=== PATIENT | female | born 1950 | race Caucasian/White ===

== ENCOUNTER 2023-04-10 11:00 | Emergency (ER) | payer MEDICARE, MEDICAID, SELFPAY ==
--- NOTE | ~2023-04-10 | XR_ITS ---
XR chest 2V 04/10/2023 12:11 Indication: Chest pain Procedure: 2 view chest Comparison: Comparison to multiple prior studies sequentially, with oldest reviewed study dated 07/02. Findings: Borderline heart size. Pacemaker leads are stable. Mild pulmonary vascular congestion. No f ocal air space disease, pulmonary edema, pleural effusion or suspected pneumothorax. Impression: 1: No acute cardiopulmonary disease. Reviewed, dictated and finalized at location B. NT SERVICES COORDINATOR Impression: 1: No acute cardiopulmonary disease.
--- NOTE | 2023-04-10 11:04 | ECG_ITS ---
Measurements Intervals [place] Rate: 54 P: 48 FL: 198 QRS: -85 QRSD: 150 T: 44 QT: 494 QTc: 470 Interpretive Statements SINUS BRADYCARDIA MARKED LEFT AXIS DEVIATION [QRS AXIS < -30] RIGHT BUNDLE BRANCH BLOCK [120+ ms QRS DURATION, UPRIGHT V1, 40+ ms S IN I/aVL/V4/V5/V6] PROBABLE OLD aNTEROSEPTAL MYOCARDIAL INFARCTION NO PREVIOUS ECG AVAILABLE FOR COMPARISON Electronically Signed On 04-10-2023 12:11:21 GLOVE FINISHER by Iveth Justice M.D.
[2023-04-10 11:09] VITALS: BP 111/47; PULSE 52; RESP 18; TEMP 36.4; O2SAT 93
[2023-04-10 11:25] LABS: Basophils Absolute Auto 0.1 K/mm3 (0.0-0.1); Basophils Percent Auto 0.6 % (0.2-1.2); Eosinophils Absolute Auto 0.7 K/mm3 (0-0.3); Eosinophils Percent Auto 5.5 % (0-4.4); Hematocrit 36.9 % (37.0-47.0); Hemoglobin 11.2 g/dL (12.0-15.0); Immature Granulocyte Percent A 0.8 % (0-0.5); Lymphocytes Absolute Auto 2.78 K/mm3 (0.9-3.2); Lymphocytes Percent Auto 23.4 % (18.3-44.2); Mean Corpuscular HGB Conc 30.4 g/dl (32-36); Mean Corpuscular Hemoglobin 27.3 pg (26-34); Mean Corpuscular Volume 89.8 fl (80-100); Mean Platelet Volume 9.3 fl (7.4-10.4); Monocytes Absolute Auto 1.1 K/mm3 (0.1-0.6); Monocytes Percent Auto 9.6 % (2.6-8.5); Neutrophils Absolute Auto 7.2 K/mm3 (1.3-6.7); Neutrophils Percent Auto 60.1 % (45.5-73.1); Platelet Count Result 361 k/mm3 (150-375); Red Blood Count 4.11 M/mm3 (4.2-5.4); Red Cell Distribution Width 16.7 % (11.5-14.5); White Blood Count 11.9 K/mm3 (4.5-10.0)
[2023-04-10 11:38] LABS: Alanine Aminotransferase 26 U/L (6-35); Albumin Level 3.2 g/dL (3.5-5.1); Alkaline Phosphatase 131 U/L (38-126); Anion Gap 4 mmol/L (8-16); Aspartate Amino Transferase 38 U/L (14-36); Bilirubin,Total 0.6 mg/dL (0.2-1.3); Blood Urea Nitrogen 16 mg/dL (7-17); Calcium 8.5 mg/dL (8.4-10.2); Carbon Dioxide 32 mmol/L (22-30); Chloride 97 mmol/L (98-107); Estimated Glomerular Filt Rate 54; Glucose 110 mg/dL (65-110); Lipase 93 U/L (23-300); Sodium 133 mmol/L (137-145)
[2023-04-10 11:39] LABS: INR 1.1; Prothrombin Time 14.6 Seconds (11.1-14.7)
[2023-04-10 11:40] LABS: Partial Thromboplastin Time 26.8 SECONDS (22.3-36.8)
[2023-04-10 11:49] LABS: Troponin I < 0.012 ng/mL (0.000-0.034)
[2023-04-10 16:08] VITALS: BP 102/46; PULSE 52; RESP 21; O2SAT 92
[2023-04-10 16:36] VITALS: PULSE 51
[2023-04-10 16:57] VITALS: BP 108/92; PULSE 53; RESP 21; O2SAT 91
--- NOTE | 2023-04-10 16:59 | ECG_ITS ---
Measurements Intervals [place] Rate: 51 P: 48 [place]: 210 QRS: -83 QRSD: 158 T: 50 QT: 512 QTc: 473 Interpretive Statements ELECTRONIC ATRIAL PACEMAKER RIGHT BUNDLE BRANCH BLOCK [120+ ms QRS DURATION, UPRIGHT V1, 40+ ms S IN I/aVL/V4/V5/V6] LEFT ANTERIOR FASCICULAR BLOCK [QRS AXIS <= -45, QR IN I, RS IN II] POOR R-WAVE PROGRESSION, CANNOT RULE OUT OLD ANTERIOR DC. COMPARED TO ECG 04/10/2023 11:11:53 NO SIGNIFICANT CHANGE Electronically Signed On 04-10-2023 17:34:33 CHOKER SETTER by Iveth Justice M.D.
[2023-04-10] MEDS: ASPIRIN 81 MG CHEWABLE TABLET 324 MG PO (17:06)
[2023-04-10 17:22] VITALS: O2SAT 96
--- NOTE | 2023-04-10 17:23 | PC.NURSE ---
Pt placed on 2 L NC O2 due to PMH of COPD w/ PRN O2 use and sat of 91% on room air and pain w/ inspiration. Pulse OX now 96% on 2 L NC.
[2023-04-10 17:34] LABS: NT Pro B Type Natriuretic Pept 1630 pg/mL (19.9-100); Troponin I 0.012 ng/mL (0.000-0.034)
[2023-04-10 18:12] VITALS: BP 118/59; PULSE 69; RESP 21; O2SAT 96
--- NOTE | 2023-04-10 18:30 | ED.CHESTPAIN ---
HPI - Chest Pain General Chief Complaint: Chest Pain Stated Complaint: chest pain, feet swelling, balance off Time Seen by Provider: 04/10/23 16:39 History of Present Illness HPI narrative: 72-year-old female presenting to the ED for evaluation of intermittent chest pain that has been occurring for the last few weeks. Patient denies any current chest pain or shortness of breath in the ED today. Patient denies any fevers falls or injuries. Patient states she has been having increased lower extremity swelling as well. Related Data Allergies Allergy/AdvReac Type Severity Reaction Status Date / Time No Known Allergies Allergy Unverified 06/04/17 06:10 Review of Systems Review of Systems: All systems reviewed & are unremarkable except as noted in HPI and below Exam Narrative: APPEARANCE: Well appearing, no pain, no distress, well-nourished. HEAD: normocephalic, atraumatic. EYES: PERRLA/EOMI, conjunctivae clear. NOSE: Normal no drainage EARS:TMS clear with good light reflex. THROAT: Pharynx clear, no exudate. NECK: Supple. No adenopathy, no masses. RESPIRATORY: Airway patent, respirations nonlabored. Clear to auscultation bilaterally, no rales, rhonchi, wheezing. CARDIOVASCULAR: Regular rate and rhythm without murmurs rubs or gallops. ABDOMINAL: Soft, nontender, nondistended, normal bowel sounds MUSCULOSKELETAL: No significant lower extremity edema NEURO: Alert. Cranial nerves II through XII intact. grossly intact SKIN: Warm, dry. Normal Color Course Course Emergency Course: 72-year-old female present to the ED for evaluation of intermittent chest pain. Patient denies any current chest pain. Patient was afebrile but does have a leukocytosis 11.9. Hemoglobin is stable at 1.2. Patient has no significant abnormalities on her CMP. Patient does have an elevated BNP but chest x-ray shows no Significant pulmonary edema and patient has no lower extremity edema. Patient was able to ambulate at her baseline. While ambulating patient denied any chest pain shortness of breath. Patient was encouraged to have close follow-up with her primary care physician. Vital Signs Vital signs: Vital Signs Temperature 97.5 F L 04/10/23 11:09 Pulse Rate 52 L 04/10/23 11:09 Respiratory Rate 18 04/10/23 11:09 Blood Pressure 111/47 L 04/10/23 11:09 Pulse Oximetry 93 04/10/23 11:09 Temperature 97.5 F L 04/10/23 11:09 Pulse Rate 69 04/10/23 18:12 Respiratory Rate 21 H 04/10/23 18:12 Blood Pressure 118/59 L 04/10/23 18:12 Pulse Oximetry 96 04/10/23 18:12 Oxygen Delivery Nasal Cannula 04/10/23 17:22 Oxygen Flow Rate 2 04/10/23 17:22 MDM - Chest Pain Differential Diagnosis Differential diagnosis: Likely atypical chest pain and chest pain Lab Data Attestation: I reviewed the patient's lab results. 04/10/23 11:16 04/10/23 11:16 Labs: Lab Results 04/10/23 04/10/23 04/10/23 Range/Units 11:16 16:59 16:59 WBC 11.9 H (4.5-10.0) K/mm3 RBC 4.11 L (4.2-5.4) M/mm3 Hgb 11.2 L (12.0-15.0) g/dL Hct 36.9 L (37.0-47.0) % MCV 89.8 (80-100) fl MCH 27.3 (26-34) pg MCHC 30.4 L (32-36) g/dl RDW 16.7 H (11.5-14.5) % Plt Count 361 (150-375) k/mm3 MPV 9.3 (7.4-10.4) fl Immature Gran % (Auto) 0.8 H (0-0.5) % Neut % (Auto) 60.1 (45.5-73.1) % Lymph % (Auto) 23.4 (18.3-44.2) % [place] % (Auto) 9.6 H (2.6-8.5) % Eos % (Auto) 5.5 H (0-4.4) % Baso % (Auto) 0.6 (0.2-1.2) % Lymph # (Auto) 2.78 (0.9-3.2) K/mm3 [place] # (Auto) 1.1 H (0.1-0.6) K/mm3 Eos # (Auto) 0.7 H (0-0.3) K/mm3 Baso # (Auto) 0.1 (0.0-0.1) K/mm3 Abs Immat Gran (auto) 0.10 H (0.00-0.031) K/mm3 Absolute Neuts (auto) 7.2 H (1.3-6.7) K/mm3 Absolute Nucleated RBC 0.0 (0.0-0.012) K/mm3 Nucleated RBC % 0.0 (0.0-0.2) % PT 14.6 (11.1-14.7) Seconds INR 1.1 APTT 26.8 (22.3-36.8) SECONDS Sodium 133
== END 2023-04-10 18:57 | disposition home or self-care (01) ==
PROVIDERS: Emergency Provider Emergency Medicine
DX: R07.89 Other chest pain (principal); R00.1 Bradycardia, unspecified; I45.2 Bifascicular block
CPT/HCPCS: 36415; 71046; 80053; 83690; 83880; 84484; 85025; 85610; 85730; 93005; 99284; A9270

== ENCOUNTER 2023-04-18 05:09 | Inpatient (IN) | payer MEDICARE, MEDICAID, SELFPAY ==
[2023-04-18] VITALS (25 sets, daily range): BP systolic 106–150; BP diastolic 58–82; PULSE 55–85; RESP 14–39; TEMP 36–37.2; O2SAT 80–100; BMI 26.6
--- NOTE | ~2023-04-18 | XR_ITS ---
Portable chest x-ray Comparison: 04/19/2023 Clinical History: Influenza Findings: Minimal patchy haziness the right lung noted. Left lung clear. Cardiomediastinal silhouet te is stable, with pacemaker device. Bones and soft tissues are unremarkable. Impression: Minimal patchy haziness right lung, nonspecific. Correlate for asymmetric pulmonary edema or infectio n. Stable cardiomegaly with pacemaker device. Reviewed, dictated and finalized at location . R LAYER HELPER Impression: Minimal patchy haziness right lung, nonspecific. Correlate for asymmetric pulmo nary edema or infection. Stable cardiomegaly with pacemaker device.
--- NOTE | ~2023-04-18 | XR_ITS ---
Portable chest x-ray Comparison: 04/18/2023 Clinical History: Influenza Findings: Patchy bilateral pulmonary disease is mildly improved from prior exam. Cardiomediastinal silhouette is stable, with pacemaker device. Bones and soft tissues are unremarkable. Impression: Mild interval improvement in patchy bilateral pulmonary disease. Reviewed, dictated and finalized at [facility]. LINE REPAIRER Impression: Mild interval improvement in patchy bilateral pulmonary disease.
--- NOTE | ~2023-04-18 | XR_ITS ---
Portable chest x-ray Comparison: 04/10/2023 Clinical History: Shortness of breath Findings: There is extensive hazy pulmonary consolidation bilaterally. No definite pleural effusion. Cardiomediastinal silhouette is stable, with pacemaker device. Bones and soft tissues are unremarka ble. Impression: Extensive airspace consolidation bilaterally. Correlate for pulmonary edema versus extensive pneumoni a. Reviewed, dictated and finalized at [facility]. TRICIAN AIRCRAFT Impression: Extensive airspace consolidation bilaterally. Correlate for pulmonary edema ricardo billie extensive pneumonia.
--- NOTE | 2023-04-18 05:23 | ECG_ITS ---
Measurements Intervals [place] Rate: 86 P: 214 [place]: 159 QRS: -89 QRSD: 168 T: 44 QT: 358 QTc: 430 Interpretive Statements SINUS RHYTHM WITH A FIRST-DEGREE AV BLOCK MARKED LEFT AXIS DEVIATION [QRS AXIS < -30] RIGHT BUNDLE BRANCH BLOCK [120+ ms QRS DURATION, UPRIGHT V1, 40+ ms S IN I/aVL/V4/V5/V6] CAN NOT RULE OUT ANTERIOR MYOCARDIAL INFARCTION, AGE INDETERMINATE ABNORMAL ECG COMPARED TO ECG 04/10/2023 17:09:09 ECTOPIC ATRIAL RHYTHM NOW PRESENT LEFT-AXIS DEVIATION NOW PRESENT Electronically Signed On 04-18-2023 14:01:41 BUS DRIVER/MONITOR by Abdelrahman Bashir M.D.
--- NOTE | 2023-04-18 05:28 | ED.GENADULT ---
HPI - General Adult General Chief complaint: Shortness of Breath/Dyspnea Stated complaint: SOB, ANXIOUS Time Seen by Provider: 04/18/23 05:19 History of Present Illness HPI narrative: patient is a 72-year-old female presents the emergency department with chief complaint of shortness of breath patient states that she started having difficulty breathing this evening and reports that he got worse decided to call EMS when EMS arrived they found the patient hypoxic and tripoding the tip to give the patient breathing treatment without relief Related Data Allergies Allergy/AdvReac Type Severity Reaction Status Date / Time No Known Allergies Allergy Unverified 06/04/17 06:10 Review of Systems Review of Systems: A 10 system review of systems was completed on the patient and is negative except for what is stated in the HPI. Nursing and ancillary documentation was reviewed. Exam Narrative: GENERAL: Well-appearing, well-nourished, and in moderate acute respiratorydistress. HEAD: Normocephalic, atraumatic. EYES: PERRLA and EOMI. ENT: Nares clear, no rhinorrhea or epistaxis. Mucous membranes moist. NECK: Supple. CHEST: Clear to auscultation. moderate respiratory distress. HEART: Regular rate and rhythm. No murmur heard. Normal peripheral pulses. ABDOMEN: Soft, nontender, nondistended, normal active bowel sounds. EXTREMITIES: Normal range of motion. No edema. SKIN: Warm, dry, no rash. NEURO: No focal deficits. Alert and oriented x3. PSYCH: Normal mood and affect. Course Vital Signs Vital signs: Vital Signs Pulse Rate 85 04/18/23 05:11 Respiratory Rate 36 H 04/18/23 05:11 Pulse Oximetry 80 L 04/18/23 05:11 Oxygen Delivery Nasal Cannula 04/18/23 05:11 Oxygen Flow Rate 6 04/18/23 05:11 Pulse Rate 78 04/18/23 06:25 Respiratory Rate 30 H 04/18/23 06:25 Pulse Oximetry 99 04/18/23 06:25 Oxygen Delivery BiPAP 04/18/23 05:58 Oxygen Flow Rate 4 04/18/23 05:57 Medical Decision Making Vital Signs Vital Signs: Vital Signs Pulse Rate 85 04/18/23 05:11 Respiratory Rate 36 H 04/18/23 05:11 Pulse Oximetry 80 L 04/18/23 05:11 Oxygen Delivery Nasal Cannula 04/18/23 05:11 Oxygen Flow Rate 6 04/18/23 05:11 Pulse Rate 78 04/18/23 06:25 Respiratory Rate 30 H 04/18/23 06:25 Pulse Oximetry 99 04/18/23 06:25 Oxygen Delivery BiPAP 04/18/23 05:58 Oxygen Flow Rate 4 04/18/23 05:57 Lab Data 04/18/23 05:31 04/18/23 05:31 Labs: Lab Results 04/18/23 04/18/23 04/18/23 Range/Units 05:31 05:49 06:28 WBC 23.4 H (4.5-10.0) K/mm3 RBC 4.79 (4.2-5.4) M/mm3 Hgb 12.8 (12.0-15.0) g/dL Hct 44.0 (37.0-47.0) % MCV 91.9 (80-100) fl MCH 26.7 (26-34) pg MCHC 29.1 L (32-36) g/dl RDW 17.0 H (11.5-14.5) % Plt Count 508 H (150-375) k/mm3 MPV 10.2 (7.4-10.4) fl Immature Gran % (Auto) Not Reportable Neut % (Auto) Not Reportable Lymph % (Auto) Not Reportable [place] % (Auto) Not Reportable Eos % (Auto) Not Reportable Baso % (Auto) Not Reportable Lymph # (Auto) Not Reportable [place] # (Auto) Not Reportable Eos # (Auto) Not Reportable Baso # (Auto) Not Reportable Abs Immat Gran (auto) Not Reportable Absolute Neuts (auto) Not Reportable Absolute Nucleated RBC Not Reportable Total Counted 100 Neutrophils % (Manual) 61 (46-73) % Band Neutrophils % 2 (0-6) % Lymphocytes % (Manual) 34.0 (18-44) % Monocytes % (Manual) 2 L (3-9) % Eosinophils % (Manual) 1 (0-4) % Nucleated RBC % Not Reportable Abs Neuts (Manual) 14.74 H (1.7-7.2) K/mm3 Abs Lymphs (Manual) 7.95 H (1.1-4.5) K/mm3 Abs Monocytes (Manual) 0.46 (0.1-0.90) K/mm3 Absolute Eos (Manual) 0.23 (0.02-0.5) K/mm3 Smudge Cells Present Platelet Estimate Increased (Adequate) Poikilocytosis 2+ (NORMAL) Anisocy
[2023-04-18] MEDS: methylPREDNISolone SOD SUCC 125 MG VIAL IV PUSH (05:32)
[2023-04-18] MEDS: ONDANSETRON INJ 4 MG/2 ML VIAL IV PUSH (05:33)
[2023-04-18 05:43] LABS: Hemoglobin 12.8 g/dL (12.0-15.0); Mean Corpuscular HGB Conc 29.1 g/dl (32-36); Mean Corpuscular Hemoglobin 26.7 pg (26-34); Mean Corpuscular Volume 91.9 fl (80-100); Mean Platelet Volume 10.2 fl (7.4-10.4); Platelet Count Result 508 k/mm3 (150-375); Red Blood Count 4.79 M/mm3 (4.2-5.4); White Blood Count 23.4 K/mm3 (4.5-10.0)
[2023-04-18 05:56] LABS: INR 1.1; Partial Thromboplastin Time 26.1 SECONDS (22.3-36.8); Prothrombin Time 15.1 Seconds (11.1-14.7)
[2023-04-18 06:00] LABS: Lactic Acid Reflex 3.7 mmol/L (0.7-2.0)
[2023-04-18 06:02] LABS: Alveolar/Arterial O2 Gradient 246.7 mmHg; Base Excess ABG -3.1 mEq/l (+/-2.0); Fractional Inspired Oxygen 50 %; HCO3 ABG 25.1 mEq/l (22.0-26.0); Oxygen Content ABG 12.2 %vol (16.0-22.0); PCO2 ABG 59.7 mmHg (35.0-45.0); PO2 FiO2 Ratio Arterial Blood 0.85 %; Total Hemoglobin 12.6 g/dL (12.0-18.0)
[2023-04-18 06:05] LABS: Alanine Aminotransferase 92 U/L (6-35); Albumin Level 3.6 g/dL (3.5-5.1); Alkaline Phosphatase 185 U/L (38-126); Anion Gap 9 mmol/L (8-16); Aspartate Amino Transferase 115 U/L (14-36); Bilirubin,Total 1.2 mg/dL (0.2-1.3); Blood Urea Nitrogen 24 mg/dL (7-17); Calcium 9.4 mg/dL (8.4-10.2); Carbon Dioxide 30 mmol/L (22-30); Chloride 99 mmol/L (98-107); Estimated Glomerular Filt Rate > 60; Glucose 197 mg/dL (65-110); Potassium 4.2 mmol/L (3.4-5.0); Sodium 138 mmol/L (137-145)
[2023-04-18 06:05] LABS: pH ABG 7.242 (7.350-7.450)
[2023-04-18 06:06] LABS: Oxygen Saturation ABG 69.1 % (95.0-100.0); PO2 ABG 42.6 mmHg (80.0-100.0)
[2023-04-18 06:08] LABS: Oxyhemoglobin 69.1 % THb (90.0-100.0)
[2023-04-18 06:09] LABS: Device BIPAP; Modified Allen's Test Pass; Site Drawn LEFT RADIAL
[2023-04-18 06:10] LABS: Expiratory Pressure 6 cmH2O; Inspiratory Pressure 12 cmH2O
[2023-04-18 06:11] LABS: Anisocytosis 2+ (NORMAL); Band Neutrophils Percent 2 % (0-6); Eosinophils Absolute Manual 0.23 K/mm3 (0.02-0.5); Eosinophils Percent Manual 1 % (0-4); Lymphocytes Absolute Manual 7.95 K/mm3 (1.1-4.5); Monocytes Absolute Manual 0.46 K/mm3 (0.1-0.90); Monocytes Percent Manual 2 % (3-9); Neutrophils Absolute Manual 14.74 K/mm3 (1.7-7.2); Neutrophils Percent Manual 61 % (46-73); Platelet Estimate Increased (Adequate); Poikilocytosis 2+ (NORMAL); Schistocytes None Seen (NORMAL); Smudge Cells PRESENT; Total Cells Counted 100
[2023-04-18 06:13] LABS: Troponin I 0.014 ng/mL (0.000-0.034)
[2023-04-18 06:14] LABS: NT Pro B Type Natriuretic Pept 9320 pg/mL (19.9-100)
[2023-04-18 06:18] LABS: Influenza A QL RT-PCR Positive (Negative); Influenza B QL RT-PCR Negative (Negative); Procalcitonin 0.2 ng/mL; RSV RNA, RT-PCR Negative (Negative); SARS-CoV-2 RNA PCR Negative (Negative)
[2023-04-18 06:38] LABS: Appearance Urine Clear (Clear); Bacteria Urine 1+ /hpf; Bilirubin Urine Negative (Negative); Blood Urine 1+ (Negative); Color Urine Yellow (Yellow); Glucose Urine UA 3+ mg/dL (Negative); Ketones Urine Negative (Negative); Leukocyte Esterase Ur Negative LEU/UL (Negative); Nitrate Urine Negative (Negative); Protein Urine 2+ mg/dL (Negative); Specific Grav Ur 1.028 (1.001-1.035); Squamous Epithelial Cell Urine Occasional /hpf (Few); WBC Urine 0-5 /hpf; pH Urine 5.5 (5.0-9.0)
[2023-04-18 06:52] LABS: Add Urine Microscopic? YES
--- NOTE | 2023-04-18 06:58 | PM.IMHP ---
H&P: HPI History of Present Illness Date/Time: 04/18/23 06:58 Chief Complaint: SOB Narrative: patient is a 72-year-old female presents the emergency department with chief complaint of shortness of breath patient states that she started having difficulty breathing this evening and reports that he got worse decided to call EMS when EMS arrived they found the patient hypoxic and tripoding the tip to give the patient breathing treatment without relief. She was evaluated and found to be in respiratory failure and BIPAP was intitated immediately, antibiotics, steroid and breathing treatment already given. I was consulted to admit patient for further management Review of Systems Review of Systems: All systems reviewed & are unremarkable except as noted in HPI and below Meds Home Medications and Allergies Allergies Allergy/AdvReac Type Severity Reaction Status Date / Time No Known Allergies Allergy Unverified 06/04/17 06:10 Vital Signs Vital Signs - 24 hr 04/18/23 05:11 04/18/23 05:57 04/18/23 05:58 Pulse Rate 85 Respiratory Rate 36 H Pulse Oximetry 80 L 84 L 96 Oxygen Delivery Nasal Cannula Nasal Cannula BiPAP Oxygen Flow Rate 6 4 04/18/23 06:25 04/18/23 05:58 Pulse Rate 78 82 Respiratory Rate 30 H 39 H Pulse Oximetry 99 96 Oxygen Delivery BiPAP Oxygen Flow Rate Exam Narrative: GENERAL: acutely ill looking patient in moderate distress. HEAD: Normocephalic, atraumatic. EYES: PERRLA and EOMI. ENT: Nares clear, no rhinorrhea or epistaxis.?dry membranes moist. NECK: Supple. CHEST: Tachypneic, bilateral expiratory wheezes with rales. HEART: Regular rate and rhythm.? No murmur heard.? Normal peripheral pulses,no edema. ABDOMEN: Soft, nontender, nondistended, normal active bowel sounds. EXTREMITIES: Normal range of motion.? No edema. SKIN: Warm, dry, no rash. NEURO: No focal deficits.? Alert and oriented x3. PSYCH: Normal mood and affect. ? H&P: Results Labs Labs: Short CBC 04/18/23 Range/Units 05:31 WBC 23.4 H (4.5-10.0) K/mm3 Hgb 12.8 (12.0-15.0) g/dL Hct 44.0 (37.0-47.0) % Plt Count 508 H (150-375) k/mm3 BMP 04/18/23 05:31 Sodium 138 Potassium 4.2 Chloride 99 Carbon Dioxide 30 BUN 24 H Creatinine 0.80 Glucose 197 H Calcium 9.4 Cardiac Enzymes 04/18/23 Range/Units 05:31 Troponin I 0.014 (0.000-0.034) ng/mL Liver Function 04/18/23 Range/Units 05:31 Total Bilirubin 1.2 (0.2-1.3) mg/dL AST 115 H (14-36) U/L ALT 92 H (6-35) U/L Alkaline Phosphatase 185 H (38-126) U/L Albumin 3.6 (3.5-5.1) g/dL Urine 04/18/23 Range/Units 06:28 Urine Color Yellow (Yellow) Urine Appearance Clear (Clear) Urine pH 5.5 (5.0-9.0) Ur Specific [place] 1.028 (1.001-1.035) Urine Protein 2+ H (Negative) mg/dL Urine Glucose (UA) 3+ H (Negative) mg/dL ECG Interpretation: Sinus rhythm, normal RI, left axis deviation, RBBB, no acute ST-T wave changes Imaging Chest x-ray: Radiologist's impression: mpression: ? Extensive airspace consolidation bilaterally. Correlate for pulmonary edema versus extensive pneumonia. Assessment and Plan Assessment and plan (1) Acute hypoxemic respiratory failure: Code(s): J96.01 - Acute respiratory failure with hypoxia Status: Acute (2) Acute hypercapnic respiratory failure: Code(s): J96.02 - Acute respiratory failure with hypercapnia Status: Acute (3) Bilateral pneumonia: Code(s): J18.9 - Pneumonia, unspecified organism Status: Acute (4) Influenza A: Code(s): J10.1 - Influenza due to other identified influenza virus with other respiratory manifestations Status: Acute Plan Patient will be admitted to inpatient for further management, he is currently on BIPAP, will repeat ABG in an hour and make changes accordingly,, continue antibiotics - ceftriaxone and azithromycin. She appears dehydrated and she will be g
[2023-04-18] MEDS: IPRATROPIUM BR 0.02% INH SOLN 0.5 MG/2.5 ML VIAL INHALATION ×3 (07:00→21:17)
[2023-04-18] MEDS: ALBUTEROL SULFATE NEB 2.5 MG/3 ML INH INHALATION ×3 (07:00→21:18)
[2023-04-18] MEDS: FUROSEMIDE INJ 40 MG/4 ML VIAL IV PUSH (07:02)
[2023-04-18] MEDS: AZITHROMYCIN 500 MG/NS 250 ML 500 MG/250 ML BAG 250 MG IVPB (08:29)
[2023-04-18] MEDS: SODIUM CHLORIDE 0.9% IV 1,000 ML 999 ML IV CONT (08:31)
[2023-04-18 08:40] LABS: Reflex Lactic Acid Yes or No Add Lactic
--- NOTE | 2023-04-18 08:40 | ECG_ITS ---
Measurements Intervals [place] Rate: 70 P: 55 MD: 212 QRS: -83 QRSD: 169 T: 18 QT: 386 QTc: 416 Interpretive Statements SINUS RHYTHM WITH FIRST DEGREE AV BLOCK MARKED LEFT AXIS DEVIATION [QRS AXIS < -30] RIGHT BUNDLE BRANCH BLOCK [120+ ms QRS DURATION, UPRIGHT V1, 40+ ms S IN I/aVL/V4/V5/V6] ANTEROSEPTAL MYOCARDIAL INFARCTION , OF INDETERMINATE AGE [40+ ms Q WAVE IN V1-V4] ABNORMAL ECG COMPARED TO ECG 04/18/2023 05:27:21 FIRST DEGREE AV BLOCK NOW PRESENT Electronically Signed On 04-18-2023 14:03:59 R D INTERN by Abdelrahman Bashir M.D.
[2023-04-18 09:05] LABS: Lactic Acid 1.6 mmol/L (0.7-2.0)
[2023-04-18 09:09] LABS: Alveolar/Arterial O2 Gradient 203.2 mmHg; Base Excess ABG 5.4 mEq/l (+/-2.0); Fractional Inspired Oxygen 50 %; HCO3 ABG 30.7 mEq/l (22.0-26.0); Oxygen Content ABG 15.8 %vol (16.0-22.0); Oxygen Saturation ABG 97.6 % (95.0-100.0); Oxyhemoglobin 95.5 % THb (90.0-100.0); PO2 ABG 99.3 mmHg (80.0-100.0); PO2 FiO2 Ratio Arterial Blood 1.99 %; Total Hemoglobin 11.7 g/dL (12.0-18.0); pH ABG 7.424 (7.350-7.450)
[2023-04-18 09:12] LABS: Device BIPAP; Site Drawn RIGHT BRACHIAL
[2023-04-18 09:13] LABS: Expiratory Pressure 6 cmH2O; Inspiratory Pressure 12 cmH2O
[2023-04-18 09:17] LABS: Troponin I 0.033 ng/mL (0.000-0.034)
[2023-04-18] MEDS: OSELTAMIVIR PHOSPHATE 75 MG CAPSULE PO ×2 (09:50→21:02)
[2023-04-18] MEDS: ENOXAPARIN 40 MG/0.4 ML SYRINGE SUB-Q (09:52)
--- NOTE | 2023-04-18 09:57 | PM.IMPN ---
Progress Note: A&P Assessment and Plan (1) Acute hypoxemic respiratory failure: Code(s): J96.01 - Acute respiratory failure with hypoxia Status: Acute (2) Acute hypercapnic respiratory failure: Code(s): J96.02 - Acute respiratory failure with hypercapnia Status: Acute (3) Bilateral pneumonia: Code(s): J18.9 - Pneumonia, unspecified organism Status: Acute (4) Influenza A: Code(s): J10.1 - Influenza due to other identified influenza virus with other respiratory manifestations Status: Acute Plan patient is a 72-year-old female presents the emergency department with chief complaint of shortness of breath patient states that she started having difficulty breathing this evening and reports that he got worse decided to call EMS when EMS arrived they found the patient hypoxic and tripoding the tip to give the patient breathing treatment without relief. She was evaluated and found to be in respiratory failure and BIPAP was intitated immediately, antibiotics, steroid and breathing treatment already given. Multifocal pneumonia Better pneumonia superimposed with his influenza a infection Extensive airspace consolidation bilaterally Correlate for pulmonary edema versus extensive pneumonia. currently on BIPAP, will repeat ABG in an hour and make changes accordingly,, on ceftriaxone and azithromycin. ordered echocardiogram Received Lasix 40 mg once in the ED Continue Tamiflu, azithromycin 500 mg IV daily and switch from ceftriaxone from 1 g to cefepime 2 g IV q.8 hours Consult scroll machine operator for evaluation and treatment Sepsis Leukocytosis 23,400, tachypnea, lactic acidosis Likely secondary to multifocal pneumonia Received fluid resuscitation Follow-up blood culture Acute respiratory failure is hypoxemia and hypercapnia Patient is on BiPAP Repeated ABG suggesting improving CO2 retention and oxygenation Subjective Date/time seen: 04/18/23 09:57 Interval history: I saw and examined patient today. Patient still somnolent, on BiPAP, poor historian, unreliable history. Patient feels better, shortness breast improving Exam Narrative: GENERAL: acutely ill looking patient in moderate distress. HEAD: Normocephalic, atraumatic. EYES: PERRLA and EOMI. ENT: Nares clear, no rhinorrhea or epistaxis.?dry membranes moist. NECK: Supple. CHEST: Tachypneic, bilateral expiratory wheezes with rales. HEART: Regular rate and rhythm.? No murmur heard.? Normal peripheral pulses,no edema. ABDOMEN: Soft, nontender, nondistended, normal active bowel sounds. EXTREMITIES: Normal range of motion.? No edema. SKIN: Warm, dry, no rash. NEURO: No focal deficits.? Oblique, somnolent, not oriented x3. PSYCH: Normal mood and affect. ? Objective Data Vital Signs Vital Signs: Vital Signs - 24 hr 04/18/23 05:11 04/18/23 05:57 04/18/23 05:58 Temperature Pulse Rate 85 Respiratory Rate 36 H Blood Pressure Pulse Oximetry 80 L 84 L 96 Oxygen Delivery Nasal Cannula Nasal Cannula BiPAP Oxygen Flow Rate 6 4 04/18/23 06:25 04/18/23 05:58 04/18/23 06:50 Temperature Pulse Rate 78 82 72 Respiratory Rate 30 H 39 H 28 H Blood Pressure Pulse Oximetry 99 96 100 Oxygen Delivery BiPAP BiPAP Oxygen Flow Rate 04/18/23 06:50 04/18/23 07:00 04/18/23 08:10 Temperature Pulse Rate 72 76 66 Respiratory Rate 28 H 30 H 25 H Blood Pressure 127/61 Pulse Oximetry 98 Oxygen Delivery Oxygen Flow Rate 04/18/23 08:39 04/18/23 09:55 Temperature 97.8 F Pulse Rate 69 65 Respiratory Rate 26 H 25 H Blood Pressure 106/58 L 124/79 Pulse Oximetry 93 98 Oxygen Delivery Oxygen Flow Rate Intake/Output Intake/Output: Intake & Output 04/15/23 04/16/23 04/17/23 04/18/23 23:59 23:59 23:59 23:59 Intake Total 50 Output Total 425 Balance -375 Meds/Results Medications: Active Medications Generic Name Dose Route Start Last Admin Trade Name Freq PRN Reason
[2023-04-18] MEDS: CEFEPIME 2 GM/NS 50 ML 2 GM/50 ML BAG IVPB ×2 (11:41→21:02)
--- NOTE | 2023-04-18 14:30 | ADMGEN ---
This patient, Bibiana Danielle, was admitted to IMU Room 204-01. Patient/family oriented to hospital policies and general routines including ID bracelet, bed and alarms, visiting hours, pain management, procedures, bathroom and other care routines, personal items, smoking policy, room service/diet, and visiting hours. Information on how to activate the Rapid Response Team has been discussed. Patient/Family are encouraged to report perceived risks to care and to ask questions if they do not understand what they are told or what they should do.
[2023-04-18] MEDS: SODIUM CHLORIDE 0.9% IV 1,000 ML 125 ML IV CONT (14:51)
--- NOTE | 2023-04-18 16:15 | PM.CNPUL ---
Assessment and Plan Assessment and plan (1) Influenza A: Code(s): J10.1 - Influenza due to other identified influenza virus with other respiratory manifestations Status: Acute Assessment and Plan: Patient presents with hypoxemic and hypercarbic respiratory failure from influenza a. She has been started on Tamiflu. She was also treated with ceftriaxone and azithromycin for possible bacterial infection. 04/18: When I enter the room the patient was sleeping on BiPAP rate of 12 breathing 20 5 times pressures 12/5, tidal volumes 281 with 40% FiO2 and saturations 100%. The patient stated that the settings and the air was uncomfortable and I changed her to a noninvasive ventilator mode with an AVAPS rate of 14, tidal volume 450, EPAP 5, minimal inspiratory pressure 6, maximal inspiratory pressure 25, inspiratory time 1.0, rise of 4 and 35% FiO2 with saturations 99%. She had no wheezing on the BiPAP. Plan: Continue Tamiflu 75 mg p.o. b.i.d., today is day 1. She was given steroids in the emergency room and these have been discontinued. I recommend discontinuing all steroids including nailed corticosteroids at this time. Monitor for fluid overload given her cardiac history. Patient can use noninvasive ventilator p.r.n. during the day she should wear the noninvasive ventilator at night. I will obtain an ABG prior to removal in the morning. Will follow with you. (2) COPD (chronic obstructive pulmonary disease): Code(s): J44.9 - Chronic obstructive pulmonary disease, unspecified Status: Acute Assessment and Plan: Patient tells me she carries a history of COPD. She is on no COPD medicines. I have no PFTs. She was had bilateral wheezing on presentation. Plan: Agree with albuterol and ipratropium nebulizers q.4 hours. Will not give steroids at this time. History of Present Illness History of Present Illness Consult date: 04/18/23 Chief complaint: acute vopd exacerbation,hypercapnic respiratory fa Narrative: 04/18/2023: This is a new pulmonary consultation regarding influenza and hypercarbic and hypoxemic respiratory failure. 72-year-old with a history of cardiomyopathy status post AICD, COPD was currently on BiPAP and has difficulty speaking. History obtained from the chart. Patient developed shortness of breath over the last 1-2 days and called EMS and she was in respiratory failure. She is immediately placed on BiPAP in the emergency room. Her 1st blood gas on BiPAP 12/6 and 50% was 7.24/60/43. Her white blood cell count was 23.4. Her creatinine was 0.8, troponins were negative x3, BNP was 1630 with a repeat of 9320. Repeat blood gas 4 hours later was 7.42/48/99. Patient was found to have influenza a RT PCR positive. Chest x-ray showed diffuse interstitial alveolar infiltrates bilaterally. Patient was started on Tamiflu, ceftriaxone, azithromycin and bronchodilators. Patient was admitted to the floor and has been on continuous BiPAP. 04/18: When I enter the room the patient was sleeping on BiPAP rate of 12 breathing 20 5 times pressures 12/5, tidal volumes 281 with 40% FiO2 and saturations 100%. The patient stated that the settings and the air was uncomfortable and I changed her to a noninvasive ventilator mode with an AVAPS rate of 14, tidal volume 450, EPAP 5, minimal inspiratory pressure 6, maximal inspiratory pressure 25, inspiratory time 1.0, rise of 4 and 35% FiO2 with saturations 99%. She had no wheezing on the BiPAP. Review of Systems Review of Systems: ROS unobtainable: Yes unobtainable due to medical condition and other (BiPAP) Meds Home Medications and Allergies Home Medications Medication Instructions Recorded Confirmed Type albuterol sulfate 90 mcg/actuation 90 mcg inhalation DIRECTED 04/18/23 04/18/23 History aerosol inhaler amiodarone 200 mg tablet 200 mg PO BID 04/18/23 04/18/23 History clopidogrel 75 mg tablet 75 mg PO DAILY 04/18/23 04/18/23 History dapaglifl
[2023-04-19] VITALS (28 sets, daily range): BP systolic 110–132; BP diastolic 45–61; PULSE 58–80; RESP 16–20; TEMP 35.9–37.7; O2SAT 92–100
[2023-04-19] MEDS: ALBUTEROL SULFATE NEB 2.5 MG/3 ML INH INHALATION ×6 (00:36→22:33)
[2023-04-19] MEDS: IPRATROPIUM BR 0.02% INH SOLN 0.5 MG/2.5 ML VIAL INHALATION ×6 (00:37→22:33)
[2023-04-19] MEDS: ACETAMINOPHEN 325 MG TABLET 650 MG PO ×2 (04:07→20:01)
[2023-04-19 05:24] LABS: Basophils Percent Auto 0.1 % (0.2-1.2); Hematocrit 36.6 % (37.0-47.0); Hemoglobin 10.8 g/dL (12.0-15.0); Immature Granulocyte Absolute 0.08 K/mm3 (0.00-0.031); Immature Granulocyte Percent A 0.7 % (0-0.5); Lymphocytes Percent Auto 10.1 % (18.3-44.2); Mean Corpuscular HGB Conc 29.5 g/dl (32-36); Mean Corpuscular Hemoglobin 26.4 pg (26-34); Mean Corpuscular Volume 89.5 fl (80-100); Monocytes Absolute Auto 0.5 K/mm3 (0.1-0.6); Monocytes Percent Auto 4.8 % (2.6-8.5); Neutrophils Absolute Auto 9.2 K/mm3 (1.3-6.7); Neutrophils Percent Auto 84.3 % (45.5-73.1); Platelet Count Result 313 k/mm3 (150-375); Red Blood Count 4.09 M/mm3 (4.2-5.4); Red Cell Distribution Width 16.8 % (11.5-14.5); White Blood Count 10.9 K/mm3 (4.5-10.0)
[2023-04-19 05:46] LABS: Anion Gap 4 mmol/L (8-16); Blood Urea Nitrogen 25 mg/dL (7-17); Calcium 8.4 mg/dL (8.4-10.2); Carbon Dioxide 32 mmol/L (22-30); Chloride 105 mmol/L (98-107); Estimated Glomerular Filt Rate > 60; Glucose 97 mg/dL (65-110); Potassium 3.8 mmol/L (3.4-5.0); Sodium 141 mmol/L (137-145)
[2023-04-19] MEDS: AZITHROMYCIN 500 MG/NS 250 ML 500 MG/250 ML BAG 250 MG IVPB (05:49)
--- NOTE | 2023-04-19 06:36 | PCRCNOTE ---
Did not complete 6 A.M. ABG because pt refused to wear BIPAP all night.
[2023-04-19 07:29] LABS: Hypochromasia 1+ (NORMAL); Platelet Estimate Adequate (Adequate); Schistocytes None Seen (NORMAL)
[2023-04-19 07:30] LABS: Anisocytosis 1+ (NORMAL)
--- NOTE | 2023-04-19 08:57 | PM.IMPN ---
Progress Note: A&P Assessment and Plan (1) Acute hypoxemic respiratory failure: Code(s): J96.01 - Acute respiratory failure with hypoxia Status: Acute (2) Acute hypercapnic respiratory failure: Code(s): J96.02 - Acute respiratory failure with hypercapnia Status: Acute (3) Bilateral pneumonia: Code(s): J18.9 - Pneumonia, unspecified organism Status: Acute (4) Influenza A: Code(s): J10.1 - Influenza due to other identified influenza virus with other respiratory manifestations Status: Acute Plan patient is a 72-year-old female presents the emergency department with chief complaint of shortness of breath patient states that she started having difficulty breathing this evening and reports that he got worse decided to call EMS when EMS arrived they found the patient hypoxic and tripoding the tip to give the patient breathing treatment without relief. She was evaluated and found to be in respiratory failure and BIPAP was intitated immediately, antibiotics, steroid and breathing treatment already given. Multifocal pneumonia Better pneumonia superimposed with his influenza a infection Extensive airspace consolidation bilaterally Correlate for pulmonary edema versus extensive pneumonia. currently on BIPAP, will repeat ABG in an hour and make changes accordingly,, on ceftriaxone and azithromycin. ordered echocardiogram Received Lasix 40 mg once in the ED Continue Tamiflu, azithromycin 500 mg IV daily and switch from ceftriaxone from 1 g to cefepime 2 g IV q.8 hours Consult voice pathologist for evaluation and treatment, appreciate Dr Shirley's consultation, dc steroid Fluid over load received lasix iv in ED c/w lasix 40 mg iv daily f/u echo Sepsis Leukocytosis 23,400, tachypnea, lactic acidosis Likely secondary to multifocal pneumonia Received fluid resuscitation Follow-up blood culture Acute respiratory failure is hypoxemia and hypercapnia Patient is on BiPAP Repeated ABG suggesting improving CO2 retention and oxygenation Subjective Date/time seen: 04/19/23 08:57 Interval history: I saw exam patient today. Patient still has cough with some phlegm. No dyspnea at rest, also denies chest pain, abdomen pain. Exam Narrative: GENERAL: acutely ill looking patient in moderate distress. HEAD: Normocephalic, atraumatic. EYES: PERRLA and EOMI. ENT: Nares clear, no rhinorrhea or epistaxis.?dry membranes moist. NECK: Supple. CHEST: Tachypneic, bilateral expiratory wheezes with rales. HEART: Regular rate and rhythm.? No murmur heard.? Normal peripheral pulses,no edema. ABDOMEN: Soft, nontender, nondistended, normal active bowel sounds. EXTREMITIES: Normal range of motion.? No edema. SKIN: Warm, dry, no rash. NEURO: No focal deficits.? Oblique, somnolent, not oriented x3. PSYCH: Normal mood and affect. ? Objective Data Vital Signs Vital Signs: Vital Signs - 24 hr 04/18/23 09:55 04/18/23 10:57 04/18/23 10:57 Temperature Pulse Rate 65 66 66 Respiratory Rate 25 H 27 H 27 H Blood Pressure 124/79 Pulse Oximetry 98 100 Oxygen Delivery BiPAP Oxygen Flow Rate Fraction of Inspired Oxygen 04/18/23 11:07 04/18/23 12:58 04/18/23 13:30 Temperature Pulse Rate 70 67 80 Respiratory Rate 26 H 22 H 30 H Blood Pressure 136/67 Pulse Oximetry 97 100 Oxygen Delivery BiPAP Oxygen Flow Rate Fraction of Inspired Oxygen 04/18/23 14:26 04/18/23 14:49 04/18/23 14:37 Temperature 97.5 F L Pulse Rate 64 Respiratory Rate 28 H 26 H Blood Pressure 135/73 Pulse Oximetry 100 100 Oxygen Delivery BiPAP BiPAP Oxygen Flow Rate Fraction of Inspired Oxygen 40 04/18/23 15:25 04/18/23 15:25 04/18/23 15:35 Temperature Pulse Rate 63 63 66 Respiratory Rate 30 H 30 H 28 H Blood Pressure Pulse Oximetry 99 Oxygen Delivery BiPAP Oxygen Flow Rate Fraction of Inspired Oxygen 04/18/23 16:00 04/18/23 17:45 04/18/23 17:58 Temper
--- NOTE | 2023-04-19 09:01 | ECHO_ITS ---
Patient Info Name: Bibiana Danielle Age: 72 years : 1950 Gender: Female Ht: 59 in Wt: 134 lbs BSA: 1.61 m2 HR: 68 bpm BP: 110 / 61 mmHg Heart Rhythm: Sinus Rhythm Technical Quality: Fair Exam Date: 04/19/2023 12:50 PM Exam Location: Echo Lab Exam Room: [facility] Patient Status: Inpatient Admit Date: 04/19/2023 Staff Ordering Physician: Howie Naranjo MD Noise Tester: Sarah Alfaro RDCS Attending Provider: Carolyne Rodriguez MD Exam Type: CA echo dop color flow w con Study Info Indications - chf PPM Complete two-dimensional, color flow and Doppler transthoracic echocardiogram is performed with contrast to opacify the left ventricle and to improve the deliniation of the left ventricle endocardial borders. Contrast/Agitated Saline Contrast/Ag. Saline: Definity Amount: 2.00 ml Administered By: Sarah Alfaro [facility] Existing IV Access: Yes IV Access Condition: patent with no signs of infiltration Summary 1. Technically challenging exam, definity contrast injected to improve visualization. 2. Left ventricular enlargement with severe hypokinesia as detailed above. 3. Chetan akinesia of the mid to distal anterior wall apex and anteroseptal segments. 4. Presence of ICD lead identified. 5. Small amount of aortic regurgitation. 6. Compared with examination from 2017 the findings are quite similar. Left Ventricle Left ventricular chamber dimension is severely enlarged. Left ventricular systolic function is severely reduced, estimated at 20-25%. The left ventricular diastolic function is abnormal. Right Ventricle Right ventricular chamber dimension is normal. Linear artifact in right ventricle suggestive of catheter(s), pacemaker lead(s), or ICD lead(s). Left Atria Left atrial chamber dimension is moderately enlarged. Right Atria Right atrial chamber dimension is mildly enlarged. Linear artifact in the right atrium suggestive of catheter(s), pacemaker lead(s), or ICD lead(s). Aortic Valve The aortic valve is trileaflet. There is mild aortic valve sclerosis. There is trace aortic valve regurgitation. Pulmonic Valve The pulmonic valve is not well visualized. Mitral Valve The mitral valve has normal leaflets. There is trace mitral valve regurgitation. Tricuspid Valve The tricuspid valve leaflets are normal. Pericardium/Pleural The pericardium appears normal. Aorta The aortic root size at the sinus of Valsalva is normal. Left Ventricular Outflow Tract Name Value Normal LVOT 2D LVOT Diameter 2.01 cm LVOT Doppler LVOT Peak Gradient 6 mmHg LVOT Mean Gradient 3 mmHg LVOT VTI 25.74 cm LVOT VTI/AV VTI Ratio 0.67 LVOT Stroke Volume 81.92 ml LVOT CO 16.56 l/min LVOT CI 10.29 L/min/m2 Pulmonic Valve Name Value Normal PV Doppler
[2023-04-19] MEDS: CEFEPIME 2 GM/NS 50 ML 2 GM/50 ML BAG IVPB ×3 (09:44→21:15)
[2023-04-19] MEDS: ENOXAPARIN 40 MG/0.4 ML SYRINGE SUB-Q (09:45)
[2023-04-19] MEDS: OSELTAMIVIR PHOSPHATE 75 MG CAPSULE PO ×2 (09:45→20:01)
[2023-04-19] MEDS: FUROSEMIDE INJ 40 MG/4 ML VIAL IV PUSH (09:52)
--- NOTE | 2023-04-19 10:19 | PM.PNPUL ---
Progress Note: A&P Assessment and Plan (1) Influenza A: Code(s): J10.1 - Influenza due to other identified influenza virus with other respiratory manifestations Status: Acute Assessment and Plan: Patient presents with hypoxemic and hypercarbic respiratory failure from influenza a. She has been started on Tamiflu. She was also treated with ceftriaxone and azithromycin for possible bacterial infection. 04/18: When I enter the room the patient was sleeping on BiPAP rate of 12 breathing 20 5 times pressures 12/5, tidal volumes 281 with 40% FiO2 and saturations 100%. The patient stated that the settings and the air was uncomfortable and I changed her to a noninvasive ventilator mode with an AVAPS rate of 14, tidal volume 450, EPAP 5, minimal inspiratory pressure 6, maximal inspiratory pressure 25, inspiratory time 1.0, rise of 4 and 35% FiO2 with saturations 99%. She had no wheezing on the BiPAP. Plan: Continue Tamiflu 75 mg p.o. b.i.d., today is day 1. She was given steroids in the emergency room and these have been discontinued. I recommend discontinuing all steroids including nailed corticosteroids at this time. Monitor for fluid overload given her cardiac history. Patient can use noninvasive ventilator p.r.n. during the day she should wear the noninvasive ventilator at night. I will obtain an ABG prior to removal in the morning. 04/19/23: Patient did not tolerate the BiPAP last night has been on 3 L nasal cannula. Patient says she cannot tolerate the BiPAP mask. The patient tells me she is 75% back to her normal. Currently she is on 3 L nasal cannula saturations 99%. I decreased her to room air and her saturations decreased to 90 after 4 minutes and I placed her on 2 L nasal cannula her saturations were 98%. White blood cell count 10.9, creatinine 0.7. Admission weight was 63.9 kg and today she is 61.1 kg. Chest x-ray shows mild improvement in her diffuse interstitial alveolar infiltrates. Plan: Patient cannot tolerate BiPAP at this time. Patient is clinically improving on day 2 of Tamiflu. Her leukocytosis has improved, she is afebrile, her oxygenation has improved and her chest x-ray has improved on day 2 of cefepime and azithromycin. Agree with this treatment. Patient should receive a minimum of 5 days of Tamiflu and people have extended treatment to 10 days for severe disease. Will reassess the patient at [address] Guzman, pulmonary inpatient consultative services will resume on 04/22/2023, call with questions. (2) COPD (chronic obstructive pulmonary disease): Code(s): J44.9 - Chronic obstructive pulmonary disease, unspecified Status: Acute Assessment and Plan: 04/18/23: Patient tells me she carries a history of COPD. She is on no COPD medicines. I have no PFTs. She was had bilateral wheezing on presentation. Plan: Agree with albuterol and ipratropium nebulizers q.4 hours. Will not give steroids at this time. 04/19: No wheezing on exam. Plan: Continue albuterol and ipratropium nebulizers q.4 hours. Subjective Date/time seen: 04/19/23 10:19 Interval history: 04/18/2023:? This is a new pulmonary consultation regarding influenza and hypercarbic and hypoxemic respiratory failure. 72-year-old with a history of cardiomyopathy status post AICD, COPD was currently on BiPAP and has difficulty speaking. History obtained from the chart.? Patient developed shortness of breath over the last 1-2 days and called EMS and she was in respiratory failure.? She is immediately placed on BiPAP in the emergency room.? Her 1st blood gas on BiPAP 12/6 and 50% was 7.24/60/43.? Her white blood cell count was 23.4.? Her creatinine was 0.8, troponins were negative x3, BNP was 1630 with a repeat of 9320.? Repeat blood gas 4 hours later was 7.42/48/99.? Patient was found to have influenza a RT PCR positive.? Chest x-ray showed diffuse interstitial alveolar infiltrates bilaterally.? Patient was starte
[2023-04-19] MEDS: PERFLUTREN LIPID MICROSPHERES 1.5 ML VIAL DILUTED TO 10 ML TOTAL VOLUME IV PUSH (13:10)
--- NOTE | 2023-04-19 13:25 | IVDEFINITY ---
Prior to administration of IV Definity the patient was educated on the risks and benefits of the imaging enhancing agent including potential adverse side effects. The patient verbalized understanding. Allergies were verified. No exclusion criteria were identified and at least one of the following inclusion criteria were met: 1) physician request, 2) patient technically difficult to image (per the [place] [employer]chocardi[employer] guidelines of two or more segments not discernable within the apical view), or 3) questionable left ventricular function. ?
--- NOTE | 2023-04-19 21:36 | ADMGEN ---
This patient, Bibiana Danielle, was admitted to IMU Room [id number]. Patient/family oriented to hospital policies and general routines including ID bracelet, bed and alarms, visiting hours, pain management, procedures, bathroom and other care routines, personal items, smoking policy, room service/diet, and visiting hours. Information on how to activate the Rapid Response Team has been discussed. Patient/Family are encouraged to report perceived risks to care and to ask questions if they do not understand what they are told or what they should do.
[2023-04-20] VITALS (17 sets, daily range): BP systolic 98–139; BP diastolic 50–71; PULSE 62–80; RESP 18–22; TEMP 36–37.1; O2SAT 94–100
[2023-04-20] MEDS: ACETAMINOPHEN 325 MG TABLET 650 MG PO ×2 (00:38→20:05)
[2023-04-20] MEDS: CEFEPIME 2 GM/NS 50 ML 2 GM/50 ML BAG IVPB ×3 (05:04→20:05)
[2023-04-20] MEDS: AZITHROMYCIN 500 MG/NS 250 ML 500 MG/250 ML BAG 250 MG IVPB (05:05)
[2023-04-20] MEDS: IPRATROPIUM BR 0.02% INH SOLN 0.5 MG/2.5 ML VIAL INHALATION ×2 (07:45→21:25)
[2023-04-20] MEDS: ALBUTEROL SULFATE NEB 2.5 MG/3 ML INH INHALATION ×2 (07:45→21:25)
[2023-04-20] MEDS: FUROSEMIDE INJ 40 MG/4 ML VIAL IV PUSH (08:18)
[2023-04-20] MEDS: OSELTAMIVIR PHOSPHATE 75 MG CAPSULE PO ×2 (08:18→20:04)
[2023-04-20] MEDS: ENOXAPARIN 40 MG/0.4 ML SYRINGE SUB-Q (08:18)
--- NOTE | 2023-04-20 09:19 | PM.IMPN ---
Progress Note: A&P Assessment and Plan (1) Acute hypoxemic respiratory failure: Code(s): J96.01 - Acute respiratory failure with hypoxia Status: Acute (2) Acute hypercapnic respiratory failure: Code(s): J96.02 - Acute respiratory failure with hypercapnia Status: Acute (3) Bilateral pneumonia: Code(s): J18.9 - Pneumonia, unspecified organism Status: Acute (4) Influenza A: Code(s): J10.1 - Influenza due to other identified influenza virus with other respiratory manifestations Status: Acute Plan patient is a 72-year-old female presents the emergency department with chief complaint of shortness of breath patient states that she started having difficulty breathing this evening and reports that he got worse decided to call EMS when EMS arrived they found the patient hypoxic and tripoding the tip to give the patient breathing treatment without relief. She was evaluated and found to be in respiratory failure and BIPAP was intitated immediately, antibiotics, steroid and breathing treatment already given. Multifocal pneumonia Better pneumonia superimposed with his influenza a infection Extensive airspace consolidation bilaterally Correlate for pulmonary edema versus extensive pneumonia. currently on BIPAP, will repeat ABG in an hour and make changes accordingly,, on ceftriaxone and azithromycin. ordered echocardiogram Received Lasix 40 mg once in the ED Continue Tamiflu, azithromycin 500 mg IV daily and switch from ceftriaxone from 1 g to cefepime 2 g IV q.8 hours Consult marketing account manager for evaluation and treatment, appreciate Dr Shirley's consultation, dc steroid Fluid over load received lasix iv in ED on lasix 40 mg iv daily f/u echo Fluid overload is improving, negative input output balance-310 mL today Continue IV Lasix Dyspnea is improving continue Lasix Sepsis Leukocytosis 23,400, tachypnea, lactic acidosis Likely secondary to multifocal pneumonia Received fluid resuscitation Follow-up blood [id number], no growth so far Acute respiratory failure is hypoxemia and hypercapnia Patient is on BiPAP Repeated ABG suggesting improving CO2 retention and oxygenation Subjective Date/time seen: 04/20/23 09:19 Interval history: I saw exam patient today. Patient feels dyspnea is improving after receiving Lasix. Patient still has cough, scant phlegm. Denies chest pain, abdomen pain, nausea vomiting Exam Narrative: GENERAL: acutely ill looking patient in moderate distress. HEAD: Normocephalic, atraumatic. EYES: PERRLA and EOMI. ENT: Nares clear, no rhinorrhea or epistaxis.?dry membranes moist. NECK: Supple. CHEST: Tachypneic, bilateral expiratory wheezes with rales. HEART: Regular rate and rhythm.? No murmur heard.? Normal peripheral pulses,no edema. ABDOMEN: Soft, nontender, nondistended, normal active bowel sounds. EXTREMITIES: Normal range of motion.? No edema. SKIN: Warm, dry, no rash. NEURO: No focal deficits.? Oblique, somnolent, not oriented x3. PSYCH: Normal mood and affect. ? Objective Data Vital Signs Vital Signs: Vital Signs - 24 hr 04/19/23 11:00 04/19/23 11:10 04/19/23 12:00 Temperature 99.5 F Pulse Rate 77 79 74 Respiratory Rate 18 20 20 Blood Pressure 110/57 L Pulse Oximetry 92 Oxygen Delivery Oxygen Flow Rate 04/19/23 13:05 04/19/23 10:00 04/19/23 12:00 Temperature 99.5 F Pulse Rate 74 64 80 Respiratory Rate 20 Blood Pressure 110/57 L Pulse Oximetry 92 Oxygen Delivery Oxygen Flow Rate 04/19/23 12:00 04/19/23 16:00 04/19/23 15:00 Temperature 99.9 F H Pulse Rate 76 72 Respiratory Rate 18 20 Blood Pressure 115/48 L Pulse Oximetry 97 96 Oxygen Delivery Nasal Cannula Oxygen Flow Rate 2 04/19/23 15:10 04/19/23 14:00 04/19/23 16:00 Temperature Pulse Rate 76 71 74 Respiratory Rate 20 Blood Pressure Pulse Oximetry Oxygen Delivery Oxygen Flow Rate 04/19/23 18:00 12
[2023-04-20 09:46] LABS: Basophils Percent Auto 0.1 % (0.2-1.2); Eosinophils Absolute Auto 0.1 K/mm3 (0-0.3); Eosinophils Percent Auto 0.9 % (0-4.4); Hemoglobin 11.4 g/dL (12.0-15.0); Immature Granulocyte Absolute 0.09 K/mm3 (0.00-0.031); Immature Granulocyte Percent A 0.8 % (0-0.5); Lymphocytes Absolute Auto 1.18 K/mm3 (0.9-3.2); Lymphocytes Percent Auto 11.1 % (18.3-44.2); Mean Corpuscular Hemoglobin 26.5 pg (26-34); Mean Corpuscular Volume 88.4 fl (80-100); Mean Platelet Volume 10.4 fl (7.4-10.4); Monocytes Absolute Auto 0.7 K/mm3 (0.1-0.6); Monocytes Percent Auto 6.1 % (2.6-8.5); Neutrophils Absolute Auto 8.6 K/mm3 (1.3-6.7); Platelet Count Result 340 k/mm3 (150-375); Red Cell Distribution Width 16.7 % (11.5-14.5); White Blood Count 10.6 K/mm3 (4.5-10.0)
[2023-04-20 09:55] LABS: Anion Gap 5 mmol/L (8-16); Blood Urea Nitrogen 20 mg/dL (7-17); Calcium 8.5 mg/dL (8.4-10.2); Carbon Dioxide 34 mmol/L (22-30); Chloride 96 mmol/L (98-107); Estimated Glomerular Filt Rate > 60; Glucose 200 mg/dL (65-110); Sodium 135 mmol/L (137-145)
--- NOTE | 2023-04-20 12:41 | PC.NURSE ---
This patient, Bibiana Danielle, was transferred to [[id number] ] on 04/20/23 at 1237. Personal belongings sent with patient. Report given to [Dee MELLO ]. Appropriate documentation sent with patient.
--- NOTE | 2023-04-20 14:11 | PCRCNOTE ---
Window of time for administration has passed. See next scheduled administration.
--- NOTE | 2023-04-20 15:06 | PM.PNPUL ---
Progress Note: A&P Assessment and Plan (1) Influenza A: Code(s): J10.1 - Influenza due to other identified influenza virus with other respiratory manifestations Status: Acute Assessment and Plan: Patient presents with hypoxemic and hypercarbic respiratory failure from influenza A. She has been started on Tamiflu. She was also treated with ceftriaxone and azithromycin for possible bacterial infection. 04/18: When I enter the room the patient was sleeping on BiPAP rate of 12 breathing 20 5 times pressures 12/5, tidal volumes 281 with 40% FiO2 and saturations 100%. The patient stated that the settings and the air was uncomfortable and I changed her to a noninvasive ventilator mode with an AVAPS rate of 14, tidal volume 450, EPAP 5, minimal inspiratory pressure 6, maximal inspiratory pressure 25, inspiratory time 1.0, rise of 4 and 35% FiO2 with saturations 99%. She had no wheezing on the BiPAP. Plan: Continue Tamiflu 75 mg p.o. b.i.d., today is day 1. She was given steroids in the emergency room and these have been discontinued. I recommend discontinuing all steroids including nailed corticosteroids at this time. Monitor for fluid overload given her cardiac history. Patient can use noninvasive ventilator p.r.n. during the day she should wear the noninvasive ventilator at night. I will obtain an ABG prior to removal in the morning. 04/19/23: Patient did not tolerate the BiPAP last night has been on 3 L nasal cannula. Patient says she cannot tolerate the BiPAP mask. The patient tells me she is 75% back to her normal. Currently she is on 3 L nasal cannula saturations 99%. I decreased her to room air and her saturations decreased to 90 after 4 minutes and I placed her on 2 L nasal cannula her saturations were 98%. White blood cell count 10.9, creatinine 0.7. Admission weight was 63.9 kg and today she is 61.1 kg. Chest x-ray shows mild improvement in her diffuse interstitial alveolar infiltrates. Patient cannot tolerate BiPAP at this time. Patient is clinically improving on day 2 of Tamiflu. Her leukocytosis has improved, she is afebrile, her oxygenation has improved and her chest x-ray has improved on day 2 of cefepime and azithromycin. Agree with this treatment. Patient should receive a minimum of 5 days of Tamiflu and people have extended treatment to 10 days for severe disease. Will reassess the patient at 5 days. 04/20: gradual improvement, on day #3 Tamiflu, Cefepime and azithromycin. . (2) COPD (chronic obstructive pulmonary disease): Code(s): J44.9 - Chronic obstructive pulmonary disease, unspecified Status: Acute Assessment and Plan: 04/18/23: Patient tells me she carries a history of COPD. She is on no COPD medicines. I have no PFTs. She was had bilateral wheezing on presentation. Plan: Agree with albuterol and ipratropium nebulizers q.4 hours. Will not give steroids at this time. 04/19: No wheezing on exam. Continue albuterol and ipratropium nebulizers q.4 hours. 04/20: She is getting better, slowly. Plan Apr 20: sleep med; Dr Naranjo ordered melatonin 5 mg; I told the RN to make sure she gets it 2 hours before bedtime. K+ replacement; KCL 40 meq po daily; acetazolamide 250 mg po x 1, continue bronchodilators and Tamiflu. Subjective Date/time seen: 04/20/23 15:06 Interval history: 04/18/2023:? This is a new pulmonary consultation regarding influenza and hypercarbic and hypoxemic respiratory failure. 72-year-old with a history of cardiomyopathy status post AICD, COPD was currently on BiPAP and has difficulty speaking. History obtained from the chart.? Patient developed shortness of breath over the last 1-2 days and called EMS and she was in respiratory failure.? She is immediately placed on BiPAP in the emergency room.? Her 1st blood gas on BiPAP 04/10
[2023-04-20] MEDS: MAG HYDROX/AL HYDROX/SIMETH 30 ML UDC PO (15:08)
[2023-04-20] MEDS: acetaZOLAMIDE TAB 250 MG TABLET PO (17:01)
[2023-04-20] MEDS: POTASSIUM CHLORIDE 20 MEQ ER TABLET 40 MEQ PO (17:01)
[2023-04-20] MEDS: MELATONIN 5 MG TABLET PO (20:05)
[2023-04-20] MEDS: ONDANSETRON INJ 4 MG/2 ML VIAL IV PUSH (21:30)
[2023-04-21] VITALS (12 sets, daily range): BP systolic 108–123; BP diastolic 51–56; PULSE 61–77; RESP 16–20; TEMP 36.5–37.1; O2SAT 94–99
[2023-04-21] MEDS: ALBUTEROL SULFATE NEB 2.5 MG/3 ML INH INHALATION ×4 (00:14→20:13)
[2023-04-21] MEDS: IPRATROPIUM BR 0.02% INH SOLN 0.5 MG/2.5 ML VIAL INHALATION ×5 (00:14→20:13)
[2023-04-21] MEDS: CEFEPIME 2 GM/NS 50 ML 2 GM/50 ML BAG IVPB ×3 (05:27→21:34)
[2023-04-21] MEDS: SODIUM CHLORIDE 0.9% IV 500 ML 30 ML (05:27)
[2023-04-21 06:41] LABS: Basophils Percent Auto 0.2 % (0.2-1.2); Eosinophils Absolute Auto 0.2 K/mm3 (0-0.3); Eosinophils Percent Auto 2.6 % (0-4.4); Hematocrit 36.5 % (37.0-47.0); Hemoglobin 10.6 g/dL (12.0-15.0); Immature Granulocyte Absolute 0.13 K/mm3 (0.00-0.031); Immature Granulocyte Percent A 1.5 % (0-0.5); Lymphocytes Absolute Auto 1.22 K/mm3 (0.9-3.2); Lymphocytes Percent Auto 13.8 % (18.3-44.2); Mean Corpuscular Hemoglobin 26.2 pg (26-34); Mean Corpuscular Volume 90.3 fl (80-100); Mean Platelet Volume 10.5 fl (7.4-10.4); Monocytes Absolute Auto 0.9 K/mm3 (0.1-0.6); Monocytes Percent Auto 9.6 % (2.6-8.5); Neutrophils Absolute Auto 6.4 K/mm3 (1.3-6.7); Neutrophils Percent Auto 72.3 % (45.5-73.1); Platelet Count Result 332 k/mm3 (150-375); Red Blood Count 4.04 M/mm3 (4.2-5.4); Red Cell Distribution Width 16.5 % (11.5-14.5); White Blood Count 8.9 K/mm3 (4.5-10.0)
[2023-04-21] MEDS: AZITHROMYCIN 500 MG/NS 250 ML 500 MG/250 ML BAG 250 MG IVPB (06:49)
[2023-04-21 06:54] LABS: Anion Gap 4 mmol/L (8-16); Blood Urea Nitrogen 11 mg/dL (7-17); Calcium 8.5 mg/dL (8.4-10.2); Carbon Dioxide 32 mmol/L (22-30); Chloride 101 mmol/L (98-107); Estimated Glomerular Filt Rate > 60; Glucose 118 mg/dL (65-110); Potassium 3.4 mmol/L (3.4-5.0); Sodium 137 mmol/L (137-145)
[2023-04-21 07:39] LABS: Anisocytosis 1+ (NORMAL); Hypochromasia 1+ (NORMAL); Platelet Estimate Adequate (Adequate); Schistocytes None Seen (NORMAL)
--- NOTE | 2023-04-21 07:59 | PM.IMPN ---
Progress Note: A&P Assessment and Plan (1) Acute hypoxemic respiratory failure: Code(s): J96.01 - Acute respiratory failure with hypoxia Status: Acute (2) Acute hypercapnic respiratory failure: Code(s): J96.02 - Acute respiratory failure with hypercapnia Status: Acute (3) Bilateral pneumonia: Code(s): J18.9 - Pneumonia, unspecified organism Status: Acute (4) Influenza A: Code(s): J10.1 - Influenza due to other identified influenza virus with other respiratory manifestations Status: Acute Plan patient is a 72-year-old female presents the emergency department with chief complaint of shortness of breath patient states that she started having difficulty breathing this evening and reports that he got worse decided to call EMS when EMS arrived they found the patient hypoxic and tripoding the tip to give the patient breathing treatment without relief. She was evaluated and found to be in respiratory failure and BIPAP was intitated immediately, antibiotics, steroid and breathing treatment already given. Multifocal pneumonia Better pneumonia superimposed with his influenza a infection Extensive airspace consolidation bilaterally Correlate for pulmonary edema versus extensive pneumonia. currently on BIPAP, will repeat ABG in an hour and make changes accordingly,, on ceftriaxone and azithromycin. ordered echocardiogram Received Lasix 40 mg once in the ED Continue Tamiflu for 5 days, azithromycin 500 mg IV daily and switch from ceftriaxone from 1 g to cefepime 2 g IV q.8 hours Consult product safety coordinator for evaluation and treatment, appreciate Dr Shirley's and Dr. Mccoy's consultation, dc steroid Fluid over load received lasix iv in ED on lasix 40 mg iv daily f/u echo Fluid overload is improving, negative input output balance-310 mL today Continue IV Lasix Dyspnea is improving continue Lasix Sepsis Leukocytosis 23,400, tachypnea, lactic acidosis Likely secondary to multifocal pneumonia Received fluid resuscitation Follow-up blood [id number], no growth so far Acute respiratory failure is hypoxemia and hypercapnia Patient is on BiPAP Repeated ABG suggesting improving CO2 retention and oxygenation CO2 retention is improving Metabolic alkalosis and hypokalemia Replete potassium chloride Received acetazolamide 250 mg 04/20 Subjective Date/time seen: 04/21/23 07:59 Interval history: I saw and examined the patient today. Patient continue to improve, still has a cough, epigastric pain persists but improving. Patient has cough and short of breath but improves significantly Exam Narrative: GENERAL: acutely ill looking patient in moderate distress. HEAD: Normocephalic, atraumatic. EYES: PERRLA and EOMI. ENT: Nares clear, no rhinorrhea or epistaxis.?dry membranes moist. NECK: Supple. CHEST: Tachypneic, bilateral expiratory wheezes with rales. HEART: Regular rate and rhythm.? No murmur heard.? Normal peripheral pulses,no edema. ABDOMEN: Soft, nontender, nondistended, normal active bowel sounds. EXTREMITIES: Normal range of motion.? No edema. SKIN: Warm, dry, no rash. NEURO: No focal deficits.? Oblique, somnolent, not oriented x3. PSYCH: Normal mood and affect. ? Objective Data Vital Signs Vital Signs: Vital Signs - 24 hr 04/20/23 08:00 04/20/23 09:28 04/20/23 08:00 Temperature 96.8 F L Pulse Rate 65 74 Respiratory Rate 20 20 Blood Pressure 134/62 Pulse Oximetry 98 95 Oxygen Delivery Nasal Cannula Oxygen Flow Rate 2 04/20/23 08:00 04/20/23 10:00 04/20/23 12:00 Temperature 97.7 F Pulse Rate 67 68 66 Respiratory Rate 22 H Blood Pressure 135/50 L Pulse Oximetry 100 Oxygen Delivery Oxygen Flow Rate 04/20/23 13:03 04/20/23 15:05 04/20/23 14:00 Temperature 98.5 F Pulse Rate 71 Respiratory Rate 20 Blood Pressure 139/71 Pulse Oximetry 100 94 96 Oxygen Delivery Nasal Cannula Nasal Cannula Oxygen Flow Rate 2 3 04/20
[2023-04-21] MEDS: ACETAMINOPHEN 325 MG TABLET 650 MG PO ×2 (08:33→20:27)
[2023-04-21] MEDS: OSELTAMIVIR PHOSPHATE 75 MG CAPSULE PO ×2 (08:33→20:26)
[2023-04-21] MEDS: ENOXAPARIN 40 MG/0.4 ML SYRINGE SUB-Q (08:34)
[2023-04-21] MEDS: FUROSEMIDE INJ 40 MG/4 ML VIAL IV PUSH (08:34)
--- NOTE | 2023-04-21 19:42 | PM.PNPUL ---
Progress Note: A&P Assessment and Plan (1) Influenza A: Code(s): J10.1 - Influenza due to other identified influenza virus with other respiratory manifestations Status: Acute Assessment and Plan: Patient presents with hypoxemic and hypercarbic respiratory failure from influenza A. She has been started on Tamiflu. She was also treated with ceftriaxone and azithromycin for possible bacterial infection. 04/18: When I enter the room the patient was sleeping on BiPAP rate of 12 breathing 20 5 times pressures 12/5, tidal volumes 281 with 40% FiO2 and saturations 100%. The patient stated that the settings and the air was uncomfortable and I changed her to a noninvasive ventilator mode with an AVAPS rate of 14, tidal volume 450, EPAP 5, minimal inspiratory pressure 6, maximal inspiratory pressure 25, inspiratory time 1.0, rise of 4 and 35% FiO2 with saturations 99%. She had no wheezing on the BiPAP. Plan: Continue Tamiflu 75 mg p.o. b.i.d., today is day 1. She was given steroids in the emergency room and these have been discontinued. I recommend discontinuing all steroids including nailed corticosteroids at this time. Monitor for fluid overload given her cardiac history. Patient can use noninvasive ventilator p.r.n. during the day she should wear the noninvasive ventilator at night. I will obtain an ABG prior to removal in the morning. 04/19/23: Patient did not tolerate the BiPAP last night has been on 3 L nasal cannula. Patient says she cannot tolerate the BiPAP mask. The patient tells me she is 75% back to her normal. Currently she is on 3 L nasal cannula saturations 99%. I decreased her to room air and her saturations decreased to 90 after 4 minutes and I placed her on 2 L nasal cannula her saturations were 98%. White blood cell count 10.9, creatinine 0.7. Admission weight was 63.9 kg and today she is 61.1 kg. Chest x-ray shows mild improvement in her diffuse interstitial alveolar infiltrates. Patient cannot tolerate BiPAP at this time. Patient is clinically improving on day 2 of Tamiflu. Her leukocytosis has improved, she is afebrile, her oxygenation has improved and her chest x-ray has improved on day 2 of cefepime and azithromycin. Agree with this treatment. Patient should receive a minimum of 5 days of Tamiflu and people have extended treatment to 10 days for severe disease. Will reassess the patient at 5 days. 16: gradual improvement, on day #3 Tamiflu, Cefepime and azithromycin. 04/21: on 2 L/min, day #4 Tamiflu, Cefepime and azithromycin for influenza A and suspected secondary bacterial infection. . (2) COPD (chronic obstructive pulmonary disease): Code(s): J44.9 - Chronic obstructive pulmonary disease, unspecified Status: Acute Assessment and Plan: 04/18/23: Patient tells me she carries a history of COPD. She is on no COPD medicines. I have no PFTs. She was had bilateral wheezing on presentation. Plan: Agree with albuterol and ipratropium nebulizers q.4 hours. Will not give steroids at this time. 04/19: No wheezing on exam. Continue albuterol and ipratropium nebulizers q.4 hours. 04/20: She is getting better, slowly. 04/21: Slowly improving, on 2 L/min; she may benefit from COPD medications when discharged. Plan Apr 20: sleep med; Dr Naranjo ordered melatonin 5 mg; I told the RN to make sure she gets it 2 hours before bedtime. K+ replacement; KCL 40 meq po daily; acetazolamide 250 mg po x 1, continue bronchodilators and Tamiflu. Apr 21: Melatonin 5 mg did not help her fall asleep last night; wants something stronger, and asks for help with repositioning herself in bed, had some discomfort in the groin region. Electrolytes are better, K+ 3.4. I ordered Doxepin 25 mg for sleep tonight. Subjective Date/time seen: 04/21/23 19:42 Interval history:
--- NOTE | 2023-04-21 23:29 | PC.NURSE ---
pt c/o tongue hurting, tongue is red, inquired about nystatin or magic mouth wash for patient, informed PA Kristen, tongue is red in appearance. PA kristen looking at patient chart. PA Kristen to place orders if needed.
[2023-04-22] VITALS (15 sets, daily range): BP systolic 116–118; BP diastolic 43–67; PULSE 62–75; RESP 16–22; TEMP 36.8–37.9; O2SAT 93–98
--- NOTE | 2023-04-22 01:23 | PC.NURSE ---
patient continues to be on the bipap and then refusing and then wants it back on, currently on bipap now
--- NOTE | 2023-04-22 02:45 | PC.NURSE ---
patient refusing bipap, back on 3 L NC.
[2023-04-22] MEDS: AZITHROMYCIN 500 MG/NS 250 ML 500 MG/250 ML BAG 250 MG IVPB (05:00)
[2023-04-22] MEDS: ACETAMINOPHEN 325 MG TABLET 650 MG PO ×2 (05:56→20:04)
--- NOTE | 2023-04-22 05:56 | PC.NURSE ---
called MD Rivera about patients c/o her tongue hurting, awaiting call back.
[2023-04-22] MEDS: ALBUTEROL SULFATE NEB 2.5 MG/3 ML INH INHALATION ×3 (05:57→16:10)
[2023-04-22] MEDS: IPRATROPIUM BR 0.02% INH SOLN 0.5 MG/2.5 ML VIAL INHALATION ×3 (05:57→16:10)
--- NOTE | 2023-04-22 06:00 | PC.NURSE ---
magic mouth wash ordered for patient per MD Rivera
[2023-04-22] MEDS: CEFEPIME 2 GM/NS 50 ML 2 GM/50 ML BAG IVPB (06:10)
[2023-04-22 06:36] LABS: Basophils Percent Auto 0.3 % (0.2-1.2); Eosinophils Absolute Auto 0.5 K/mm3 (0-0.3); Eosinophils Percent Auto 4.7 % (0-4.4); Hematocrit 34.2 % (37.0-47.0); Hemoglobin 10.3 g/dL (12.0-15.0); Immature Granulocyte Absolute 0.21 K/mm3 (0.00-0.031); Immature Granulocyte Percent A 1.8 % (0-0.5); Lymphocytes Percent Auto 16.5 % (18.3-44.2); Mean Corpuscular HGB Conc 30.1 g/dl (32-36); Mean Corpuscular Hemoglobin 26.6 pg (26-34); Mean Corpuscular Volume 88.4 fl (80-100); Mean Platelet Volume 10.4 fl (7.4-10.4); Monocytes Absolute Auto 1.2 K/mm3 (0.1-0.6); Neutrophils Absolute Auto 7.7 K/mm3 (1.3-6.7); Neutrophils Percent Auto 66.7 % (45.5-73.1); Platelet Count Result 310 k/mm3 (150-375); Red Blood Count 3.87 M/mm3 (4.2-5.4); Red Cell Distribution Width 16.8 % (11.5-14.5); White Blood Count 11.5 K/mm3 (4.5-10.0)
[2023-04-22 06:47] LABS: Anion Gap 3 mmol/L (8-16); Blood Urea Nitrogen 11 mg/dL (7-17); Calcium 8.1 mg/dL (8.4-10.2); Carbon Dioxide 29 mmol/L (22-30); Chloride 103 mmol/L (98-107); Estimated Glomerular Filt Rate > 60; Glucose 126 mg/dL (65-110); Potassium 3.7 mmol/L (3.4-5.0); Sodium 135 mmol/L (137-145)
--- NOTE | 2023-04-22 07:44 | PM.IMPN ---
Progress Note: A&P Assessment and Plan (1) Acute hypoxemic respiratory failure: Code(s): J96.01 - Acute respiratory failure with hypoxia Status: Acute (2) Acute hypercapnic respiratory failure: Code(s): J96.02 - Acute respiratory failure with hypercapnia Status: Acute (3) Bilateral pneumonia: Code(s): J18.9 - Pneumonia, unspecified organism Status: Acute (4) Influenza A: Code(s): J10.1 - Influenza due to other identified influenza virus with other respiratory manifestations Status: Acute Plan patient is a 72-year-old female presents the emergency department with chief complaint of shortness of breath patient states that she started having difficulty breathing this evening and reports that he got worse decided to call EMS when EMS arrived they found the patient hypoxic and tripoding the tip to give the patient breathing treatment without relief. She was evaluated and found to be in respiratory failure and BIPAP was intitated immediately, antibiotics, steroid and breathing treatment already given. Multifocal pneumonia Better pneumonia superimposed with his influenza a infection Extensive airspace consolidation bilaterally Correlate for pulmonary edema versus extensive pneumonia. currently on BIPAP, will repeat ABG in an hour and make changes accordingly,, on ceftriaxone and azithromycin. ordered echocardiogram Received Lasix 40 mg once in the ED Continue Tamiflu for 5 days, received azithromycin 500 mg IV daily and cefepime 2 g IV q.8 hours T0 April 22, changed to Augmentin p.o. per Dr. Boles on 04/22 Consult fermentation manager for evaluation and treatment, appreciate Dr Shirley's and Dr. Mccoy's consultation, dc steroid Oral candidiasis Patient has a tongue pain, worse with eating drinking Scattered rash on the top of her tongue Suspected oral candidiasis Start nystatin mouth rinse Fluid over load received lasix iv in ED on lasix 40 mg iv daily f/u echo Fluid overload is improving, negative input output balance-310 mL today Continue IV Lasix 40mg daily Dyspnea is improving continue Lasix Sepsis Leukocytosis 23,400, tachypnea, lactic acidosis Likely secondary to multifocal pneumonia Received fluid resuscitation Follow-up blood [id number], no growth so far now resolves Acute respiratory failure is hypoxemia and hypercapnia Patient is on BiPAP Repeated ABG suggesting improving CO2 retention and oxygenation CO2 retention is improving now on 2 L O2 Metabolic alkalosis and hypokalemia Replete potassium chloride Received acetazolamide 250 mg 04/20 Subjective Date/time seen: 04/22/23 07:44 Interval history: I saw and examined patient today. Patient complained of tongue pain the patient was eating and drinking. Patient denies trouble with swallowing, chest pain, choking. Short of breath improving, labs reviewed Exam Narrative: GENERAL: acutely ill looking patient in moderate distress. HEAD: Normocephalic, atraumatic. EYES: PERRLA and EOMI. ENT: Nares clear, no rhinorrhea or epistaxis.?dry membranes moist. Some white rashes on tongue NECK: Supple. CHEST: Tachypneic, bilateral expiratory wheezes with rales. HEART: Regular rate and rhythm.? No murmur heard.? Normal peripheral pulses,no edema. ABDOMEN: Soft, nontender, nondistended, normal active bowel sounds. EXTREMITIES: Normal range of motion.? No edema. SKIN: Warm, dry, no rash. NEURO: No focal deficits.? Oblique, somnolent, not oriented x3. PSYCH: Normal mood and affect. ? Objective Data Vital Signs Vital Signs: Vital Signs - 24 hr 04/21/23 10:00 04/21/23 08:00 04/21/23 10:11 Temperature Pulse Rate 70 73 Respiratory Rate 20 20 Blood Pressure Pulse Oximetry 94 Oxygen Delivery Nasal Cannula Oxygen Flow Rate 2 Fraction of Inspired Oxygen 04/21/23 13:47 04/21/23 14:50 04/21/23 14:50 Temperature Pulse Rate 76 76 Respiratory Rate 16 16 Blood Pressure Pulse
[2023-04-22] MEDS: ENOXAPARIN 40 MG/0.4 ML SYRINGE SUB-Q (09:15)
[2023-04-22] MEDS: OSELTAMIVIR PHOSPHATE 75 MG CAPSULE PO ×2 (09:15→20:04)
[2023-04-22] MEDS: FUROSEMIDE INJ 40 MG/4 ML VIAL IV PUSH (09:15)
[2023-04-22] MEDS: AMOXICILLIN/CLAVULANATE K 875-125 MG TAB 1 TABLET PO ×2 (13:19→20:04)
[2023-04-22] MEDS: MAGNES & ALUM HYD/SIMETH/DIPHENHYD/LIDOCAINE 119 ML MOUTHWASH BY MOUTH ×3 (13:19→20:04)
[2023-04-22] MEDS: NYSTATIN 100,000 UNITS/ML SUSP 5 ML ORAL.SUSP PO ×2 (17:11→20:04)
[2023-04-22] MEDS: DOXEPIN HCL 25 MG CAPSULE PO (20:04)
[2023-04-22] MEDS: MELATONIN 5 MG TABLET PO ×2 (20:04)
[2023-04-22] MEDS: HYDROCORTISONE 1% 30 GM CREAM 1 APPLIC TOPICAL (22:14)
[2023-04-22] MEDS: MAG HYDROX/AL HYDROX/SIMETH 30 ML UDC PO (22:57)
--- NOTE | 2023-04-22 23:09 | PC.NURSE ---
patient c/o restless legs, called MD Rivera, awaiting call back.
--- NOTE | 2023-04-22 23:12 | PC.NURSE ---
patient c/o restless legs call Michael Peterson, awaiting call back.
--- NOTE | 2023-04-22 23:55 | PC.NURSE ---
trazodone ordered for restlessness.
[2023-04-23] VITALS (12 sets, daily range): BP systolic 109–128; BP diastolic 58–61; PULSE 66–77; RESP 16–20; TEMP 36.7–37; O2SAT 90–98
[2023-04-23] MEDS: traZODone HCL 50 MG TABLET PO (00:33)
[2023-04-23] MEDS: MAGNES & ALUM HYD/SIMETH/DIPHENHYD/LIDOCAINE 119 ML MOUTHWASH BY MOUTH ×5 (00:33→21:30)
[2023-04-23] MEDS: ACETAMINOPHEN 325 MG TABLET 650 MG PO ×2 (06:36→14:18)
[2023-04-23] MEDS: MAG HYDROX/AL HYDROX/SIMETH 30 ML UDC PO (06:37)
[2023-04-23] MEDS: ALBUTEROL SULFATE NEB 2.5 MG/3 ML INH INHALATION ×4 (08:09→20:19)
[2023-04-23] MEDS: IPRATROPIUM BR 0.02% INH SOLN 0.5 MG/2.5 ML VIAL INHALATION ×4 (08:09→20:19)
[2023-04-23] MEDS: FUROSEMIDE INJ 40 MG/4 ML VIAL IV PUSH (09:08)
[2023-04-23] MEDS: AMOXICILLIN/CLAVULANATE K 875-125 MG TAB 1 TABLET PO ×2 (09:08→21:28)
[2023-04-23] MEDS: ENOXAPARIN 40 MG/0.4 ML SYRINGE SUB-Q (09:08)
[2023-04-23] MEDS: HYDROCORTISONE 1% 30 GM CREAM 1 APPLIC TOPICAL ×2 (09:09→21:30)
[2023-04-23] MEDS: NYSTATIN 100,000 UNITS/ML SUSP 5 ML ORAL.SUSP PO ×4 (10:52→21:31)
--- NOTE | 2023-04-23 16:05 | PM.IMPN ---
Progress Note: A&P Assessment and Plan (1) Acute hypoxemic respiratory failure: Code(s): J96.01 - Acute respiratory failure with hypoxia Status: Acute (2) Acute hypercapnic respiratory failure: Code(s): J96.02 - Acute respiratory failure with hypercapnia Status: Acute (3) Bilateral pneumonia: Code(s): J18.9 - Pneumonia, unspecified organism Status: Acute (4) Influenza A: Code(s): J10.1 - Influenza due to other identified influenza virus with other respiratory manifestations Status: Acute Plan patient is a 72-year-old female presents the emergency department with chief complaint of shortness of breath patient states that she started having difficulty breathing this evening and reports that he got worse decided to call EMS when EMS arrived they found the patient hypoxic and tripoding the tip to give the patient breathing treatment without relief. She was evaluated and found to be in respiratory failure and BIPAP was intitated immediately, antibiotics, steroid and breathing treatment already given. Multifocal pneumonia Better pneumonia superimposed with his influenza a infection Extensive airspace consolidation bilaterally Correlate for pulmonary edema versus extensive pneumonia. currently on BIPAP, will repeat ABG in an hour and make changes accordingly,, on ceftriaxone and azithromycin. ordered echocardiogram Received Lasix 40 mg once in the ED Continue Tamiflu for 5 days, received azithromycin 500 mg IV daily and cefepime 2 g IV q.8 hours T0 April 22, changed to Augmentin p.o. per Dr. Boles on 04/22 Consult patient service rep for evaluation and treatment, appreciate Dr Shirley's and Dr. Mccoy's consultation, ri steroid Oral candidiasis Patient has a tongue pain, worse with eating drinking Scattered rash on the top of her tongue Suspected oral candidiasis Start nystatin mouth rinse and lidocaine mouth rinse for pain control Fluid over load received lasix iv in ED on lasix 40 mg iv daily f/u echo Fluid overload is improving, negative input output balance-310 mL today Continue IV Lasix 40mg daily Dyspnea is improving continue Lasix Sepsis Leukocytosis 23,400, tachypnea, lactic acidosis Likely secondary to multifocal pneumonia Received fluid resuscitation Follow-up blood [id number], no growth so far now resolves Acute respiratory failure is hypoxemia and hypercapnia Patient is on BiPAP Repeated ABG suggesting improving CO2 retention and oxygenation CO2 retention is improving now on 2 L O2 Metabolic alkalosis and hypokalemia Replete potassium chloride Received acetazolamide 250 mg 04/20 Subjective Date/time seen: 04/23/23 16:05 Interval history: I saw and examined patient today. Patient still complained of tongue pain the patient was eating and drinking but improving. Patient denies short of breath at rest, labs reviewed Exam Narrative: GENERAL: acutely ill looking patient in moderate distress. HEAD: Normocephalic, atraumatic. EYES: PERRLA and EOMI. ENT: Nares clear, no rhinorrhea or epistaxis.?dry membranes moist. Some white rashes on tongue NECK: Supple. CHEST: Tachypneic, bilateral expiratory wheezes with rales. HEART: Regular rate and rhythm.? No murmur heard.? Normal peripheral pulses,no edema. ABDOMEN: Soft, nontender, nondistended, normal active bowel sounds. EXTREMITIES: Normal range of motion.? No edema. SKIN: Warm, dry, no rash. NEURO: No focal deficits.? Oblique, somnolent, not oriented x3. PSYCH: Normal mood and affect. ? Objective Data Vital Signs Vital Signs: Vital Signs - 24 hr 04/22/23 16:11 04/22/23 16:20 04/22/23 19:28 Temperature Pulse Rate 68 72 Respiratory Rate 20 20 Blood Pressure Pulse Oximetry 97 Oxygen Delivery Nasal Cannula Oxygen Flow Rate 2 Fraction of Inspired Oxygen 04/22/23 21:08 04/22/23 22:00 04/23/23 06:00 Temperature 98.2 F 98.0 F Pulse Rate 70 71 66 Respiratory Rate 22 H
[2023-04-23] MEDS: LIDOCAINE HCL 2% VISC SOLN 15 ML UDC PO (18:09)
--- NOTE | 2023-04-23 21:07 | PM.PNPUL ---
Progress Note: A&P Assessment and Plan (1) Influenza A: Code(s): J10.1 - Influenza due to other identified influenza virus with other respiratory manifestations Status: Acute Assessment and Plan: Patient presents with hypoxemic and hypercarbic respiratory failure from influenza A. She has been started on Tamiflu. She was also treated with ceftriaxone and azithromycin for possible bacterial infection. 04/18: When I enter the room the patient was sleeping on BiPAP rate of 12 breathing 20 5 times pressures 12/5, tidal volumes 281 with 40% FiO2 and saturations 100%. The patient stated that the settings and the air was uncomfortable and I changed her to a noninvasive ventilator mode with an AVAPS rate of 14, tidal volume 450, EPAP 5, minimal inspiratory pressure 6, maximal inspiratory pressure 25, inspiratory time 1.0, rise of 4 and 35% FiO2 with saturations 99%. She had no wheezing on the BiPAP. Plan: Continue Tamiflu 75 mg p.o. b.i.d., today is day 1. She was given steroids in the emergency room and these have been discontinued. I recommend discontinuing all steroids including nailed corticosteroids at this time. Monitor for fluid overload given her cardiac history. Patient can use noninvasive ventilator p.r.n. during the day she should wear the noninvasive ventilator at night. I will obtain an ABG prior to removal in the morning. 04/19/23: Patient did not tolerate the BiPAP last night has been on 3 L nasal cannula. Patient says she cannot tolerate the BiPAP mask. The patient tells me she is 75% back to her normal. Currently she is on 3 L nasal cannula saturations 99%. I decreased her to room air and her saturations decreased to 90 after 4 minutes and I placed her on 2 L nasal cannula her saturations were 98%. White blood cell count 10.9, creatinine 0.7. Admission weight was 63.9 kg and today she is 61.1 kg. Chest x-ray shows mild improvement in her diffuse interstitial alveolar infiltrates. Patient cannot tolerate BiPAP at this time. Patient is clinically improving on day 2 of Tamiflu. Her leukocytosis has improved, she is afebrile, her oxygenation has improved and her chest x-ray has improved on day 2 of cefepime and azithromycin. Agree with this treatment. Patient should receive a minimum of 5 days of Tamiflu and people have extended treatment to 10 days for severe disease. Will reassess the patient at 5 days. 04/20: gradual improvement, on day #3 Tamiflu, Cefepime and azithromycin. 04/21: on 2 L/min, day #4 Tamiflu, Cefepime and azithromycin for influenza A and suspected secondary bacterial infection. 04/23: on 2 L/min, completed Tamiflu x 5 days for influenza A; also completing antibiotics for secondary bacterial infection. . (2) COPD (chronic obstructive pulmonary disease): Code(s): J44.9 - Chronic obstructive pulmonary disease, unspecified Status: Acute Assessment and Plan: 04/18/23: Patient tells me she carries a history of COPD. She is on no COPD medicines. I have no PFTs. She was had bilateral wheezing on presentation. Plan: Agree with albuterol and ipratropium nebulizers q.4 hours. Will not give steroids at this time. 04/19: No wheezing on exam. Continue albuterol and ipratropium nebulizers q.4 hours. 04/20: She is getting better, slowly. 04/21: Slowly improving, on 2 L/min; she may benefit from COPD medications when discharged. 04/23: remains on 32L/min Plan Apr 20: sleep med; Dr Naranjo ordered melatonin 5 mg; I told the RN to make sure she gets it 2 hours before bedtime. K+ replacement; KCL 40 meq po daily; acetazolamide 250 mg po x 1, continue bronchodilators and Tamiflu. Apr 21: Melatonin 5 mg did not help her fall asleep last night; wants something stronger, and asks for help with repositioning herself in bed, had some discomfort in the groin regio
[2023-04-23] MEDS: MELATONIN 5 MG TABLET PO ×2 (21:28→21:29)
[2023-04-23] MEDS: DOXEPIN HCL 25 MG CAPSULE PO (21:28)
[2023-04-24] VITALS (13 sets, daily range): BP systolic 105–118; BP diastolic 52–64; PULSE 65–79; RESP 15–22; TEMP 36.1–36.8; O2SAT 90–93
[2023-04-24] MEDS: ALBUTEROL SULFATE NEB 2.5 MG/3 ML INH INHALATION ×4 (00:29→20:56)
[2023-04-24] MEDS: IPRATROPIUM BR 0.02% INH SOLN 0.5 MG/2.5 ML VIAL INHALATION ×4 (00:29→20:57)
[2023-04-24] MEDS: ACETAMINOPHEN 325 MG TABLET 650 MG PO ×2 (01:08→20:12)
[2023-04-24] MEDS: NYSTATIN 100,000 UNITS/ML SUSP 5 ML ORAL.SUSP PO ×4 (09:02→20:13)
[2023-04-24] MEDS: AMOXICILLIN/CLAVULANATE K 875-125 MG TAB 1 TABLET PO ×2 (09:02→20:12)
[2023-04-24] MEDS: FUROSEMIDE INJ 40 MG/4 ML VIAL IV PUSH (09:02)
[2023-04-24] MEDS: ENOXAPARIN 40 MG/0.4 ML SYRINGE SUB-Q (09:03)
[2023-04-24] MEDS: MAGNES & ALUM HYD/SIMETH/DIPHENHYD/LIDOCAINE 119 ML MOUTHWASH BY MOUTH ×4 (09:04→20:13)
[2023-04-24] MEDS: HYDROCORTISONE 1% 30 GM CREAM 1 APPLIC TOPICAL ×2 (09:04→20:13)
--- NOTE | 2023-04-24 10:04 | PM.IMPN ---
Progress Note: A&P Assessment and Plan (1) Acute hypoxemic respiratory failure: Code(s): J96.01 - Acute respiratory failure with hypoxia Status: Acute (2) Acute hypercapnic respiratory failure: Code(s): J96.02 - Acute respiratory failure with hypercapnia Status: Acute (3) Bilateral pneumonia: Code(s): J18.9 - Pneumonia, unspecified organism Status: Acute (4) Influenza A: Code(s): J10.1 - Influenza due to other identified influenza virus with other respiratory manifestations Status: Acute Plan patient is a 72-year-old female presents the emergency department with chief complaint of shortness of breath patient states that she started having difficulty breathing this evening and reports that he got worse decided to call EMS when EMS arrived they found the patient hypoxic and tripoding the tip to give the patient breathing treatment without relief. She was evaluated and found to be in respiratory failure and BIPAP was intitated immediately, antibiotics, steroid and breathing treatment already given. Multifocal pneumonia Better pneumonia superimposed with his influenza a infection Extensive airspace consolidation bilaterally Correlate for pulmonary edema versus extensive pneumonia. currently on BIPAP, will repeat ABG in an hour and make changes accordingly,, on ceftriaxone and azithromycin. ordered echocardiogram Received Lasix 40 mg once in the ED Continue Tamiflu for 5 days, received azithromycin 500 mg IV daily and cefepime 2 g IV q.8 hours T0 April 22, changed to Augmentin p.o. per Dr. Boles on 04/22 Consult insert operator for evaluation and treatment, appreciate Dr Shirley's and Dr. Mccoy's consultation, id steroid 04/24 patient will complete antibiotics today, also completed 5 days of Tamiflu, insert operator consult is appreciated, continue Anoro Ellipta 62.5-25 at 1 puff q.day.? Rescue albuterol 2 puffs q.4 hours p.r.n. shortness of breath or wheezing per insert operator recommendation Oral candidiasis Patient has a tongue pain, worse with eating drinking Scattered rash on the top of her tongue Suspected oral candidiasis Start nystatin mouth rinse and lidocaine mouth rinse for pain control Fluid over load received lasix iv in ED on lasix 40 mg iv daily f/u echo Fluid overload is improving, negative input output balance-310 mL today Continue IV Lasix 40mg daily Dyspnea is improving continue Lasix Sepsis Leukocytosis 23,400, tachypnea, lactic acidosis Likely secondary to multifocal pneumonia Received fluid resuscitation Follow-up blood [id number]/14, no growth so far now resolves Acute respiratory failure is hypoxemia and hypercapnia Patient is on BiPAP Repeated ABG suggesting improving CO2 retention and oxygenation CO2 retention is improving now on 2 L O2 Metabolic alkalosis and hypokalemia Replete potassium chloride Received acetazolamide 250 mg 04/20 Subjective Date/time seen: 04/24/23 10:04 Interval history: Patient has a general weakness, no shortness breast in bed, I stressed cough, on 2 L nasal cannula saturations 97%.? Chest x-ray shows improvement Exam Narrative: GENERAL: acutely ill looking patient in moderate distress. HEAD: Normocephalic, atraumatic. EYES: PERRLA and EOMI. ENT: Nares clear, no rhinorrhea or epistaxis.?dry membranes moist. Some white rashes on tongue NECK: Supple. CHEST: No wheezing bilaterally, HEART: Regular rate and rhythm.? No murmur heard.? Normal peripheral pulses,no edema. ABDOMEN: Soft, nontender, nondistended, normal active bowel sounds. EXTREMITIES: Normal range of motion.? No edema. SKIN: Warm, dry, no rash. NEURO: No focal deficits.? Oblique, somnolent, not oriented x3. PSYCH: Normal mood and affect. ? Objective Data Vital Signs Vital Signs: Vital Signs - 24 hr 04/23/23 12:50 04/23/23 14:00 04/23/23 15:40 Temperature 98.6 F Pulse Rate 70 77 68 Respiratory Rate 20 18 20 Blood Pressure 109/58
--- NOTE | 2023-04-24 11:02 | PM.PNPUL ---
Progress Note: A&P Assessment and Plan (1) Influenza A: Code(s): J10.1 - Influenza due to other identified influenza virus with other respiratory manifestations Status: Acute Assessment and Plan: Patient presents with hypoxemic and hypercarbic respiratory failure from influenza A. At baseline patient is on 2-3 L p.r.n. at home. She has been started on Tamiflu. She was also treated with ceftriaxone and azithromycin for possible bacterial infection. 04/18: When I enter the room the patient was sleeping on BiPAP rate of 12 breathing 20 5 times pressures 12/5, tidal volumes 281 with 40% FiO2 and saturations 100%. The patient stated that the settings and the air was uncomfortable and I changed her to a noninvasive ventilator mode with an AVAPS rate of 14, tidal volume 450, EPAP 5, minimal inspiratory pressure 6, maximal inspiratory pressure 25, inspiratory time 1.0, rise of 4 and 35% FiO2 with saturations 99%. She had no wheezing on the BiPAP. Plan: Continue Tamiflu 75 mg p.o. b.i.d., today is day 1. She was given steroids in the emergency room and these have been discontinued. I recommend discontinuing all steroids including nailed corticosteroids at this time. Monitor for fluid overload given her cardiac history. Patient can use noninvasive ventilator p.r.n. during the day she should wear the noninvasive ventilator at night. I will obtain an ABG prior to removal in the morning. 04/19/23: Patient did not tolerate the BiPAP last night has been on 3 L nasal cannula. Patient says she cannot tolerate the BiPAP mask. The patient tells me she is 75% back to her normal. Currently she is on 3 L nasal cannula saturations 99%. I decreased her to room air and her saturations decreased to 90 after 4 minutes and I placed her on 2 L nasal cannula her saturations were 98%. White blood cell count 10.9, creatinine 0.7. Admission weight was 63.9 kg and today she is 61.1 kg. Chest x-ray shows mild improvement in her diffuse interstitial alveolar infiltrates. Patient cannot tolerate BiPAP at this time. Patient is clinically improving on day 2 of Tamiflu. Her leukocytosis has improved, she is afebrile, her oxygenation has improved and her chest x-ray has improved on day 2 of cefepime and azithromycin. Agree with this treatment. Patient should receive a minimum of 5 days of Tamiflu and people have extended treatment to 10 days for severe disease. Will reassess the patient at 5 days. 04/20: gradual improvement, on day #3 Tamiflu, Cefepime and azithromycin. 04/21: on 2 L/min, day #4 Tamiflu, Cefepime and azithromycin for influenza A and suspected secondary bacterial infection. 04/22: IV antibiotics discontinued and placed on Augmentin 04/24: Patient slept last night. She continues with a dry cough. She still has some shortness of breath and dyspnea on exertion. She has no wheezing. Patient is on 2 L nasal cannula saturations 97%. His weight is 55.4 with cumulative +2.6 L since admission. Chest x-ray today shows minimal patchy right lung infiltrate with improvement. She has been out of bed. Plan: Patient has completed 5 days of Tamiflu. Her chest x-ray has improved. She remains on 2 L nasal cannula currently and she says she wears 2 L p.r.n. at home. Today is day 7 of antibiotics and would discontinue after today. The patient still has shortness of breath and this is expected following her influenza infection. She is very weak and should be evaluated for discharge home verses rehab-SNF. From a pulmonary perspective she is ready to be discharged on these pulmonary medications: Anoro Ellipta 62.5-25 at 1 puff q.day. Rescue albuterol 2 puffs q.4 hours p.r.n. shortness of breath or wheezing. If she is discharged home she should have a home O2 assessment prior to discharge. If she is discharged to a facility that will provide oxygen per their protocol. Patient should have a chest x-ray in 6-8 weeks to document continued resolution of her i
[2023-04-24] MEDS: DOXEPIN HCL 25 MG CAPSULE PO (20:13)
[2023-04-24] MEDS: MELATONIN 5 MG TABLET PO (20:13)
[2023-04-25] VITALS (11 sets, daily range): BP systolic 119–120; BP diastolic 65–67; PULSE 62–76; RESP 18–20; TEMP 36.2–36.9; O2SAT 92–100
[2023-04-25] MEDS: ACETAMINOPHEN 325 MG TABLET 650 MG PO ×3 (01:39→20:03)
[2023-04-25] MEDS: MAGNES & ALUM HYD/SIMETH/DIPHENHYD/LIDOCAINE 119 ML MOUTHWASH BY MOUTH ×6 (01:45→20:04)
[2023-04-25] MEDS: IPRATROPIUM BR 0.02% INH SOLN 0.5 MG/2.5 ML VIAL INHALATION ×4 (09:19→21:55)
[2023-04-25] MEDS: ALBUTEROL SULFATE NEB 2.5 MG/3 ML INH INHALATION ×4 (09:19→21:55)
--- NOTE | 2023-04-25 09:33 | PM.IMPN ---
Progress Note: A&P Assessment and Plan (1) Acute hypoxemic respiratory failure: Code(s): J96.01 - Acute respiratory failure with hypoxia Status: Acute (2) Acute hypercapnic respiratory failure: Code(s): J96.02 - Acute respiratory failure with hypercapnia Status: Acute (3) Bilateral pneumonia: Code(s): J18.9 - Pneumonia, unspecified organism Status: Acute (4) Influenza A: Code(s): J10.1 - Influenza due to other identified influenza virus with other respiratory manifestations Status: Acute Plan patient is a 72-year-old female presents the emergency department with chief complaint of shortness of breath patient states that she started having difficulty breathing this evening and reports that he got worse decided to call EMS when EMS arrived they found the patient hypoxic and tripoding the tip to give the patient breathing treatment without relief. She was evaluated and found to be in respiratory failure and BIPAP was intitated immediately, antibiotics, steroid and breathing treatment already given. Multifocal pneumonia Better pneumonia superimposed with his influenza a infection Extensive airspace consolidation bilaterally Correlate for pulmonary edema versus extensive pneumonia. currently on BIPAP, will repeat ABG in an hour and make changes accordingly,, on ceftriaxone and azithromycin. ordered echocardiogram Received Lasix 40 mg once in the ED Continue Tamiflu for 5 days, received azithromycin 500 mg IV daily and cefepime 2 g IV q.8 hours T0 April 22, changed to Augmentin p.o. per Dr. Boles on 04/22 Consult assistant golf course superintendent for evaluation and treatment, appreciate Dr Shirley's and Dr. Mccoy's consultation, mo steroid 04/24 patient will complete antibiotics today, also completed 5 days of Tamiflu, assistant golf course superintendent consult is appreciated, continue Anoro Ellipta 62.5-25 at 1 puff q.day.? Rescue albuterol 2 puffs q.4 hours p.r.n. shortness of breath or wheezing per assistant golf course superintendent recommendation Oral candidiasis Patient has a tongue pain, worse with eating drinking Scattered rash on the top of her tongue Suspected oral candidiasis Start nystatin mouth rinse and lidocaine mouth rinse for pain control Fluid over load received lasix iv in ED on lasix 40 mg iv daily add acetazolamide 250 mg prn po f/u echo Fluid overload is improving, negative input output balance-310 mL today Continue IV Lasix 40mg daily Dyspnea is improving continue Lasix Sepsis Leukocytosis 23,400, tachypnea, lactic acidosis Likely secondary to multifocal pneumonia Received fluid resuscitation Follow-up blood [id number]/14, no growth so far now resolves Acute respiratory failure is hypoxemia and hypercapnia Patient is off BiPAP Repeated ABG suggesting improving CO2 retention and oxygenation CO2 retention is improving now on 2 L O2 Metabolic alkalosis and hypokalemia Replete potassium chloride Received acetazolamide 250 mg 04/20 HCO3 35 today provide acetazolamide 250mg once po Subjective Date/time seen: 04/25/23 09:33 Interval history: Patient has a general weakness, has no obvious distress, appetite improving, tongue pain is improving, on 2 L nasal cannula saturations 97%.? Chest x-ray shows improvement. Labs reviewed, sodium bicarbonate 35 Exam Narrative: GENERAL: acutely ill looking patient in moderate distress. HEAD: Normocephalic, atraumatic. EYES: PERRLA and EOMI. ENT: Nares clear, no rhinorrhea or epistaxis.?dry membranes moist. Some white rashes on tongue NECK: Supple. CHEST: No wheezing bilaterally, HEART: Regular rate and rhythm.? No murmur heard.? Normal peripheral pulses,no edema. ABDOMEN: Soft, nontender, nondistended, normal active bowel sounds. EXTREMITIES: Normal range of motion.? No edema. SKIN: Warm, dry, no rash. NEURO: No focal deficits.? Oblique, somnolent, not oriented x3. PSYCH: Normal mood and affect. ? Objective Data Vital Signs Vital Signs: Vital Signs - 24
[2023-04-25] MEDS: NYSTATIN 100,000 UNITS/ML SUSP 5 ML ORAL.SUSP PO ×4 (10:13→20:04)
[2023-04-25] MEDS: FUROSEMIDE INJ 40 MG/4 ML VIAL IV PUSH (10:13)
[2023-04-25] MEDS: ENOXAPARIN 40 MG/0.4 ML SYRINGE SUB-Q (10:13)
[2023-04-25] MEDS: HYDROCORTISONE 1% 30 GM CREAM 1 APPLIC TOPICAL ×2 (10:14→20:04)
[2023-04-25 10:18] LABS: Basophils Absolute Auto 0.1 K/mm3 (0.0-0.1); Basophils Percent Auto 0.6 % (0.2-1.2); Eosinophils Absolute Auto 0.4 K/mm3 (0-0.3); Eosinophils Percent Auto 3.5 % (0-4.4); Hematocrit 37.2 % (37.0-47.0); Hemoglobin 11.2 g/dL (12.0-15.0); Immature Granulocyte Absolute 0.27 K/mm3 (0.00-0.031); Immature Granulocyte Percent A 2.6 % (0-0.5); Lymphocytes Absolute Auto 2.59 K/mm3 (0.9-3.2); Lymphocytes Percent Auto 24.9 % (18.3-44.2); Mean Corpuscular HGB Conc 30.1 g/dl (32-36); Mean Corpuscular Hemoglobin 26.5 pg (26-34); Mean Corpuscular Volume 88.2 fl (80-100); Mean Platelet Volume 10.2 fl (7.4-10.4); Monocytes Absolute Auto 0.9 K/mm3 (0.1-0.6); Monocytes Percent Auto 8.3 % (2.6-8.5); Neutrophils Absolute Auto 6.3 K/mm3 (1.3-6.7); Neutrophils Percent Auto 60.1 % (45.5-73.1); Platelet Count Result 400 k/mm3 (150-375); Red Blood Count 4.22 M/mm3 (4.2-5.4); Red Cell Distribution Width 16.5 % (11.5-14.5); White Blood Count 10.4 K/mm3 (4.5-10.0)
--- NOTE | 2023-04-25 10:20 | PCNWS ---
Weekly nutritional screen. Patient is tolerating current heart healthy diet with adequate intake at 100% all meals. No nutritional needs at this time.
[2023-04-25 10:35] LABS: Anion Gap 5 mmol/L (8-16); Blood Urea Nitrogen 14 mg/dL (7-17); Calcium 8.5 mg/dL (8.4-10.2); Carbon Dioxide 35 mmol/L (22-30); Chloride 96 mmol/L (98-107); Estimated Glomerular Filt Rate > 60; Glucose 194 mg/dL (65-110); Potassium 3.9 mmol/L (3.4-5.0); Sodium 136 mmol/L (137-145)
[2023-04-25] MEDS: acetaZOLAMIDE TAB 250 MG TABLET PO (17:58)
[2023-04-25] MEDS: DOXEPIN HCL 25 MG CAPSULE PO (20:03)
[2023-04-25] MEDS: MELATONIN 5 MG TABLET PO (20:04)
[2023-04-26] VITALS (14 sets, daily range): BP systolic 125–129; BP diastolic 54–73; PULSE 63–90; RESP 14–20; TEMP 36.3–37.3; O2SAT 92–99
[2023-04-26] MEDS: ACETAMINOPHEN 325 MG TABLET 650 MG PO ×3 (02:21→17:52)
[2023-04-26] MEDS: MAGNES & ALUM HYD/SIMETH/DIPHENHYD/LIDOCAINE 119 ML MOUTHWASH BY MOUTH ×5 (05:41→21:31)
[2023-04-26] MEDS: IPRATROPIUM BR 0.02% INH SOLN 0.5 MG/2.5 ML VIAL INHALATION ×4 (07:15→20:42)
[2023-04-26] MEDS: ALBUTEROL SULFATE NEB 2.5 MG/3 ML INH INHALATION ×4 (07:15→20:42)
--- NOTE | 2023-04-26 09:08 | PM.IMPN ---
Progress Note: A&P Assessment and Plan (1) Acute hypoxemic respiratory failure: Code(s): J96.01 - Acute respiratory failure with hypoxia Status: Acute (2) Acute hypercapnic respiratory failure: Code(s): J96.02 - Acute respiratory failure with hypercapnia Status: Acute (3) Bilateral pneumonia: Code(s): J18.9 - Pneumonia, unspecified organism Status: Acute (4) Influenza A: Code(s): J10.1 - Influenza due to other identified influenza virus with other respiratory manifestations Status: Acute Plan patient is a 72-year-old female presents the emergency department with chief complaint of shortness of breath patient states that she started having difficulty breathing this evening and reports that he got worse decided to call EMS when EMS arrived they found the patient hypoxic and tripoding the tip to give the patient breathing treatment without relief. She was evaluated and found to be in respiratory failure and BIPAP was intitated immediately, antibiotics, steroid and breathing treatment already given. Multifocal pneumonia Better pneumonia superimposed with his influenza a infection Extensive airspace consolidation bilaterally Correlate for pulmonary edema versus extensive pneumonia. currently on BIPAP, will repeat ABG in an hour and make changes accordingly,, on ceftriaxone and azithromycin. ordered echocardiogram Received Lasix 40 mg once in the ED Continue Tamiflu for 5 days, received azithromycin 500 mg IV daily and cefepime 2 g IV q.8 hours T0 April 22, changed to Augmentin p.o. per Dr. Boles on 04/22 Consult licensed electrician for evaluation and treatment, appreciate Dr Shirley's and Dr. Mccoy's consultation, [place] steroid completed antibiotics today, also completed 7 days of Tamiflu, licensed electrician consult is appreciated, continue Anoro Ellipta 62.5-25 at 1 puff q.day.? Rescue albuterol 2 puffs q.4 hours p.r.n. shortness of breath or wheezing per licensed electrician recommendation 04/26, afeb patient has no shortness of breaths Oral candidiasis Patient has a tongue pain, worse with eating drinking Scattered rash on the top of her tongue Suspected oral candidiasis Started nystatin mouth rinse and lidocaine mouth rinse for pain control Muscle rashes is improving Acute on chronic systolic heart failure Fluid over load received lasix iv in ED on lasix 40 mg iv daily add acetazolamide 250 mg prn po f/u echo: Presence of ICD lead identified.Left ventricular systolic function is severely reduced, estimated at 20-25%. Fluid overload is improving, negative input output balance-310 mL today Continue IV Lasix 40mg daily till 04/26 Dyspnea is improving continue Lasix change to oral lasix bid po add spironolactone 25 mg daily p.o. Sepsis Leukocytosis 23,400, tachypnea, lactic acidosis Likely secondary to multifocal pneumonia Received fluid resuscitation Follow-up blood [id number]/14, no growth so far now resolves Acute respiratory failure is hypoxemia and hypercapnia Patient is off BiPAP Repeated ABG suggesting improving CO2 retention and oxygenation CO2 retention is improving now on 2 L O2 Metabolic alkalosis and hypokalemia Replete potassium chloride Received acetazolamide 250 mg 04/20 HCO3 35 provide acetazolamide 250mg once po 04/25 now potassium 3.8, sodium bicarbonate 30 Corrected 04/26 Subjective Date/time seen: 04/26/23 09:08 Interval history: Patient has a general weakness, has no obvious distress, appetite improving, tongue pain is improving, on 2 L nasal cannula saturations 97%.? Labs reviewed, sodium bicarbonate 30 down from 35 yesterday Exam Narrative: GENERAL: acutely ill looking patient in moderate distress. HEAD: Normocephalic, atraumatic. EYES: PERRLA and EOMI. ENT: Nares clear, no rhinorrhea or epistaxis.?dry membranes moist. Some white rashes on tongue NECK: Supple. CHEST: No wheezing bilaterally, HEART: Regular rate and rhythm.? No murmur heard.? Norm
[2023-04-26 09:10] LABS: Basophils Absolute Auto 0.1 K/mm3 (0.0-0.1); Basophils Percent Auto 0.8 % (0.2-1.2); Eosinophils Absolute Auto 0.4 K/mm3 (0-0.3); Hematocrit 38.1 % (37.0-47.0); Hemoglobin 11.4 g/dL (12.0-15.0); Immature Granulocyte Absolute 0.33 K/mm3 (0.00-0.031); Immature Granulocyte Percent A 2.8 % (0-0.5); Lymphocytes Absolute Auto 2.26 K/mm3 (0.9-3.2); Lymphocytes Percent Auto 19.1 % (18.3-44.2); Mean Corpuscular HGB Conc 29.9 g/dl (32-36); Mean Corpuscular Hemoglobin 26.3 pg (26-34); Mean Corpuscular Volume 87.8 fl (80-100); Monocytes Absolute Auto 1.1 K/mm3 (0.1-0.6); Monocytes Percent Auto 9.5 % (2.6-8.5); Neutrophils Absolute Auto 7.7 K/mm3 (1.3-6.7); Neutrophils Percent Auto 64.8 % (45.5-73.1); Platelet Count Result 411 k/mm3 (150-375); Red Blood Count 4.34 M/mm3 (4.2-5.4); Red Cell Distribution Width 16.6 % (11.5-14.5); White Blood Count 11.9 K/mm3 (4.5-10.0)
[2023-04-26 09:22] LABS: Anion Gap 8 mmol/L (8-16); Blood Urea Nitrogen 14 mg/dL (7-17); Carbon Dioxide 30 mmol/L (22-30); Chloride 98 mmol/L (98-107); Estimated Glomerular Filt Rate > 60; Glucose 118 mg/dL (65-110); Potassium 3.8 mmol/L (3.4-5.0); Sodium 136 mmol/L (137-145)
[2023-04-26] MEDS: NYSTATIN 100,000 UNITS/ML SUSP 5 ML ORAL.SUSP PO ×4 (10:02→21:30)
[2023-04-26] MEDS: FUROSEMIDE INJ 40 MG/4 ML VIAL IV PUSH (10:02)
[2023-04-26] MEDS: ENOXAPARIN 40 MG/0.4 ML SYRINGE SUB-Q (10:02)
[2023-04-26] MEDS: HYDROCORTISONE 1% 30 GM CREAM 1 APPLIC TOPICAL ×2 (10:05→21:32)
--- NOTE | 2023-04-26 11:14 | PM.DS ---
DS: Admitting Diagnosis Discharge Date 04/26/23 Admitting Diagnosis (1) Acute hypoxemic respiratory failure: ?Code(s): J96.01 - Acute respiratory failure with hypoxia ?Status:?Acute (2) Acute hypercapnic respiratory failure: ?Code(s): J96.02 - Acute respiratory failure with hypercapnia ?Status:?Acute (3) Bilateral pneumonia: ?Code(s): J18.9 - Pneumonia, unspecified organism ?Status:?Acute (4) Influenza A: ?Code(s): J10.1 - Influenza due to other identified influenza virus with other respiratory manifestations ?Status:?Acute DS: Discharge Diagnosis Discharge Diagnosis (1) Acute hypoxemic respiratory failure: Code(s): J96.01 - Acute respiratory failure with hypoxia Status: Acute (2) Acute hypercapnic respiratory failure: Code(s): J96.02 - Acute respiratory failure with hypercapnia Status: Acute (3) Bilateral pneumonia: Code(s): J18.9 - Pneumonia, unspecified organism Status: Acute (4) Influenza A: Code(s): J10.1 - Influenza due to other identified influenza virus with other respiratory manifestations Status: Acute DS: Summary Hospital Course Hospital Course: patient is a 72-year-old female presents the emergency department with chief complaint of shortness of breath patient states that she started having difficulty breathing this evening and reports that he got worse decided to call EMS when EMS arrived they found the patient hypoxic and tripoding the tip to give the patient breathing treatment without relief. She was evaluated and found to be in respiratory failure and BIPAP was intitated immediately, antibiotics, steroid and breathing treatment already given. Multifocal pneumonia Better pneumonia superimposed with his influenza a infection Extensive airspace consolidation bilaterally Correlate for pulmonary edema versus extensive pneumonia. currently on BIPAP, will repeat ABG in an hour and make changes accordingly,, on ceftriaxone and azithromycin. ordered echocardiogram Received Lasix 40 mg once in the ED Continue Tamiflu for 5 days, received azithromycin 500 mg IV daily and cefepime 2 g IV q.8 hours T0 April 22, changed to Augmentin p.o. per Dr. Boles on 04/22 Consult knot tier for evaluation and treatment, appreciate Dr Shirley's and Dr. Mccoy's consultation, dc steroid completed antibiotics today, also completed 7 days of Tamiflu, knot tier consult is appreciated, continue Anoro Ellipta 62.5-25 at 1 puff q.day.? Rescue albuterol 2 puffs q.4 hours p.r.n. shortness of breath or wheezing per knot tier recommendation 04/26, afeb patient has no shortness of breaths Oral candidiasis Patient has a tongue pain, worse with eating drinking Scattered rash on the top of her tongue Suspected oral candidiasis Started nystatin mouth rinse and lidocaine mouth rinse for pain control Muscle rashes is improving Acute on chronic systolic heart failure Fluid over load received lasix iv in ED on lasix 40 mg iv daily add acetazolamide 250 mg prn po f/u echo: Presence of ICD lead identified.Left ventricular systolic function is severely reduced, estimated at 20-25%. Fluid overload is improving, negative input output balance-310 mL today Continue IV Lasix 40mg daily till 04/26 Dyspnea is improving continue Lasix change to oral lasix bid po increase spironolactone 25 mg daily p.o. c/w Farxiga 10 mg daily p.o. Essential hypertension Continue home medications: losartan metoprolol at home Sepsis Leukocytosis 23,400, tachypnea, lactic acidosis Likely secondary to multifocal pneumonia Received fluid resuscitation Follow-up blood [id number]/14, no growth so far now resolves Acute respiratory failure is hypoxemia and hypercapnia Patient is off BiPAP Repeated ABG suggesting improving CO2 retention and oxygenation CO2 retention is improving now on 2 L O2 Metabolic alkalosis and hypokalemia Replete potassium chloride Rec
--- NOTE | 2023-04-26 15:11 | PC.NURSE ---
Verified with care coordination that auth is still pending for placement to SNF. Patient updated.
[2023-04-26] MEDS: FUROSEMIDE 20 MG TABLET PO (17:48)
[2023-04-26] MEDS: MELATONIN 5 MG TABLET PO (21:29)
[2023-04-26] MEDS: DOXEPIN HCL 25 MG CAPSULE PO (21:29)
[2023-04-27] VITALS (13 sets, daily range): BP systolic 110–128; BP diastolic 58–65; PULSE 60–76; RESP 18–22; TEMP 36.6–36.9; O2SAT 96–99
[2023-04-27] MEDS: ACETAMINOPHEN 325 MG TABLET 650 MG PO ×3 (03:15→17:02)
[2023-04-27] MEDS: GABAPENTIN 300 MG CAPSULE PO (04:27)
[2023-04-27] MEDS: MAGNES & ALUM HYD/SIMETH/DIPHENHYD/LIDOCAINE 119 ML MOUTHWASH BY MOUTH ×5 (04:29→22:08)
[2023-04-27 06:31] LABS: Basophils Absolute Auto 0.1 K/mm3 (0.0-0.1); Basophils Percent Auto 0.6 % (0.2-1.2); Eosinophils Absolute Auto 0.4 K/mm3 (0-0.3); Eosinophils Percent Auto 3.3 % (0-4.4); Hematocrit 34.8 % (37.0-47.0); Hemoglobin 10.8 g/dL (12.0-15.0); Immature Granulocyte Absolute 0.38 K/mm3 (0.00-0.031); Immature Granulocyte Percent A 2.9 % (0-0.5); Lymphocytes Absolute Auto 2.75 K/mm3 (0.9-3.2); Lymphocytes Percent Auto 20.8 % (18.3-44.2); Mean Corpuscular Hemoglobin 26.4 pg (26-34); Mean Corpuscular Volume 85.1 fl (80-100); Mean Platelet Volume 9.9 fl (7.4-10.4); Monocytes Absolute Auto 1.3 K/mm3 (0.1-0.6); Monocytes Percent Auto 9.7 % (2.6-8.5); Neutrophils Absolute Auto 8.3 K/mm3 (1.3-6.7); Neutrophils Percent Auto 62.7 % (45.5-73.1); Platelet Count Result 426 k/mm3 (150-375); Red Blood Count 4.09 M/mm3 (4.2-5.4); Red Cell Distribution Width 16.3 % (11.5-14.5); White Blood Count 13.3 K/mm3 (4.5-10.0)
[2023-04-27 06:44] LABS: Anion Gap 7 mmol/L (8-16); Blood Urea Nitrogen 17 mg/dL (7-17); Carbon Dioxide 31 mmol/L (22-30); Chloride 96 mmol/L (98-107); Estimated Glomerular Filt Rate 54; Glucose 156 mg/dL (65-110); Potassium 3.6 mmol/L (3.4-5.0); Sodium 134 mmol/L (137-145)
[2023-04-27] MEDS: IPRATROPIUM BR 0.02% INH SOLN 0.5 MG/2.5 ML VIAL INHALATION ×4 (08:35→20:58)
[2023-04-27] MEDS: ALBUTEROL SULFATE NEB 2.5 MG/3 ML INH INHALATION ×4 (08:35→20:58)
[2023-04-27] MEDS: SPIRONOLACTONE 25 MG TABLET PO (09:09)
[2023-04-27] MEDS: FUROSEMIDE 20 MG TABLET PO ×2 (09:10→17:02)
[2023-04-27] MEDS: NYSTATIN 100,000 UNITS/ML SUSP 5 ML ORAL.SUSP PO ×4 (09:10→22:06)
[2023-04-27] MEDS: ENOXAPARIN 40 MG/0.4 ML SYRINGE SUB-Q (09:10)
[2023-04-27] MEDS: HYDROCORTISONE 1% 30 GM CREAM 1 APPLIC TOPICAL ×2 (09:11→22:07)
--- NOTE | 2023-04-27 12:20 | PCPTNOTE ---
Attempted this morning sround 10am. pt refused because she had not eaten her breakfast yet and when therapist brought tray towards her bumped her knee and stated she was not going to do therapy now.
--- NOTE | 2023-04-27 17:33 | PM.IMPN ---
Progress Note: A&P Assessment and Plan (1) Acute hypoxemic respiratory failure: Code(s): J96.01 - Acute respiratory failure with hypoxia Status: Acute (2) Acute hypercapnic respiratory failure: Code(s): J96.02 - Acute respiratory failure with hypercapnia Status: Acute (3) Bilateral pneumonia: Code(s): J18.9 - Pneumonia, unspecified organism Status: Acute (4) Influenza A: Code(s): J10.1 - Influenza due to other identified influenza virus with other respiratory manifestations Status: Acute Plan patient is a 72-year-old female presents the emergency department with chief complaint of shortness of breath patient states that she started having difficulty breathing this evening and reports that he got worse decided to call EMS when EMS arrived they found the patient hypoxic and tripoding the tip to give the patient breathing treatment without relief. She was evaluated and found to be in respiratory failure and BIPAP was intitated immediately, antibiotics, steroid and breathing treatment already given. Multifocal pneumonia Better pneumonia superimposed with his influenza a infection Extensive airspace consolidation bilaterally Correlate for pulmonary edema versus extensive pneumonia. currently on BIPAP, will repeat ABG in an hour and make changes accordingly,, on ceftriaxone and azithromycin. ordered echocardiogram Received Lasix 40 mg once in the ED Continue Tamiflu for 5 days, received azithromycin 500 mg IV daily and cefepime 2 g IV q.8 hours T0 April 22, changed to Augmentin p.o. per Dr. Boles on 04/22 Consult heating element builder for evaluation and treatment, appreciate Dr Shirley's and Dr. Mccoy's consultation, wy steroid completed antibiotics today, also completed 7 days of Tamiflu, heating element builder consult is appreciated, continue Anoro Ellipta 62.5-25 at 1 puff q.day.? Rescue albuterol 2 puffs q.4 hours p.r.n. shortness of breath or wheezing per heating element builder recommendation 04/26, afeb patient has no shortness of breaths Oral candidiasis Patient has a tongue pain, worse with eating drinking Scattered rash on the top of her tongue Suspected oral candidiasis Continue Nystatin mouth rinse and lidocaine mouth rinse for pain control Muscle rashes is improving Acute on chronic systolic heart failure Fluid over load received lasix iv in ED on lasix 40 mg iv daily add acetazolamide 250 mg prn po f/u echo: Presence of ICD lead identified.Left ventricular systolic function is severely reduced, estimated at 20-25%. Fluid overload is improving, negative input output balance-310 mL today Continue IV Lasix 40mg daily till 04/26 Dyspnea is improving continue Lasix change to oral lasix bid po add spironolactone 25 mg daily p.o. Sepsis Leukocytosis 23,400, tachypnea, lactic acidosis Likely secondary to multifocal pneumonia Received fluid resuscitation Follow-up blood /14, no growth so far now resolved WBC count trending down Acute respiratory failure is hypoxemia and hypercapnia Patient is off BiPAP Repeated ABG suggesting improving CO2 retention and oxygenation CO2 retention is improving now on 2 L O2 Metabolic alkalosis and hypokalemia Replete potassium chloride Received acetazolamide 250 mg 04/20 HCO3 35 provide acetazolamide 250mg once po 04/25 now potassium 3.8, sodium bicarbonate 30 Corrected 04/26 DC planning to care home facility once bed is available ? Patient seen and examined at bedside during my morning rounds ? Collaborated with patient's nurse at the bedside in detail and addressed all concerns ? Labs, electrolytes, radiology, investigations and test results reviewed ? Consult/Nursing/Ancilliary notes on the chart reviewed and appreciated ? Spoke with patient at the bedside and answered all the questions that they had Repeat labs in a.m. Electrolyte replacement as per protocol. Patient will be monitored very closely on the floor. Further recommendations as pe
[2023-04-27] MEDS: DOXEPIN HCL 25 MG CAPSULE PO (22:05)
[2023-04-28] MEDS: MAGNES & ALUM HYD/SIMETH/DIPHENHYD/LIDOCAINE 119 ML MOUTHWASH BY MOUTH ×3 (05:08→17:15)
[2023-04-28] MEDS: ACETAMINOPHEN 325 MG TABLET 650 MG PO ×3 (05:11→17:13)
[2023-04-28 05:58] VITALS: BP 126/77; PULSE 83; RESP 18; TEMP 36.8; O2SAT 100
[2023-04-28 09:20] VITALS: O2SAT 96
[2023-04-28] MEDS: SPIRONOLACTONE 25 MG TABLET PO (09:21)
[2023-04-28] MEDS: FUROSEMIDE 20 MG TABLET PO ×2 (09:21→17:13)
[2023-04-28] MEDS: ENOXAPARIN 40 MG/0.4 ML SYRINGE SUB-Q (09:21)
[2023-04-28] MEDS: NYSTATIN 100,000 UNITS/ML SUSP 5 ML ORAL.SUSP PO ×2 (09:21→17:13)
[2023-04-28] MEDS: HYDROCORTISONE 1% 30 GM CREAM 1 APPLIC TOPICAL (09:21)
[2023-04-28] MEDS: polyethylene glycoL 3350 17 GM POWD.PACK PO (09:26)
[2023-04-28 09:42] LABS: Basophils Absolute Auto 0.1 K/mm3 (0.0-0.1); Basophils Percent Auto 0.8 % (0.2-1.2); Eosinophils Absolute Auto 0.5 K/mm3 (0-0.3); Eosinophils Percent Auto 3.6 % (0-4.4); Hematocrit 34.3 % (37.0-47.0); Hemoglobin 10.2 g/dL (12.0-15.0); Immature Granulocyte Absolute 0.35 K/mm3 (0.00-0.031); Immature Granulocyte Percent A 2.7 % (0-0.5); Lymphocytes Absolute Auto 2.49 K/mm3 (0.9-3.2); Lymphocytes Percent Auto 19.1 % (18.3-44.2); Mean Corpuscular HGB Conc 29.7 g/dl (32-36); Mean Corpuscular Hemoglobin 26.4 pg (26-34); Mean Corpuscular Volume 88.9 fl (80-100); Mean Platelet Volume 9.9 fl (7.4-10.4); Monocytes Absolute Auto 1.1 K/mm3 (0.1-0.6); Monocytes Percent Auto 8.6 % (2.6-8.5); Neutrophils Absolute Auto 8.5 K/mm3 (1.3-6.7); Neutrophils Percent Auto 65.2 % (45.5-73.1); Platelet Count Result 406 k/mm3 (150-375); Red Blood Count 3.86 M/mm3 (4.2-5.4); Red Cell Distribution Width 16.7 % (11.5-14.5); White Blood Count 13.1 K/mm3 (4.5-10.0)
[2023-04-28 09:52] LABS: Anion Gap 7 mmol/L (8-16); Blood Urea Nitrogen 19 mg/dL (7-17); Calcium 8.6 mg/dL (8.4-10.2); Carbon Dioxide 30 mmol/L (22-30); Chloride 97 mmol/L (98-107); Estimated Glomerular Filt Rate > 60; Glucose 178 mg/dL (65-110); Potassium 4.1 mmol/L (3.4-5.0); Sodium 134 mmol/L (137-145)
[2023-04-28 10:33] LABS: Platelet Estimate Adequate (Adequate)
[2023-04-28 10:34] LABS: Hypochromasia 1+ (NORMAL); Schistocytes None Seen (NORMAL)
--- NOTE | 2023-04-28 10:43 | PCRCNOTE ---
Window of time for administration has passed. See next scheduled administration.
[2023-04-28] MEDS: ALBUTEROL SULFATE NEB 2.5 MG/3 ML INH INHALATION (11:13)
[2023-04-28] MEDS: IPRATROPIUM BR 0.02% INH SOLN 0.5 MG/2.5 ML VIAL INHALATION (11:23)
[2023-04-28 11:24] VITALS: PULSE 68; RESP 18; O2SAT 96
[2023-04-28 11:37] VITALS: PULSE 74; RESP 18
[2023-04-28 14:00] VITALS: BP 101/78; PULSE 94; RESP 20; TEMP 36.5; O2SAT 100
--- NOTE | 2023-04-28 15:14 | PM.DS ---
DS: Admitting Diagnosis Discharge Date 04/28/2023: Admitting Diagnosis Acute respiratory failure with hypoxia and hypercarbia Bilateral pneumonia Influenza A DS: Discharge Diagnosis Discharge Diagnosis (1) COPD (chronic obstructive pulmonary disease): Code(s): J44.9 - Chronic obstructive pulmonary disease, unspecified Status: Acute (2) Influenza A: Code(s): J10.1 - Influenza due to other identified influenza virus with other respiratory manifestations Status: Acute (3) Bilateral pneumonia: Code(s): J18.9 - Pneumonia, unspecified organism Status: Acute (4) Acute hypercapnic respiratory failure: Code(s): J96.02 - Acute respiratory failure with hypercapnia Status: Acute (5) Acute hypoxemic respiratory failure: Code(s): J96.01 - Acute respiratory failure with hypoxia Status: Acute (6) Acute exacerbation of chronic obstructive pulmonary disease: Code(s): J44.1 - Chronic obstructive pulmonary disease with (acute) exacerbation Status: Acute (7) CHF exacerbation: Code(s): I50.9 - Heart failure, unspecified Status: Acute DS: Summary Hospital Course Reason for hospitalization: Patient brought to the ER for evaluation by EMS for shortness of breath Hospital Course: H&P: HPI History of Present Illness Date/Time: 04/18/23? 06:58 Chief Complaint: SOB Narrative: patient is a 72-year-old female presents the emergency department with chief complaint of shortness of breath patient states that she started having difficulty breathing this evening and reports that he got worse decided to call EMS when EMS arrived they found the patient hypoxic and tripoding the tip to give the patient breathing treatment without relief. She was evaluated and found to be in respiratory failure and BIPAP was intitated immediately, antibiotics, steroid and breathing treatment already given. I was consulted to admit patient for further management. HOSPITAL COURSE ... Date of Admission - 04/27/2023: patient is a 72-year-old female presents the emergency department with chief complaint of shortness of breath patient states that she started having difficulty breathing this evening and reports that he got worse decided to call EMS when EMS arrived they found the patient hypoxic and tripoding the tip to give the patient breathing treatment without relief. She was evaluated and found to be in respiratory failure and BIPAP was intitated immediately, antibiotics, steroid and breathing treatment already given. Multifocal pneumonia Better pneumonia superimposed with his influenza a infection Extensive airspace consolidation bilaterally Correlate for pulmonary edema versus extensive pneumonia. ?currently on BIPAP, will repeat ABG in an hour and make changes accordingly,, on ceftriaxone and azithromycin. ordered echocardiogram Received Lasix 40 mg once in the ED Continue Tamiflu for 5 days, received azithromycin 500 mg IV daily and cefepime 2 g IV q.8 hours T0 April 22, changed to Augmentin p.o. per Dr. Boles on 04/22 Consult it manager for evaluation and treatment,? appreciate Dr Shirley's and Dr. Mccoy's? consultation,? dc steroid completed antibiotics today, also completed 7 days of Tamiflu, it manager consult is appreciated, continue Anoro Ellipta 62.5-25 at 1 puff q.day.? Rescue albuterol 2 puffs q.4 hours p.r.n. shortness of breath or wheezing per it manager recommendation 04/26,? afeb patient has no shortness of breaths Oral candidiasis Patient has a tongue pain, worse with eating drinking Scattered rash on the top of her tongue Suspected oral candidiasis Continue Nystatin mouth rinse and lidocaine mouth rinse for pain control Muscle rashes is? improving Acute on chronic systolic heart failure Fluid over load received lasix iv in ED on lasix 40 mg iv daily add acetazolamide 250 mg prn po f/u echo:??Presence of ICD lead identified.Left ventricular systolic function is
--- NOTE | 2023-04-28 17:01 | PCRCNOTE ---
Window of time for administration has passed. See next scheduled administration.
== END 2023-04-28 18:20 | DRG 193 ==
LOC: ANHED 07:32 → ANHIMU 13:23 → ANH3MEDSUR 04-20 12:24
PROVIDERS: Hospitalist; Admitting Provider Student in an Organized Health Care Education/Training Program; Emergency Provider Emergency Medicine; Visit Provider Family Medicine
DX: J10.01 Influenza due to other identified influenza virus with the same other identified influenza virus pneumonia (principal); I50.23 Acute on chronic systolic (congestive) heart failure; J96.01 Acute respiratory failure with hypoxia; J96.02 Acute respiratory failure with hypercapnia; J44.0 Chronic obstructive pulmonary disease with (acute) lower respiratory infection; J44.1 Chronic obstructive pulmonary disease with (acute) exacerbation; B37.0 Candidal stomatitis; E87.3 Alkalosis; Z20.822 Contact with and (suspected) exposure to COVID-19; E87.6 Hypokalemia
CPT/HCPCS: 36415; 36600; 71045; 80048; 80053; 81001; 82805; 83605; 83735; 83880; 84145; 84484; 85025; 85610; 85730; 87040; 87637; 93005; 94002; 94640; 96365; 96367; 96375; 97110; 97116; 97161; 97165; 97530; 97535; 99285; A9270; C8929; G0378; J0456; J0692; J0696; J1650; J1940; J2405; J2930; J7030; J7040; Q9957

== ENCOUNTER 2023-06-01 13:20 | Inpatient (IN) | payer MEDICARE, MEDICAID, SELFPAY ==
[2023-06-01] VITALS (16 sets, daily range): BP systolic 101–136; BP diastolic 45–90; PULSE 53–67; RESP 16–28; TEMP 36.6–36.8; O2SAT 86–100; BMI 26.0
--- NOTE | ~2023-06-01 | CT_ITS ---
EXAMINATION: CTA chest PE protocol DATE: 06/01/2023 17:58 INDICATION: R pleuritic rib pain, pain to R shoulder blade TECHNIQUE: Computed tomography angiography (CTA) of the chest was performed with 100 mL Omnipaque-350 intravenous contrast timed to evaluate the pulmonary arteries. Coronal maximum intensity projection 3D-reconstructions were created by the technologist. The dose-length product (DLP) was 261.54 mGy-cm. Automated exposure control and iterative reconstruction technique were employed. COMPARISON: None. FINDINGS: Lung parenchyma and airways: Scattered patchy groundglass and multifocal areas of peripheral consolid ation. Dependent atelectasis. Pleura: Very small volume right pleural fluid collection. Thoracic inlet, axillae and chest wall: Left chest pacer/AICD with leads in good position. Thoracic aorta: Normal. Mediastinum: Right hilar and mediastinal lymphadenopathy. Heart and pericardium: Cardiomegaly. Thinning and calcification at the cardiac apex. Coronary stent. Coronary artery calcifications: Mild. Upper abdomen: No significant finding. Bones: No acute osseous finding. Pulmonary arteries: Study quality: Adequate. No pulmonary emboli detected. IMPRESSION: No CT evidence of acute pulmonary embolus. Pulmonary opacities, consistent with atypical/viral infection. Right hilar and mediastinal lymphadenopathy. Small right pleural effusion. Reviewed, dictated and finalized at location [facility]
--- NOTE | 2023-06-01 14:01 | PC.NURSE ---
Pt placed on 3L O2 NC. Pt 99%
--- NOTE | 2023-06-01 15:40 | ED.ABDPAIN ---
HPI - Abdominal Pain General Chief Complaint: Abdominal Pain <PRESTON Reyes Last Filed: 06/01/23 16:31> Stated Complaint: abdominal <PRESTON Reyes Last Filed: 06/01/23 16:31> Time Seen by Provider: 06/01/23 16:05 <Kaye Perez PA-C - Last Filed: 06/01/23 16:31> Focused HPI: 72 y/o F reports for evaluation for R sided anterior pleuritic chest wall pain that radiates to her R shoulder blade x2 days. She reports an associated intermittent cough, dyspnea and nausea. Denies abdominal pain, fever, v/d, dysuria, hematuria, BLE. Pt was recently discharged from our hospital on 04/28 for influenza A, CHF exacerbation, acute hypoxic respiratory failure. She wears 2L O2 NC as needed. She has been placed on 2L NC in triage after satting 86% on room air. She is now satting 100% on room air. GENERAL: Well-appearing, well-nourished, and in no acute distress. HEAD: Normocephalic, atraumatic. CHEST: Decreased breath sounds throughout. ABDOMEN: Soft, nontender, nondistended. EXTREMITIES: No BLE HEART: Regular rate and rhythm.? NEURO: ?Alert and oriented x3. Patient screened in triage and initial orders placed.? ?Additional care and disposition to be based upon?diagnostic testing and treatment. <Kaye Perez PA-C - Last Filed: 06/01/23 16:31> Source: patient <PRESTON Yepez Last Filed: 06/02/23 02:37> Mode of arrival: ambulatory <PRESTON Yepez Last Filed: 06/02/23 02:37> Limitations: no limitations <PRESTON Yepez Last Filed: 06/02/23 02:37> History of Present Illness HPI narrative: this is a 72-year-old female with PMH of COPD, CHF who presents to the ED with for chief complaint of right-sided rib pain and shortness of breath for the past several days. Reports she was discharged from the hospital a couple of weeks ago after having influenza and CHF Exacerbation. Reports that she uses oxygen as needed. Denies exertional chest pain, syncope, lightheadedness. On arrival patient was saturating 88% on room air and was well on 2 L. <Jason Cheema PA-C - Last Filed: 06/02/23 02:37> Related Data Home Medications: Home Medications Medication Instructions Recorded Confirmed albuterol sulfate 90 mcg/actuation 90 mcg inhalation DIRECTED 04/18/23 06/01/23 aerosol inhaler amiodarone 200 mg tablet 200 mg PO BID 04/18/23 06/01/23 clopidogrel 75 mg tablet 75 mg PO DAILY 04/18/23 06/01/23 dapagliflozin propanediol 10 mg 5 mg PO DAILY 04/18/23 06/01/23 tablet (Farxiga) escitalopram oxalate 20 mg tablet 20 mg PO DAILY 04/18/23 06/01/23 levothyroxine 50 mcg tablet 50 mcg PO DAILY 04/18/23 06/04/23 losartan 25 mg tablet 25 mg PO DAILY 04/18/23 06/01/23 metoprolol tartrate 25 mg tablet 25 mg PO DAILY 04/18/23 06/01/23 pantoprazole 40 mg tablet,delayed 40 mg PO DAILY 04/18/23 06/01/23 release pravastatin 40 mg tablet 40 mg PO DAILY 04/18/23 06/01/23 <PRESTON Reyes Last Filed: 06/01/23 16:31> Allergies/Adverse Reactions: Allergies Allergy/AdvReac Type Severity Reaction Status Date / Time LUCRETIA Inhibitors Allergy Swelling Verified 06/01/23 21:16 of Lip/Tongue/Throat Quinolones Allergy Swelling Verified 06/01/23 21:16 of Lip/Tongue/Throat levofloxacin [From Levaquin] AdvReac Unknown Verified 06/01/23 21:17 <PRESTON Reyes Last Filed: 06/01/23 16:31> Review of Systems Review of Systems: All systems as dictated in HPI <Jason Cheema PA-C - Last Filed: 06/02/23 02:37> [facility] Past Medical History Medical History: Medical History (Updated 06/02/23 @ 08:42 by Mirta Ferrari APRN) Cardiomyopathy COPD (chronic obstructive pulmonary disease) Hyperlipidemia Hypothyroidism Systolic heart failure <Kaye Perez PA-C - Last Filed: 06/01/23 16:31> Surgical History Surgical History: Surgical History (Updated 06/02/23 @ 08:37 by Mirta Ferrari, OZZIE) AICD (a
--- NOTE | 2023-06-01 15:47 | ECG_ITS ---
Measurements Intervals [place] Rate: 58 P: 34 [place]: 220 QRS: -87 QRSD: 166 T: 55 QT: 400 QTc: 396 Interpretive Statements SINUS BRADYCARDIA WITH FIRST DEGREE AV BLOCK LEFT AXIS DEVIATION RIGHT BUNDLE BRANCH BLOCK ANTEROSEPTAL INFARCT, AGE INDETERMINATE CONSIDER INFERIOR INFARCT, AGE INDETERMINATE BASELINE ARTIFACT- I, II, III, AVR, AVL, AVF ABNORMAL ECG COMPARED TO ECG 04/18/2023 09:16:54 SINUS BRADYCARDIA NOW PRESENT Electronically Signed On 06-01-2023 19:33:27 [employer]/TEACH[employer] ASSISTANT by Miguel Angel Gates D.O.
[2023-06-01 16:15] LABS: Basophils Absolute Auto 0.1 K/mm3 (0.0-0.1); Basophils Percent Auto 0.6 % (0.2-1.2); Eosinophils Absolute Auto 0.3 K/mm3 (0-0.3); Hematocrit 37.5 % (37.0-47.0); Hemoglobin 11.8 g/dL (12.0-15.0); Immature Granulocyte Absolute 0.09 K/mm3 (0.00-0.031); Immature Granulocyte Percent A 0.7 % (0-0.5); Lymphocytes Absolute Auto 2.34 K/mm3 (0.9-3.2); Mean Corpuscular HGB Conc 31.5 g/dl (32-36); Mean Corpuscular Hemoglobin 26.6 pg (26-34); Mean Corpuscular Volume 84.5 fl (80-100); Mean Platelet Volume 9.1 fl (7.4-10.4); Neutrophils Absolute Auto 8.6 K/mm3 (1.3-6.7); Neutrophils Percent Auto 69.7 % (45.5-73.1); Platelet Count Result 520 k/mm3 (150-375); Red Blood Count 4.44 M/mm3 (4.2-5.4); Red Cell Distribution Width 17.2 % (11.5-14.5); White Blood Count 12.3 K/mm3 (4.5-10.0)
[2023-06-01 16:27] LABS: Alanine Aminotransferase 22 U/L (6-35); Albumin Level 3.5 g/dL (3.5-5.1); Alkaline Phosphatase 122 U/L (38-126); Anion Gap 6 mmol/L (8-16); Aspartate Amino Transferase 33 U/L (14-36); Bilirubin,Total 0.7 mg/dL (0.2-1.3); Blood Urea Nitrogen 13 mg/dL (7-17); Calcium 8.8 mg/dL (8.4-10.2); Carbon Dioxide 28 mmol/L (22-30); Chloride 99 mmol/L (98-107); Estimated Glomerular Filt Rate 54; Glucose 123 mg/dL (65-110); Lipase 122 U/L (23-300); Potassium 4.3 mmol/L (3.4-5.0); Sodium 133 mmol/L (137-145)
[2023-06-01 16:37] LABS: NT Pro B Type Natriuretic Pept 1670 pg/mL (19.9-100); Troponin I < 0.012 ng/mL (0.000-0.034)
[2023-06-01 16:51] LABS: Influenza A QL RT-PCR Negative (Negative); Influenza B QL RT-PCR Negative (Negative); RSV RNA, RT-PCR Negative (Negative); SARS-CoV-2 RNA PCR Positive (Negative)
--- NOTE | 2023-06-01 19:23 | PM.IMHP ---
H&P: HPI History of Present Illness Date/Time: 06/01/23 19:23 Chief Complaint: Right-sided pleuritic chest pain Narrative: Patient is a 72-year-old female presented to ED for evaluation of right-sided anterior chest wall pain described as pleuritic that radiates to the right shoulder blade has been going on for 2 days disease associated with cough shortness of breath and nausea denies fever, abdominal pain vomiting or diarrhea, she was recently discharged from our hospital service on May 17, 2023 for influenza a infection CHF exacerbation I could test was aggressively fluid and since then she wears 2 L of oxygen through nasal cannula as needed. On arrival to the ED she was satting at 86% on 2 L of oxygen. Patient was evaluated in the ER found to have a leukocytosis of 12.3, also found to be COVID positive. CTA chest negative for PE however showed changes suggestive of viral pneumonia, patient was started on remdesivir and Decadron and a request for admission to medical floor was placed. Patient states she feels somewhat better, denies any symptoms currently. Review of Systems Review of Systems: All systems reviewed & are unremarkable except as noted in HPI and below PMFSH Family History Family History (Updated 06/01/23 @ 21:24 by Pankaj Nichols RN) Mother Diabetes mellitus Kidney disease, chronic, end stage on dialysis Father Emphysema lung Social History Social History Smoking packs per day: 1.5 Smoking cigarettes per day: 30.0 Years smoked: 45 Smoking pack-years: 67.50 Smoking status: Former smoker Tobacco type: cigarettes Alcohol intake: never Substance use: never Do You Feel Safe in your Home?: Yes Lack of Transportation: No Lack of Food: Never True Current Housing: I Have Housing Concerned About Future Housing: No Difficulty Paying Gas/Electric Bills: No Difficulty Paying for Meds: No Currently Unemployed: No Education: Trade/Vocational Certificate Difficulty w/ Childcare or Family Care: No Spiritual care concerns: No Meds Home Medications and Allergies Home Medications Medication Instructions Recorded Confirmed Type albuterol sulfate 90 mcg/actuation 90 mcg inhalation DIRECTED 04/18/23 06/01/23 History aerosol inhaler amiodarone 200 mg tablet 200 mg PO BID 04/18/23 06/01/23 History clopidogrel 75 mg tablet 75 mg PO DAILY 04/18/23 06/01/23 History dapagliflozin propanediol 10 mg 5 mg PO DAILY 04/18/23 06/01/23 History tablet (Farxiga) escitalopram oxalate 20 mg tablet 20 mg PO DAILY 04/18/23 06/01/23 History levothyroxine 50 mcg tablet 20 mcg PO DAILY 04/18/23 06/01/23 History losartan 25 mg tablet 25 mg PO DAILY 04/18/23 06/01/23 History metoprolol tartrate 25 mg tablet 25 mg PO DAILY 04/18/23 06/01/23 History pantoprazole 40 mg tablet,delayed 40 mg PO DAILY 04/18/23 06/01/23 History release pravastatin 40 mg tablet 40 mg PO DAILY 04/18/23 06/01/23 History furosemide 20 mg tablet 20 mg PO BID #10 tabs 04/26/23 06/01/23 Rx nystatin 100,000 unit/mL oral 5 ml PO QID #100 mL 04/26/23 06/01/23 Rx suspension spironolactone 25 mg tablet 25 mg PO QAM #30 tabs 04/26/23 06/01/23 Rx doxepin 25 mg capsule 25 mg PO HS #5 caps 04/28/23 06/01/23 Rx melatonin 5 mg tablet 5 mg PO HS #5 tabs 04/28/23 06/01/23 Rx polyethylene glycol 3350 17 gram 17 g PO BID PRN Constipation 7 04/28/23 06/01/23 Rx oral powder packet (Miralax) days #14 ea Allergies Allergy/AdvReac Type Severity Reaction Status Date / Time LUCRETIA Inhibitors Allergy Swelling Verified 06/01/23 21:16 of Lip/Tongue/Throat Quinolones Allergy Swelling Verified 06/01/23 21:16 of Lip/Tongue/Throat levofloxacin [From Levaquin] AdvReac Unknown Verified 06/01/23 21:17 Vital Signs Vital Signs - 24 hr 06/01/23 13:40 06/01/23 18:28 06/01/23 18:29 Temperature 98.3 F Pulse Rate 66 61 61 Respiratory Rate 18 B
[2023-06-01 19:37] LABS: Troponin I < 0.012 ng/mL (0.000-0.034)
[2023-06-01 19:38] LABS: Lactate Dehydrogenase 269 U/L (120-246)
[2023-06-01 19:40] LABS: CRP 8.1 mg/dL (<1.0)
[2023-06-01] MEDS: REMDESIVIR 200 MG/NS 250 ML 200 MG/250 ML BAG 250 MG IVPB (19:49)
[2023-06-01] MEDS: DEXAMETHASONE 2 MG TABLET 6 MG PO (19:49)
[2023-06-01] MEDS: ACETAMINOPHEN 325 MG TABLET 650 MG PO (19:49)
[2023-06-01 19:58] LABS: Appearance Urine Clear (Clear); Bilirubin Urine Negative (Negative); Blood Urine Negative (Negative); Color Urine Yellow (Yellow); Glucose Urine UA 2+ mg/dL (Negative); Ketones Urine Negative (Negative); Leukocyte Esterase Ur Negative LEU/UL (Negative); Nitrate Urine Negative (Negative); Protein Urine Negative (Negative); Urobilinogen Urine 0.2 mg/dL (<2.0); pH Urine 7.5 (5.0-9.0)
[2023-06-01 20:07] LABS: Add Urine Microscopic? NO; Specific Grav Ur 1.066 (1.001-1.035)
--- NOTE | 2023-06-01 20:45 | ADMGEN ---
This patient, Bibiana Danielle, was admitted to 2 Medical Room 244-. Patient/family oriented to hospital policies and general routines including ID bracelet, bed and alarms, visiting hours, pain management, procedures, bathroom and other care routines, personal items, smoking policy, room service/diet, and visiting hours. Information on how to activate the Rapid Response Team has been discussed. Patient/Family are encouraged to report perceived risks to care and to ask questions if they do not understand what they are told or what they should do.
[2023-06-01] MEDS: SODIUM CHLORIDE 0.9% IV 1,000 ML 125 ML IV CONT (21:15)
[2023-06-01 21:54] LABS: INR 1.2; Prothrombin Time 15.5 Seconds (11.1-14.7)
[2023-06-01 22:21] LABS: Erythrocyte Sedimentation Rate 120 mm/hr (0-20)
[2023-06-02] VITALS (11 sets, daily range): BP systolic 98–123; BP diastolic 34–92; PULSE 50–98; RESP 16–18; TEMP 36.3–36.8; O2SAT 91–100
[2023-06-02] MEDS: DOXEPIN HCL 25 MG CAPSULE PO ×2 (00:35→21:09)
[2023-06-02] MEDS: MELATONIN 5 MG TABLET PO ×2 (00:35→21:09)
[2023-06-02] MEDS: ACETAMINOPHEN 325 MG TABLET 650 MG PO ×3 (00:35→22:26)
[2023-06-02] MEDS: LEVOTHYROXINE SODIUM 50 MCG TABLET 20 MCG PO (05:17)
[2023-06-02] MEDS: SODIUM CHLORIDE 0.9% IV 1,000 ML 125 ML IV CONT (05:17)
[2023-06-02 05:28] LABS: Glucose Point of Care 181 mg/dl (65-105)
[2023-06-02 05:59] LABS: Anion Gap 5 mmol/L (8-16); Blood Urea Nitrogen 14 mg/dL (7-17); Calcium 8.7 mg/dL (8.4-10.2); Carbon Dioxide 24 mmol/L (22-30); Chloride 107 mmol/L (98-107); Estimated Glomerular Filt Rate > 60; Glucose 208 mg/dL (65-110); Potassium 4.3 mmol/L (3.4-5.0); Sodium 136 mmol/L (137-145)
[2023-06-02 07:14] LABS: Basophils Percent Auto 0.2 % (0.2-1.2); Hematocrit 37.2 % (37.0-47.0); Hemoglobin 10.9 g/dL (12.0-15.0); Immature Granulocyte Absolute 0.03 K/mm3 (0.00-0.031); Immature Granulocyte Percent A 0.5 % (0-0.5); Lymphocytes Absolute Auto 1.38 K/mm3 (0.9-3.2); Lymphocytes Percent Auto 20.8 % (18.3-44.2); Mean Corpuscular HGB Conc 29.3 g/dl (32-36); Mean Corpuscular Hemoglobin 26.1 pg (26-34); Monocytes Absolute Auto 0.2 K/mm3 (0.1-0.6); Monocytes Percent Auto 2.3 % (2.6-8.5); Neutrophils Absolute Auto 5.1 K/mm3 (1.3-6.7); Neutrophils Percent Auto 76.2 % (45.5-73.1); Platelet Count Result 454 k/mm3 (150-375); Red Blood Count 4.18 M/mm3 (4.2-5.4); Red Cell Distribution Width 17.3 % (11.5-14.5); White Blood Count 6.6 K/mm3 (4.5-10.0)
--- NOTE | 2023-06-02 07:56 | PM.IMPN ---
Progress Note: A&P Assessment and Plan (1) Acute hypoxemic respiratory failure due to COVID-19: Code(s): U07.1 - COVID-19; J96.01 - Acute respiratory failure with hypoxia Status: Acute Assessment and Plan: Patient presented with oxygen saturation of 86% on her 2L NC which is her baseline oxygen requirement. Chest CTA was negative for PE, shown pulmonary opacities, consistent with viral pneumonia, small right pleural effusion Respiratory panel positive for COVID Currently on 3L NC, wean O2 to keep oxygen saturation >90 Continue Remdesivir and Dexamethasone (2) Viral pneumonia: Code(s): J12.9 - Viral pneumonia, unspecified Status: Acute Assessment and Plan: see above (3) COPD (chronic obstructive pulmonary disease): Code(s): J44.9 - Chronic obstructive pulmonary disease, unspecified Status: Chronic Assessment and Plan: Currently on 3L NC, baseline O2 requirement is 2L (4) Systolic heart failure: Code(s): I50.20 - Unspecified systolic (congestive) heart failure Status: Chronic Assessment and Plan: Restarted Spironolactone, Lasix, Cozaar, Metoprolol, and Jardiance. proBNP elevated to 1670 Last echo done on 04/19/24 shown LV systolic function severely reduced with an EF of 20-25% (5) Hypothyroidism: Code(s): E03.9 - Hypothyroidism, unspecified Status: Chronic Assessment and Plan: Restarted synthroid (6) Hyperlipidemia: Code(s): E78.5 - Hyperlipidemia, unspecified Status: Chronic Assessment and Plan: Restarted Pravastatin Time Spent With Patient Time with patient: Greater than 35 minutes Subjective Date/time seen: 06/02/23 07:56 Interval history: This is a 72 year old female who presented to the hospital on 06/01/23 with complaints of right sided pleuritic chest pain. She was found to be in acute hypoxic respiratory failure with an O2 saturation of 86% on her 2L NC which is her baseline O2 needs. Work up in the hospital included a chest CTA which was negative for PE, shown pulmonary opacities consistent with viral pneumonia, small right pleural effusion. Labs initially revealed WBC 12.3, Na+ 133, Lactate dehydrogenase 269, negative troponin x2, CRP 8.1, proBNP 1670. UA was performed and shown specific gravity 1.066, 2+ glucose, otherwise negative. Respiratory panel was positive for COVID. Patient was started on Remdesivir and Dexamethasone. She was increased to 3L NC. On examination today patient is alert and oriented x3, lying in the bed. She denies and fever, chills, nausea, vomiting, diarrhea, abdominal pain, chest pain.She endorses shortness of breath and non productive cough. She is afebrile, VSS, she is currently on 3L NC. Continue Remdesivir and Dexamethasone. Review of Systems Review of Systems: All systems reviewed & are unremarkable except as noted in HPI and below Constitutional: Constitutional: Reports as per HPI and Reports no additional constitutional complaints Eyes: Eyes: Reports as per HPI and Reports no additional eye complaints ENT: Reports system reviewed and no additional complaints, except as documented and Reports as per HPI Cardiovascular: Cardiovascular: Reports as per HPI and Reports no additional cardiovascular complaints Respiratory: Respiratory: Reports as per HPI and Reports no additional respiratory complaints Gastrointestinal: Gastrointestinal: Reports as per HPI and Reports no additional gastrointestinal complaints Genitourinary: Genitourinary: Reports no additional female genitourinary complaints and Reports as per HPI Musculoskeletal: Musculoskeletal: Reports no additional musculoskeletal complaints and Reports as per HPI Integumentary/Breasts: Skin/Breast: Reports system reviewed and no additional complaints, except as docu and Reports as per HPI Neurologic: Reports system reviewed and no additional complaints, except as documented and Reports as per HPI Psychia
[2023-06-02] MEDS: ENOXAPARIN 40 MG/0.4 ML SYRINGE SUB-Q (10:13)
[2023-06-02] MEDS: SPIRONOLACTONE 25 MG TABLET PO (10:14)
[2023-06-02] MEDS: PRAVASTATIN SODIUM 20 MG TABLET 40 MG PO (10:14)
[2023-06-02] MEDS: CLOPIDOGREL BISULFATE 75 MG TABLET PO (10:14)
[2023-06-02] MEDS: LOSARTAN POTASSIUM 25 MG TABLET PO (10:14)
[2023-06-02] MEDS: EMPAGLIFLOZIN 10 MG TABLET BY MOUTH (10:14)
[2023-06-02] MEDS: DEXAMETHASONE 2 MG TABLET 6 MG PO (10:14)
[2023-06-02] MEDS: FUROSEMIDE 20 MG TABLET PO ×2 (10:14→17:41)
[2023-06-02] MEDS: PANTOPRAZOLE 40 MG TABLET PO (10:14)
[2023-06-02] MEDS: AMIODARONE HCL 200 MG TABLET PO ×2 (10:29→21:09)
[2023-06-02] MEDS: REMDESIVIR 100 MG/NS 250 ML 100 MG/250 ML BAG 250 MG IVPB (21:11)
[2023-06-03] VITALS (10 sets, daily range): BP systolic 103–119; BP diastolic 35–52; PULSE 57–62; RESP 16–18; TEMP 36.4–37.1; O2SAT 98–100
[2023-06-03] MEDS: LEVOTHYROXINE SODIUM 50 MCG TABLET 20 MCG PO (05:30)
[2023-06-03 06:11] LABS: Basophils Percent Auto 0.2 % (0.2-1.2); Eosinophils Percent Auto 0.1 % (0-4.4); Hematocrit 36.5 % (37.0-47.0); Hemoglobin 10.9 g/dL (12.0-15.0); Immature Granulocyte Absolute 0.11 K/mm3 (0.00-0.031); Immature Granulocyte Percent A 0.6 % (0-0.5); Lymphocytes Absolute Auto 1.75 K/mm3 (0.9-3.2); Lymphocytes Percent Auto 9.8 % (18.3-44.2); Mean Corpuscular HGB Conc 29.9 g/dl (32-36); Mean Corpuscular Hemoglobin 26.1 pg (26-34); Mean Corpuscular Volume 87.3 fl (80-100); Mean Platelet Volume 9.2 fl (7.4-10.4); Monocytes Absolute Auto 0.9 K/mm3 (0.1-0.6); Monocytes Percent Auto 4.9 % (2.6-8.5); Neutrophils Absolute Auto 15.1 K/mm3 (1.3-6.7); Neutrophils Percent Auto 84.4 % (45.5-73.1); Platelet Count Result 517 k/mm3 (150-375); Red Blood Count 4.18 M/mm3 (4.2-5.4); Red Cell Distribution Width 17.2 % (11.5-14.5); White Blood Count 17.9 K/mm3 (4.5-10.0)
[2023-06-03 06:23] LABS: Alanine Aminotransferase 18 U/L (6-35); Albumin Level 3.3 g/dL (3.5-5.1); Alkaline Phosphatase 116 U/L (38-126); Anion Gap 3 mmol/L (8-16); Aspartate Amino Transferase 26 U/L (14-36); Bilirubin,Total 0.4 mg/dL (0.2-1.3); Blood Urea Nitrogen 19 mg/dL (7-17); Calcium 9.1 mg/dL (8.4-10.2); Carbon Dioxide 32 mmol/L (22-30); Chloride 104 mmol/L (98-107); Estimated Glomerular Filt Rate 54; Glucose 125 mg/dL (65-110); Potassium 4.2 mmol/L (3.4-5.0); Sodium 139 mmol/L (137-145)
[2023-06-03 06:26] LABS: INR 1.2; Prothrombin Time 15.6 Seconds (11.1-14.7)
--- NOTE | 2023-06-03 07:01 | P.PNIM_ITS ---
Progress Note: A&P Assessment and Plan (1) Acute hypoxemic respiratory failure due to COVID-19: Code(s): U07.1 - COVID-19; J96.01 - Acute respiratory failure with hypoxia Status: Acute Assessment and Plan: 06/02/23: * Patient presented with oxygen saturation of 86% on her 2L NC which is her baseline oxygen requirement. * Chest CTA was negative for PE, shown pulmonary opacities, consistent with viral pneumonia, small right pleural effusion * Respiratory panel positive for COVID * Currently on 3L NC, wean O2 to keep oxygen saturation >90 * Continue Remdesivir and Dexamethasone 06/03/23: * Continue with remdesivir and dexamethasone * Continue to wean O2 for saturation greater than 90% * Currently on 3L NC (2) Viral pneumonia: Code(s): J12.9 - Viral pneumonia, unspecified Status: Acute Assessment and Plan: * see above (3) COPD (chronic obstructive pulmonary disease): Code(s): J44.9 - Chronic obstructive pulmonary disease, unspecified Status: Chronic Assessment and Plan: 06/02/23: * Currently on 3L NC, baseline O2 requirement is 2L 06/03/23: * Continue to wean for saturation greater than 90%, currently on 3L NC (4) Systolic heart failure: Code(s): I50.20 - Unspecified systolic (congestive) heart failure Status: Chronic Assessment and Plan: 06/02/23: * Restarted Spironolactone, Lasix, Cozaar, Metoprolol, and Jardiance. * proBNP elevated to 1670 * Last echo done on 04/19/24 shown LV systolic function severely reduced with an EF of 20-25% 06/03/23: * no change to current treatment plan (5) Hypothyroidism: Code(s): E03.9 - Hypothyroidism, unspecified Status: Chronic Assessment and Plan: 06/02/23: * Restarted synthroid 06/03/23: * no change to current treatment plan (6) Hyperlipidemia: Code(s): E78.5 - Hyperlipidemia, unspecified Status: Chronic Assessment and Plan: 06/02/23: * Restarted Pravastatin 06/03/23: * (7) Leukocytosis: Code(s): D72.829 - Elevated white blood cell count, unspecified Status: Acute Assessment and Plan: * WBC 17.9 today from 6.6 yesterday * Currently afebrile and not increasing oxygen needs overnight * Continue to monitor for fever and labs Time Spent With Patient Time with patient: 15 - 25 minutes Subjective Date/time seen: 06/03/23 07:01 Interval history: 06/02/23: This is a 72 year old female who presented to the hospital on 06/01/23 with complaints of right sided pleuritic chest pain. She was found to be in acute hypoxic respiratory failure with an O2 saturation of 86% on her 2L NC which is her baseline O2 needs. Work up in the hospital included a chest CTA which was negative for PE, shown pulmonary opacities consistent with viral pneumonia, small right pleural effusion. Labs initially revealed WBC 12.3, Na+ 133, Lactate dehydrogenase 269, negative troponin x2, CRP 8.1, proBNP 1670. UA was performed and shown specific gravity 1.066, 2+ glucose, otherwise negative. Respiratory panel was positive for COVID. Patient was started on Remdesivir and Dexamethasone. She was increased to 3L NC. On examination today patient is alert and oriented x3, lying in the bed. She denies and fever, chills, nausea, vomiting, diarrhea, abdominal pain, chest pain.She endorses shortness of breath and non productive cough. She is afebrile, VSS, she is currently on 3L NC. Continue Remdesivir and Dexamethasone. 06/03/23: Patient has no new complaints over night. VSS, she is afebrile, currently on 3L
--- NOTE | 2023-06-03 07:01 | PM.IMPN ---
Progress Note: A&P Assessment and Plan (1) Acute hypoxemic respiratory failure due to COVID-19: Code(s): U07.1 - COVID-19; J96.01 - Acute respiratory failure with hypoxia Status: Acute Assessment and Plan: 06/02/23: Patient presented with oxygen saturation of 86% on her 2L NC which is her baseline oxygen requirement. Chest CTA was negative for PE, shown pulmonary opacities, consistent with viral pneumonia, small right pleural effusion Respiratory panel positive for COVID Currently on 3L NC, wean O2 to keep oxygen saturation >90 Continue Remdesivir and Dexamethasone 06/03/23: Continue with remdesivir and dexamethasone Continue to wean O2 for saturation greater than 90% Currently on 3L NC (2) Viral pneumonia: Code(s): J12.9 - Viral pneumonia, unspecified Status: Acute Assessment and Plan: see above (3) COPD (chronic obstructive pulmonary disease): Code(s): J44.9 - Chronic obstructive pulmonary disease, unspecified Status: Chronic Assessment and Plan: 06/02/23: Currently on 3L NC, baseline O2 requirement is 2L 06/03/23: Continue to wean for saturation greater than 90%, currently on 3L NC (4) Systolic heart failure: Code(s): I50.20 - Unspecified systolic (congestive) heart failure Status: Chronic Assessment and Plan: 06/02/23: Restarted Spironolactone, Lasix, Cozaar, Metoprolol, and Jardiance. proBNP elevated to 1670 Last echo done on 04/19/24 shown LV systolic function severely reduced with an EF of 20-25% 06/03/23: no change to current treatment plan (5) Hypothyroidism: Code(s): E03.9 - Hypothyroidism, unspecified Status: Chronic Assessment and Plan: 06/02/23: Restarted synthroid 06/03/23: no change to current treatment plan (6) Hyperlipidemia: Code(s): E78.5 - Hyperlipidemia, unspecified Status: Chronic Assessment and Plan: 06/02/23: Restarted Pravastatin 06/03/23: (7) Leukocytosis: Code(s): D72.829 - Elevated white blood cell count, unspecified Status: Acute Assessment and Plan: WBC 17.9 today from 6.6 yesterday Currently afebrile and not increasing oxygen needs overnight Continue to monitor for fever and labs Time Spent With Patient Time with patient: 15 - 25 minutes Subjective Date/time seen: 06/03/23 07:01 Interval history: 06/02/23: This is a 72 year old female who presented to the hospital on 06/01/23 with complaints of right sided pleuritic chest pain. She was found to be in acute hypoxic respiratory failure with an O2 saturation of 86% on her 2L NC which is her baseline O2 needs. Work up in the hospital included a chest CTA which was negative for PE, shown pulmonary opacities consistent with viral pneumonia, small right pleural effusion. Labs initially revealed WBC 12.3, Na+ 133, Lactate dehydrogenase 269, negative troponin x2, CRP 8.1, proBNP 1670. UA was performed and shown specific gravity 1.066, 2+ glucose, otherwise negative. Respiratory panel was positive for COVID. Patient was started on Remdesivir and Dexamethasone. She was increased to 3L NC. On examination today patient is alert and oriented x3, lying in the bed. She denies and fever, chills, nausea, vomiting, diarrhea, abdominal pain, chest pain.She endorses shortness of breath and non productive cough. She is afebrile, VSS, she is currently on 3L NC. Continue Remdesivir and Dexamethasone. 06/03/23: Patient has no new complaints over night. VSS, she is afebrile, currently on 3L NC. Patient states that she normally only wears oxygen as needed at home. Labs today show an elevated WBC of 17.9 today. We will continue to monitor this for today. We will add incentive spirometry today, continue to wean, and work with PT and OT. Review of Systems Review of Systems: All systems reviewed & are unremarkable except as noted in HPI and below Constitutional: Constitutional: Reports as per HPI and Repor
[2023-06-03 07:48] LABS: Anisocytosis 1+ (NORMAL); Hypochromasia 2+ (NORMAL); Platelet Estimate Increased (Adequate); Schistocytes None Seen (NORMAL)
--- NOTE | 2023-06-03 10:01 | PCPTNOTE ---
Attempted to reach out to the hospitalist regarding removal of bedrest orders prior to PT evaluation, but did not get an answer from Hospitalist. RN aware of bedrest orders. Will follow.
[2023-06-03] MEDS: PRAVASTATIN SODIUM 20 MG TABLET 40 MG PO (10:02)
[2023-06-03] MEDS: LOSARTAN POTASSIUM 25 MG TABLET PO (10:02)
[2023-06-03] MEDS: DEXAMETHASONE 2 MG TABLET 6 MG PO (10:02)
[2023-06-03] MEDS: SPIRONOLACTONE 25 MG TABLET PO (10:02)
[2023-06-03] MEDS: CLOPIDOGREL BISULFATE 75 MG TABLET PO (10:02)
[2023-06-03] MEDS: PANTOPRAZOLE 40 MG TABLET PO (10:02)
[2023-06-03] MEDS: AMIODARONE HCL 200 MG TABLET PO ×2 (10:03→22:31)
[2023-06-03] MEDS: EMPAGLIFLOZIN 10 MG TABLET BY MOUTH (10:03)
[2023-06-03] MEDS: METOPROLOL TARTRATE 25 MG TABLET PO (10:03)
[2023-06-03] MEDS: FUROSEMIDE 20 MG TABLET PO ×2 (10:03→17:20)
[2023-06-03] MEDS: ENOXAPARIN 40 MG/0.4 ML SYRINGE SUB-Q (10:04)
[2023-06-03] MEDS: DOXEPIN HCL 25 MG CAPSULE PO (22:31)
[2023-06-03] MEDS: MELATONIN 5 MG TABLET PO (22:31)
[2023-06-03] MEDS: REMDESIVIR 100 MG/NS 250 ML 100 MG/250 ML BAG 250 MG IVPB (22:31)
[2023-06-04 00:18] VITALS: BP 112/48; PULSE 65; RESP 16; TEMP 36.4; O2SAT 98
[2023-06-04 04:00] VITALS: BP 112/56; PULSE 70; RESP 16; TEMP 36.4; O2SAT 98
[2023-06-04] MEDS: LEVOTHYROXINE SODIUM 50 MCG TABLET PO (05:29)
[2023-06-04 06:01] LABS: Basophils Percent Auto 0.1 % (0.2-1.2); Hematocrit 38.3 % (37.0-47.0); Hemoglobin 11.3 g/dL (12.0-15.0); Immature Granulocyte Absolute 0.15 K/mm3 (0.00-0.031); Immature Granulocyte Percent A 0.9 % (0-0.5); Lymphocytes Absolute Auto 1.59 K/mm3 (0.9-3.2); Lymphocytes Percent Auto 9.3 % (18.3-44.2); Mean Corpuscular HGB Conc 29.5 g/dl (32-36); Mean Corpuscular Hemoglobin 25.7 pg (26-34); Mean Platelet Volume 9.4 fl (7.4-10.4); Monocytes Absolute Auto 0.7 K/mm3 (0.1-0.6); Monocytes Percent Auto 4.2 % (2.6-8.5); Neutrophils Absolute Auto 14.6 K/mm3 (1.3-6.7); Neutrophils Percent Auto 85.5 % (45.5-73.1); Platelet Count Result 546 k/mm3 (150-375); Red Cell Distribution Width 17.2 % (11.5-14.5); White Blood Count 17.1 K/mm3 (4.5-10.0)
[2023-06-04 06:14] LABS: Alanine Aminotransferase 21 U/L (6-35); Albumin Level 3.6 g/dL (3.5-5.1); Alkaline Phosphatase 144 U/L (38-126); Anion Gap 6 mmol/L (8-16); Aspartate Amino Transferase 31 U/L (14-36); Bilirubin,Total 0.5 mg/dL (0.2-1.3); Blood Urea Nitrogen 28 mg/dL (7-17); Calcium 9.6 mg/dL (8.4-10.2); Carbon Dioxide 34 mmol/L (22-30); Chloride 101 mmol/L (98-107); Estimated Glomerular Filt Rate 49; Glucose 131 mg/dL (65-110); Potassium 4.2 mmol/L (3.4-5.0); Sodium 141 mmol/L (137-145)
[2023-06-04 08:00] VITALS: BP 103/45; PULSE 50; RESP 14; TEMP 37.1; O2SAT 99
[2023-06-04 10:00] VITALS: PULSE 50; O2SAT 99
[2023-06-04] MEDS: FUROSEMIDE 20 MG TABLET PO (10:00)
[2023-06-04] MEDS: PANTOPRAZOLE 40 MG TABLET PO (10:00)
[2023-06-04] MEDS: AMIODARONE HCL 200 MG TABLET PO (10:00)
[2023-06-04] MEDS: SPIRONOLACTONE 25 MG TABLET PO (10:00)
[2023-06-04] MEDS: PRAVASTATIN SODIUM 20 MG TABLET 40 MG PO (10:00)
[2023-06-04] MEDS: DEXAMETHASONE 2 MG TABLET 6 MG PO (10:01)
[2023-06-04] MEDS: EMPAGLIFLOZIN 10 MG TABLET BY MOUTH (10:01)
[2023-06-04] MEDS: LOSARTAN POTASSIUM 25 MG TABLET PO (10:01)
[2023-06-04] MEDS: CLOPIDOGREL BISULFATE 75 MG TABLET PO (10:01)
[2023-06-04] MEDS: ENOXAPARIN 40 MG/0.4 ML SYRINGE SUB-Q (10:02)
[2023-06-04 11:39] VITALS: BP 120/33; PULSE 50; RESP 16; TEMP 36.7; O2SAT 97
[2023-06-04 14:00] VITALS: BP 120/33; PULSE 50; RESP 16; TEMP 36.7; O2SAT 97
--- NOTE | 2023-06-04 14:30 | PM.DS ---
DS: Admitting Diagnosis Discharge Date 06/04/23 Admitting Diagnosis COVID-19 viral pneumonia COPD DS: Discharge Diagnosis Discharge Diagnosis (1) Acute hypoxemic respiratory failure due to COVID-19: Code(s): U07.1 - COVID-19; J96.01 - Acute respiratory failure with hypoxia Status: Acute (2) Viral pneumonia: Code(s): J12.9 - Viral pneumonia, unspecified Status: Acute (3) COPD (chronic obstructive pulmonary disease): Code(s): J44.9 - Chronic obstructive pulmonary disease, unspecified Status: Chronic (4) Systolic heart failure: Code(s): I50.20 - Unspecified systolic (congestive) heart failure Status: Chronic (5) Hypothyroidism: Code(s): E03.9 - Hypothyroidism, unspecified Status: Chronic (6) Hyperlipidemia: Code(s): E78.5 - Hyperlipidemia, unspecified Status: Chronic (7) Leukocytosis: Code(s): D72.829 - Elevated white blood cell count, unspecified Status: Acute DS: Summary Hospital Course Reason for hospitalization: Covid Viral pneumonia COPD Hospital Course: This is a 72 year old female who presented to the hospital on 06/01/23 with complaints of right sided pleuritic chest pain. She was found to be in acute hypoxic respiratory failure with an O2 saturation of 86% on her 2L NC which is her baseline O2 needs. Work up in the hospital included a chest CTA which was negative for PE, shown pulmonary opacities consistent with viral pneumonia, small right pleural effusion. Labs initially revealed WBC 12.3, Na+ 133, Lactate dehydrogenase 269, negative troponin x2, CRP 8.1, proBNP 1670. UA was performed and shown specific gravity 1.066, 2+ glucose, otherwise negative. Respiratory panel was positive for COVID. Patient was started on Remdesivir and Dexamethasone. She was increased to 3L NC. On examination today patient is alert and oriented x3, lying in the bed. She denies and fever, chills, nausea, vomiting, diarrhea, abdominal pain, chest pain.She endorses shortness of breath and non productive cough. She is afebrile, VSS, she is currently on 3L NC. Continue Remdesivir and Dexamethasone. 06/03/23: Patient has no new complaints over night. VSS, she is afebrile, currently on 3L NC. Patient states that she normally only wears oxygen as needed at home. Labs today show an elevated WBC of 17.9 today. We will continue to monitor this for today.? We will add incentive spirometry today, continue to wean, and work with PT and OT.? 06/04/23: Patient has no new complaints today. VSS, she is afebrile, currently on 2.5L, Labs today show an elevated WBC of 17.1 likely due to use of steroid. She completed 3 days of Remdesivir and dexamethasone. She is stable for discharge today. She will need to follow up with PCP in 1 week Final diagnosis: viral pneumonia, COVID, COPD. Status at Discharge Cognitive/behavioral status at discharge: Alert and oriented x3 Functional status at discharge: uses cane/walker Overall status at discharge: patient is progressing back to baseline Time Spent with Patient Time attestation: Total time spent providing and/or coordinating discharge services: Time spent: Greater than 30 minutes Exam Narrative: General: In no acute distress, well nourished Head: atraumatic, no encephalopathy Eyes: EOMI, PERRLA, sclera clear ENT: moist mucous membranes, nasal passages clear Neck: supple, no JVD, no adenopathy, trachea midline Cardiac: Normal S1 and S2. No murmur, gallops or friction rubs, peripheral pulses intact. Respiratory: Lungs clear to auscultation, no adventitious lung sounds, Currently on her 3L NC Gastrointestinal: soft, non-distended, non-tender, normoactive bowel sounds. : voiding without difficulty. Extremities: moves all extremities well, no edema Skin: clean, dry, intact. No wounds or lesions. Neuro: Alert and oriented x4, cranial nerves intact, no neuro deficits. Psych: normal mood, normal affect, interactive DS: Data
== END 2023-06-04 16:17 | disposition home or self-care (01) | DRG 177 ==
LOC: ANHED 19:02 → ANH2MED 19:25
PROVIDERS: Physician Assistant; Student in an Organized Health Care Education/Training Program; Admitting Provider Family Medicine; Emergency Provider Physician Assistant; Visit Provider Nurse Practitioner Acute Care
DX: U07.1 COVID-19 (principal); J12.82 Pneumonia due to coronavirus disease 2019; J96.01 Acute respiratory failure with hypoxia; I42.9 Cardiomyopathy, unspecified; I50.22 Chronic systolic (congestive) heart failure; J44.0 Chronic obstructive pulmonary disease with (acute) lower respiratory infection; E78.5 Hyperlipidemia, unspecified; E03.9 Hypothyroidism, unspecified; Z95.810 Presence of automatic (implantable) cardiac defibrillator; Z87.891 Personal history of nicotine dependence
CPT/HCPCS: 36415; 71275; 80048; 80053; 81003; 82248; 82728; 82948; 83615; 83690; 83735; 83880; 84484; 85025; 85610; 85652; 86140; 87637; 93005; 96361; 96365; 96366; 96372; 97110; 97161; 97165; 97535; 99285; A9270; G0378; J0248; J1650; J7030; J8540; Q9967

== ENCOUNTER 2023-06-06 16:13 | Emergency (ER) | payer MEDICARE, SELFPAY ==
--- NOTE | ~2023-06-06 | CT_ITS ---
EXAMINATION: CTA BRAIN/CAROTID DATE: 06/06/2023 16:44 INDICATION: Right-sided weakness and aphasia. TECHNIQUE: Computed tomographic angiography (CTA) of the head and neck was performed with 100 mL Omni paque-350 intravenous contrast. Multiplanar reconstructions and maximum intensity projection 3D-recon structions of the carotid arteries and of the intracranial arteries were created by the technologist on a separate workstation. Precontrast CT of the head was also obtained. Automated exposure control and iterative reconstruction technique were employed.The dose-length product was 2130.59 mGy-cm. COMPARISON: None. FINDINGS: Carotid arteries: Visualized aortic arch is normal in caliber with minimal nonhemodynamically significant atherosclerot ic plaque and no dissection. There is 55% stenosis of the right carotid bulb relative to normal dista l artery lumen diameter (NASCET criteria). There is a central filling defect within the left carotid bulb with a severe likely near occlusion stenosis relative to normal distal artery lumen diameter. Qu antitative assessment is however limited by streak artifact at the level of the stenosis. There are s mall calcified and noncalcified nodules at the left apex. Patchy groundglass opacities more diffusely throughout the visualized bilateral upper lobes which is more suspicious for pneumonia than pulmonar y edema. Mild cervical thoracic levocurvature with moderate spondylosis. Head: No acute intracranial hemorrhage, acute infarction or abnormal extra axial fluid collection. There is moderate scattered white matter hypoattenuation consistent with chronic small vessel ischemic diseas e. Symmetric prominence of the sulci consistent with mild age-appropriate diffuse cerebral volume los s. Ventricles are normal and symmetric. No mass/mass effect. No abnormally enhancing brain lesions on postcontrast imaging Changes of bilateral intraocular lens replacement. The orbits and mastoid air c ells are normal. Small mucous retention cyst in the left sphenoid sinus. Intracranial arteries Small amount of atherosclerotic plaque with no hemodynamically significant stenosis at the bilateral carotid siphons. Vertebral arteries are codominant. There is no hemodynamically significant stenosis along the basilar and bilateral vertebral arteries. There are no aneurysms identified. Both A1 and P 1 segments are patent. There is a patent anterior communicating artery. There is occlusion of one of the branches of the left middle cerebral artery which appears to supply the anterior left temporal lo be. There is some reconstitution of flow in the more peripheral arteries however there is relative at tenuation of the arteries at the left temporal lobe and sylvian fissure when compared with the contra lateral right-sided arteries. IMPRESSION: 1. 55% stenosis of the right carotid bulb relative to normal distal artery lumen diameter (NASCET cri teria). 2. Central filling defect resulting in severe likely near occlusion stenosis of the left carotid bulb relative to normal distal artery lumen diameter. 3. 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 4. Age-related changes including mild diffuse volume loss and moderate scattered nonspecific white ma tter hypoattenuation consistent with chronic small vessel ischemic disease. 5. Patchy ground glass opacities in the bilateral upper lobes suspicious for pneumonia. Reviewed, dictated and finalized at location A. FF CLERK IMPRESSION: 1. 55% stenosis of the right carotid bulb relative to normal distal artery lume n diameter (NASCET criteria). 2. Central filling defect resulting in severe likely near occlusion steno
--- NOTE | ~2023-06-06 | XR_ITS ---
EXAMINATION: XR chest 1V DATE: 06/06/2023 16:44 INDICATION: Stroke TECHNIQUE: frontal view of the chest was obtained. COMPARISON: Chest CT dated 06/01/2023 and chest radiograph dated 04/24/2023 FINDINGS: Again seen are mild patchy airspace opacities scattered throughout both lungs. No pleural effusion or pneumothorax. Cardiomegaly. Coronary artery stenting. Dual lead pacemaker/AICD seen with leads proje cting over the expected locations of the right atrium and right ventricle. IMPRESSION: 1. Persistent patchy bilateral airspace opacities with appearance on CT favoring pneumonia over mild pulmonary edema. This is however significantly improved since 04/18/2023 2. Cardiomegaly. Reviewed, dictated and finalized at location A. RRAGE WORKER IMPRESSION: 1. Persistent patchy bilateral airspace opacities with appearance on CT favorin g pneumonia over mild pulmonary edema. This is however significantly improved s jenna 04/18/2023 2. Cardiomegaly.
[2023-06-06 16:13] VITALS: BP 137/64; PULSE 69; RESP 28; TEMP 36.7; O2SAT 94
--- NOTE | 2023-06-06 16:21 | ECG_ITS ---
Measurements Intervals [place] Rate: 71 P: 58 PA: 204 QRS: -88 QRSD: 187 T: 36 QT: 431 QTc: 470 Interpretive Statements SINUS RHYTHM WITH FIRST-DEGREE AV BLOCK MARKED LEFT AXIS DEVIATION [QRS AXIS < -30] RIGHT BUNDLE BRANCH BLOCK [120+ ms QRS DURATION, UPRIGHT V1, 40+ ms S IN I/aVL/V4/V5/V6] LEFT ANTERIOR SUPERIOR HEMIBLOCK ABNORMAL ECG COMPARED TO ECG 06/01/2023 18:45:11 NO CHANGE Electronically Signed On 06-07-2023 7:07:52 [employer] by Pepe Claire M.D.
[2023-06-06 16:24] VITALS: PULSE 72
--- NOTE | 2023-06-06 16:24 | ED.NEUROSD ---
HPI - Neuro Symptoms/Deficit General Chief Complaint: Suspected CVA Stated Complaint: r/o CVA Time Seen by Provider: 06/06/23 16:15 History of Present Illness HPI Narrative: Patient is a 72-year-old female who presents ER as a code stroke. Last known well was 10:00 a.m. son noticed that patient was not speaking and cannot move her right side. Patient was recently admitted to this hospital in the last 5 days for COVID-19 pneumonia. She received 3 days treatment of remdesivir and dexamethasone. She was discharged on . Patient is a unable to communicate and has difficulty following commands. A previous visit patient alert orient x4 and had no focal neurologic deficits. No additional history provided. Chart review shows patient was on Eliquis in January of 2023 but there have been no prescriptions written since then. She is on Plavix. I have attempted to contact patient the phone number listed in the chart but it does not connect. Related Data Home Medications Medication Instructions Recorded Confirmed albuterol sulfate 90 mcg/actuation 90 mcg inhalation DIRECTED 04/18/23 06/01/23 aerosol inhaler amiodarone 200 mg tablet 200 mg PO BID 04/18/23 06/01/23 clopidogrel 75 mg tablet 75 mg PO DAILY 04/18/23 06/01/23 dapagliflozin propanediol 10 mg 5 mg PO DAILY 04/18/23 06/01/23 tablet (Farxiga) escitalopram oxalate 20 mg tablet 20 mg PO DAILY 04/18/23 06/01/23 levothyroxine 50 mcg tablet 50 mcg PO DAILY 04/18/23 06/04/23 losartan 25 mg tablet 25 mg PO DAILY 04/18/23 06/01/23 metoprolol tartrate 25 mg tablet 25 mg PO DAILY 04/18/23 06/01/23 pantoprazole 40 mg tablet,delayed 40 mg PO DAILY 04/18/23 06/01/23 release pravastatin 40 mg tablet 40 mg PO DAILY 04/18/23 06/01/23 Allergies Allergy/AdvReac Type Severity Reaction Status Date / Time LUCRETIA Inhibitors Allergy Swelling Verified 06/01/23 21:16 of Lip/Tongue/Throat Quinolones Allergy Swelling Verified 06/01/23 21:16 of Lip/Tongue/Throat levofloxacin [From Levaquin] AdvReac Unknown Verified 06/01/23 21:17 Review of Systems Review of Systems: ROS unobtainable: Yes unobtainable due to medical condition PMFSH Past Medical History Medical History (Updated 06/06/23 @ 17:33 by David Ash MD) Cardiomyopathy COPD (chronic obstructive pulmonary disease) Hyperlipidemia Hypothyroidism Systolic heart failure Surgical History Surgical History (Updated 06/02/23 @ 08:37 by Mirta Ferrari APRN) AICD (automatic cardioverter/defibrillator) present Family History Family History (Updated 06/01/23 @ 21:24 by Pankaj Nichols RN) Mother Diabetes mellitus Kidney disease, chronic, end stage on dialysis Father Emphysema lung Social History Social History Smoking packs per day: 1.5 Smoking cigarettes per day: 30.0 Years smoked: 45 Smoking pack-years: 67.50 Smoking status: Former smoker Tobacco type: cigarettes Alcohol intake: never Substance use: never Do You Feel Safe in your Home?: Yes Lack of Transportation: No Lack of Food: Never True Current Housing: I Have Housing Concerned About Future Housing: No Difficulty Paying Gas/Electric Bills: No Difficulty Paying for Meds: No Currently Unemployed: No Education: Trade/Vocational Certificate Difficulty w/ Childcare or Family Care: No Spiritual care concerns: No Exam Narrative: GENERAL: Chronically ill-appearing, well-nourished, and in no acute distress. HEAD: Normocephalic, atraumatic. EYES: Does not follow finger for EOM evaluation. PERRL ENT: Mucous membranes moist. CHEST: Clear to auscultation. No respiratory distress. HEART: Regular rate and rhythm. Normal peripheral pulses. ABDOMEN: Soft, nontender, nondistended. EXTREMITIES: Normal range of motion. No edema. SKIN: Warm, dry, no rash. NEURO: Patient is awake alert. She does not answer questions. She
[2023-06-06 16:26] LABS: Glucose Point of Care 151 mg/dl (65-105)
[2023-06-06 16:29] VITALS: BP 136/74; PULSE 74; RESP 19; O2SAT 100
[2023-06-06 16:34] LABS: Basophils Percent Auto 0.1 % (0.2-1.2); Eosinophils Percent Auto 0.1 % (0-4.4); Hematocrit 39.9 % (37.0-47.0); Hemoglobin 12.3 g/dL (12.0-15.0); Immature Granulocyte Absolute 0.15 K/mm3 (0.00-0.031); Immature Granulocyte Percent A 0.8 % (0-0.5); Lymphocytes Absolute Auto 1.46 K/mm3 (0.9-3.2); Lymphocytes Percent Auto 8.2 % (18.3-44.2); Mean Corpuscular HGB Conc 30.8 g/dl (32-36); Mean Corpuscular Hemoglobin 25.9 pg (26-34); Monocytes Absolute Auto 1.7 K/mm3 (0.1-0.6); Monocytes Percent Auto 9.4 % (2.6-8.5); Neutrophils Absolute Auto 14.5 K/mm3 (1.3-6.7); Neutrophils Percent Auto 81.4 % (45.5-73.1); Platelet Count Result 418 k/mm3 (150-375); Red Blood Count 4.75 M/mm3 (4.2-5.4); Red Cell Distribution Width 16.9 % (11.5-14.5); White Blood Count 17.9 K/mm3 (4.5-10.0)
[2023-06-06 16:45] LABS: INR 1.2; Partial Thromboplastin Time 24.5 SECONDS (22.3-36.8); Prothrombin Time 15.6 Seconds (11.1-14.7)
[2023-06-06 16:54] LABS: Troponin I 0.013 ng/mL (0.000-0.034)
[2023-06-06 16:55] LABS: Alanine Aminotransferase 32 U/L (6-35); Albumin Level 3.7 g/dL (3.5-5.1); Alkaline Phosphatase 123 U/L (38-126); Anion Gap 9 mmol/L (8-16); Aspartate Amino Transferase 57 U/L (14-36); Bilirubin,Total 0.9 mg/dL (0.2-1.3); Blood Urea Nitrogen 22 mg/dL (7-17); Carbon Dioxide 27 mmol/L (22-30); Chloride 100 mmol/L (98-107); Estimated CRCL calculation 35 ml/min; Estimated Glomerular Filt Rate > 60; Glucose 136 mg/dL (65-110); Potassium 4.2 mmol/L (3.4-5.0); Sodium 136 mmol/L (137-145)
[2023-06-06 17:14] VITALS: BP 128/50; PULSE 78; RESP 22; O2SAT 95
[2023-06-06] MEDS: SODIUM CHLORIDE 0.9% IV 1,000 ML 999 ML IV CONT (17:25)
[2023-06-06 17:29] VITALS: BP 150/69; PULSE 70; RESP 25; O2SAT 96
== END 2023-06-06 17:45 | disposition short-term general hospital (02) ==
PROVIDERS: Emergency Provider Emergency Medicine
DX: I63.312 Cerebral infarction due to thrombosis of left middle cerebral artery (principal); R29.717 NIHSS score 17; J44.9 Chronic obstructive pulmonary disease, unspecified; I42.9 Cardiomyopathy, unspecified; I50.20 Unspecified systolic (congestive) heart failure; E78.5 Hyperlipidemia, unspecified; E03.9 Hypothyroidism, unspecified; Z86.16 Personal history of COVID-19; Z87.01 Personal history of pneumonia (recurrent); Z87.891 Personal history of nicotine dependence; Z79.02 Long term (current) use of antithrombotics/antiplatelets; I51.7 Cardiomegaly; I44.0 Atrioventricular block, first degree; I45.10 Unspecified right bundle-branch block; I65.21 Occlusion and stenosis of right carotid artery
CPT/HCPCS: 36415; 70496; 70498; 71045; 80053; 82948; 84484; 85025; 85610; 85730; 93005; 99285; J7030; Q9967

== ENCOUNTER 2023-09-09 08:05 | Emergency (ER) | payer MEDICARE, SELFPAY ==
--- NOTE | ~2023-09-09 | CT_ITS ---
EXAMINATION: CT cervical spine wo con DATE: 09/09/2023 08:34 INDICATION: Neck injury. TECHNIQUE: Computed tomography (CT) of the cervical spine was performed without intravenous contrast. Automated exposure control and iterative reconstruction technique were employed. The dose-length pro duct was 212.62 mGy-cm. COMPARISON: None FINDINGS: There is a right pleural effusion. There is 9 degrees levocurvature of cervical spine. Ther e is kyphosis of cervical spine. There is mild chronic anterior wedging of T1 vertebral body. There i s moderately decreased disc height at C4-C5 and mildly decreased disc height at C5-C6 and C6-C7. The following disc levels are specifically discussed: C2-C3: There is mild bilateral uncovertebral joint osteoarthritis. There is severe bilateral facet vicenta int osteoarthritis. There is mild bilateral neural foraminal stenosis. There is no central canal sten osis. C3-C4: There is mild bilateral uncovertebral joint osteoarthritis. There is severe bilateral facet vicenta int osteoarthritis. There is mild bilateral neural foraminal stenosis. There is mild central canal st enosis. C4-C5: There is severe bilateral uncovertebral joint osteoarthritis. There is severe bilateral facet joint osteoarthritis. There is moderate bilateral neural foraminal stenosis. There is mild central ca nal stenosis. C5-C6: There is moderate right and mild left uncovertebral joint osteoarthritis. There is severe righ t and mild left facet joint osteoarthritis. There is moderate right and mild left neural foraminal st enosis. There is mild central canal stenosis. C6-C7: There is mild right and moderate left uncovertebral joint osteoarthritis. There is mild right and moderate left facet joint osteoarthritis. There is mild bilateral neural foraminal stenosis. Ther e is mild central canal stenosis. C7-T1: There is mild bilateral uncovertebral joint osteoarthritis. There is severe bilateral facet vicenta int osteoarthritis. There is mild bilateral neural foraminal stenosis. There is no central canal sten osis. IMPRESSION: 1. No fracture. 2. Moderate cervical spondylosis. 3. Right pleural effusion. Reviewed, dictated and finalized at location A.
--- NOTE | ~2023-09-09 | CT_ITS ---
EXAMINATION: CT brain wo con DATE: 09/09/2023 08:34 INDICATION: Trauma. TECHNIQUE: Computed tomography (CT) of the head was performed without intravenous contrast. The mA wa s adjusted according to patient size. Iterative reconstruction technique was employed. The dose-lengt h product was 605.33 mGy-cm. COMPARISON: Head CT 06/06/2023 FINDINGS: There are old infarcts involving the left basal ganglia and anterior limb left internal cap bonnie. There are scattered areas of low attenuation in the cerebral white matter. There are old infarc ts involving the left frontal, temporal, and parietal lobes. There is no intracranial hemorrhage, acu te infarction, or abnormal intracranial mass lesion. There is ex vacuo dilatation of left lateral be tricle. The paranasal sinuses are clear. There are likely changes of ocular lens replacement surgerie s. The mastoid air cells are normal. IMPRESSION: 1. Old infarcts involving the left basal ganglia, anterior limb left internal capsule, and left front al, temporal, and parietal lobes. 2. Worsened extensive nonspecific cerebral white matter disease, which likely represents chronic smal l vessel ischemic disease. Reviewed, dictated and finalized at location A. IMPRESSION: 1. Old infarcts involving the left basal ganglia, anterior limb left internal c apsule, and left frontal, temporal, and parietal lobes. 2. Worsened extensive nonspecific cerebral white matter disease, which likely r epresents chronic small vessel ischemic disease.
[2023-09-09 08:03] VITALS: BP 107/48; PULSE 68; RESP 15; TEMP 36.7; O2SAT 94
--- NOTE | 2023-09-09 08:17 | ED.FALL ---
HPI - Fall General Chief Complaint: Fall Stated Complaint: fall History of Present Illness HPI Narrative: [age] old female presenting to the emergency department for evaluation after a possible ground level fall. Patient was found laying on the ground. Patient states that she was heading towards the bathroom and lowered herself to the ground. Patient denies any pain or injury. Patient does have language and right-sided deficit after a previous struck. Related Data Home Medications Medication Instructions Recorded Confirmed albuterol sulfate 90 mcg/actuation 90 mcg inhalation DIRECTED 04/18/23 06/01/23 aerosol inhaler amiodarone 200 mg tablet 200 mg PO BID 04/18/23 06/01/23 clopidogrel 75 mg tablet 75 mg PO DAILY 04/18/23 06/01/23 dapagliflozin propanediol 10 mg 5 mg PO DAILY 04/18/23 06/01/23 tablet (Farxiga) escitalopram oxalate 20 mg tablet 20 mg PO DAILY 04/18/23 06/01/23 levothyroxine 50 mcg tablet 50 mcg PO DAILY 04/18/23 06/04/23 losartan 25 mg tablet 25 mg PO DAILY 04/18/23 06/01/23 metoprolol tartrate 25 mg tablet 25 mg PO DAILY 04/18/23 06/01/23 pantoprazole 40 mg tablet,delayed 40 mg PO DAILY 04/18/23 06/01/23 release pravastatin 40 mg tablet 40 mg PO DAILY 04/18/23 06/01/23 Allergies Allergy/AdvReac Type Severity Reaction Status Date / Time LUCRETIA Inhibitors Allergy Swelling Verified 06/01/23 21:16 of Lip/Tongue/Throat Quinolones Allergy Swelling Verified 06/01/23 21:16 of Lip/Tongue/Throat levofloxacin [From Levaquin] AdvReac Unknown Verified 06/01/23 21:17 Review of Systems Review of Systems: All systems reviewed & are unremarkable except as noted in HPI and below [facility] Past Medical History Medical History (Updated 09/09/23 @ 09:08 by Sang Ramesh MD) Cardiomyopathy COPD (chronic obstructive pulmonary disease) Hyperlipidemia Hypothyroidism Systolic heart failure Surgical History Surgical History (Updated 06/02/23 @ 08:37 by Mirta Ferrari APRN) AICD (automatic cardioverter/defibrillator) present Family History Family History (Updated 06/01/23 @ 21:24 by Pankaj Nichols RN) Mother Diabetes mellitus Kidney disease, chronic, end stage on dialysis Father Emphysema lung Social History Social History Smoking packs per day: 1.5 Smoking cigarettes per day: 30.0 Years smoked: 45 Smoking pack-years: 67.50 Smoking status: Former smoker Tobacco type: cigarettes Alcohol intake: never Substance use: never Do You Feel Safe in your Home?: Yes Lack of Transportation: No Lack of Food: Never True Current Housing: I Have Housing Concerned About Future Housing: No Difficulty Paying Gas/Electric Bills: No Difficulty Paying for Meds: No Currently Unemployed: No Education: Trade/Vocational Certificate Difficulty w/ Childcare or Family Care: No Spiritual care concerns: No Exam Narrative: APPEARANCE: Well appearing, no pain, no distress, well-nourished. HEAD: normocephalic, atraumatic. EYES: PERRLA/EOMI, conjunctivae clear. NOSE: Normal no drainage EARS:TMS clear with good light reflex. THROAT: Pharynx clear, no exudate. NECK: Supple. No adenopathy, no masses. RESPIRATORY: Airway patent, respirations nonlabored. Clear to auscultation bilaterally, no rales, rhonchi, wheezing. CARDIOVASCULAR: Regular rate and rhythm without murmurs rubs or gallops. ABDOMINAL: Soft, nontender, nondistended, normal bowel sounds MUSCULOSKELETAL: Moves all extremities. Strength/ROM intact, No edema, No calf tenderness. NEURO: Alert. Cranial nerves II through XII intact. Good gait. Good coordination SKIN: Warm, dry. Normal Color Course Vital Signs Vital signs: Vital Signs Temperature 98.1 F 09/09/23 08:03 Pulse Rate 68 09/09/23 08:03 Respiratory Rate 15 09/09/23 08:03 Blood Pressure 107/48 L 09/09/23 08:03 Pulse Oximetry 94 09/09/23 08:03
--- NOTE | 2023-09-09 09:33 | PC.NURSE ---
Spoke with Navdeep from [facility] and let them know patient will be transferred back to the facility.
== END 2023-09-09 10:20 ==
PROVIDERS: Emergency Provider Emergency Medicine
DX: S09.90XA Unspecified injury of head, initial encounter (principal); W19.XXXA Unspecified fall, initial encounter; J44.9 Chronic obstructive pulmonary disease, unspecified; E03.9 Hypothyroidism, unspecified
CPT/HCPCS: 70450; 72125; 99284

== ENCOUNTER 2025-01-10 14:52 | Inpatient (IN) | payer MEDICARE, MEDICAID, SELFPAY ==
--- OUTSIDE RECORDS SUMMARY | 2009-11-22 08:15 | XMS_ITS | Continuity of Care Document ---
Author Organization [facility] Address [address] [place] [address] [address] [place] [address] Phone Care Team Providers Care Head Of Housekeeping Name Role Phone Jt Jimenez Unavailable Unavailable Procedures Procedure Date Office/outpatient Visit, Est Corneal Pachymetry Visual Field Examination-Professional Ja Visual Field Examination(s) Office/outpatient Visit, Est Optic Nerve Head Eval No Script Office/outpatient Visit, Est Advance Directives Directive Yes / No Effective Date File Name No Information Encounters Encounter Description Practice Location Reason(s) For Visit Diagnoses Date Provider Providers Copied on Encounter Office/outpat ient Visit, Est [facility], [address] [place] [address] [address], [place], [place], [id number], tel:[phone] [facility] No Information 0-201 0 Tony Jt. [address] [place] [address], [address], [place]. tel:[phone] Referring Provider: Jt esparza, [address] [place] [address], [place], [place], [facility]. tel:[phone] [facility], [address] [place] [address] [address], [place], [place], [id number], tel:[phone] [facility] No Information 5-201 0 Krishnasmaureen Jt. [address] [place] [address], [facility], [place]. tel:[phone] Referring Provider: Jt esparza, [address] [place] [address], [place], [facility]. tel:[phone] [facility], [address] [place] [address] [address], [place], [place], [id number], tel:[phone] [facility] No Information 2-201 0 Krishnasamy Jt. [address] [place] [address], [place], [facility], . tel:[phone] Referring Provider: Jt esparza, [address] [place] [address], [place], [facility]. tel:[phone] Office/outpat ient Visit, [facility], [id number] [place] [address] [address], [place], [place], [id number], tel:[phone] [facility] No Information Sep 5-200 9 Krishnasamy Jt. [address] [place] [address], [facility], . tel:[phone] Office/outpat ient Visit, [facility], [id number] [place] [address] [address], [place], [place], [id number], tel:[phone] [facility] No Information Jul-1 0-200 9 Krishnasamy Jt. [address] [place] [address], [facility], [place]. tel:[phone] Family History Family Member Type Diagnosis Age At Onset No Information Payers Payer name Insurance type Covered democrat ID Authoriza tion(s) [place] [id number] Social History Type Description Quantity Date Captured Comments Sex Female Smoking Status No Information Chief Complaint And Reason For Visit No Information Reason For Referral Reason For Referral No Information History Of Present Illness Encounter Date Complaint History Of Prese nt Illness No Information Functional Status Date Functional Assessmen t No Information Instructions Date Instruction Additional Infor mation No Information Assessments Type Assessment Date No Information Patient Care Teams Name Effective Dates (start - stop) Status Members No Information
--- NOTE | ~2025-01-10 | XR_ITS ---
EXAMINATION: XR tibia fibula RT 2V, 01/10/2025 16:16 CDT HISTORY: pain COMPARISON: No comparisons available. Findings: No acute fracture or malalignment. No significant degenerative changes. Soft tissues unremarkable. Impression: No acute fracture or malalignment. Reviewed, dictated and finalized at location A. Impression: No acute fracture or malalignment.
--- NOTE | ~2025-01-10 | XR_ITS ---
EXAMINATION: XR ankle RT min 3V, 01/10/2025 16:16 CDT HISTORY: pain COMPARISON: No comparisons available. Findings: No acute fracture or malalignment. Small calcaneal spur.Moderate Achilles enthesopathy Soft tissues unremarkable. Impression: No acute fracture or malalignment. Reviewed, dictated and finalized at location A. Impression: No acute fracture or malalignment.
--- NOTE | ~2025-01-10 | CT_ITS ---
EXAMINATION: CT foot RT wo con COMPARISON: None HISTORY: Calcaneus fracture TECHNIQUE: Axial images were obtained without IV contrast. Sagittal, coronal reconstruction images were obtained from the axial views. CT scan performed using dose optimization techniques including the following automated exposure control; adjustment of mA and/or kV; use of iterative reconstruction technique. Automatic exposure control was used to reduce radiation dose. Permanent radiation dose record is archived to PACS. FINDINGS: There is soft tissue swelling noted around the calcaneus however there is a loculated fluid collection, subcutaneous air or radiopaque foreign body identified. No intramuscular hemorrhage is identified. Correlating with the previous plain x-ray findings there are prominent nutrient canals in the setting of osteopenia however there is no fracture identified of the calcaneus. Scattered sclerotic bone islands are noted. Moderate degenerative changes are noted. There are no areas of osseous destruction. IMPRESSION: No acute fracture Reviewed, dictated and finalized at location A. IMPRESSION: No acute fracture
--- NOTE | ~2025-01-10 | US_ITS ---
EXAMINATION: US venous doppler LE RT, 01/10/2025 15:25 CDT HISTORY: right leg pain Comparison: None Technique: Chin-scale and color Doppler images were attempted of the lower saphenofemoral junction, common femoral vein,superficial femoral vein, proximal deep femoral vein, proximal deep femoral vein, popliteal vein and posterior tibial veins. Findings: Deep Venous System:Normal flow, augmentation and compressibility. No echogenic thrombus identified. The contralateral saphenofemoral junction appears unremarkable. Superficial Venous SystemNo superficial thrombophlebitis. Soft tissues: Soft tissues are unremarkable. Impression: Negative for DVT. Reviewed, dictated and finalized at location A. Impression: Negative for DVT.
--- NOTE | ~2025-01-10 | XR_ITS ---
EXAMINATION: XR foot RT min 3V, 01/10/2025 16:16 CDT HISTORY: pain COMPARISON: No comparisons available. Findings: This appreciated on the oblique view nondisplaced fracture of the distal calcaneus is suspected. No significant degenerative changes. Soft tissues unremarkable. Impression: Nondisplaced calcaneal fracture. CT recommended Reviewed, dictated and finalized at location A. Impression: Nondisplaced calcaneal fracture. CT recommended
[2025-01-10 14:51] VITALS: BP 164/48; PULSE 60; RESP 16; TEMP 36.4; O2SAT 98
--- NOTE | 2025-01-10 15:20 | ED.GENADULT ---
HPI - General Adult General Chief complaint: Extremity Problem,Nontraumatic Stated complaint: RLE pain Time Seen by Provider: 01/10/25 14:56 History of Present Illness HPI narrative: 74-year-old female presented emergency department for evaluation for right leg pain. Patient reports over last 24 hours she has had worsening right leg pain. Patient does have prior history of CVA patient does have dysphasia. Patient denies any recent falls or injuries. Patient is primarily been written. Patient has had no recent medication changes. Related Data Home Medications ?Medication ?Instructions ?Recorded ?Confirmed ?Last Taken ?Type albuterol sulfate 90 mcg/actuation 90 mcg inhalation DIRECTED 04/18/23 06/01/23 Unknown History aerosol inhaler amiodarone 200 mg tablet 200 mg PO BID 04/18/23 06/01/23 Unknown History clopidogrel 75 mg tablet 75 mg PO DAILY 04/18/23 06/01/23 Unknown History dapagliflozin propanediol 10 mg 5 mg PO DAILY 04/18/23 06/01/23 Unknown History tablet (Farxiga) escitalopram oxalate 20 mg tablet 20 mg PO DAILY 04/18/23 06/01/23 Unknown History levothyroxine 50 mcg tablet 50 mcg PO DAILY 04/18/23 06/04/23 Unknown History losartan 25 mg tablet 25 mg PO DAILY 04/18/23 06/01/23 Unknown History metoprolol tartrate 25 mg tablet 25 mg PO DAILY 04/18/23 06/01/23 Unknown History pantoprazole 40 mg tablet,delayed 40 mg PO DAILY 04/18/23 06/01/23 Unknown History release pravastatin 40 mg tablet 40 mg PO DAILY 04/18/23 06/01/23 Unknown History Allergies Allergy/AdvReac Type Severity Reaction Status Date / Time LUCRETIA Inhibitors Allergy Swelling Verified 01/10/25 15:03 of Lip/Tongue/Throat Quinolones Allergy Swelling Verified 01/10/25 15:03 of Lip/Tongue/Throat latex AdvReac Unknown Unknown Verified 01/10/25 15:03 lisinopril AdvReac Unknown Unknown Verified 01/10/25 15:03 vancomycin AdvReac Unknown Unknown Verified 01/10/25 15:03 levofloxacin (From Levaquin) AdvReac Unknown Verified 01/10/25 15:03 Review of Systems Review of Systems: All systems reviewed & are unremarkable except as noted in HPI and below PMFSH Past Medical History Medical History (Updated 01/10/25 @ 18:16 by Sang Ramesh MD) Hyperlipidemia Systolic heart failure Cardiomyopathy Hypothyroidism COPD (chronic obstructive pulmonary disease) Surgical History Surgical History (Updated 06/02/23 @ 08:37 by Mirta Ferrari APRN) AICD (automatic cardioverter/defibrillator) present Family History Family History (Updated 06/01/23 @ 21:24 by Pankaj Nichols RN) Mother Diabetes mellitus Kidney disease, chronic, end stage on dialysis Father Emphysema lung Social History Social History Smoking packs per day: 1.5 Smoking cigarettes per day: 30.0 Years smoked: 45 Smoking pack-years: 67.50 Smoking status: Former smoker Tobacco type: cigarettes Alcohol intake: never Substance use: never Do You Feel Safe in your Home?: Yes Lack of Transportation: No Lack of Food: Never True Current Housing: I Have Housing Concerned About Future Housing: No Difficulty Paying Gas/Electric Bills: No Difficulty Paying for Meds: No Currently Unemployed: No Education: Trade/Vocational Certificate Difficulty w/ Childcare or Family Care: No Spiritual care concerns: No Exam Narrative: APPEARANCE: Well appearing, no pain, no distress, well-nourished. HEAD: normocephalic, atraumatic. EYES: PERRLA/EOMI, conjunctivae clear. NOSE: Normal no drainage EARS:TMS clear with good light reflex. THROAT: Pharynx clear, no exudate. NECK: Supple. No adenopathy, no masses. RESPIRATORY: Airway patent, respirations nonlabored. Clear to auscultation bilaterally, no rales, rhonchi, wheezing. CARDIOVASCULAR: Regular rate and rhythm without murmurs rubs or gallops. ABDOMINAL: Soft, nontender, nondistended, normal bowel sounds MUSCULOSKELETAL: Right calf for ankle and right foot tenderness to palpation, neurovascularly intact, erythema to bilateral feet NEURO: Alert. Cranial nerves II through XII intact. Grossly intact SKIN: Warm, dry. Normal Color Course Vital Signs Vital signs: Vital Signs Temperature 97.6 F 01/10/25 14:51 Pulse Rate 60 01/10/25 14:51 Respiratory Rate 16 01/10/25 14:51 Blood Pressure 164/48 H 01/10/25 14:51 Pulse Oximetry 98 01/10/25 14:51 Oxygen Delivery Room Air 01/10/25 14:51 Temperature 97.6 F 01/10/25 14:51 Pulse Rate 59 L 01/10/25 17:57 Respiratory Rate 18 01/10/25 17:57 Blood Pressure 155/68 H 01/10/25 17:57 Pulse Oximetry 98 01/10/25 17:57 Oxygen Delivery Room Air 01/10/25 14:51 Medical Decision Making [facility] Narrative Medical decision making narrative: 74-year-old female presents emergency department for evaluation for right foot pain. X-ray does show concern for a calcaneal fracture. CT scan was ordered. Patient also does have a significantly elevated CPK and elevated creatinine. Ultrasound was negative for DVT. Patient will be admitted for IV fluids for rhabdomyolysis, orthopedic was consulted. And patient was admitted to the hospitalist. CT scan was reported as no acute fracture. Patient was still be admitted to the hospitalist for evaluation for rhabdomyolysis. Differential Diagnosis Differential Diagnosis: Rhabdomyolysis, tib-fib fracture, ankle fracture, foot fracture, cellulitis, DVT Vital Signs Vital Signs: Vital Signs Temperature 97.6 F 01/10/25 14:51 Pulse Rate 60 01/10/25 14:51 Respiratory Rate 16 01/10/25 14:51 Blood Pressure 164/48 H 01/10/25 14:51 Pulse Oximetry 98 01/10/25 14:51 Oxygen Delivery Room Air 01/10/25 14:51 Temperature 97.6 F 01/10/25 14:51 Pulse Rate 59 L 01/10/25 17:57 Respiratory Rate 18 01/10/25 17:57 Blood Pressure 155/68 H 01/10/25 17:57 Pulse Oximetry 98 01/10/25 17:57 Oxygen Delivery Room Air 01/10/25 14:51 Lab Data Lab results reviewed: Yes I reviewed the patient's lab results. 01/10/25 15:55 01/10/25 15:55 Labs: Lab Results 01/10/25 Range/Units 15:55 WBC 15.2 H (4.5-10.0) K/mm3 RBC 4.47 (4.2-5.4) M/mm3 Hgb 13.4 (12.0-15.0) g/dL Hct 42.6 (37.0-47.0) % MCV 95.3 (80-100) fl MCH 30.0 (26-34) pg MCHC 31.5 L (32-36) g/dl RDW 14.5 (11.5-14.5) % Plt Count 302 (150-375) k/mm3 MPV 9.8 (7.4-10.4) fl Immature Gran % (Auto) 0.4 (0-0.5) % Neut % (Auto) 56.1 (45.5-73.1) % Lymph % (Auto) 29.1 (18.3-44.2) % [place] % (Auto) 10.5 H (2.6-8.5) % Eos % (Auto) 3.2 (0-4.4) % Baso % (Auto) 0.7 (0.2-1.2) % Lymph # (Auto) 4.41 H (0.9-3.2) K/mm3 [place] # (Auto) 1.6 H (0.1-0.6) K/mm3 Eos # (Auto) 0.5 H (0-0.3) K/mm3 Baso # (Auto) 0.1 (0.0-0.1) K/mm3 Abs Immat Gran (auto) 0.06 H (0.00-0.031) K/mm3 Absolute Neuts (auto) 8.5 H (1.3-6.7) K/mm3 Absolute Nucleated RBC 0.000 (0.0-0.012) K/mm3 Nucleated RBC % 0.0 (0.0-0.2) % PT 17.8 H (11.1-14.7) Seconds INR 1.5 APTT 24.8 (22.3-36.8) Seconds Sodium 141 (137-145) mmol/L Potassium 4.1 (3.4-5.0) mmol/L Chloride 104 (98-107) mmol/L Carbon Dioxide 28 (22-30) mmol/L Anion Gap 9 (4-12) mmol/L BUN 26 H (7-17) mg/dL Creatinine 1.60 H (0.7-1.0) mg/dL Estim Creat Clear Calc Not Reportable Estimated GFR 31 L (59 - ) Glucose 125 H (65-110) mg/dL Calcium 9.7 (8.4-10.2) mg/dL Total Bilirubin 0.5 (0.2-1.3) mg/dL AST 70 H (14-36) U/L ALT 29 (6-35) U/L Alkaline Phosphatase 113 (38-126) U/L Total Creatine Kinase 1294 H (30-135) U/L Total Protein 7.9 (6.3-8.2) g/dL Albumin 4.1 (3.5-5.1) g/dL Imaging Data Radiologist's impression: Impressions Venous Doppler Study 01/10/25 15:43 Impression: Negative for DVT. Ankle X-Ray 01/10/25 17:21 Impression: No acute fracture or malalignment. Tibia/Fibula X-Ray 01/10/25 17:21 Impression: No acute fracture or malalignment. Foot X-Ray 01/10/25 17:22 Impression: Nondisplaced calcaneal fracture. CT recommended Discharge Plan Discharge Clinical Impression: Rhabdomyolysis, Acute foot pain, Acute kidney injury Patient Disposition: Still a Patient Condition: Stable
--- OUTSIDE RECORDS SUMMARY | 2025-01-10 15:39 | XMS_ITS | Encounter Summary ---
Author Organization [employer] Address 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 [address] 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
--- OUTSIDE RECORDS SUMMARY | 2025-01-10 15:39 | XMS_ITS | Encounter Summary ---
Author Organization [employer] Address [address] [place] [address] Care Team Providers Care Patient Accounts Clerk Name Role Phone Unavailable Primary Care Provider Unavailabl e Encounter Details Date Type Department Care Team (Late st Contact Info) Description 07/04/2006 [facility] [address] 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
--- OUTSIDE RECORDS SUMMARY | 2025-01-10 15:39 | XMS_ITS | Clinical Summary ---
Author Organization [employer] Address [address] 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
--- OUTSIDE RECORDS SUMMARY | 2025-01-10 15:39 | XMS_ITS | Clinical Summary ---
Author Organization [facility] [employer] Address [address] [place] [address] Care Team Providers Care Broadcast Operations Engineer Name Role Phone Person, Bindu DAUGHERTY Primary Care Provid er Source Comments [facility],non-[facility] Affiliates and Associated Physician Practices is amultiple site organization consisting of ambulatory clinics and hospital sitesin [place], [place], [place] and [place]. This disclosure is being madepursuant to the Care Everywhere program and may not contain all information available regarding this patient. Last updated 18.[facility] [employer] Allergies Active Allergy Reactions Criticality Noted Date Comments Latex Urticaria Medium 07/29/2014 Levofloxacin Rash,Other,Angioedema High 01/19/2019 Tongue swelled Lisinopril Cough 02/24/2019 Vancomycin Unknown 03/30/2023 Medications * Be aware that medications may not be up to date on this document. Alwaysverify current medications with the patient. albuterol HFA (Proventil; Ventolin; Proair) 108 (90 Base) MCG/ACT inhaler Inhale 2 (two) puffs by mouth every 4 hours as needed 4 Active pravastatin (Pravachol) 40 MG tablet 3 Active budesonide-form oterol (Symbicort) 80-4.5 MCG/ACT inhaler Inhale 1 (one) puff by mouth 2 times daily 4 Active umeclidinium (Incruse Ellipta) 62.5 MCG/ACT inhaler Inhale 1 (one) puff by mouth once daily 4 Active acetaminophen (Tylenol) 325 MG tablet Take 1 (one) tablet by mouth every 4 hours as needed Maximum allowable Acetaminophen amount = 4 Grams (4000 mg) / 24 hours. 4 Active benzonatate (Tessalon) 100 MG capsule Take 1 (one) capsule by mouth every 8 hours as needed for Cough (dry cough) 4 Active bisacodyl (Dulcolax) 10 MG suppository Insert 1 (one) suppository into the rectum once as needed for Constipation (if no BM 24 hours after oral bisacodyl) 4 Active bisacodyl EC (Dulcolax) 5 MG tablet Take 1 (one) tablet by mouth once as needed for Constipation (no BM for 72 hours) 4 Active calcium carbonate (Tums) 500 MG chew tablet Take 2 (two) tablets by mouth every 4 hours as needed 4 Active DULoxetine (Cymbalta) 60 MG capsule Take 1 (one) capsule by mouth once daily 4 Active Additional Information Patient taking differently: 90 mgOral DAILY, Reported on 09/18/2024 levothyroxine (Synthroid) 50 MCG tablet Take 1 (one) tablet by mouth once daily 4 Active Additional Information Patient taking differently: 75 mcgOral DAILY, Reported on 09/18/2024 melatonin 3 MG tablet Take 1 (one) tablet by mouth nightly as needed - may repeat one time for Insomnia 4 Active ondansetron, disintegrating, (Zofran ODT) 4 MG tablet Take 1 (one) tablet by mouth every 6 hours as needed for Nausea/Vomiting Allow tablet to dissolve on the tongue 4 Active polyethylene glycol 3350 (Miralax) 17 g packet Take 17 (seventeen) g by mouth once daily as needed for Constipation 4 Active mirtazapine (Remeron) 15 MG tablet Take 1 (one) tablet by mouth at bedtime Active vitamin D, ergocalciferol, (Drisdol) 1.25 MG (59440 UT) capsule Take 1 (one) capsule by mouth every 7 days (once a week) Active metoprolol succinate XL 24hr (Toprol XL) 25 MG tabletIndicatio ns:Chronic combined systolic and diastolic congestive heart failure (HCC) Take 1 (one) tablet by mouth once daily 90 tablet 3 5 Active aspirin (Aspirin) 81 MG chew tabletIndicatio ns:Chronic combined systolic and diastolic congestive heart failure (HCC) Take 1 (one) tablet by mouth once daily 90 tablet 3 5 Active sacubitril-vals quoc (Entresto) 24-26 MG tabletIndicatio ns:Chronic combined systolic and diastolic congestive heart failure (HCC) Take 1 (one) tablet by mouth 2 times daily 180 tablet 3 5 Active spironolactone (Aldactone) 25 MG tabletIndicatio ns:Chronic combined systolic and diastolic congestive heart failure (HCC),Benign essential HTN Take 1 (one) tablet by mouth once daily 90 tablet 3 5 Active apixaban (Eliquis) 5 MG tabletIndicatio ns:Chronic combined systolic and diastolic congestive heart failure (HCC) Take 1 (one) tablet by mouth 2 times daily 180 tablet 3 5 Active furosemide (Lasix) 20 MG tabletIndicatio ns:Chronic combined systolic and diastolic congestive heart failure (HCC) Take 1 (one) tablet by mouth once daily 90 tablet 3 5 Active amiodarone (Cordarone) 200 MG tabletIndicatio ns:VT (ventricular tachycardia) (HCC),Heart failure with reduced ejection fraction (HCC) Take 1 (one) tablet by mouth 2 times daily 180 tablet 3 5 Active Active Problems Problem Noted Date Diagnosed Date Urinary frequency 02/11/2024 Aphasia 02/11/2024 Dysarthria 02/11/2024 Shortness of breath 08/09/2023 Pleural effusion 08/09/2023 Fall, initial encounter 08/09/2023 Right elbow pain 08/09/2023 Chest pain, unspecified type 08/09/2023 Right sided weakness 06/06/2023 Acute ischemic left MCA stroke 06/06/2023 Apical mural thrombus 06/06/2023 Tobacco dependence syndrome 11/27/2021 NICM (nonischemic cardiomyopathy) 07/18/2021 Benign essential HTN 07/18/2021 Seasonal allergies 07/18/2021 SNHL (sensory-neural hearing loss), asymmetrical 12/12/2020 Urinary, incontinence, stress female 05/15/2018 PVD (peripheral vascular disease) 10/30/2017 Overview (10/30/2017): Arterial studies 08/21 in [place] (under Media) Mild-moderate disease bilaterally Spinal stenosis of lumbar region 08/28/2017 Hypothyroidism 08/28/2017 Chronic combined systolic an d diastolic congestive heart failure 08/28/2017 Overview (10/30/2017): Followed by boom supervisor in [place] EF 20-25% and grade 1 diastolic dysfunction. Chronic obstructive pulmonary disease 08/28/2017 Coronary artery disease without angina pectoris 08/28/2017 Overview (10/30/2017): HX of ND x 2. Stents placed ICD placed 2017 Depression 08/28/2017 Hyperlipidemia 08/28/2017 Spinal stenosis, thoracic region 08/28/2017 Pulmonary nodule 08/28/2017 Overview (08/28/2017): Repeat CT scan mid 2017. CHF (congestive heart failure) 01/06/2017 Cardiomyopathy, ischemic 03/01/2015 Carotid artery disease 05/06/1960 Overview (11/27/2021): (Rule out) Resolved Problems Problem Noted Date Diagnosed Date Resolved Date Hyponatremia 06/06/2023 06/27/2023 Leucocytosis 06/06/2023 06/27/2023 Uncomplicated asthma 07/18/2021 024 Community acquired pneumonia 06/28/2018 11/06/2019 COPD exacerbation 06/28/2018 07/22/2018 Acute respiratory failure with hypoxia 06/28/2018 02/23/2021 Tobacco use disorder 08/28/2017 020 Spinal stenosis, lumbar 08/28/201707/04 Vertigo 01/06/2017 10/30/2017 Leukocytosis 01/06/2017 10/30/2017 Pneumonia 09/28/2011 10/30/2017 Encounters Date Type Department Care Team Description 11/26/2024 11:45 AM CDT Office Visit [facility] - Vascular Surgery [address] [place] [address] Abdelrahman Veliz MD Pain of lower extremity, unspecified laterality (Primary Dx) 11/26/2024 11:00 AM CDT - 11/26/2024 11:59 PM CDT Hospital Encounter [facility] [address] [place] [address] Abdelrahman Veliz MD Discharge Disposition: Home or Self Care 11/26/2024 Travel 10/13/2024 Travel from Last 3 Months Immunizations Immunization Administration Dates Next Due COVID PFIZER BIVALENT 12Y+ 30mcg/0.3ML 01/30/2022 Covid Moderna primary monova lent 12+ yr 0.5mL 09/29/2020,09/08/2020 Covid Pfizer primary monoval ent 12+ yr 0.3mL Purple cap 04/01/2021,09/08/2020 INFLUENZA VACCINE 03/27/2023,05/27/2019,01/18/20 17 INFLUENZA VACCINE, HIGH-DOSE , QUADR. (FLUZONE HIGH-DOSE QUADRIVALENT; 65Y+), 0.7 ML (HD-IIV4) 03/28/2022,01/30/2022,02/23/2021,2019,05/27/2019,04/18/2018,01/17/2017,1 INFLUENZA VACCINE, HIGH-DOSE , TRIV. (FLUZONE HIGH-DOSE TRIVALENT; 65Y+) (HD-IIV3) 05/27/2019,01/17/2017 PNEUMOCOCCAL PPSV23 08/28/2017,10/01/2011 Pneumococcal Pcv13 Conj 04/27/2018,10/04/2015 Family History Medical History Relation Name Comments Arthritis - Rheumatoid Daughter CVA Father Lung Disease Father Glaucoma Maternal Grandmother CAD (Coronary Artery Disease) Mother Cancer - Breast Mother Diabetes - Type 2 Mother Glaucoma Mother Other Mother amputation Diabetes - Type 2 Sister 1 in penitentiary Depression Son mental illness Relation Name Status Comments Brother 1 Alive Brother 2 Alive Daughter Alive Father Maternal Grandmother Mother Sister 1 Alive Sister 2 Alive Sister 3 Alive Son Alive Social History Tobacco Use Types Packs/Day Years Used Date Smoking Tobacco: Former Cigarettes 0.3 51 S tarted: 01/06/1974 Smokeless Tobacco: Never Tobacco Cessation:Counseling Given: Not Answered Alcohol Use Standard Drinks/Week Comments No 0 (1 standard drink = 0.6 oz pur e alcohol) AUDIT-C Answer Date Recorded Q1: How often do you have a drink containing alcohol? Never 08/09/2023 Q2: How many drinks containi ng alcohol do you have on a typical day when you are drinking? Patient does not drink Q3: How often do you have si x or more drinks on one occasion? Never 08/09/2023 Overall Financial Resource Strain (CARDIA) Answe r Date Recorded How hard is it for you to pa y for the very basics like food, housing, medical care, and heating? Not hard at all 08/10/2023 PHQ-2 Answer Date Recorded Patient Health Questionnaire-2 Score 0 05/31/2023 [facility] Occupat ional Health - Occupational Stress Questionnaire Answer Date Recorded Do you feel stress - tense, restless, nervous, or anxious, or unable to sleep at night because your mind is troubled all the time - these days? Not at all 08/09/2023 Hunger Vital Sign Answer Date Recorded Within the past 12 months, y ou worried that your food would run out before you got the money to buy more. Patient unable to answer 08/10/2023 Within the past 12 months, t he food you bought just didn't last and you didn't have money to get more. Never true 08/10/2023 PRAPARE - Transportation Answer Date Re corded In the past 12 months, has l ack of transportation kept you from medical appointments or from getting medications? No 10/2023 In the past 12 months, has l ack of transportation kept you from meetings, work, or from getting things needed for daily living? No 08/10/2023 Housing Stability Vital Sign Answer Kirill e Recorded In the last 12 months, was t here a time when you were not able to pay the mortgage or rent on time? No 08/10/2023 In the last 12 months, how many places have you lived? 1 08/10/2023 In the last 12 months, was t here a time when you did not have a steady place to sleep or slept in a fci (including now)? No 08/10/2023 Comments No Sex and Gender Information Value Date Recorded Sex Assigned at Not on file Legal Sex Female 1:33 PM COMEDIAN Gender Identity Not on file Sexual Orientation Not on file Occupation Industry Job Start Date Job End Date retired Not on file Not on file Not on file disabled Not on file Not on file Not on file Last Filed Vital Signs Vital Sign Reading Time Taken Comments Blood Pressure 114/70 11/26/2024 11:55 AM CDT Pulse 59 11/26/2024 11:55 AM CDT Temperature 36.7 C (98 F) 11/26/2024 11:55 AM CDT Respiratory Rate 21 02/11/2024 9:10 PM CDT Oxygen Saturation 97% 11/26/2024 11:55 AM CDT Inhaled Oxygen Concentration 40% 09/30/2011 1 1:00 AM CDT Weight 54.9 kg (121 lb) 11/26/2024 11:55 AM CDT Height 149.9 cm (4' 11) 11/26/2024 11:55 AM CDT Body Mass Index 24.44 11/26/2024 11:55 AM CDT Plan of Treatment Upcoming Encounters Date Type Department Care Team (Late st Contact Info) Description 03/18/2025 1:00 AM COMEDIAN Clinical Support [facility] - Cardiology [facility] [address] [phone] 03/30/2025 10:40 AM COMEDIAN Office Visit [facility] - Cardiology [address] [phone] Sherrell Peter MD [address] [place] [address] 06/17/2025 1:00 AM COMEDIAN Clinical Support [facility] - Cardiology [address] [place] [phone] 09/16/2025 1:00 AM CDT Clinical Support [facility] - Cardiology [facility] [address] [phone] Health Maintenance Due Date Last Done Comments COLOGUARD (AGES 45-75) - COLON CA SCREENING 1949 COLON MONITORING 1949 COLONOSCOPY - COLON CA SCREENING 1949 CT COLONOGRAPHY - COLON CA SCREENING 1949 FIT - COLON CA SCREENING 1949 FLEX SIG - COLON CA SCREENING 1949 DTAP/TDAP/TD VACCINES (1 - Tdap) 1968 ZOSTER VACCINE (1 of 2) 07/07/1999 MEDICARE AWV 12 MONTHS 10/05/2021 10/05/2020, 10/05/2020 MAMMOGRAM 11/23/2022 11/23/2020, 0712/2015 (Done Outside Per Report), 10/21/2014, Additional history exists DEPRESSION SCREENING 05/06/2024 05/31/2023, 03/06/2023, 03/06/2023, Additional history exists Respiratory Syncytial Virus (RSV) Vaccine Pt: or over 60 yrs (1 - 1-dose 75+ series) 2024 COVID-19 VACCINE ( season) 2025 01/30/2022, 04/01/2021, 09/29/2020, Additional history exists INFLUENZA VACCINE (#1) 2025 3, 03/28/2022, 01/30/2022, Additional history exists BONE DENSITY TESTING Completed 11/11/2015 PNEUMOCOCCAL VACCINE 50+ Completed 018, 08/28/2017, 10/04/2015, Additional history exists HEPATITIS C SCREENING Completed 06/24/2019 Colorectal Cancer Screening Discontinued HEPATITIS B VACCINE Aged Out No longe r eligible based on patient's age to complete this topic HIB VACCINE Aged Out No longer eligi ble based on patient's age to complete this topic HPV VACCINE Aged Out No longer eligi ble based on patient's age to complete this topic MENINGOCOCCAL (Group B) VACCINE SHARED DECISION-MAKING Aged Out No longer eligible based on patient's age to complete this topic MENINGOCOCCAL GROUPS A/C/Y/W VACCINE Aged Out No longer eligible based on patient's age to complete this topic Opioid Medication Agreement - Annual Discontinued Goals Goal Patient Goal Type Associated Problems Recent Progress Patient-Stated? 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 [employer] Icd; Not Mri Safe Graft Tissue Drgn + Bvn Clgn Mtrx 2x2in Implanted:Qty: 1 on 02/06/2018 by Abdelrahman Griffin MD at [facility] N/A: Spine Lumbar Integra [employer] 11/02/2020 [id number] / / Slnt Dura Duraseal Pg Trilysine Amine 5 Implanted:Qty: 1 on 02/06/2018 by Abdelrahman Griffin MD at [facility] N/A: Spine Lumbar Integra [employer] Genaro 07/04/2019 [id number] / / Rcdr Crd Linq Ii Ins - [id number] Implanted:Qty: 1 on 06/10/2023 by Celsa Guerrero MD at [facility] [employer] Cardiac Surgical [id number] 06/14/2024 [id number] / [id number] / [id number] Description:loop implant Procedures Procedure Name Priority Date/Time Associated Diagnosis Comments VAS ARTERIAL ANKLE ARM INDEX Routine 11/26/2024 11:42 AM CDT PAD (peripheral artery disease) MAMMO BILAT SCREENING Routine 11/23/2020 10:35 AM CDT Encounter for screening mammogram for malignant neoplasm of breast HEPATITIS C AB W RFLX VERIFICATION Routine 06/24/2019 12:33 PM COMEDIAN Need for hepatitis C screening test DEXA BONE DENSITY AXIAL SKELETON Routine 11/11/2015 10:09 AM CDT from Last 3 Months or Most Recently Relevant to Health Maintenance Results * VAS ARTERIAL ANKLE ARM INDEX (11/26/2024 11:42 AM CDT) Anatomical Region Laterality Modality Ankle / Foot, Upper Extremity In travascular Ultrasound 11/26/2024 11:2 9 AM CDT Narrative Procedure Note Pepe Doan MD - 11/26/2024 Abdelrahman Veliz MD VASCULAR LAB ORDERABLES Edite d Result - Final * MAMMO BILAT SCREENING (11/23/2020 10:35 AM CDT) Anatomical Region Laterality Modality Breast Bilateral Mammography 11/23/2020 10:4 9 AM CDT Impressions 11/23/2020 2:50 PM CDT IMPRESSION: No mammographic evidence for malignancy bilaterally. RECOMMENDATION: Screening mammography in one year, pending no interval breast concerns. OVERALL ASSESSMENT: BI-RADS CATEGORY 2: BENIGN. Dictated by Mookie Roldan MD (global supply chain vice president). . Dr. Marisela Walters M.D. (global supply chain vice president) also assisted in the interpretation of the study. I, Dr. NERY ABDUL M.D. have personally reviewed and interpreted this examination/study. This report was electronically signed by NERY ABDUL M.D. on 11/23/2020 2:50 PM . Narrative 11/23/2020 2:50 PM CDT EXAMINATION: DIGITAL MAMMO BILAT SCREENING WITH TOMOSYNTHESIS AND WITH CAD DATE OF EXAM: 11/23/2020 10:36 AM HISTORY: Screening. RISK ASSESSMENT CALCULATION: Patient declined breast cancer risk assessment analysis at the time of her appointment. COMPARISON: Prior breast imaging studies back to 2014, with the most recent dated 11/11/2015. TECHNIQUE: Tomosynthesis (3-D) and reconstructed C - view (synthetic 2-D) images acquired and reviewed in the bilateral craniocaudal and mediolateral oblique projections. Computer-aided detection (CAD) was utilized. BREAST PARENCHYMAL COMPOSITION: Category B: There are scattered areas of fibroglandular density. FINDINGS: No suspicious findings or evidence of malignancy bilaterally. Biopsy clips noted bilaterally. Lissa Sotelo SE[employer] C[employer]INGER BUFF MATERIAL-FINISHING MACHINE TENDER MAMMO ORDERABLES Fi nal Result * HEPATITIS C AB W RFLX VERIFICATION (06/24/2019 12:33 PM COMEDIAN) Hepatitis C Antibody <0.1 0.0 - 0.9 s/co ratio 06/25/2019 7:08 AM COMEDIAN [facility] Blood BLOOD SPECIMEN / Unknown Lab Venipuncture / Unknown 06/24/2019 12:33 PM COMEDIAN 06/24/2019 12:47 PM COMEDIAN [facility]ative [facility] - 06/25/2019 7:08 AM COMEDIAN [facility]formed at: [facility] [address] [place], [place] [id number] Speech Language Pathologist: Tobias Gonzales PhD, Phone: [phone] us Lissa Sotelo [employer] MATERIAL-FINISHING MACHINE TENDER LAB - CHEMISTRY ORD ERABLES Final Result [facility] ([facility]) [address] [place] [address], [facility] * DEXA BONE DENSITY AXIAL SKELETON (11/11/2015 10:09 AM CDT) Anatomical Region Laterality Modality Other Narrative 11/11/2015 2:48 PM CDT Examination: Dual energy x-ray absorptiometry of the lumbar spine and hip. Clinical Indication: screening. Findings: Detailed data from the exam is sent separately to the ordering physician and is also available on H2scan, the Radiology Department's computerized picture archive system Comparison: None. BONE MINERAL DENSITY (BMD) left hip: T score is -0.1, normal. BONE MINERAL DENSITY (BMD) lumbar spine (L1-4): T score is 0.7, normal. Definitions: T-score = Standard Deviation Normal: A value for bone mineral density (BMD) within 1 standard deviation of the young adult reference mean. (T-score above -1) Low bone mass (osteopenia): A value for bone mineral density(BMD) more than 1 standard deviation below the young adult mean, but less than 2.5 standard deviations below the young adult mean. ( T-score between -1 and -2.5) Osteoporosis: A value for bone mineral density 2.5 standard deviations or more below the young adult mean. ( T-score at or below -2.5) Severe osteoporosis: Osteoporosis + the presence of one or more fragility fractures. Please note that T-score values are important in determining increased risk for fractures. The T-score represents the standard deviation above or below the mean bone mineral density for young adults. With each -1 standard deviation decrease in bone mineral density, the risk for fracture doubles exponentially. A T-score of -1 will double the risk , and -2 will be 4 times the risk. This report was approved by Cleveland Chamorro on 11/11/2015 2:38 PM . Simone, Dr. JAMIL WORRELL M.D. have personally reviewed and interpreted this examination/study. This report was electronically signed by JAMIL WORRELL M.D. on 11/11/2015 2:48 PM . Procedure Note Jamil Worrell MD - 08/03/2017 Examination: Dual energy x-ray absorptiometry of the lumbar spine andhip. Clinical Indication: screening. Findings: Detailed data from the exam is sent separately to the orderingphysician and is also available on H2scan, the Radiology Department'[employer] picture archive system Comparison: None. BONE MINERAL DENSITY (BMD) left hip: T score is -0.1, normal. BONE MINERAL DENSITY (BMD) lumbar spine (L1-4): T score is 0.7, normal. Definitions: T-score = Standard Deviation Normal: A value for bone mineral density (BMD) within 1 standard deviationof the young adult reference mean. (T-score above -1) Low bone mass (osteopenia): A value for bone mineral density(BMD) morethan 1 standard deviation below the young adult mean, but less than 2.5standard deviations below the young adult mean. ( T-score between -1 and-2.5) Osteoporosis: A value for bone mineral density 2.5 standard deviations ormore below the young adult mean. ( T-score at or below -2.5) Severe osteoporosis: Osteoporosis + the presence of one or more fragilityfractures. Please note that T-score values are important in determining increasedrisk for fractures. The T-score represents the standard deviation above orbelow the mean bone mineral density for young adults. With each -1standard deviation decrease in bone mineral density, the risk for fracture doubles exponentially. A T-score of-1 will double the risk , and -2 will be 4 times the risk. This report was approved by Cleveland Chamorro on 11/11/2015 2:[address] JAMIL Nichols M.D. have personally reviewed and interpreted thisexamination/study. This report was electronically signed by JAMIL WORRELL M.D. on 11/11/20152:48 PM . Lissa Sotelo [employer] MATERIAL-FINISHING MACHINE TENDER DEXA ORDERABLES Fin al Result from Last 3 Months or Most Recently Relevant to Health Maintenance Insurance MEDICAID - OUT OF STATE MEDICARE [facility] Advance Directives * Full Code (Latest Code Status on File) Date Activated Date Inactivated Comments 02/11/2024 12:55 PM 02/12/2024 12:20 AM * Full Code Date Activated Date Inactivated Comments 08/09/2023 3:28 PM 08/26/2023 7:10 PM * Full Code Date Activated Date Inactivated Comments 06/06/2023 7:52 PM 06/27/2023 6:35 PM * Full Code Date Activated Date Inactivated Comments 02/06/2018 10:49 AM 02/06/2018 3:03 PM * Full Code Date Activated Date Inactivated Comments 01/06/2017 1:51 AM 01/07/2017 5:59 PM Care Teams Broadcast Operations Engineer Relationship Specialty Start Date End Date Bindu Hall APRN-RALF PCP - General Nurse Practitioner Family 11/21/22
--- OUTSIDE RECORDS SUMMARY | 2025-01-10 15:39 | XMS_ITS | Encounter Summary ---
Author Organization [employer] Address [address] [place] [address] Care Team Providers Care Development Manager Name Role Phone Unavailable Primary Care Provider Unavailabl e Encounter Details Date Type Department Care Team (Late st Contact Info) Description 07/02/2006 Outpatient Historical [facility] Support Serv. ([facility] Cardiology[facility]) [address] 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
--- OUTSIDE RECORDS SUMMARY | 2025-01-10 15:39 | XMS_ITS | Encounter Summary ---
Author Organization [facility] Address [address] [place] [address] Care Team Providers Care Cigarette Making Machine Catcher Name Role Phone Unavailable Primary Care Provider Unavailabl e Encounter Details Date Type Department Care Team (Late st Contact Info) Description 07/11/2006 Outpatient Historical [facility] Support [facility] ([facility]) [address] 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
--- OUTSIDE RECORDS SUMMARY | 2025-01-10 15:40 | XMS_ITS | Encounter Summary ---
Author Organization [facility] Address [address] [place] [address] Care Team Providers Care Coat Presser Name Role Phone Unavailable Primary Care Provider Unavailabl e Encounter Details Date Type Department Care Team (Late st Contact Info) Description 07/10/2006 Outpatient Historical [facility] Support [facility] ([facility]) [address] 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
--- OUTSIDE RECORDS SUMMARY | 2025-01-10 15:40 | XMS_ITS | Encounter Summary ---
Author Organization [employer] Address 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 Pepe Claire MD [address] [facility] [address] [place] [address] Anter AMI NEC, Init Episd ([facility]) (Primary Dx) Social History Tobacco Use Types Packs/Day Years Used Date Smoking Tobacco: Never Assessed Comments Unknown Sex and Gender Information Value Date Recorded Sex Assigned at Not on file Legal Sex 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 Gender Identity Not on file Sexual Orientation Not on file documented as of this encounter Plan of Treatment Not on file documented as of this encounter Procedures Procedure Name Priority Date/Time Associated Diagnosis Comments POC GLUCOSE Routine 07/18/2006 11:11 AM CDT POC GLUCOSE Routine 07/18/2006 8:09 AM CDT POC GLUCOSE Routine 07/17/2006 8:29 PM CDT POC GLUCOSE Routine 07/17/2006 4:17 PM CDT POC GLUCOSE Routine 07/17/2006 12:39 PM CDT POC GLUCOSE Routine 07/17/2006 7:22 AM CDT POC GLUCOSE Routine 07/16/2006 8:25 PM CDT POC GLUCOSE Routine 07/16/2006 4:09 PM CDT POC GLUCOSE Routine 07/16/2006 12:17 PM CDT POC GLUCOSE Routine 07/16/2006 7:24 AM CDT POC GLUCOSE Routine 07/15/2006 8:26 PM CDT POC GLUCOSE Routine 07/15/2006 4:28 PM CDT POC GLUCOSE Routine 07/15/2006 12:06 PM CDT POC GLUCOSE Routine 07/15/2006 7:35 AM CDT BASIC METABOLIC PANEL Routine 07/15/2006 5:05 AM CDT POC GLUCOSE Routine 07/14/2006 8:11 PM CDT POC GLUCOSE Routine 07/14/2006 4:50 PM CDT POC GLUCOSE Routine 07/14/2006 11:37 AM CDT POC GLUCOSE Routine 07/14/2006 5:59 AM CDT CBC WITH DIFFERENTIAL Routine 07/14/2006 5:50 AM CDT CBC WITH DIFFERENTIAL Routine 07/14/2006 5:50 AM CDT BASIC METABOLIC PANEL Routine 07/14/2006 5:50 AM CDT POC GLUCOSE Routine 07/13/2006 8:17 PM STEAM DRIER OPERATOR POC GLUCOSE Routine 07/13/2006 4:14 PM STEAM DRIER OPERATOR POC GLUCOSE Routine 07/13/2006 11:17 AM STEAM DRIER OPERATOR POC GLUCOSE Routine 07/13/2006 7:19 AM STEAM DRIER OPERATOR CBC WITH DIFFERENTIAL Routine 07/13/2006 5:02 AM STEAM DRIER OPERATOR CBC WITH DIFFERENTIAL Routine 07/13/2006 5:02 AM STEAM DRIER OPERATOR PHOSPHORUS Routine 07/13/2006 5:02 AM STEAM DRIER OPERATOR MAGNESIUM LEVEL Routine 07/13/2006 5:02 AM STEAM DRIER OPERATOR BASIC METABOLIC PANEL Routine 07/13/2006 5:02 AM STEAM DRIER OPERATOR POC GLUCOSE Routine 07/12/2006 8:46 PM STEAM DRIER OPERATOR POC GLUCOSE Routine 07/12/2006 4:52 PM STEAM DRIER OPERATOR POC GLUCOSE Routine 07/12/2006 11:56 AM STEAM DRIER OPERATOR POC GLUCOSE Routine 07/12/2006 6:00 AM STEAM DRIER OPERATOR CBC WITH DIFFERENTIAL Routine 07/12/2006 3:25 AM STEAM DRIER OPERATOR CBC WITH DIFFERENTIAL Routine 07/12/2006 3:25 AM STEAM DRIER OPERATOR PHOSPHORUS Routine 07/12/2006 3:25 AM STEAM DRIER OPERATOR MAGNESIUM LEVEL Routine 07/12/2006 3:25 AM STEAM DRIER OPERATOR BASIC METABOLIC PANEL Routine 07/12/2006 3:25 AM STEAM DRIER OPERATOR CK TOTAL, RELATIVE INDEX Routine 07/11/2006 11:20 PM STEAM DRIER OPERATOR CKMB W/REFLEX CK Routine 07/11/2006 11:2 0 PM STEAM DRIER OPERATOR TROPONIN (W/REFLEX CKMB/CK) Routine 07/11/2006 11:20 PM STEAM DRIER OPERATOR POC GLUCOSE Routine 07/11/2006 8:48 PM STEAM DRIER OPERATOR POC GLUCOSE Routine 07/11/2006 4:41 PM STEAM DRIER OPERATOR POC GLUCOSE Routine 07/11/2006 11:48 AM STEAM DRIER OPERATOR POC GLUCOSE Routine 07/11/2006 5:53 AM STEAM DRIER OPERATOR CBC WITH DIFFERENTIAL Routine 07/11/2006 4:35 AM STEAM DRIER OPERATOR CBC WITH DIFFERENTIAL Routine 07/11/2006 4:35 AM STEAM DRIER OPERATOR PHOSPHORUS Routine 07/11/2006 4:35 AM STEAM DRIER OPERATOR MAGNESIUM LEVEL Routine 07/11/2006 4:35 AM STEAM DRIER OPERATOR BASIC METABOLIC PANEL Routine 07/11/2006 4:35 AM STEAM DRIER OPERATOR POC GLUCOSE Routine 07/10/2006 9:36 PM STEAM DRIER OPERATOR POC GLUCOSE Routine 07/10/2006 5:01 PM STEAM DRIER OPERATOR POC GLUCOSE Routine 07/10/2006 11:27 AM STEAM DRIER OPERATOR POC GLUCOSE Routine 07/10/2006 5:50 AM STEAM DRIER OPERATOR CBC WITH DIFFERENTIAL Routine 07/10/2006 4:20 AM STEAM DRIER OPERATOR CBC WITH DIFFERENTIAL Routine 07/10/2006 4:20 AM STEAM DRIER OPERATOR PHOSPHORUS Routine 07/10/2006 4:20 AM STEAM DRIER OPERATOR MAGNESIUM LEVEL Routine 07/10/2006 4:20 AM STEAM DRIER OPERATOR BASIC METABOLIC PANEL Routine 07/10/2006 4:20 AM STEAM DRIER OPERATOR POC GLUCOSE Routine 07/09/2006 8:09 PM STEAM DRIER OPERATOR POC GLUCOSE Routine 07/09/2006 5:16 PM STEAM DRIER OPERATOR POC GLUCOSE Routine 07/09/2006 2:58 PM STEAM DRIER OPERATOR POC GLUCOSE Routine 07/09/2006 11:30 AM STEAM DRIER OPERATOR POC GLUCOSE Routine 07/09/2006 8:11 AM STEAM DRIER OPERATOR CBC WITH DIFFERENTIAL Routine 07/09/2006 4:30 AM STEAM DRIER OPERATOR CBC WITH DIFFERENTIAL Routine 07/09/2006 4:30 AM STEAM DRIER OPERATOR PHOSPHORUS Routine 07/09/2006 4:30 AM STEAM DRIER OPERATOR MAGNESIUM LEVEL Routine 07/09/2006 4:30 AM STEAM DRIER OPERATOR BASIC METABOLIC PANEL Routine 07/09/2006 4:30 AM STEAM DRIER OPERATOR POC GLUCOSE Routine 07/09/2006 1:33 AM STEAM DRIER OPERATOR POTASSIUM LEVEL Routine 07/08/2006 10:20 PM STEAM DRIER OPERATOR BLOOD GAS VENOUS Routine 07/08/2006 10:2 0 PM STEAM DRIER OPERATOR POC GLUCOSE Routine 07/08/2006 10:18 PM STEAM DRIER OPERATOR BLOOD GAS VENOUS Routine 07/08/2006 5:24 PM STEAM DRIER OPERATOR BLOOD GAS ARTERIAL Routine 07/08/2006 5: 22 PM STEAM DRIER OPERATOR BLOOD GAS ARTERIAL Routine 07/08/2006 4: 27 PM STEAM DRIER OPERATOR POC GLUCOSE Routine 07/08/2006 4:23 PM STEAM DRIER OPERATOR BLOOD GAS ARTERIAL Routine 07/08/2006 3: 00 PM STEAM DRIER OPERATOR POC GLUCOSE Routine 07/08/2006 11:50 AM STEAM DRIER OPERATOR POC GLUCOSE Routine 07/08/2006 9:25 AM STEAM DRIER OPERATOR POC GLUCOSE Routine 07/08/2006 4:33 AM STEAM DRIER OPERATOR CBC WITH DIFFERENTIAL Routine 07/08/2006 4:30 AM STEAM DRIER OPERATOR CBC WITH DIFFERENTIAL Routine 07/08/2006 4:30 AM STEAM DRIER OPERATOR PHOSPHORUS Routine 07/08/2006 4:30 AM STEAM DRIER OPERATOR MAGNESIUM LEVEL Routine 07/08/2006 4:30 AM STEAM DRIER OPERATOR BASIC METABOLIC PANEL Routine 07/08/2006 4:30 AM STEAM DRIER OPERATOR POC GLUCOSE Routine 07/08/2006 12:07 AM STEAM DRIER OPERATOR POC GLUCOSE Routine 07/07/2006 8:42 PM STEAM DRIER OPERATOR POC GLUCOSE Routine 07/07/2006 5:13 PM STEAM DRIER OPERATOR POC GLUCOSE Routine 07/07/2006 12:37 PM STEAM DRIER OPERATOR POC GLUCOSE Routine 07/07/2006 10:26 AM STEAM DRIER OPERATOR POC GLUCOSE Routine 07/07/2006 5:16 AM STEAM DRIER OPERATOR BLOOD GAS ARTERIAL Routine 07/07/2006 4: 20 AM STEAM DRIER OPERATOR CBC WITH DIFFERENTIAL Routine 07/07/2006 4:00 AM STEAM DRIER OPERATOR CBC WITH DIFFERENTIAL Routine 07/07/2006 4:00 AM STEAM DRIER OPERATOR PHOSPHORUS Routine 07/07/2006 4:00 AM STEAM DRIER OPERATOR MAGNESIUM LEVEL Routine 07/07/2006 4:00 AM STEAM DRIER OPERATOR BASIC METABOLIC PANEL Routine 07/07/2006 4:00 AM STEAM DRIER OPERATOR POC GLUCOSE Routine 07/07/2006 2:02 AM STEAM DRIER OPERATOR POC GLUCOSE Routine 2006 8:59 PM STEAM DRIER OPERATOR POC GLUCOSE Routine 2006 5:03 PM STEAM DRIER OPERATOR POC GLUCOSE Routine 2006 12:00 PM STEAM DRIER OPERATOR POC GLUCOSE Routine 2006 7:31 AM STEAM DRIER OPERATOR POC GLUCOSE Routine 2006 5:15 AM STEAM DRIER OPERATOR LACTIC ACID Routine 2006 4:55 AM STEAM DRIER OPERATOR CBC WITH DIFFERENTIAL Routine 2006 4:55 AM STEAM DRIER OPERATOR CBC WITH DIFFERENTIAL Routine 2006 4:55 AM STEAM DRIER OPERATOR PHOSPHORUS Routine 2006 4:55 AM STEAM DRIER OPERATOR MAGNESIUM LEVEL Routine 2006 4:55 AM STEAM DRIER OPERATOR HEPATIC FUNCTION PANEL Routine 4:55 AM STEAM DRIER OPERATOR BASIC METABOLIC PANEL Routine 2006 4:55 AM STEAM DRIER OPERATOR URINALYSIS W/REFLEX MICROSCOPIC Routine 2006 12:45 AM STEAM DRIER OPERATOR POC GLUCOSE Routine 2006 12:40 AM STEAM DRIER OPERATOR POC GLUCOSE Routine 07/05/2006 8:39 PM STEAM DRIER OPERATOR POC GLUCOSE Routine 07/05/2006 5:12 PM STEAM DRIER OPERATOR POC GLUCOSE Routine 07/05/2006 12:02 PM STEAM DRIER OPERATOR CK Routine 07/05/2006 9:30 AM STEAM DRIER OPERATOR BASIC METABOLIC PANEL Routine 07/05/2006 9:30 AM STEAM DRIER OPERATOR POC GLUCOSE Routine 07/05/2006 8:09 AM STEAM DRIER OPERATOR BLOOD GAS ARTERIAL Routine 07/05/2006 7: 00 AM STEAM DRIER OPERATOR POC GLUCOSE Routine 07/05/2006 6:26 AM STEAM DRIER OPERATOR LACTIC ACID Routine 07/05/2006 2:05 AM STEAM DRIER OPERATOR CBC WITH DIFFERENTIAL Routine 07/05/2006 2:05 AM STEAM DRIER OPERATOR CBC WITH DIFFERENTIAL Routine 07/05/2006 2:05 AM STEAM DRIER OPERATOR PHOSPHORUS Routine 07/05/2006 2:05 AM STEAM DRIER OPERATOR MAGNESIUM LEVEL Routine 07/05/2006 2:05 AM STEAM DRIER OPERATOR BASIC METABOLIC PANEL Routine 07/05/2006 2:05 AM STEAM DRIER OPERATOR BLOOD GAS ARTERIAL Routine 07/05/2006 1: 26 AM STEAM DRIER OPERATOR POC GLUCOSE Routine 07/04/2006 11:48 PM STEAM DRIER OPERATOR POC ACTIVATED CLOTTING TIME Routine 07/04/2006 9:23 PM STEAM DRIER OPERATOR POC GLUCOSE Routine 07/04/2006 9:15 PM STEAM DRIER OPERATOR POC GLUCOSE Routine 07/04/2006 4:26 PM STEAM DRIER OPERATOR POC GLUCOSE Routine 07/04/2006 3:03 PM STEAM DRIER OPERATOR BLOOD GAS ARTERIAL Routine 07/04/2006 3: 00 PM STEAM DRIER OPERATOR POTASSIUM LEVEL Routine 07/04/2006 12:59 PM STEAM DRIER OPERATOR POC GLUCOSE Routine 07/04/2006 12:14 PM STEAM DRIER OPERATOR POC GLUCOSE Routine 07/04/2006 11:29 AM STEAM DRIER OPERATOR POC GLUCOSE Routine 07/04/2006 11:27 AM STEAM DRIER OPERATOR POC GLUCOSE Routine 07/04/2006 9:13 AM STEAM DRIER OPERATOR POC GLUCOSE Routine 07/04/2006 8:22 AM STEAM DRIER OPERATOR POC GLUCOSE Routine 07/04/2006 6:53 AM STEAM DRIER OPERATOR CBC WITH DIFFERENTIAL Routine 07/04/2006 6:00 AM STEAM DRIER OPERATOR CBC WITH DIFFERENTIAL Routine 07/04/2006 6:00 AM STEAM DRIER OPERATOR POC GLUCOSE Routine 07/04/2006 5:54 AM STEAM DRIER OPERATOR POC GLUCOSE Routine 07/04/2006 5:25 AM STEAM DRIER OPERATOR POC GLUCOSE Routine 07/04/2006 4:14 AM STEAM DRIER OPERATOR POC GLUCOSE Routine 07/04/2006 2:47 AM STEAM DRIER OPERATOR PHOSPHORUS Routine 07/04/2006 2:45 AM STEAM DRIER OPERATOR MAGNESIUM LEVEL Routine 07/04/2006 2:45 AM STEAM DRIER OPERATOR BASIC METABOLIC PANEL Routine 07/04/2006 2:45 AM STEAM DRIER OPERATOR POC GLUCOSE Routine 07/04/2006 2:11 AM STEAM DRIER OPERATOR POC GLUCOSE Routine 07/04/2006 1:08 AM STEAM DRIER OPERATOR POC GLUCOSE Routine 07/04/2006 12:17 AM STEAM DRIER OPERATOR POC GLUCOSE Routine 07/03/2006 11:28 PM STEAM DRIER OPERATOR PHOSPHORUS Routine 07/03/2006 10:30 PM STEAM DRIER OPERATOR MAGNESIUM LEVEL Routine 07/03/2006 10:30 PM STEAM DRIER OPERATOR BASIC METABOLIC PANEL Routine 07/03/2006 10:30 PM STEAM DRIER OPERATOR POC GLUCOSE Routine 07/03/2006 10:20 PM STEAM DRIER OPERATOR POC GLUCOSE Routine 07/03/2006 9:18 PM STEAM DRIER OPERATOR CBC WITH DIFFERENTIAL Routine 07/03/2006 6:48 PM STEAM DRIER OPERATOR CBC WITH DIFFERENTIAL Routine 07/03/2006 6:48 PM STEAM DRIER OPERATOR PHOSPHORUS Routine 07/03/2006 6:48 PM STEAM DRIER OPERATOR MAGNESIUM LEVEL Routine 07/03/2006 6:48 PM STEAM DRIER OPERATOR BASIC METABOLIC PANEL Routine 07/03/2006 6:48 PM STEAM DRIER OPERATOR POC GLUCOSE Routine 07/03/2006 6:47 PM STEAM DRIER OPERATOR POC GLUCOSE Routine 07/03/2006 5:59 PM STEAM DRIER OPERATOR POC GLUCOSE Routine 07/03/2006 5:21 PM STEAM DRIER OPERATOR POC GLUCOSE Routine 07/03/2006 4:12 PM STEAM DRIER OPERATOR POC GLUCOSE Routine 07/03/2006 3:15 PM STEAM DRIER OPERATOR PHOSPHORUS Routine 07/03/2006 3:00 PM STEAM DRIER OPERATOR MAGNESIUM LEVEL Routine 07/03/2006 3:00 PM STEAM DRIER OPERATOR BASIC METABOLIC PANEL Routine 07/03/2006 3:00 PM STEAM DRIER OPERATOR POC GLUCOSE Routine 07/03/2006 2:12 PM STEAM DRIER OPERATOR CBC WITH DIFFERENTIAL Routine 07/03/2006 1:30 PM STEAM DRIER OPERATOR CBC WITH DIFFERENTIAL Routine 07/03/2006 1:30 PM STEAM DRIER OPERATOR POC GLUCOSE Routine 07/03/2006 1:05 PM STEAM DRIER OPERATOR POC GLUCOSE Routine 07/03/2006 12:15 PM STEAM DRIER OPERATOR POC GLUCOSE Routine 07/03/2006 11:29 AM STEAM DRIER OPERATOR PHOSPHORUS Routine 07/03/2006 10:40 AM STEAM DRIER OPERATOR MAGNESIUM LEVEL Routine 07/03/2006 10:40 AM STEAM DRIER OPERATOR BASIC METABOLIC PANEL Routine 07/03/2006 10:40 AM STEAM DRIER OPERATOR POC GLUCOSE Routine 07/03/2006 9:55 AM STEAM DRIER OPERATOR POC GLUCOSE Routine 07/03/2006 7:43 AM STEAM DRIER OPERATOR CK TOTAL, RELATIVE INDEX Routine 07/03/2006 7:00 AM STEAM DRIER OPERATOR CKMB W/REFLEX CK Routine 07/03/2006 7:00 AM STEAM DRIER OPERATOR TROPONIN Routine 07/03/2006 7:00 AM STEAM DRIER OPERATOR POC GLUCOSE Routine 07/03/2006 6:21 AM STEAM DRIER OPERATOR PHOSPHORUS Routine 07/03/2006 6:15 AM STEAM DRIER OPERATOR MAGNESIUM LEVEL Routine 07/03/2006 6:15 AM STEAM DRIER OPERATOR BASIC METABOLIC PANEL Routine 07/03/2006 6:15 AM STEAM DRIER OPERATOR CBC WITH DIFFERENTIAL Routine 07/03/2006 4:40 AM STEAM DRIER OPERATOR CBC WITH DIFFERENTIAL Routine 07/03/2006 4:40 AM STEAM DRIER OPERATOR MAGNESIUM LEVEL Routine 07/03/2006 4:40 AM STEAM DRIER OPERATOR LIPASE Routine 07/03/2006 4:40 AM STEAM DRIER OPERATOR BLOOD GAS ARTERIAL Routine 07/03/2006 4: 40 AM STEAM DRIER OPERATOR AMYLASE Routine 07/03/2006 4:40 AM STEAM DRIER OPERATOR BASIC METABOLIC PANEL Routine 07/03/2006 4:40 AM STEAM DRIER OPERATOR POC GLUCOSE Routine 07/03/2006 4:09 AM STEAM DRIER OPERATOR POC GLUCOSE Routine 07/03/2006 2:17 AM STEAM DRIER OPERATOR POC GLUCOSE Routine 07/03/2006 12:01 AM STEAM DRIER OPERATOR CK TOTAL, RELATIVE INDEX Routine 07/02/2006 10:45 PM STEAM DRIER OPERATOR CKMB W/REFLEX CK Routine 07/02/2006 10:4 5 PM STEAM DRIER OPERATOR TROPONIN Routine 07/02/2006 10:45 PM STEAM DRIER OPERATOR PHOSPHORUS Routine 07/02/2006 10:45 PM STEAM DRIER OPERATOR MAGNESIUM LEVEL Routine 07/02/2006 10:45 PM STEAM DRIER OPERATOR BASIC METABOLIC PANEL Routine 07/02/2006 10:45 PM STEAM DRIER OPERATOR POC GLUCOSE Routine 07/02/2006 10:16 PM STEAM DRIER OPERATOR POC GLUCOSE Routine 07/02/2006 7:49 PM STEAM DRIER OPERATOR CBC WITH DIFFERENTIAL Routine 07/02/2006 6:40 PM STEAM DRIER OPERATOR CBC WITH DIFFERENTIAL Routine 07/02/2006 6:40 PM STEAM DRIER OPERATOR PHOSPHORUS Routine 07/02/2006 6:40 PM STEAM DRIER OPERATOR MAGNESIUM LEVEL Routine 07/02/2006 6:40 PM STEAM DRIER OPERATOR LIPASE Routine 07/02/2006 6:40 PM STEAM DRIER OPERATOR AMYLASE Routine 07/02/2006 6:40 PM STEAM DRIER OPERATOR BASIC METABOLIC PANEL Routine 07/02/2006 6:40 PM STEAM DRIER OPERATOR POC GLUCOSE Routine 07/02/2006 6:19 PM STEAM DRIER OPERATOR URINALYSIS WITH REFLEX CULTURE Routine 07/02/2006 6:10 PM STEAM DRIER OPERATOR URINALYSIS W/REFLEX MICROSCOPIC Routine 07/02/2006 6:10 PM STEAM DRIER OPERATOR CK TOTAL, RELATIVE INDEX Routine 07/02/2006 3:00 PM STEAM DRIER OPERATOR CKMB W/REFLEX CK Routine 07/02/2006 3:00 PM STEAM DRIER OPERATOR CBC WITH DIFFERENTIAL Routine 07/02/2006 3:00 PM STEAM DRIER OPERATOR CBC WITH DIFFERENTIAL Routine 07/02/2006 3:00 PM STEAM DRIER OPERATOR TROPONIN Routine 07/02/2006 3:00 PM STEAM DRIER OPERATOR PHOSPHORUS Routine 07/02/2006 3:00 PM STEAM DRIER OPERATOR MAGNESIUM LEVEL Routine 07/02/2006 3:00 PM STEAM DRIER OPERATOR COMPREHENSIVE METABOLIC PANEL Routine 07/02/2006 3:00 PM STEAM DRIER OPERATOR LACTIC ACID Routine 07/02/2006 2:57 PM STEAM DRIER OPERATOR BLOOD GAS ARTERIAL Routine 07/02/2006 2: 57 PM STEAM DRIER OPERATOR documented in this encounter Results * (ABNORMAL) POC GLUCOSE (07/18/2006 11:11 AM CDT) GLUCOSE POC 116(H) 65 - 99 mg/dL INTERFACE SYSTEM 07/18/2006 11:1 1 AM CDT Pepe Claire MD POINT OF CARE TESTING Caio justen Performing Organization Address [facility] de Phone Number INTERFACE SYSTEM Refer to clinic/hospital department * (ABNORMAL) POC GLUCOSE (07/18/2006 8:09 AM CDT) GLUCOSE POC 130(H) 65 - 99 mg/dL INTERFACE SYSTEM 07/18/2006 8:09 AM CDT Pepe Claire MD POINT OF CARE TESTING Caio justen Performing Organization Address [facility] de Phone Number INTERFACE SYSTEM Refer to clinic/hospital department * (ABNORMAL) POC GLUCOSE (07/17/2006 8:29 PM CDT) GLUCOSE POC 183(H) 65 - 99 mg/dL INTERFACE SYSTEM 07/17/2006 8:29 PM CDT Pepe Claire MD POINT OF CARE TESTING Caio justen Performing Organization Address [facility] de Phone Number INTERFACE SYSTEM Refer to clinic/hospital department * (ABNORMAL) POC GLUCOSE (07/17/2006 4:17 PM CDT) GLUCOSE POC 104(H) 65 - 99 mg/dL INTERFACE SYSTEM 07/17/2006 4:17 PM CDT Pepe Claire MD POINT OF CARE TESTING Caio justen Performing Organization Address [facility] de Phone Number INTERFACE SYSTEM Refer to clinic/hospital department * (ABNORMAL) POC GLUCOSE (07/17/2006 12:39 PM CDT) GLUCOSE POC 203(H) 65 - 99 mg/dL INTERFACE SYSTEM 07/17/2006 12:3 9 PM CDT Pepe Claire MD POINT OF CARE TESTING Caiodidi campuzano Performing Organization Address [facility] Phone Number INTERFACE SYSTEM Refer to clinic/hospital department * POC GLUCOSE (07/17/2006 7:22 AM CDT) GLUCOSE POC 99 65 - 99 mg/dL INTERFACE SYSTEM 07/17/2006 7:22 AM CDT Pepe Claire MD POINT OF CARE TESTING Caiodidi campuzano Performing Organization Address [facility] Phone Number INTERFACE SYSTEM Refer to clinic/hospital department * (ABNORMAL) POC GLUCOSE (07/16/2006 8:25 PM CDT) GLUCOSE POC 233(H) 65 - 99 mg/dL INTERFACE SYSTEM 07/16/2006 8:25 PM CDT Pepe Claire MD POINT OF CARE TESTING Caiodidi campuzano Performing Organization Address [facility] de Phone Number INTERFACE SYSTEM Refer to clinic/hospital department * (ABNORMAL) POC GLUCOSE (07/16/2006 4:09 PM CDT) GLUCOSE POC 154(H) 65 - 99 mg/dL INTERFACE SYSTEM 07/16/2006 4:09 PM CDT Pepe Claire MD POINT OF CARE TESTING Ciaodidi campuazno Performing Organization Address [facility] Phone Number INTERFACE SYSTEM Refer to clinic/hospital department * (ABNORMAL) POC GLUCOSE (07/16/2006 12:17 PM CDT) GLUCOSE POC 170(H) 65 - 99 mg/dL INTERFACE SYSTEM 07/16/2006 12:1 7 PM CDT Pepe Claire MD POINT OF CARE TESTING Caio justen Performing Organization Address [facility] Phone Number INTERFACE SYSTEM Refer to clinic/hospital department * (ABNORMAL) POC GLUCOSE (07/16/2006 7:24 AM CDT) GLUCOSE POC 101(H) 65 - 99 mg/dL INTERFACE SYSTEM 07/16/2006 7:24 AM CDT Pepe Claire MD POINT OF CARE TESTING Caiodidi campuzano Performing Organization Address [facility] Phone Number INTERFACE SYSTEM Refer to clinic/hospital department * (ABNORMAL) POC GLUCOSE (07/15/2006 8:26 PM CDT) GLUCOSE POC 188(H) 65 - 99 mg/dL INTERFACE SYSTEM 07/15/2006 8:26 PM CDT Pepe Claire MD POINT OF CARE TESTING Caiodidi campuzano Performing Organization Address [facility] de Phone Number INTERFACE SYSTEM Refer to clinic/hospital department * (ABNORMAL) POC GLUCOSE (07/15/2006 4:28 PM CDT) GLUCOSE POC 102(H) 65 - 99 mg/dL INTERFACE SYSTEM 07/15/2006 4:28 PM CDT us Pepe Claire MD POINT OF CARE TESTING Caio justen Performing Organization Address [facility] de Phone Number INTERFACE SYSTEM Refer to clinic/hospital department * (ABNORMAL) POC GLUCOSE (07/15/2006 12:06 PM CDT) GLUCOSE POC 215(H) 65 - 99 mg/dL INTERFACE SYSTEM 07/15/2006 12:0 6 PM CDT Pepe Claire MD POINT OF CARE TESTING Caio justen Performing Organization Address [facility] de Phone Number INTERFACE SYSTEM Refer to clinic/hospital department * (ABNORMAL) POC GLUCOSE (07/15/2006 7:35 AM CDT) GLUCOSE POC 113(H) 65 - 99 mg/dL INTERFACE SYSTEM 07/15/2006 7:3 5 AM CDT Pepe Claire MD POINT OF CARE TESTING Caio justen Performing Organization Address [facility] de Phone Number INTERFACE SYSTEM Refer to clinic/hospital department * BASIC METABOLIC PANEL (07/15/2006 5:05 AM CDT) GLUCOSE 95 65 - 99 mg/dL INTERFACE SYSTEM CREATININE 0.69 0.51 - 0.95 mg/dL INTERFACE SYSTEM CALCIUM 9.3 8.4 - 10.2 mg/dL INTERFACE SYSTEM BUN 13 6 - 20 mg/dL INTERFACE SYSTEM SODIUM 137 135 - 145 mmol/L INTERFACE SYSTEM POTASSIUM 3.8 3.5 - 4.9 mmol/L INTERFACE SYSTEM CHLORIDE 102 96 - 108 mmol/L INTERFACE SYSTEM CO2 23 22 - 30 mmol/L INTERFACE SYSTEM GFR, >60 >=60 mL/min/1.7 sq meter INTERFACE SYSTEM GFR >60 >=60 mL/min/1.7 sq meter INTERFACE SYSTEM Comment: Estimated GFR rate interpretative information for both Americans and non- Americans is available on the [facility] Intranet at: [email or web address] Select: Lab Policies and Procedures Select: Reference Ranges - GFR 07/15/2006 5:05 AM CDT Richi Membreno MD CHEMISTRY ORDERABLES Edited Performing Organization Address [facility] de Phone Number INTERFACE SYSTEM Refer to clinic/hospital department * (ABNORMAL) POC GLUCOSE (07/14/2006 8:11 PM CDT) GLUCOSE POC 169(H) 65 - 99 mg/dL INTERFACE SYSTEM 07/14/2006 8:11 PM CDT Pepe Claire MD POINT OF CARE TESTING Caio justen Performing Organization Address [facility] Phone Number INTERFACE SYSTEM Refer to clinic/hospital department * (ABNORMAL) POC GLUCOSE (07/14/2006 4:50 PM CDT) GLUCOSE POC 125(H) 65 - 99 mg/dL INTERFACE SYSTEM 07/14/2006 4:50 PM CDT Pepe Claire MD POINT OF CARE TESTING Caio justen Performing Organization Address [facility] Phone Number INTERFACE SYSTEM Refer to clinic/hospital department * (ABNORMAL) POC GLUCOSE (07/14/2006 11:37 AM CDT) GLUCOSE POC 196(H) 65 - 99 mg/dL INTERFACE SYSTEM 07/14/2006 11:3 7 AM CDT Pepe Claire MD POINT OF CARE TESTING Caio jutsen Performing Organization Address [facility] de Phone Number INTERFACE SYSTEM Refer to clinic/hospital department * (ABNORMAL) POC GLUCOSE (07/14/2006 5:59 AM CDT) COMMENT, GLU POC Notified RN INTERFACE SYSTEM GLUCOSE POC 142(H) 65 - 99 mg/dL INTERFACE SYSTEM 07/14/2006 5:59 AM CDT Pepe Claire MD POINT OF CARE TESTING Caio justen Performing Organization Address [facility] de Phone Number INTERFACE SYSTEM Refer to clinic/hospital department * (ABNORMAL) CBC WITH DIFFERENTIAL (07/14/2006 5:50 AM CDT) NEUTROPHIL ABSOLUTE 12.14(H) 1.90 - 7.00 K/uL INTERFACE SYSTEM LYMPHOCYTE ABSOLUTE 2.56 0.70 - 4.50 K/uL INTERFACE SYSTEM MONOCYTE ABSOLUTE 1.37(H) 0.10 - 1.30 K/uL INTERFACE SYSTEM EOSINOPHIL ABSOLUTE 0.85(H) 0.00 - 0.70 K/uL INTERFACE SYSTEM BASOPHILS ABSOLUTE 0.00 0.00 - 0.20 K/uL INTERFACE SYSTEM NEUTROPHILS, SEG 71(H) 45 - 70 % INT ERFACE SYSTEM LYMPHOCYTES 15(L) 16 - 45 % INTERFAC E SYSTEM MONOCYTES 8 3 - 13 % INTERFACE SYSTEM EOSINOPHILS 5 0 - 7 % INTERFAC E SYSTEM BASOPHILS 0 0 - 2 % INTERFACE SYSTEM METAMYELOCYTE 1(H) <=0 % INTERF [place] SYSTEM PLATELET EST. Consistent w/ count Normal INTERFACE SYSTEM ANISOCYTOSIS Slight INTERFA CE SYSTEM POIKILOCYTES Slight INTERFA CE SYSTEM 07/14/2006 5:50 AM CDT Pepe Claire MD HEMATOLOGY ORDERABLES Caio justen Performing Organization Address [facility] de Phone Number INTERFACE SYSTEM Refer to clinic/hospital department * (ABNORMAL) CBC WITH DIFFERENTIAL (07/14/2006 5:50 AM CDT) WBC 17.1(H) 4.0 - 9.8 K/uL INTERFACE SYSTEM RBC 4.26 3.90 - 4.90 M/uL INTERFACE SYSTEM HEMOGLOBIN 12.5 11.8 - 14.8 g/dL INTERFACE SYSTEM HEMATOCRIT 37.9 35.5 - 44.0 % INTERFACE SYSTEM MCV 89.0 82.0 - 99.0 fL INTERFACE SYSTEM MCH 29.3 27.2 - 32.6 pg INTERFACE SYSTEM MCHC 33.0 31.5 - 35.5 % INTERFACE SYSTEM RDW 14.6(H) 11.5 - 14.5 % INTERFACE SYSTEM RDW-STDEV 47.0 37.1 - 48.7 fL INTERFACE SYSTEM PLATELETS 638(H) 140 - 350 K/uL INTERFACE SYSTEM MPV 10.5 9.3 - 12.4 fL INTERFACE SYSTEM 07/14/2006 5:50 AM CDT Pepe Claire MD HEMATOLOGY ORDERABLES Caio justen Performing Organization Address [facility] de Phone Number INTERFACE SYSTEM Refer to clinic/hospital department * (ABNORMAL) BASIC METABOLIC PANEL (07/14/2006 5:50 AM CDT) GLUCOSE 114(H) 65 - 99 mg/dL INTERFACE SYSTEM CREATININE 0.68 0.51 - 0.95 mg/dL INTERFACE SYSTEM CALCIUM 9.1 8.4 - 10.2 mg/dL INTERFACE SYSTEM BUN 12 6 - 20 mg/dL INTERFACE SYSTEM SODIUM 137 135 - 145 mmol/L INTERFACE SYSTEM POTASSIUM 3.7 3.5 - 4.9 mmol/L INTERFACE SYSTEM CHLORIDE 104 96 - 108 mmol/L INTERFACE SYSTEM CO2 23 22 - 30 mmol/L INTERFACE SYSTEM GFR, >60 >=60 mL/min/1. 7 sq meter INTERFACE SYSTEM GFR >60 >=60 mL/min/1. 7 sq meter INTERFACE SYSTEM Comment: Estimated GFR rate interpretative information for both Americans and non- Americans is available on the [facility] Intranet at: [email or web address] Select: Lab Policies and Procedures Select: Reference Ranges - GFR 07/14/2006 5:50 AM CDT Pepe Claire MD CHEMISTRY ORDERABLES Edit ed Performing Organization Address [facility] de Phone Number INTERFACE SYSTEM Refer to clinic/hospital department * (ABNORMAL) POC GLUCOSE (07/13/2006 8:17 PM STEAM DRIER OPERATOR) GLUCOSE POC 137(H) 65 - 99 mg/dL INTERFACE SYSTEM 07/13/2006 8:17 PM STEAM DRIER OPERATOR Pepe Claire MD POINT OF CARE TESTING Caio jsuten Performing Organization Address City/[facility] Co de Phone Number INTERFACE SYSTEM Refer to clinic/hospital department * (ABNORMAL) POC GLUCOSE (07/13/2006 4:14 PM STEAM DRIER OPERATOR) COMMENT, GLU POC Notified RN INTERFACE SYSTEM GLUCOSE POC 154(H) 65 - 99 mg/dL INTERFACE SYSTEM 07/13/2006 4:14 PM STEAM DRIER OPERATOR Pepe Claire MD POINT OF CARE TESTING Caio justen Performing Organization Address [facility] de Phone Number INTERFACE SYSTEM Refer to clinic/hospital department * (ABNORMAL) POC GLUCOSE (07/13/2006 11:17 AM STEAM DRIER OPERATOR) GLUCOSE POC 192(H) 65 - 99 mg/dL INTERFACE SYSTEM 07/13/2006 11:1 7 AM STEAM DRIER OPERATOR Pepe Claire MD POINT OF CARE TESTING Caio justen Performing Organization Address [facility] de Phone Number INTERFACE SYSTEM Refer to clinic/hospital department * POC GLUCOSE (07/13/2006 7:19 AM STEAM DRIER OPERATOR) GLUCOSE POC 97 65 - 99 mg/dL INTERFACE SYSTEM 07/13/2006 7:19 AM STEAM DRIER OPERATOR Pepe Claire MD POINT OF CARE TESTING Caio justen Performing Organization Address [facility] de Phone Number INTERFACE SYSTEM Refer to clinic/hospital department * (ABNORMAL) CBC WITH DIFFERENTIAL (07/13/2006 5:02 AM STEAM DRIER OPERATOR) NEUTROPHIL ABSOLUTE 11.70(H) 1.90 - 7.00 K/uL INTERFACE SYSTEM LYMPHOCYTE ABSOLUTE 2.75 0.70 - 4.50 K/uL INTERFACE SYSTEM MONOCYTE ABSOLUTE 1.38(H) 0.10 - 1.30 K/uL INTERFACE SYSTEM EOSINOPHIL ABSOLUTE 0.34 0.00 - 0.70 K/uL INTERFACE SYSTEM BASOPHILS ABSOLUTE 0.00 0.00 - 0.20 K/uL INTERFACE SYSTEM NEUTROPHILS, SEG 66 45 - 70 % INT ERFACE SYSTEM BANDS 2 0 - 5 % INTERFACE SYSTEM LYMPHOCYTES 16 16 - 45 % INTERFAC E SYSTEM MONOCYTES 8 3 - 13 % INTERFACE SYSTEM EOSINOPHILS 2 0 - 7 % INTERFAC E SYSTEM BASOPHILS 0 0 - 2 % INTERFACE SYSTEM METAMYELOCYTE 5(H) <=0 % INTERF LUCRETIA SYSTEM MYELOCYTES 1(H) <=0 % INTERFACE SYSTEM PLATELET EST. Consistent w/ count Normal INTERFACE SYSTEM ANISOCYTOSIS Slight INTERFA CE SYSTEM POIKILOCYTES Slight INTERFA CE SYSTEM POLYCHROMASIA Slight INTERF LUCRETIA SYSTEM GIANT PLATELETS Present INTE RFACE SYSTEM REVIEWED ON SMEAR Plt OK by Smear Rev. INTERFACE SYSTEM 07/13/2006 5:02 AM STEAM DRIER OPERATOR Martha Cespedes MD HEMATOLOGY ORDERABLES Edit ed INTERFACE SYSTEM Refer to clinic/hospital department * (ABNORMAL) CBC WITH DIFFERENTIAL (07/13/2006 5:02 AM STEAM DRIER OPERATOR) WBC 17.2(H) 4.0 - 9.8 K/uL INTERFACE SYSTEM RBC 4.15 3.90 - 4.90 M/uL INTERFACE SYSTEM HEMOGLOBIN 12.3 11.8 - 14.8 g/dL INTERFACE SYSTEM HEMATOCRIT 36.3 35.5 - 44.0 % INTERFACE SYSTEM MCV 87.5 82.0 - 99.0 fL INTERFACE SYSTEM MCH 29.6 27.2 - 32.6 pg INTERFACE SYSTEM MCHC 33.9 31.5 - 35.5 % INTERFACE SYSTEM RDW 14.6(H) 11.5 - 14.5 % INTERFACE SYSTEM RDW-STDEV 46.8 37.1 - 48.7 fL INTERFACE SYSTEM PLATELETS 554(H) 140 - 350 K/uL INTERFACE SYSTEM MPV 10.4 9.3 - 12.4 fL INTERFACE SYSTEM 07/13/2006 5:02 AM STEAM DRIER OPERATOR Martha Cespedes MD HEMATOLOGY ORDERABLES Edit ed INTERFACE SYSTEM Refer to clinic/hospital department * PHOSPHORUS (07/13/2006 5:02 AM STEAM DRIER OPERATOR) PHOSPHORUS 3.3 2.5 - 4.5 mg/dL INTERFACE SYSTEM 07/13/2006 5:02 AM STEAM DRIER OPERATOR Martha Cespedes MD CHEMISTRY ORDERABLES Edite d INTERFACE SYSTEM Refer to clinic/hospital department * MAGNESIUM LEVEL (07/13/2006 5:02 AM STEAM DRIER OPERATOR) MAGNESIUM 2.3 1.5 - 2.5 mg/dL INTERFACE SYSTEM 07/13/2006 5:02 AM STEAM DRIER OPERATOR Martha Cespedes MD CHEMISTRY ORDERABLES Edite d Performing Organization Address [facility] Co de Phone Number INTERFACE SYSTEM Refer to clinic/hospital department * BASIC METABOLIC PANEL (07/13/2006 5:02 AM STEAM DRIER OPERATOR) GLUCOSE 83 65 - 99 mg/dL INTERFACE SYSTEM CREATININE 0.77 0.51 - 0.95 mg/dL INTERFACE SYSTEM CALCIUM 8.6 8.4 - 10.2 mg/dL INTERFACE SYSTEM BUN 13 6 - 20 mg/dL INTERFACE SYSTEM SODIUM 138 135 - 145 mmol/L INTERFACE SYSTEM POTASSIUM 3.9 3.5 - 4.9 mmol/L INTERFACE SYSTEM CHLORIDE 105 96 - 108 mmol/L INTERFACE SYSTEM CO2 23 22 - 30 mmol/L INTERFACE SYSTEM GFR, >60 >=60 mL/min/1.7 sq meter INTERFACE SYSTEM GFR >60 >=60 mL/min/1.7 sq meter INTERFACE SYSTEM Comment: Estimated GFR rate interpretative information for both Americans and non- Americans is available on the [facility] Intranet at: [email or web address] Select: Lab Policies and Procedures Select: Reference Ranges - GFR 07/13/2006 5:02 AM STEAM DRIER OPERATOR Martha Cespedes MD CHEMISTRY ORDERABLES Edite d INTERFACE SYSTEM Refer to clinic/hospital department * (ABNORMAL) POC GLUCOSE (07/12/2006 8:46 PM STEAM DRIER OPERATOR) GLUCOSE POC 128(H) 65 - 99 mg/dL INTERFACE SYSTEM 07/12/2006 8:46 PM STEAM DRIER OPERATOR Pepe Claire MD POINT OF CARE TESTING Caio justen Performing Organization Address [facility] Phone Number INTERFACE SYSTEM Refer to clinic/hospital department * (ABNORMAL) POC GLUCOSE (07/12/2006 4:52 PM STEAM DRIER OPERATOR) GLUCOSE POC 114(H) 65 - 99 mg/dL INTERFACE SYSTEM 07/12/2006 4:52 PM STEAM DRIER OPERATOR Pepe Claire MD POINT OF CARE TESTING Caio justen Performing Organization Address [facility] Phone Number INTERFACE SYSTEM Refer to clinic/hospital department * (ABNORMAL) POC GLUCOSE (07/12/2006 11:56 AM STEAM DRIER OPERATOR) GLUCOSE POC 127(H) 65 - 99 mg/dL INTERFACE SYSTEM 07/12/2006 11:5 6 AM STEAM DRIER OPERATOR Pepe Claire MD POINT OF CARE TESTING Caio justen Performing Organization Address [facility] Phone Number INTERFACE SYSTEM Refer to clinic/hospital department * (ABNORMAL) POC GLUCOSE (07/12/2006 6:00 AM STEAM DRIER OPERATOR) GLUCOSE POC 111(H) 65 - 99 mg/dL INTERFACE SYSTEM 07/12/2006 6:00 AM STEAM DRIER OPERATOR Pepe Claire MD POINT OF CARE TESTING Caio justen Performing Organization Address [facility] Phone Number INTERFACE SYSTEM Refer to clinic/hospital department * (ABNORMAL) CBC WITH DIFFERENTIAL (07/12/2006 3:25 AM STEAM DRIER OPERATOR) NEUTROPHIL ABSOLUTE 10.47(H) 1.90 - 7.00 K/uL INTERFACE SYSTEM LYMPHOCYTE ABSOLUTE 2.93 0.70 - 4.50 K/uL INTERFACE SYSTEM MONOCYTE ABSOLUTE 1.08 0.10 - 1.30 K/uL INTERFACE SYSTEM EOSINOPHIL ABSOLUTE 0.62 0.00 - 0.70 K/uL INTERFACE SYSTEM BASOPHILS ABSOLUTE 0.00 0.00 - 0.20 K/uL INTERFACE SYSTEM NEUTROPHILS, SEG 67 45 - 70 % INT ERFACE SYSTEM BANDS 1 0 - 5 % INTERFACE SYSTEM LYMPHOCYTES 19 16 - 45 % INTERFAC E SYSTEM MONOCYTES 7 3 - 13 % INTERFACE SYSTEM EOSINOPHILS 4 0 - 7 % INTERFAC E SYSTEM BASOPHILS 0 0 - 2 % INTERFACE SYSTEM METAMYELOCYTE 2(H) <=0 % INTERF LUCRETIA SYSTEM PLATELET EST. Consistent w/ count Normal INTERFACE SYSTEM ANISOCYTOSIS Slight INTERFA CE SYSTEM POIKILOCYTES Slight INTERFA CE SYSTEM 07/12/2006 3:25 AM STEAM DRIER OPERATOR Martha Cespedes MD HEMATOLOGY ORDERABLES Edit ed Performing Organization Address [facility] de Phone Number INTERFACE SYSTEM Refer to clinic/hospital department * (ABNORMAL) CBC WITH DIFFERENTIAL (07/12/2006 3:25 AM STEAM DRIER OPERATOR) WBC 15.4(H) 4.0 - 9.8 K/uL INTERFACE SYSTEM RBC 3.99 3.90 - 4.90 M/uL INTERFACE SYSTEM HEMOGLOBIN 11.8 11.8 - 14.8 g/dL INTERFACE SYSTEM HEMATOCRIT 34.4(L) 35.5 - 44.0 % INTERFACE SYSTEM MCV 86.2 82.0 - 99.0 fL INTERFACE SYSTEM MCH 29.6 27.2 - 32.6 pg INTERFACE SYSTEM MCHC 34.3 31.5 - 35.5 % INTERFACE SYSTEM RDW 14.7(H) 11.5 - 14.5 % INTERFACE SYSTEM RDW-STDEV 46.3 37.1 - 48.7 fL INTERFACE SYSTEM PLATELETS 405(H) 140 - 350 K/uL INTERFACE SYSTEM MPV 10.2 9.3 - 12.4 fL INTERFACE SYSTEM 07/12/2006 3:25 AM STEAM DRIER OPERATOR Martha Cespedes MD HEMATOLOGY ORDERABLES Edit ed Performing Organization Address [facility] Co de Phone Number INTERFACE SYSTEM Refer to clinic/hospital department * PHOSPHORUS (07/12/2006 3:25 AM STEAM DRIER OPERATOR) PHOSPHORUS 3.9 2.5 - 4.5 mg/dL INTERFACE SYSTEM 07/12/2006 3:25 AM STEAM DRIER OPERATOR Martha Cespedes MD CHEMISTRY ORDERABLES Edite d Performing Organization Address [facility] Phone Number INTERFACE SYSTEM Refer to clinic/hospital department * MAGNESIUM LEVEL (07/12/2006 3:25 AM STEAM DRIER OPERATOR) MAGNESIUM 2.4 1.5 - 2.5 mg/dL INTERFACE SYSTEM 07/12/2006 3:25 AM STEAM DRIER OPERATOR Martha Cespedes MD CHEMISTRY ORDERABLES Edite d Performing Organization Address [facility] Phone Number INTERFACE SYSTEM Refer to clinic/hospital department * (ABNORMAL) BASIC METABOLIC PANEL (07/12/2006 3:25 AM STEAM DRIER OPERATOR) GLUCOSE 92 65 - 99 mg/dL INTERFACE SYSTEM CREATININE 0.76 0.51 - 0.95 mg/dL INTERFACE SYSTEM CALCIUM 8.1(L) 8.4 - 10.2 mg/dL INTERFACE SYSTEM BUN 13 6 - 20 mg/dL INTERFACE SYSTEM SODIUM 139 135 - 145 mmol/L INTERFACE SYSTEM POTASSIUM 3.4(L) 3.5 - 4.9 mmol/L INTERFACE SYSTEM CHLORIDE 104 96 - 108 mmol/L INTERFACE SYSTEM CO2 27 22 - 30 mmol/L INTERFACE SYSTEM GFR, >60 >=60 mL/min/1. 7 sq meter INTERFACE SYSTEM GFR >60 >=60 mL/min/1. 7 sq meter INTERFACE SYSTEM Comment: Estimated GFR rate interpretative information for both Americans and non- Americans is available on the [facility] Intranet at: [email or web address] Select: Lab Policies and Procedures Select: Reference Ranges - GFR 07/12/2006 3:25 AM STEAM DRIER OPERATOR Martha Cespedes MD CHEMISTRY ORDERABLES Edite d Performing Organization Address [facility] Phone Number INTERFACE SYSTEM Refer to clinic/hospital department * (ABNORMAL) CK TOTAL, RELATIVE INDEX (07/11/2006 11:20 PM STEAM DRIER OPERATOR) CK 584(H) 10 - 145 U/L INTERFACE SYSTEM CARDIAC RELATIVE INDEX 0.8 <=4.0 INTERFACE SYSTEM 07/11/2006 11:2 0 PM STEAM DRIER OPERATOR [employer] CHEMISTRY ORDERABLES Edited Performing Organization Address [place]/[facility] de Phone Number INTERFACE SYSTEM Refer to clinic/hospital department * (ABNORMAL) CKMB W/REFLEX CK (07/11/2006 11:20 PM STEAM DRIER OPERATOR) CKMB 4.6(AA) <=3.8 ng/mL INTERFACE SYSTEM Comment:Results called to Er in at 07/12/2006 12:26 AM and read back verified. CKMB INTERP See Below INTERFAC E SYSTEM Comment:Elevated CKMB,consis tent with Myocardial Injury. 07/11/2006 11:2 0 PM STEAM DRIER OPERATOR [employer] CHEMISTRY ORDERABLES Edited Performing Organization Address [facility] de Phone Number INTERFACE SYSTEM Refer to clinic/hospital department * (ABNORMAL) TROPONIN (W/REFLEX CKMB/CK) (07/11/2006 11:20 PM STEAM DRIER OPERATOR) TROPONIN T 3.48(AA) <=0.03 ng/mL INTERFACE SYSTEM Comment:Results called to er rin at 07/12/2006 12:12 AM and read back verified. TROPONIN T INTERP See Below INTERFACE SYSTEM Comment:Elevated Troponin-T, Consistent with Myocardial Injury 07/11/2006 11:2 0 PM STEAM DRIER OPERATOR [employer] CHEMISTRY ORDERABLES Edited Performing Organization Address [place]/[facility] de Phone Number INTERFACE SYSTEM Refer to clinic/hospital department * (ABNORMAL) POC GLUCOSE (07/11/2006 8:48 PM STEAM DRIER OPERATOR) GLUCOSE POC 147(H) 65 - 99 mg/dL INTERFACE SYSTEM 07/11/2006 8:48 PM STEAM DRIER OPERATOR Pepe Claire MD POINT OF CARE TESTING Caio justen Performing Organization Address [facility] de Phone Number INTERFACE SYSTEM Refer to clinic/hospital department * (ABNORMAL) POC GLUCOSE (07/11/2006 4:41 PM STEAM DRIER OPERATOR) GLUCOSE POC 109(H) 65 - 99 mg/dL INTERFACE SYSTEM 07/11/2006 4:41 PM STEAM DRIER OPERATOR Pepe Claire MD POINT OF CARE TESTING Caio justen Performing Organization Address [facility] de Phone Number INTERFACE SYSTEM Refer to clinic/hospital department * (ABNORMAL) POC GLUCOSE (07/11/2006 11:48 AM STEAM DRIER OPERATOR) GLUCOSE POC 210(H) 65 - 99 mg/dL INTERFACE SYSTEM 07/11/2006 11:4 8 AM STEAM DRIER OPERATOR Pepe Claire MD POINT OF CARE TESTING Caio justen Performing Organization Address [facility] de Phone Number INTERFACE SYSTEM Refer to clinic/hospital department * POC GLUCOSE (07/11/2006 5:53 AM STEAM DRIER OPERATOR) GLUCOSE POC 93 65 - 99 mg/dL INTERFACE SYSTEM 07/11/2006 5:53 AM STEAM DRIER OPERATOR Pepe Claire MD POINT OF CARE TESTING Caio justen Performing Organization Address [facility] de Phone Number INTERFACE SYSTEM Refer to clinic/hospital department * (ABNORMAL) CBC WITH DIFFERENTIAL (07/11/2006 4:35 AM STEAM DRIER OPERATOR) NEUTROPHIL ABSOLUTE 16.35(H) 1.90 - 7.00 K/uL INTERFACE SYSTEM LYMPHOCYTE ABSOLUTE 1.77 0.70 - 4.50 K/uL INTERFACE SYSTEM MONOCYTE ABSOLUTE 0.39 0.10 - 1.30 K/uL INTERFACE SYSTEM EOSINOPHIL ABSOLUTE 0.39 0.00 - 0.70 K/uL INTERFACE SYSTEM BASOPHILS ABSOLUTE 0.00 0.00 - 0.20 K/uL INTERFACE SYSTEM NEUTROPHILS, SEG 80(H) 45 - 70 % INT ERFACE SYSTEM BANDS 3 0 - 5 % INTERFACE SYSTEM LYMPHOCYTES 9(L) 16 - 45 % INTERFAC E SYSTEM MONOCYTES 2(L) 3 - 13 % INTERFACE SYSTEM EOSINOPHILS 2 0 - 7 % INTERFAC E SYSTEM BASOPHILS 0 0 - 2 % INTERFACE SYSTEM METAMYELOCYTE 2(H) <=0 % INTERF LUCRETIA SYSTEM MYELOCYTES 2(H) <=0 % INTERFACE SYSTEM PLATELET EST. Consistent w/ count Normal INTERFACE SYSTEM ANISOCYTOSIS Slight INTERFA CE SYSTEM POIKILOCYTES Slight INTERFA CE SYSTEM MICROCYTES Slight INTERFACE SYSTEM POLYCHROMASIA Slight INTERF LUCRETIA SYSTEM REVIEWED ON SMEAR WBC & Plt Reviewed INTERFACE SYSTEM 07/11/2006 4:35 AM STEAM DRIER OPERATOR us Pepe Claire MD HEMATOLOGY ORDERABLES Caio justen Performing Organization Address [facility] de Phone Number INTERFACE SYSTEM Refer to clinic/hospital department * (ABNORMAL) CBC WITH DIFFERENTIAL (07/11/2006 4:35 AM STEAM DRIER OPERATOR) WBC 19.7(H) 4.0 - 9.8 K/uL INTERFACE SYSTEM RBC 4.23 3.90 - 4.90 M/uL INTERFACE SYSTEM HEMOGLOBIN 12.5 11.8 - 14.8 g/dL INTERFACE SYSTEM HEMATOCRIT 36.4 35.5 - 44.0 % INTERFACE SYSTEM MCV 86.1 82.0 - 99.0 fL INTERFACE SYSTEM MCH 29.6 27.2 - 32.6 pg INTERFACE SYSTEM MCHC 34.3 31.5 - 35.5 % INTERFACE SYSTEM RDW 14.9(H) 11.5 - 14.5 % INTERFACE SYSTEM RDW-STDEV 46.2 37.1 - 48.7 fL INTERFACE SYSTEM PLATELETS 375(H) 140 - 350 K/uL INTERFACE SYSTEM MPV 10.5 9.3 - 12.4 fL INTERFACE SYSTEM 07/11/2006 4:35 AM STEAM DRIER OPERATOR Pepe Claire MD HEMATOLOGY ORDERABLES Caio justen Performing Organization Address [place]/[facility] Co de Phone Number INTERFACE SYSTEM Refer to clinic/hospital department * PHOSPHORUS (07/11/2006 4:35 AM STEAM DRIER OPERATOR) PHOSPHORUS 4.3 2.5 - 4.5 mg/dL INTERFACE SYSTEM 07/11/2006 4:35 AM STEAM DRIER OPERATOR Pepe Claire MD CHEMISTRY ORDERABLES Edit ed Performing Organization Address [facility] Phone Number INTERFACE SYSTEM Refer to clinic/hospital department * MAGNESIUM LEVEL (07/11/2006 4:35 AM STEAM DRIER OPERATOR) MAGNESIUM 2.2 1.5 - 2.5 mg/dL INTERFACE SYSTEM 07/11/2006 4:35 AM STEAM DRIER OPERATOR Pepe Claire MD CHEMISTRY ORDERABLES Edit ed Performing Organization Address [facility] Phone Number INTERFACE SYSTEM Refer to clinic/hospital department * BASIC METABOLIC PANEL (07/11/2006 4:35 AM STEAM DRIER OPERATOR) GLUCOSE 77 65 - 99 mg/dL INTERFACE SYSTEM CREATININE 0.80 0.51 - 0.95 mg/dL INTERFACE SYSTEM CALCIUM 8.4 8.4 - 10.2 mg/dL INTERFACE SYSTEM BUN 13 6 - 20 mg/dL INTERFACE SYSTEM SODIUM 138 135 - 145 mmol/L INTERFACE SYSTEM POTASSIUM 3.5 3.5 - 4.9 mmol/L INTERFACE SYSTEM CHLORIDE 98 96 - 108 mmol/L INTERFACE SYSTEM CO2 25 22 - 30 mmol/L INTERFACE SYSTEM GFR, >60 >=60 mL/min/1.7 sq meter INTERFACE SYSTEM GFR >60 >=60 mL/min/1.7 sq meter INTERFACE SYSTEM Comment: Estimated GFR rate interpretative information for both Americans and non- Americans is available on the [facility] Intranet at: [email or web address] Select: Lab Policies and Procedures Select: Reference Ranges - GFR 07/11/2006 4:35 AM STEAM DRIER OPERATOR Pepe Claire MD CHEMISTRY ORDERABLES Edit ed Performing Organization Address [facility] de Phone Number INTERFACE SYSTEM Refer to clinic/hospital department * POC GLUCOSE (07/10/2006 9:36 PM STEAM DRIER OPERATOR) GLUCOSE POC 93 65 - 99 mg/dL INTERFACE SYSTEM 07/10/2006 9:36 PM STEAM DRIER OPERATOR Pepe Claire MD POINT OF CARE TESTING Caio justen Performing Organization Address [place]/[facility] Co de Phone Number INTERFACE SYSTEM Refer to clinic/hospital department * POC GLUCOSE (07/10/2006 5:01 PM STEAM DRIER OPERATOR) GLUCOSE POC 92 65 - 99 mg/dL INTERFACE SYSTEM 07/10/2006 5:01 PM STEAM DRIER OPERATOR Pepe Claire MD POINT OF CARE TESTING Caio justen Performing Organization Address [facility] de Phone Number INTERFACE SYSTEM Refer to clinic/hospital department * (ABNORMAL) POC GLUCOSE (07/10/2006 11:27 AM STEAM DRIER OPERATOR) GLUCOSE POC 209(H) 65 - 99 mg/dL INTERFACE SYSTEM 07/10/2006 11:2 7 AM STEAM DRIER OPERATOR Pepe Claire MD POINT OF CARE TESTING Caio justen Performing Organization Address [facility] Phone Number INTERFACE SYSTEM Refer to clinic/hospital department * POC GLUCOSE (07/10/2006 5:50 AM STEAM DRIER OPERATOR) GLUCOSE POC 90 65 - 99 mg/dL INTERFACE SYSTEM 07/10/2006 5:50 AM STEAM DRIER OPERATOR Pepe Claire MD POINT OF CARE TESTING Caio justen Performing Organization Address [place]/[facility] de Phone Number INTERFACE SYSTEM Refer to clinic/hospital department * (ABNORMAL) CBC WITH DIFFERENTIAL (07/10/2006 4:20 AM STEAM DRIER OPERATOR) NEUTROPHIL ABSOLUTE 13.98(H) 1.90 - 7.00 K/uL INTERFACE SYSTEM LYMPHOCYTE ABSOLUTE 2.65 0.70 - 4.50 K/uL INTERFACE SYSTEM MONOCYTE ABSOLUTE 0.35 0.10 - 1.30 K/uL INTERFACE SYSTEM EOSINOPHIL ABSOLUTE 0.71(H) 0.00 - 0.70 K/uL INTERFACE SYSTEM BASOPHILS ABSOLUTE 0.00 0.00 - 0.20 K/uL INTERFACE SYSTEM NEUTROPHILS, SEG 75(H) 45 - 70 % INT ERFACE SYSTEM BANDS 4 0 - 5 % INTERFACE SYSTEM LYMPHOCYTES 15(L) 16 - 45 % INTERFAC E SYSTEM MONOCYTES 2(L) 3 - 13 % INTERFACE SYSTEM EOSINOPHILS 4 0 - 7 % INTERFAC E SYSTEM BASOPHILS 0 0 - 2 % INTERFACE SYSTEM PLATELET EST. Consistent w/ count Normal INTERFACE SYSTEM ANISOCYTOSIS Slight INTERFA CE SYSTEM POLYCHROMASIA Slight INTERF LUCRETIA SYSTEM 07/10/2006 4:20 AM STEAM DRIER OPERATOR [facility] HEMATOLOGY ORDERABLES Edited Performing Organization Address [facility] de Phone Number INTERFACE SYSTEM Refer to clinic/hospital department * (ABNORMAL) CBC WITH DIFFERENTIAL (07/10/2006 4:20 AM STEAM DRIER OPERATOR) WBC 17.7(H) 4.0 - 9.8 K/uL INTERFACE SYSTEM RBC 4.06 3.90 - 4.90 M/uL INTERFACE SYSTEM HEMOGLOBIN 11.8 11.8 - 14.8 g/dL INTERFACE SYSTEM HEMATOCRIT 34.8(L) 35.5 - 44.0 % INTERFACE SYSTEM MCV 85.7 82.0 - 99.0 fL INTERFACE SYSTEM MCH 29.1 27.2 - 32.6 pg INTERFACE SYSTEM MCHC 33.9 31.5 - 35.5 % INTERFACE SYSTEM RDW 15.5(H) 11.5 - 14.5 % INTERFACE SYSTEM RDW-STDEV 49.0(H) 37.1 - 48.7 fL INTERFACE SYSTEM PLATELETS 270 140 - 350 K/uL INTERFACE SYSTEM MPV 10.4 9.3 - 12.4 fL INTERFACE SYSTEM 07/10/2006 4:20 AM STEAM DRIER OPERATOR [employer] HEMATOLOGY ORDERABLES Edited Performing Organization Address [facility] de Phone Number INTERFACE SYSTEM Refer to clinic/hospital department * PHOSPHORUS (07/10/2006 4:20 AM STEAM DRIER OPERATOR) PHOSPHORUS 2.9 2.5 - 4.5 mg/dL INTERFACE SYSTEM 07/10/2006 4:20 AM STEAM DRIER OPERATOR [employer] CHEMISTRY ORDERABLES Edited Performing Organization Address [facility] de Phone Number INTERFACE SYSTEM Refer to clinic/hospital department * MAGNESIUM LEVEL (07/10/2006 4:20 AM STEAM DRIER OPERATOR) MAGNESIUM 2.1 1.5 - 2.5 mg/dL INTERFACE SYSTEM 07/10/2006 4:20 AM STEAM DRIER OPERATOR [employer] CHEMISTRY ORDERABLES Edited Performing Organization Address [facility] Phone Number INTERFACE SYSTEM Refer to clinic/hospital department * (ABNORMAL) BASIC METABOLIC PANEL (07/10/2006 4:20 AM STEAM DRIER OPERATOR) GLUCOSE 87 65 - 99 mg/dL INTERFACE SYSTEM CREATININE 0.77 0.51 - 0.95 mg/dL INTERFACE SYSTEM CALCIUM 8.4 8.4 - 10.2 mg/dL INTERFACE SYSTEM BUN 11 6 - 20 mg/dL INTERFACE SYSTEM SODIUM 137 135 - 145 mmol/L INTERFACE SYSTEM POTASSIUM 3.3(L) 3.5 - 4.9 mmol/L INTERFACE SYSTEM CHLORIDE 97 96 - 108 mmol/L INTERFACE SYSTEM CO2 32(H) 22 - 30 mmol/L INTERFACE SYSTEM GFR, >60 >=60 mL/min/1. 7 sq meter INTERFACE SYSTEM GFR >60 >=60 mL/min/1. 7 sq meter INTERFACE SYSTEM Comment: Estimated GFR rate interpretative information for both Americans and non- Americans is available on the [facility] Intranet at: [email or web address] Select: Lab Policies and Procedures Select: Reference Ranges - GFR 07/10/2006 4:20 AM STEAM DRIER OPERATOR [employer] CHEMISTRY ORDERABLES Edited Performing Organization Address [facility] Co de Phone Number INTERFACE SYSTEM Refer to clinic/hospital department * (ABNORMAL) POC GLUCOSE (07/09/2006 8:09 PM STEAM DRIER OPERATOR) GLUCOSE POC 291(H) 65 - 99 mg/dL INTERFACE SYSTEM 07/09/2006 8:09 PM STEAM DRIER OPERATOR Pepe Claire MD POINT OF CARE TESTING Caio justen Performing Organization Address [place]/[facility] Co de Phone Number INTERFACE SYSTEM Refer to clinic/hospital department * POC GLUCOSE (07/09/2006 5:16 PM STEAM DRIER OPERATOR) GLUCOSE POC 90 65 - 99 mg/dL INTERFACE SYSTEM 07/09/2006 5:16 PM STEAM DRIER OPERATOR Pepe Claire MD POINT OF CARE TESTING Caio justen Performing Organization Address [facility] de Phone Number INTERFACE SYSTEM Refer to clinic/hospital department * (ABNORMAL) POC GLUCOSE (07/09/2006 2:58 PM STEAM DRIER OPERATOR) GLUCOSE POC 184(H) 65 - 99 mg/dL INTERFACE SYSTEM 07/09/2006 2:58 PM STEAM DRIER OPERATOR Pepe Claire MD POINT OF CARE TESTING Caio justen Performing Organization Address [facility] Phone Number INTERFACE SYSTEM Refer to clinic/hospital department * (ABNORMAL) POC GLUCOSE (07/09/2006 11:30 AM STEAM DRIER OPERATOR) GLUCOSE POC 203(H) 65 - 99 mg/dL INTERFACE SYSTEM 07/09/2006 11:3 0 AM STEAM DRIER OPERATOR Pepe Claire MD POINT OF CARE TESTING Caio justen Performing Organization Address [place]/[facility] de Phone Number INTERFACE SYSTEM Refer to clinic/hospital department * (ABNORMAL) POC GLUCOSE (07/09/2006 8:11 AM STEAM DRIER OPERATOR) GLUCOSE POC 111(H) 65 - 99 mg/dL INTERFACE SYSTEM 07/09/2006 8:11 AM STEAM DRIER OPERATOR us Pepe Claire MD POINT OF CARE TESTING Caio justen INTERFACE SYSTEM Refer to clinic/hospital department * (ABNORMAL) CBC WITH DIFFERENTIAL (07/09/2006 4:30 AM STEAM DRIER OPERATOR) NEUTROPHIL ABSOLUTE 11.63(H) 1.90 - 7.00 K/uL INTERFACE SYSTEM LYMPHOCYTE ABSOLUTE 2.45 0.70 - 4.50 K/uL INTERFACE SYSTEM MONOCYTE ABSOLUTE 0.92 0.10 - 1.30 K/uL INTERFACE SYSTEM EOSINOPHIL ABSOLUTE 0.00 0.00 - 0.70 K/uL INTERFACE SYSTEM BASOPHILS ABSOLUTE 0.00 0.00 - 0.20 K/uL INTERFACE SYSTEM NEUTROPHILS, SEG 72(H) 45 - 70 % INT ERFACE SYSTEM BANDS 4 0 - 5 % INTERFACE SYSTEM LYMPHOCYTES 16 16 - 45 % INTERFAC E SYSTEM MONOCYTES 6 3 - 13 % INTERFACE SYSTEM EOSINOPHILS 0 0 - 7 % INTERFAC E SYSTEM BASOPHILS 0 0 - 2 % INTERFACE SYSTEM METAMYELOCYTE 1(H) <=0 % INTERF LUCRETIA SYSTEM MYELOCYTES 1(H) <=0 % INTERFACE SYSTEM PLATELET EST. Consistent w/ count Normal INTERFACE SYSTEM ANISOCYTOSIS Slight INTERFA CE SYSTEM POLYCHROMASIA Slight INTERF LUCRETIA SYSTEM 07/09/2006 4:30 AM STEAM DRIER OPERATOR Narrative INTERFACE SYSTEM - 07/09/2006 6:59 AM STEAM DRIER OPERATOR Ordered by an unspecified provider. Historical Provider HEMATOLOGY ORDERABLES Edited INTERFACE SYSTEM Refer to clinic/hospital department * (ABNORMAL) CBC WITH DIFFERENTIAL (07/09/2006 4:30 AM STEAM DRIER OPERATOR) WBC 15.3(H) 4.0 - 9.8 K/uL INTERFACE SYSTEM RBC 3.91 3.90 - 4.90 M/uL INTERFACE SYSTEM HEMOGLOBIN 11.7(L) 11.8 - 14.8 g/dL INTERFACE SYSTEM HEMATOCRIT 33.6(L) 35.5 - 44.0 % INTERFACE SYSTEM MCV 85.9 82.0 - 99.0 fL INTERFACE SYSTEM MCH 29.9 27.2 - 32.6 pg INTERFACE SYSTEM MCHC 34.8 31.5 - 35.5 % INTERFACE SYSTEM RDW 16.1(H) 11.5 - 14.5 % INTERFACE SYSTEM RDW-STDEV 50.6(H) 37.1 - 48.7 fL INTERFACE SYSTEM PLATELETS 227 140 - 350 K/uL INTERFACE SYSTEM MPV 10.8 9.3 - 12.4 fL INTERFACE SYSTEM 07/09/2006 4:30 AM STEAM DRIER OPERATOR Narrative INTERFACE SYSTEM - 07/09/2006 6:56 AM STEAM DRIER OPERATOR Ordered by an unspecified provider. Historical Provider HEMATOLOGY ORDERABLES Edited Performing Organization Address [facility] de Phone Number INTERFACE SYSTEM Refer to clinic/hospital department * PHOSPHORUS (07/09/2006 4:30 AM STEAM DRIER OPERATOR) PHOSPHORUS 2.7 2.5 - 4.5 mg/dL INTERFACE SYSTEM 07/09/2006 4:30 AM STEAM DRIER OPERATOR Narrative INTERFACE SYSTEM - 07/09/2006 5:15 AM STEAM DRIER OPERATOR Ordered by an unspecified provider. Historical Provider CHEMISTRY ORDERABLES Edited Performing Organization Address [facility] Phone Number INTERFACE SYSTEM Refer to clinic/hospital department * MAGNESIUM LEVEL (07/09/2006 4:30 AM STEAM DRIER OPERATOR) Pathologist [facility] MAGNESIUM 2.0 1.5 - 2.5 mg/dL INTERFACE SYSTEM 07/09/2006 4:30 AM STEAM DRIER OPERATOR Narrative INTERFACE SYSTEM - 07/09/2006 5:15 AM STEAM DRIER OPERATOR Ordered by an unspecified provider. [facility] Provider CHEMISTRY ORDERABLES Edited Performing Organization Address [facility] Phone Number INTERFACE SYSTEM Refer to clinic/hospital department * (ABNORMAL) BASIC METABOLIC PANEL (07/09/2006 4:30 AM STEAM DRIER OPERATOR) GLUCOSE 95 65 - 99 mg/dL INTERFACE SYSTEM CREATININE 0.79 0.51 - 0.95 mg/dL INTERFACE SYSTEM CALCIUM 7.4(L) 8.4 - 10.2 mg/dL INTERFACE SYSTEM BUN 14 6 - 20 mg/dL INTERFACE SYSTEM SODIUM 139 135 - 145 mmol/L INTERFACE SYSTEM POTASSIUM 3.0(L) 3.5 - 4.9 mmol/L INTERFACE SYSTEM CHLORIDE 100 96 - 108 mmol/L INTERFACE SYSTEM CO2 32(H) 22 - 30 mmol/L INTERFACE SYSTEM GFR, >60 >=60 mL/min/1. 7 sq meter INTERFACE SYSTEM GFR >60 >=60 mL/min/1. 7 sq meter INTERFACE SYSTEM Comment: Estimated GFR rate interpretative information for both Americans and non- Americans is available on the [facility] Intranet at: [email or web address] Select: Lab Policies and Procedures Select: Reference Ranges - GFR 07/09/2006 4:30 AM STEAM DRIER OPERATOR Narrative INTERFACE SYSTEM - 07/09/2006 5:15 AM STEAM DRIER OPERATOR Ordered by an unspecified provider. Historical Provider CHEMISTRY ORDERABLES Edited Performing Organization Address [facility] Phone Number INTERFACE SYSTEM Refer to clinic/hospital department * POC GLUCOSE (07/09/2006 1:33 AM STEAM DRIER OPERATOR) GLUCOSE POC 90 65 - 99 mg/dL INTERFACE SYSTEM 07/09/2006 1:33 AM STEAM DRIER OPERATOR Pepe Claire MD POINT OF CARE TESTING Caio justen Performing Organization Address [facility] Phone Number INTERFACE SYSTEM Refer to clinic/hospital department * (ABNORMAL) BLOOD GAS VENOUS (07/08/2006 10:20 PM STEAM DRIER OPERATOR) PH MVBG 7.43 7.32 - 7.43 INTERFACE SYSTEM PCO2 VENOUS 53(H) 38 - 50 mm Hg INTERFACE SYSTEM PO2 MVBG 35 25 - 40 mm Hg INTERFACE SYSTEM O2 SAT EST MVBG 67 40 - 70 % INTERFACE SYSTEM O2 CONC MVBG 50% venti INTERFA CE SYSTEM 07/08/2006 10:2 0 PM STEAM DRIER OPERATOR Narrative INTERFACE SYSTEM - 07/08/2006 10:30 PM STEAM DRIER OPERATOR Ordered by an unspecified provider. Historical Provider ABG ORDERABLES Edited Performing Organization Address [facility] Phone Number INTERFACE SYSTEM Refer to clinic/hospital department * (ABNORMAL) POTASSIUM LEVEL (07/08/2006 10:20 PM STEAM DRIER OPERATOR) POTASSIUM 3.0(L) 3.5 - 4.9 mmol/L INTERFACE SYSTEM 07/08/2006 10:2 0 PM STEAM DRIER OPERATOR Narrative INTERFACE SYSTEM - 07/08/2006 10:55 PM STEAM DRIER OPERATOR Ordered by an unspecified provider. Historical Provider CHEMISTRY ORDERABLES Edited Performing Organization Address [facility] Phone Number INTERFACE SYSTEM Refer to clinic/hospital department * POC GLUCOSE (07/08/2006 10:18 PM STEAM DRIER OPERATOR) GLUCOSE POC 99 65 - 99 mg/dL INTERFACE SYSTEM 07/08/2006 10:1 8 PM STEAM DRIER OPERATOR us Pepe Claire MD POINT OF CARE TESTING Caio justen Performing Organization Address [facility] Phone Number INTERFACE SYSTEM Refer to clinic/hospital department * (ABNORMAL) BLOOD GAS VENOUS (07/08/2006 5:24 PM STEAM DRIER OPERATOR) PH MVBG 7.46(H) 7.32 - 7.43 INTERFACE SYSTEM PCO2 VENOUS 45 38 - 50 mm Hg INTERFACE SYSTEM PO2 MVBG 77(H) 25 - 40 mm Hg INTERFACE SYSTEM SO2 MVBG 98 % INTERFACE SYSTEM FO2HB MVBG 97 94 - 98 % INTERFACE SYSTEM O2 CONC MVBG 50vm INTERFA CE SYSTEM 07/08/2006 5:24 PM STEAM DRIER OPERATOR Narrative INTERFACE SYSTEM - 07/08/2006 5:52 PM STEAM DRIER OPERATOR Ordered by an unspecified provider. us Historical Provider ABG ORDERABLES Edited Performing Organization Address [facility] de Phone Number INTERFACE SYSTEM Refer to clinic/hospital department * (ABNORMAL) BLOOD GAS ARTERIAL (07/08/2006 5:22 PM STEAM DRIER OPERATOR) PH ARTERIAL 7.43 7.35 - 7.45 INTERFACE SYSTEM PCO2 ARTERIAL 50(H) 35 - 48 mm Hg INTERFACE SYSTEM PO2 ARTERIAL 35(AA) 83 - 108 mm Hg INTERFACE SYSTEM SO2 ABG 75(L) 95 - 99 % INTERFACE SYSTEM FO2HB ABG 74(L) 94 - 98 % INTERFACE SYSTEM HCO3 ARTERIAL 33(H) 22 - 26 mmol/L INTERFACE SYSTEM BASE EXCESS ABG 7.4(H) -2.0 - 3.0 mmol/L INTERFACE SYSTEM O2 CONC ARTERIAL 50 vm INTERFACE SYSTEM 07/08/2006 5:22 PM STEAM DRIER OPERATOR Narrative INTERFACE SYSTEM - 07/08/2006 5:50 PM STEAM DRIER OPERATOR Ordered by an unspecified provider. Historical Provider ABG ORDERABLES Edited Performing Organization Address [facility] de Phone Number INTERFACE SYSTEM Refer to clinic/hospital department * (ABNORMAL) BLOOD GAS ARTERIAL (07/08/2006 4:27 PM STEAM DRIER OPERATOR) PH ARTERIAL 7.47(H) 7.35 - 7.45 INTERFACE SYSTEM PCO2 ARTERIAL 44 35 - 48 mm Hg INTERFACE SYSTEM PO2 ARTERIAL 59(L) 83 - 108 mm Hg INTERFACE SYSTEM SO2 ABG 95 95 - 99 % INTERFACE SYSTEM FO2HB ABG 95 94 - 98 % INTERFACE SYSTEM HCO3 ARTERIAL 31(H) 22 - 26 mmol/L INTERFACE SYSTEM BASE EXCESS ABG 6.6(H) -2.0 - 3.0 mmol/L INTERFACE SYSTEM O2 CONC ARTERIAL 50 % VM INTERFACE SYSTEM 07/08/2006 4:27 PM STEAM DRIER OPERATOR us Michelle Russellnicko ABG ORDERABLES Edited Performing Organization Address [facility] Phone Number INTERFACE SYSTEM Refer to clinic/hospital department * POC GLUCOSE (07/08/2006 4:23 PM STEAM DRIER OPERATOR) GLUCOSE POC 91 65 - 99 mg/dL INTERFACE SYSTEM 07/08/2006 4:23 PM STEAM DRIER OPERATOR Pepe Claire MD POINT OF CARE TESTING Caio justen Performing Organization Address [facility] Phone Number INTERFACE SYSTEM Refer to clinic/hospital department * (ABNORMAL) BLOOD GAS ARTERIAL (07/08/2006 3:00 PM STEAM DRIER OPERATOR) PH ARTERIAL 7.42 7.35 - 7.45 INTERFACE SYSTEM PCO2 ARTERIAL 46 35 - 48 mm Hg INTERFACE SYSTEM PO2 ARTERIAL 59(L) 83 - 108 mm Hg INTERFACE SYSTEM SO2 ABG 94(L) 95 - 99 % INTERFACE SYSTEM FO2HB ABG 93(L) 94 - 98 % INTERFACE SYSTEM HCO3 ARTERIAL 29(H) 22 - 26 mmol/L INTERFACE SYSTEM BASE EXCESS ABG 4.0(H) -2.0 - 3.0 mmol/L INTERFACE SYSTEM O2 CONC ARTERIAL 50 vm INTERFACE SYSTEM 07/08/2006 3:00 PM STEAM DRIER OPERATOR Michelle Melendez ABG ORDERABLES Edited Performing Organization Address [place]/[facility] de Phone Number INTERFACE SYSTEM Refer to clinic/hospital department * (ABNORMAL) POC GLUCOSE (07/08/2006 11:50 AM STEAM DRIER OPERATOR) GLUCOSE POC 218(H) 65 - 99 mg/dL INTERFACE SYSTEM 07/08/2006 11:5 0 AM STEAM DRIER OPERATOR Pepe Claire MD POINT OF CARE TESTING Caio justen Performing Organization Address [facility] Phone Number INTERFACE SYSTEM Refer to clinic/hospital department * (ABNORMAL) POC GLUCOSE (07/08/2006 9:25 AM STEAM DRIER OPERATOR) GLUCOSE POC 158(H) 65 - 99 mg/dL INTERFACE SYSTEM 07/08/2006 9:2 5 AM STEAM DRIER OPERATOR Pepe Claire MD POINT OF CARE TESTING Caio justen Performing Organization Address [facility] Phone Number INTERFACE SYSTEM Refer to clinic/hospital department * (ABNORMAL) POC GLUCOSE (07/08/2006 4:33 AM STEAM DRIER OPERATOR) GLUCOSE POC 140(H) 65 - 99 mg/dL INTERFACE SYSTEM 07/08/2006 4:33 AM STEAM DRIER OPERATOR Pepe Claire MD POINT OF CARE TESTING Caio justen Performing Organization Address [facility] de Phone Number INTERFACE SYSTEM Refer to clinic/hospital department * (ABNORMAL) CBC WITH DIFFERENTIAL (07/08/2006 4:30 AM STEAM DRIER OPERATOR) NEUTROPHILS 70 45 - 70 % INTERFAC E SYSTEM LYMPHOCYTES 12(L) 16 - 45 % INTERFAC E SYSTEM MONOCYTES 12 3 - 13 % INTERFACE SYSTEM EOSINOPHILS 5 0 - 7 % INTERFAC E SYSTEM BASOPHILS 0 0 - 2 % INTERFACE SYSTEM NEUTROPHIL ABSOLUTE 8.59(H) 1.90 - 7.00 K/uL INTERFACE SYSTEM LYMPHOCYTE ABSOLUTE 1.49 0.70 - 4.50 K/uL INTERFACE SYSTEM MONOCYTE ABSOLUTE 1.52(H) 0.10 - 1.30 K/uL INTERFACE SYSTEM EOSINOPHIL ABSOLUTE 0.61 0.00 - 0.70 K/uL INTERFACE SYSTEM BASOPHILS ABSOLUTE 0.02 0.00 - 0.20 K/uL INTERFACE SYSTEM 07/08/2006 4:30 AM STEAM DRIER OPERATOR Demario Copeland DO HEMATOLOGY ORDERABLES Edited Performing Organization Address [facility] de Phone Number INTERFACE SYSTEM Refer to clinic/hospital department * (ABNORMAL) CBC WITH DIFFERENTIAL (07/08/2006 4:30 AM STEAM DRIER OPERATOR) WBC 12.2(H) 4.0 - 9.8 K/uL INTERFACE SYSTEM RBC 2.77(L) 3.90 - 4.90 M/uL INTERFACE SYSTEM HEMOGLOBIN 8.6(L) 11.8 - 14.8 g/dL INTERFACE SYSTEM HEMATOCRIT 24.8(L) 35.5 - 44.0 % INTERFACE SYSTEM MCV 89.5 82.0 - 99.0 fL INTERFACE SYSTEM MCH 31.0 27.2 - 32.6 pg INTERFACE SYSTEM MCHC 34.7 31.5 - 35.5 % INTERFACE SYSTEM RDW 14.1 11.5 - 14.5 % INTERFACE SYSTEM RDW-STDEV 46.4 37.1 - 48.7 fL INTERFACE SYSTEM PLATELETS 195 140 - 350 K/uL INTERFACE SYSTEM MPV 10.3 9.3 - 12.4 fL INTERFACE SYSTEM 07/08/2006 4:30 AM STEAM DRIER OPERATOR Demario Copeland DO HEMATOLOGY ORDERABLES Edited Performing Organization Address [facility] de Phone Number INTERFACE SYSTEM Refer to clinic/hospital department * (ABNORMAL) PHOSPHORUS (07/08/2006 4:30 AM STEAM DRIER OPERATOR) PHOSPHORUS 2.4(L) 2.5 - 4.5 mg/dL INTERFACE SYSTEM 07/08/2006 4:30 AM STEAM DRIER OPERATOR us Demario Copeland DO CHEMISTRY ORDERABLES Edited Performing Organization Address [facility] Phone Number INTERFACE SYSTEM Refer to clinic/hospital department * MAGNESIUM LEVEL (07/08/2006 4:30 AM STEAM DRIER OPERATOR) MAGNESIUM 2.2 1.5 - 2.5 mg/dL INTERFACE SYSTEM 07/08/2006 4:30 AM STEAM DRIER OPERATOR us Demario Copeland DO CHEMISTRY ORDERABLES Edited Performing Organization Address [facility] Phone Number INTERFACE SYSTEM Refer to clinic/hospital department * (ABNORMAL) BASIC METABOLIC PANEL (07/08/2006 4:30 AM STEAM DRIER OPERATOR) GLUCOSE 128(H) 65 - 99 mg/dL INTERFACE SYSTEM CREATININE 0.71 0.51 - 0.95 mg/dL INTERFACE SYSTEM CALCIUM 7.6(L) 8.4 - 10.2 mg/dL INTERFACE SYSTEM BUN 12 6 - 20 mg/dL INTERFACE SYSTEM SODIUM 139 135 - 145 mmol/L INTERFACE SYSTEM POTASSIUM 3.5 3.5 - 4.9 mmol/L INTERFACE SYSTEM CHLORIDE 102 96 - 108 mmol/L INTERFACE SYSTEM CO2 30 22 - 30 mmol/L INTERFACE SYSTEM GFR, >60 >=60 mL/min/1. 7 sq meter INTERFACE SYSTEM GFR >60 >=60 mL/min/1. 7 sq meter INTERFACE SYSTEM Comment: Estimated GFR rate interpretative information for both Americans and non- Americans is available on the [facility] Intranet at: [email or web address] Select: Lab Policies and Procedures Select: Reference Ranges - GFR 07/08/2006 4:30 AM STEAM DRIER OPERATOR us Demario P Copeland DO CHEMISTRY ORDERABLES Edited Performing Organization Address [facility] de Phone Number INTERFACE SYSTEM Refer to clinic/hospital department * (ABNORMAL) POC GLUCOSE (07/08/2006 12:07 AM STEAM DRIER OPERATOR) GLUCOSE POC 183(H) 65 - 99 mg/dL INTERFACE SYSTEM 07/08/2006 12:0 7 AM STEAM DRIER OPERATOR Pepe Claire MD POINT OF CARE TESTING Caio justen Performing Organization Address [facility] Phone Number INTERFACE SYSTEM Refer to clinic/hospital department * (ABNORMAL) POC GLUCOSE (07/07/2006 8:42 PM STEAM DRIER OPERATOR) GLUCOSE POC 145(H) 65 - 99 mg/dL INTERFACE SYSTEM 07/07/2006 8:42 PM STEAM DRIER OPERATOR Pepe Claire MD POINT OF CARE TESTING Caio justen Performing Organization Address [facility] Phone Number INTERFACE SYSTEM Refer to clinic/hospital department * (ABNORMAL) POC GLUCOSE (07/07/2006 5:13 PM STEAM DRIER OPERATOR) GLUCOSE POC 193(H) 65 - 99 mg/dL INTERFACE SYSTEM 07/07/2006 5:13 PM STEAM DRIER OPERATOR Pepe Claire MD POINT OF CARE TESTING Caio justen Performing Organization Address [facility] Phone Number INTERFACE SYSTEM Refer to clinic/hospital department * (ABNORMAL) POC GLUCOSE (07/07/2006 12:37 PM STEAM DRIER OPERATOR) COMMENT, GLU POC Notified RN INTERFACE SYSTEM GLUCOSE POC 109(H) 65 - 99 mg/dL INTERFACE SYSTEM 07/07/2006 12:3 7 PM STEAM DRIER OPERATOR us Pepe Claire MD POINT OF CARE TESTING Caio justen Performing Organization Address [facility] de Phone Number INTERFACE SYSTEM Refer to clinic/hospital department * (ABNORMAL) POC GLUCOSE (07/07/2006 10:26 AM STEAM DRIER OPERATOR) GLUCOSE POC 146(H) 65 - 99 mg/dL INTERFACE SYSTEM 07/07/2006 10:2 6 AM STEAM DRIER OPERATOR Pepe Claire MD POINT OF CARE TESTING Caio justen Performing Organization Address [facility] Phone Number INTERFACE SYSTEM Refer to clinic/hospital department * (ABNORMAL) POC GLUCOSE (07/07/2006 5:16 AM STEAM DRIER OPERATOR) GLUCOSE POC 133(H) 65 - 99 mg/dL INTERFACE SYSTEM 07/07/2006 5:16 AM STEAM DRIER OPERATOR Pepe Claire MD POINT OF CARE TESTING Caio justen Performing Organization Address [facility] Phone Number INTERFACE SYSTEM Refer to clinic/hospital department * (ABNORMAL) BLOOD GAS ARTERIAL (07/07/2006 4:20 AM STEAM DRIER OPERATOR) PH ARTERIAL 7.42 7.35 - 7.45 INTERFACE SYSTEM PCO2 ARTERIAL 44 35 - 48 mm Hg INTERFACE SYSTEM PO2 ARTERIAL 95 83 - 108 mm Hg INTERFACE SYSTEM O2 SAT EST ARTERIAL 97 94 - 98 % INTERFACE SYSTEM HCO3 ARTERIAL 27(H) 22 - 26 mmol/L INTERFACE SYSTEM BASE EXCESS ABG 2.4 -2.0 - 3.0 mmol/L INTERFACE SYSTEM Comment:Base Excess Estimate d; Assumes 15.0 g/dl Hemoglobin O2 CONC ARTERIAL 40% INTERFACE SYSTEM 07/07/2006 4:20 AM STEAM DRIER OPERATOR Tyrel Christina MD ABG ORDERABLES Edited Performing Organization Address [facility] de Phone Number INTERFACE SYSTEM Refer to clinic/hospital department * (ABNORMAL) CBC WITH DIFFERENTIAL (07/07/2006 4:00 AM STEAM DRIER OPERATOR) NEUTROPHILS 75(H) 45 - 70 % INTERFAC E SYSTEM LYMPHOCYTES 16 16 - 45 % INTERFAC E SYSTEM MONOCYTES 7 3 - 13 % INTERFACE SYSTEM EOSINOPHILS 3 0 - 7 % INTERFAC E SYSTEM BASOPHILS 0 0 - 2 % INTERFACE SYSTEM NEUTROPHIL ABSOLUTE 9.78(H) 1.90 - 7.00 K/uL INTERFACE SYSTEM LYMPHOCYTE ABSOLUTE 2.04 0.70 - 4.50 K/uL INTERFACE SYSTEM MONOCYTE ABSOLUTE 0.85 0.10 - 1.30 K/uL INTERFACE SYSTEM EOSINOPHIL ABSOLUTE 0.39 0.00 - 0.70 K/uL INTERFACE SYSTEM BASOPHILS ABSOLUTE 0.02 0.00 - 0.20 K/uL INTERFACE SYSTEM 07/07/2006 4:00 AM STEAM DRIER OPERATOR Da Christina MD HEMATOLOGY ORDERABLES Edited Performing Organization Address [place]/[facility] de Phone Number INTERFACE SYSTEM Refer to clinic/hospital department * (ABNORMAL) CBC WITH DIFFERENTIAL (07/07/2006 4:00 AM STEAM DRIER OPERATOR) WBC 13.1(H) 4.0 - 9.8 K/uL INTERFACE SYSTEM RBC 2.82(L) 3.90 - 4.90 M/uL INTERFACE SYSTEM HEMOGLOBIN 8.7(L) 11.8 - 14.8 g/dL INTERFACE SYSTEM HEMATOCRIT 25.3(L) 35.5 - 44.0 % INTERFACE SYSTEM MCV 89.7 82.0 - 99.0 fL INTERFACE SYSTEM MCH 30.9 27.2 - 32.6 pg INTERFACE SYSTEM MCHC 34.4 31.5 - 35.5 % INTERFACE SYSTEM RDW 14.2 11.5 - 14.5 % INTERFACE SYSTEM RDW-STDEV 46.6 37.1 - 48.7 fL INTERFACE SYSTEM PLATELETS 188 140 - 350 K/uL INTERFACE SYSTEM MPV 10.2 9.3 - 12.4 fL INTERFACE SYSTEM 07/07/2006 4:00 AM STEAM DRIER OPERATOR Da Christina MD HEMATOLOGY ORDERABLES Edited Performing Organization Address City/[facility] Co de Phone Number INTERFACE SYSTEM Refer to clinic/hospital department * PHOSPHORUS (07/07/2006 4:00 AM STEAM DRIER OPERATOR) PHOSPHORUS 2.6 2.5 - 4.5 mg/dL INTERFACE SYSTEM 07/07/2006 4:00 AM STEAM DRIER OPERATOR Da Christina MD CHEMISTRY ORDERABLES Edited INTERFACE SYSTEM Refer to clinic/hospital department * MAGNESIUM LEVEL (07/07/2006 4:00 AM STEAM DRIER OPERATOR) MAGNESIUM 2.0 1.5 - 2.5 mg/dL INTERFACE SYSTEM 07/07/2006 4:00 AM STEAM DRIER OPERATOR Da Christina MD CHEMISTRY ORDERABLES Edited Performing Organization Address [facility] de Phone Number INTERFACE SYSTEM Refer to clinic/hospital department * (ABNORMAL) BASIC METABOLIC PANEL (07/07/2006 4:00 AM STEAM DRIER OPERATOR) GLUCOSE 118(H) 65 - 99 mg/dL INTERFACE SYSTEM CREATININE 0.76 0.51 - 0.95 mg/dL INTERFACE SYSTEM CALCIUM 7.8(L) 8.4 - 10.2 mg/dL INTERFACE SYSTEM BUN 11 6 - 20 mg/dL INTERFACE SYSTEM SODIUM 136 135 - 145 mmol/L INTERFACE SYSTEM POTASSIUM 3.3(L) 3.5 - 4.9 mmol/L INTERFACE SYSTEM CHLORIDE 102 96 - 108 mmol/L INTERFACE SYSTEM CO2 26 22 - 30 mmol/L INTERFACE SYSTEM GFR, >60 >=60 mL/min/1. 7 sq meter INTERFACE SYSTEM GFR >60 >=60 mL/min/1. 7 sq meter INTERFACE SYSTEM Comment: Estimated GFR rate interpretative information for both Americans and non- Americans is available on the [facility] Intranet at: [email or web address] Select: Lab Policies and Procedures Select: Reference Ranges - GFR 07/07/2006 4:00 AM STEAM DRIER OPERATOR Da Christina MD CHEMISTRY ORDERABLES Edited Performing Organization Address City/[facility]/ZIP Co de Phone Number INTERFACE SYSTEM Refer to clinic/hospital department * (ABNORMAL) POC GLUCOSE (07/07/2006 2:02 AM STEAM DRIER OPERATOR) GLUCOSE POC 157(H) 65 - 99 mg/dL INTERFACE SYSTEM 07/07/2006 2:02 AM STEAM DRIER OPERATOR Pepe Claire MD POINT OF CARE TESTING Caiodidi campuzano Performing Organization Address [facility] de Phone Number INTERFACE SYSTEM Refer to clinic/hospital department * (ABNORMAL) POC GLUCOSE (2006 8:59 PM STEAM DRIER OPERATOR) GLUCOSE POC 151(H) 65 - 99 mg/dL INTERFACE SYSTEM 2006 8:59 PM STEAM DRIER OPERATOR Pepe Claire MD POINT OF CARE TESTING Caio justen Performing Organization Address [facility] de Phone Number INTERFACE SYSTEM Refer to clinic/hospital department * (ABNORMAL) POC GLUCOSE (2006 5:03 PM STEAM DRIER OPERATOR) GLUCOSE POC 159(H) 65 - 99 mg/dL INTERFACE SYSTEM 2006 5:03 PM STEAM DRIER OPERATOR Pepe Claire MD POINT OF CARE TESTING Caiodidi campuzano Performing Organization Address [facility] Phone Number INTERFACE SYSTEM Refer to clinic/hospital department * (ABNORMAL) POC GLUCOSE (2006 12:00 PM STEAM DRIER OPERATOR) GLUCOSE POC 136(H) 65 - 99 mg/dL INTERFACE SYSTEM 2006 12:0 0 PM STEAM DRIER OPERATOR Pepe Claire MD POINT OF CARE TESTING Caio campuzano Performing Organization Address [facility] Phone Number INTERFACE SYSTEM Refer to clinic/hospital department * (ABNORMAL) POC GLUCOSE (2006 7:31 AM STEAM DRIER OPERATOR) GLUCOSE POC 143(H) 65 - 99 mg/dL INTERFACE SYSTEM 2006 7:31 AM STEAM DRIER OPERATOR Pepe Claire MD POINT OF CARE TESTING Caio justen Performing Organization Address [facility] de Phone Number INTERFACE SYSTEM Refer to clinic/hospital department * (ABNORMAL) POC GLUCOSE (2006 5:15 AM STEAM DRIER OPERATOR) GLUCOSE POC 120(H) 65 - 99 mg/dL INTERFACE SYSTEM 2006 5:15 AM STEAM DRIER OPERATOR Pepe Claire MD POINT OF CARE TESTING Caio justen Performing Organization Address [facility] de Phone Number INTERFACE SYSTEM Refer to clinic/hospital department * (ABNORMAL) CBC WITH DIFFERENTIAL (2006 4:55 AM STEAM DRIER OPERATOR) NEUTROPHILS 76(H) 45 - 70 % INTERFAC E SYSTEM LYMPHOCYTES 20 16 - 45 % INTERFAC E SYSTEM MONOCYTES 4 3 - 13 % INTERFACE SYSTEM EOSINOPHILS 0 0 - 7 % INTERFAC E SYSTEM BASOPHILS 0 0 - 2 % INTERFACE SYSTEM NEUTROPHIL ABSOLUTE 10.65(H) 1.90 - 7.00 K/uL INTERFACE SYSTEM LYMPHOCYTE ABSOLUTE 2.84 0.70 - 4.50 K/uL INTERFACE SYSTEM MONOCYTE ABSOLUTE 0.58 0.10 - 1.30 K/uL INTERFACE SYSTEM EOSINOPHIL ABSOLUTE 0.03 0.00 - 0.70 K/uL INTERFACE SYSTEM BASOPHILS ABSOLUTE 0.01 0.00 - 0.20 K/uL INTERFACE SYSTEM 2006 4:55 AM STEAM DRIER OPERATOR Martha Cespedes MD HEMATOLOGY ORDERABLES Edit ed Performing Organization Address [facility] Phone Number INTERFACE SYSTEM Refer to clinic/hospital department * (ABNORMAL) CBC WITH DIFFERENTIAL (2006 4:55 AM STEAM DRIER OPERATOR) WBC 14.1(H) 4.0 - 9.8 K/uL INTERFACE SYSTEM RBC 3.08(L) 3.90 - 4.90 M/uL INTERFACE SYSTEM HEMOGLOBIN 9.5(L) 11.8 - 14.8 g/dL INTERFACE SYSTEM HEMATOCRIT 27.3(L) 35.5 - 44.0 % INTERFACE SYSTEM MCV 88.6 82.0 - 99.0 fL INTERFACE SYSTEM MCH 30.8 27.2 - 32.6 pg INTERFACE SYSTEM MCHC 34.8 31.5 - 35.5 % INTERFACE SYSTEM RDW 14.1 11.5 - 14.5 % INTERFACE SYSTEM RDW-STDEV 45.4 37.1 - 48.7 fL INTERFACE SYSTEM PLATELETS 187 140 - 350 K/uL INTERFACE SYSTEM MPV 10.7 9.3 - 12.4 fL INTERFACE SYSTEM 2006 4:55 AM STEAM DRIER OPERATOR Martha Cespedes MD HEMATOLOGY ORDERABLES Edit ed Performing Organization Address [facility] Phone Number INTERFACE SYSTEM Refer to clinic/hospital department * (ABNORMAL) HEPATIC FUNCTION PANEL (2006 4:55 AM STEAM DRIER OPERATOR) ALKALINE PHOSPHATASE 89 35 - 104 U/L INTERFACE SYSTEM AST 452(H) 12 - 32 U/L INTERFACE SYSTEM ALT 173(H) 0 - 31 U/L INTERFACE SYSTEM TOTAL PROTEIN 5.5(L) 6.3 - 8.6 g/dL INTERFACE SYSTEM ALBUMIN 2.4(L) 3.4 - 4.8 g/dL INTERFACE SYSTEM BILIRUBIN TOTAL 0.6 0.2 - 1.0 mg/dL INTERFACE SYSTEM BILIRUBIN DIRECT 0.3 0.0 - 0.3 mg/dL INTERFACE SYSTEM 2006 4:55 AM STEAM DRIER OPERATOR Result [facility] Michelle Melendez CHEMISTRY ORDERABLES Edited Performing Organization Address [facility] Phone Number INTERFACE SYSTEM Refer to clinic/hospital department * LACTIC ACID (2006 4:55 AM STEAM DRIER OPERATOR) LACTIC ACID 1.6 0.5 - 2.2 mmol/L INTERFACE SYSTEM 2006 4:55 AM STEAM DRIER OPERATOR Martha Cespedes MD CHEMISTRY ORDERABLES Edite d Performing Organization Address [facility] Co de Phone Number INTERFACE SYSTEM Refer to clinic/hospital department * (ABNORMAL) PHOSPHORUS (2006 4:55 AM STEAM DRIER OPERATOR) PHOSPHORUS 2.0(L) 2.5 - 4.5 mg/dL INTERFACE SYSTEM 2006 4:55 AM STEAM DRIER OPERATOR Martha Cespedes MD CHEMISTRY ORDERABLES Edite d Performing Organization Address [facility] Phone Number INTERFACE SYSTEM Refer to clinic/hospital department * MAGNESIUM LEVEL (2006 4:55 AM STEAM DRIER OPERATOR) MAGNESIUM 1.9 1.5 - 2.5 mg/dL INTERFACE SYSTEM 2006 4:55 AM STEAM DRIER OPERATOR Martha Cespedes MD CHEMISTRY ORDERABLES Edite d Performing Organization Address [facility] Phone Number INTERFACE SYSTEM Refer to clinic/hospital department * (ABNORMAL) BASIC METABOLIC PANEL (2006 4:55 AM STEAM DRIER OPERATOR) GLUCOSE 106(H) 65 - 99 mg/dL INTERFACE SYSTEM CREATININE 0.85 0.51 - 0.95 mg/dL INTERFACE SYSTEM CALCIUM 7.9(L) 8.4 - 10.2 mg/dL INTERFACE SYSTEM BUN 13 6 - 20 mg/dL INTERFACE SYSTEM SODIUM 137 135 - 145 mmol/L INTERFACE SYSTEM POTASSIUM 3.8 3.5 - 4.9 mmol/L INTERFACE SYSTEM CHLORIDE 105 96 - 108 mmol/L INTERFACE SYSTEM CO2 22 22 - 30 mmol/L INTERFACE SYSTEM GFR, >60 >=60 mL/min/1. 7 sq meter INTERFACE SYSTEM GFR >60 >=60 mL/min/1. 7 sq meter INTERFACE SYSTEM Comment: Estimated GFR rate interpretative information for both Americans and non- Americans is available on the [facility] Intranet at: [email or web address] Select: Lab Policies and Procedures Select: Reference Ranges - GFR 2006 4:55 AM STEAM DRIER OPERATOR Martha Cespedes MD CHEMISTRY ORDERABLES Edite d Performing Organization Address [facility] Phone Number INTERFACE SYSTEM Refer to clinic/hospital department * (ABNORMAL) URINALYSIS (2006 12:45 AM STEAM DRIER OPERATOR) COLOR UA Yellow INTERFACE SYSTEM CLARITY UA Clear Clear INTERFACE SYSTEM SPECIFIC GRAVITY UA 1.012 1.001 - 1.035 INTERFACE SYSTEM PH UA 5.5 5.0 - 8.0 INTERFACE SYSTEM LEUKOCYTE ESTERASE UA Negative Negative INTERFACE SYSTEM NITRITE UA Negative Negative INTERFACE SYSTEM PROTEIN UA 1+(A) Negative INTERFACE SYSTEM GLUCOSE UA Negative Negative INTERFACE SYSTEM KETONES UA Negative Negative INTERFACE SYSTEM UROBILINOGEN UA <1 <=1 mg/dL INTE RFACE SYSTEM BILIRUBIN UA Negative Negative INTERFA CE SYSTEM BLOOD UA 3+(A) Negative INTERFACE SYSTEM WBC UA 3 0 - 5 /HPF INTERFACE SYSTEM RBC UA 10(H) 0 - 4 /HPF INTERFACE SYSTEM BACTERIA UA 1+(A) None Seen /HPF INTERFACE SYSTEM 2006 12:4 5 AM STEAM DRIER OPERATOR Omar Ware MD URINE ORDERABLES Edited Performing Organization Address [facility] Phone Number INTERFACE SYSTEM Refer to clinic/hospital department * (ABNORMAL) POC GLUCOSE (2006 12:40 AM STEAM DRIER OPERATOR) GLUCOSE POC 116(H) 65 - 99 mg/dL INTERFACE SYSTEM 2006 12:4 0 AM STEAM DRIER OPERATOR Pepe Claire MD POINT OF CARE TESTING Caio justen Performing Organization Address [facility] Phone Number INTERFACE SYSTEM Refer to clinic/hospital department * (ABNORMAL) POC GLUCOSE (07/05/2006 8:39 PM STEAM DRIER OPERATOR) GLUCOSE POC 142(H) 65 - 99 mg/dL INTERFACE SYSTEM 07/05/2006 8:39 PM STEAM DRIER OPERATOR us Pepe Claire MD POINT OF CARE TESTING Caio justen Performing Organization Address [facility] de Phone Number INTERFACE SYSTEM Refer to clinic/hospital department * (ABNORMAL) POC GLUCOSE (07/05/2006 5:12 PM STEAM DRIER OPERATOR) GLUCOSE POC 156(H) 65 - 99 mg/dL INTERFACE SYSTEM 07/05/2006 5:12 PM STEAM DRIER OPERATOR Pepe Claire MD POINT OF CARE TESTING Caio justen Performing Organization Address [facility] de Phone Number INTERFACE SYSTEM Refer to clinic/hospital department * (ABNORMAL) POC GLUCOSE (07/05/2006 12:02 PM STEAM DRIER OPERATOR) GLUCOSE POC 138(H) 65 - 99 mg/dL INTERFACE SYSTEM 07/05/2006 12:0 2 PM STEAM DRIER OPERATOR Pepe Claire MD POINT OF CARE TESTING Caio justen Performing Organization Address [facility] de Phone Number INTERFACE SYSTEM Refer to clinic/hospital department * (ABNORMAL) CK (07/05/2006 9:30 AM STEAM DRIER OPERATOR) CK 6,828(H) 10 - 145 U/L INTERFACE SYSTEM 07/05/2006 9:30 AM STEAM DRIER OPERATOR Michelle Melendez CHEMISTRY ORDERABLES Edited Performing Organization Address [facility] de Phone Number INTERFACE SYSTEM Refer to clinic/hospital department * (ABNORMAL) BASIC METABOLIC PANEL (07/05/2006 9:30 AM STEAM DRIER OPERATOR) GLUCOSE 124(H) 65 - 99 mg/dL INTERFACE SYSTEM CREATININE 0.73 0.51 - 0.95 mg/dL INTERFACE SYSTEM CALCIUM 7.7(L) 8.4 - 10.2 mg/dL INTERFACE SYSTEM BUN 19 6 - 20 mg/dL INTERFACE SYSTEM SODIUM 138 135 - 145 mmol/L INTERFACE SYSTEM POTASSIUM 4.9 3.5 - 4.9 mmol/L INTERFACE SYSTEM CHLORIDE 109(H) 96 - 108 mmol/L INTERFACE SYSTEM CO2 21(L) 22 - 30 mmol/L INTERFACE SYSTEM GFR, >60 >=60 mL/min/1. 7 sq meter INTERFACE SYSTEM GFR >60 >=60 mL/min/1. 7 sq meter INTERFACE SYSTEM Comment: Estimated GFR rate interpretative information for both Americans and non- Americans is available on the [facility] Intranet at: [email or web address] Select: Lab Policies and Procedures Select: Reference Ranges - GFR 07/05/2006 9:30 AM STEAM DRIER OPERATOR Michelle Nora CHEMISTRY ORDERABLES Edited Performing Organization Address [facility] Phone Number INTERFACE SYSTEM Refer to clinic/hospital department * POC GLUCOSE (07/05/2006 8:09 AM STEAM DRIER OPERATOR) GLUCOSE POC 85 65 - 99 mg/dL INTERFACE SYSTEM 07/05/2006 8:09 AM STEAM DRIER OPERATOR us Pepe Claire MD POINT OF CARE TESTING Caio justen Performing Organization Address [facility] Phone Number INTERFACE SYSTEM Refer to clinic/hospital department * (ABNORMAL) BLOOD GAS ARTERIAL (07/05/2006 7:00 AM STEAM DRIER OPERATOR) PH ARTERIAL 7.27(L) 7.35 - 7.45 INTERFACE SYSTEM PCO2 ARTERIAL 44 35 - 48 mm Hg INTERFACE SYSTEM PO2 ARTERIAL 70(L) 83 - 108 mm Hg INTERFACE SYSTEM O2 SAT EST ARTERIAL 92(L) 94 - 98 % INTERFACE SYSTEM HCO3 ARTERIAL 20(L) 22 - 26 mmol/L INTERFACE SYSTEM BASE EXCESS ABG -7.2(L) -2.0 - 3.0 mmol/L INTERFACE SYSTEM Comment:Base Excess Estimate d; Assumes 15.0 g/dl Hemoglobin O2 CONC ARTERIAL 60% INTERFACE SYSTEM 07/05/2006 7:00 AM STEAM DRIER OPERATOR Martha Cespedes MD ABG ORDERABLES Edited Performing Organization Address [facility] Phone Number INTERFACE SYSTEM Refer to clinic/hospital department * (ABNORMAL) POC GLUCOSE (07/05/2006 6:26 AM STEAM DRIER OPERATOR) GLUCOSE POC 112(H) 65 - 99 mg/dL INTERFACE SYSTEM 07/05/2006 6:26 AM STEAM DRIER OPERATOR Pepe Claire MD POINT OF CARE TESTING Caio justen Performing Organization Address [facility] Phone Number INTERFACE SYSTEM Refer to clinic/hospital department * (ABNORMAL) CBC WITH DIFFERENTIAL (07/05/2006 2:05 AM STEAM DRIER OPERATOR) NEUTROPHILS 87(H) 45 - 70 % INTERFAC E SYSTEM LYMPHOCYTES 9(L) 16 - 45 % INTERFAC E SYSTEM MONOCYTES 4 3 - 13 % INTERFACE SYSTEM EOSINOPHILS 0 0 - 7 % INTERFAC E SYSTEM BASOPHILS 0 0 - 2 % INTERFACE SYSTEM NEUTROPHIL ABSOLUTE 18.26(H) 1.90 - 7.00 K/uL INTERFACE SYSTEM LYMPHOCYTE ABSOLUTE 1.99 0.70 - 4.50 K/uL INTERFACE SYSTEM MONOCYTE ABSOLUTE 0.84 0.10 - 1.30 K/uL INTERFACE SYSTEM EOSINOPHIL ABSOLUTE 0.00 0.00 - 0.70 K/uL INTERFACE SYSTEM BASOPHILS ABSOLUTE 0.01 0.00 - 0.20 K/uL INTERFACE SYSTEM 07/05/2006 2:05 AM STEAM DRIER OPERATOR Martha Cespedes MD HEMATOLOGY ORDERABLES Edit ed Performing Organization Address [facility] de Phone Number INTERFACE SYSTEM Refer to clinic/hospital department * (ABNORMAL) CBC WITH DIFFERENTIAL (07/05/2006 2:05 AM STEAM DRIER OPERATOR) WBC 21.1(H) 4.0 - 9.8 K/uL INTERFACE SYSTEM RBC 3.92 3.90 - 4.90 M/uL INTERFACE SYSTEM HEMOGLOBIN 12.1 11.8 - 14.8 g/dL INTERFACE SYSTEM HEMATOCRIT 35.9 35.5 - 44.0 % INTERFACE SYSTEM MCV 91.6 82.0 - 99.0 fL INTERFACE SYSTEM MCH 30.9 27.2 - 32.6 pg INTERFACE SYSTEM MCHC 33.7 31.5 - 35.5 % INTERFACE SYSTEM RDW 14.3 11.5 - 14.5 % INTERFACE SYSTEM RDW-STDEV 47.5 37.1 - 48.7 fL INTERFACE SYSTEM PLATELETS 265 140 - 350 K/uL INTERFACE SYSTEM MPV 10.7 9.3 - 12.4 fL INTERFACE SYSTEM 07/05/2006 2:05 AM STEAM DRIER OPERATOR Martha Cespedes MD HEMATOLOGY ORDERABLES Edit ed Performing Organization Address [facility] de Phone Number INTERFACE SYSTEM Refer to clinic/hospital department * (ABNORMAL) LACTIC ACID (07/05/2006 2:05 AM STEAM DRIER OPERATOR) LACTIC ACID 3.0(H) 0.5 - 2.2 mmol/L INTERFACE SYSTEM LACTIC ACID - SEPSIS INDICATOR Sepsis Potential:Pot ential candidate for Sepsis protocol. INTERFACE SYSTEM 07/05/2006 2:05 AM STEAM DRIER OPERATOR Martha Cespedes MD CHEMISTRY ORDERABLES Edite d Performing Organization Address [facility] Phone Number INTERFACE SYSTEM Refer to clinic/hospital department * MAGNESIUM LEVEL (07/05/2006 2:05 AM STEAM DRIER OPERATOR) MAGNESIUM 2.2 1.5 - 2.5 mg/dL INTERFACE SYSTEM 07/05/2006 2:05 AM STEAM DRIER OPERATOR Martha Cespedes MD CHEMISTRY ORDERABLES Edite d Performing Organization Address [facility] Phone Number INTERFACE SYSTEM Refer to clinic/hospital department * PHOSPHORUS (07/05/2006 2:05 AM STEAM DRIER OPERATOR) PHOSPHORUS 3.3 2.5 - 4.5 mg/dL INTERFACE SYSTEM 07/05/2006 2:05 AM STEAM DRIER OPERATOR Martha Cespedes MD CHEMISTRY ORDERABLES Edite d Performing Organization Address [facility] Phone Number INTERFACE SYSTEM Refer to clinic/hospital department * (ABNORMAL) BASIC METABOLIC PANEL (07/05/2006 2:05 AM STEAM DRIER OPERATOR) GLUCOSE 117(H) 65 - 99 mg/dL INTERFACE SYSTEM CREATININE 0.74 0.51 - 0.95 mg/dL INTERFACE SYSTEM CALCIUM 7.3(L) 8.4 - 10.2 mg/dL INTERFACE SYSTEM BUN 17 6 - 20 mg/dL INTERFACE SYSTEM SODIUM 140 135 - 145 mmol/L INTERFACE SYSTEM POTASSIUM 6.0(H) 3.5 - 4.9 mmol/L INTERFACE SYSTEM Comment:No significant hemol ysis CHLORIDE 112(H) 96 - 108 mmol/L INTERFACE SYSTEM CO2 21(L) 22 - 30 mmol/L INTERFACE SYSTEM GFR, >60 >=60 mL/min/1. 7 sq meter INTERFACE SYSTEM GFR >60 >=60 mL/min/1. 7 sq meter INTERFACE SYSTEM Comment: Estimated GFR rate interpretative information for both Americans and non- Americans is available on the [facility] Intranet at: [email or web address] Select: Lab Policies and Procedures Select: Reference Ranges - GFR 07/05/2006 2:05 AM STEAM DRIER OPERATOR Martha Cespedes MD CHEMISTRY ORDERABLES Edite d Performing Organization Address [facility] Phone Number INTERFACE SYSTEM Refer to clinic/hospital department * (ABNORMAL) BLOOD GAS ARTERIAL (07/05/2006 1:26 AM STEAM DRIER OPERATOR) PH ARTERIAL 7.20(AA) 7.35 - 7.45 INTERFACE SYSTEM Comment:Results called to gr lucretia at 07/05/2006 1:39 AM and read back verified. PCO2 ARTERIAL 48 35 - 48 mm Hg INTERFACE SYSTEM PO2 ARTERIAL 56(L) 83 - 108 mm Hg INTERFACE SYSTEM SO2 ABG 86(L) 95 - 99 % INTERFACE SYSTEM FO2HB ABG 86(L) 94 - 98 % INTERFACE SYSTEM HCO3 ARTERIAL 19(L) 22 - 26 mmol/L INTERFACE SYSTEM BASE EXCESS ABG -9.3(L) -2.0 - 3.0 mmol/L INTERFACE SYSTEM O2 CONC ARTERIAL 80% INTERFACE SYSTEM 07/05/2006 1:26 AM STEAM DRIER OPERATOR Martha Cespedes MD ABG ORDERABLES Edited Performing Organization Address [facility] de Phone Number INTERFACE SYSTEM Refer to clinic/hospital department * (ABNORMAL) POC GLUCOSE (07/04/2006 11:48 PM STEAM DRIER OPERATOR) GLUCOSE POC 142(H) 65 - 99 mg/dL INTERFACE SYSTEM 07/04/2006 11:4 8 PM STEAM DRIER OPERATOR Pepe Claire MD POINT OF CARE TESTING Caio justen Performing Organization Address [facility] Phone Number INTERFACE SYSTEM Refer to clinic/hospital department * POC ACTIVATED CLOTTING TIME (07/04/2006 9:23 PM STEAM DRIER OPERATOR) ACT POC 119 Seconds INTERFACE SYSTEM Comment: Note sheath pull range change effective 10/26/2005. ACT value for sheath pull at [facility] has been established to be < or = to 1 40. (See also Nursing Procedures for sheath pull in related nursing areas) 07/04/2006 9:23 PM STEAM DRIER OPERATOR Pepe Claire MD POINT OF CARE TESTING Caiodidi campuzano Performing Organization Address [facility] Phone Number INTERFACE SYSTEM Refer to clinic/hospital department * (ABNORMAL) POC GLUCOSE (07/04/2006 9:15 PM STEAM DRIER OPERATOR) GLUCOSE POC 111(H) 65 - 99 mg/dL INTERFACE SYSTEM 07/04/2006 9:15 PM STEAM DRIER OPERATOR Pepe Claire MD POINT OF CARE TESTING Caio campuzano Performing Organization Address [facility] de Phone Number INTERFACE SYSTEM Refer to clinic/hospital department * (ABNORMAL) POC GLUCOSE (07/04/2006 4:26 PM STEAM DRIER OPERATOR) GLUCOSE POC 106(H) 65 - 99 mg/dL INTERFACE SYSTEM 07/04/2006 4:26 PM STEAM DRIER OPERATOR Pepe Claire MD POINT OF CARE TESTING Caio justen Performing Organization Address [facility] de Phone Number INTERFACE SYSTEM Refer to clinic/hospital department * (ABNORMAL) POC GLUCOSE (07/04/2006 3:03 PM STEAM DRIER OPERATOR) COMMENT, GLU POC Notified RN INTERFACE SYSTEM GLUCOSE POC 129(H) 65 - 99 mg/dL INTERFACE SYSTEM 07/04/2006 3:03 PM STEAM DRIER OPERATOR Pepe Claire MD POINT OF CARE TESTING Caio justen Performing Organization Address [facility] Phone Number INTERFACE SYSTEM Refer to clinic/hospital department * (ABNORMAL) BLOOD GAS ARTERIAL (07/04/2006 3:00 PM STEAM DRIER OPERATOR) PH ARTERIAL 7.26(L) 7.35 - 7.45 INTERFACE SYSTEM PCO2 ARTERIAL 42 35 - 48 mm Hg INTERFACE SYSTEM PO2 ARTERIAL 290(H) 83 - 108 mm Hg INTERFACE SYSTEM SO2 ABG 100(H) 95 - 99 % INTERFACE SYSTEM FO2HB ABG 99(H) 94 - 98 % INTERFACE SYSTEM HCO3 ARTERIAL 19(L) 22 - 26 mmol/L INTERFACE SYSTEM BASE EXCESS ABG -8.1(L) -2.0 - 3.0 mmol/L INTERFACE SYSTEM O2 CONC ARTERIAL 100% INTERFACE SYSTEM 07/04/2006 3:00 PM STEAM DRIER OPERATOR us Michelle Melendez ABG ORDERABLES Edited Performing Organization Address [facility] Phone Number INTERFACE SYSTEM Refer to clinic/hospital department * (ABNORMAL) POTASSIUM LEVEL (07/04/2006 12:59 PM STEAM DRIER OPERATOR) POTASSIUM 5.7(H) 3.5 - 4.9 mmol/L INTERFACE SYSTEM Comment:No significant hemol ysis 07/04/2006 12:5 9 PM STEAM DRIER OPERATOR us Michelle Melendez CHEMISTRY ORDERABLES Edited Performing Organization Address [facility] Phone Number INTERFACE SYSTEM Refer to clinic/hospital department * POC GLUCOSE (07/04/2006 12:14 PM STEAM DRIER OPERATOR) GLUCOSE POC 81 65 - 99 mg/dL INTERFACE SYSTEM 07/04/2006 12:1 4 PM STEAM DRIER OPERATOR Pepe Claire MD POINT OF CARE TESTING Caio campuzano Performing Organization Address [facility] Phone Number INTERFACE SYSTEM Refer to clinic/hospital department * POC GLUCOSE (07/04/2006 11:29 AM STEAM DRIER OPERATOR) GLUCOSE POC 84 65 - 99 mg/dL INTERFACE SYSTEM COMMENT 4, GLU POC Rptd gluc at no charge INTERFACE SYSTEM 07/04/2006 11:2 9 AM STEAM DRIER OPERATOR Pepe Claire MD POINT OF CARE TESTING Caio justen Performing Organization Address [facility] de Phone Number INTERFACE SYSTEM Refer to clinic/hospital department * (ABNORMAL) POC GLUCOSE (07/04/2006 11:27 AM STEAM DRIER OPERATOR) COMMENT, GLU POC Notified RN INTERFACE SYSTEM COMMENT 3, GLU POC Repeated Test INTERFACE SYSTEM COMMENT 2, GLU POC To Be Repeated INTERFACE SYSTEM GLUCOSE POC 37(AA) 65 - 99 mg/dL INTERFACE SYSTEM 07/04/2006 11:2 7 AM STEAM DRIER OPERATOR Pepe Claire MD POINT OF CARE TESTING Caio justen Performing Organization Address [facility] de Phone Number INTERFACE SYSTEM Refer to clinic/hospital department * POC GLUCOSE (07/04/2006 9:13 AM STEAM DRIER OPERATOR) GLUCOSE POC 88 65 - 99 mg/dL INTERFACE SYSTEM 07/04/2006 9:13 AM STEAM DRIER OPERATOR Pepe Claire MD POINT OF CARE TESTING Caio justen Performing Organization Address [facility] de Phone Number INTERFACE SYSTEM Refer to clinic/hospital department * POC GLUCOSE (07/04/2006 8:22 AM STEAM DRIER OPERATOR) GLUCOSE POC 90 65 - 99 mg/dL INTERFACE SYSTEM 07/04/2006 8:22 AM STEAM DRIER OPERATOR Pepe Claire MD POINT OF CARE TESTING Caio justen Performing Organization Address [facility] Co de Phone Number INTERFACE SYSTEM Refer to clinic/hospital department * (ABNORMAL) POC GLUCOSE (07/04/2006 6:53 AM STEAM DRIER OPERATOR) GLUCOSE POC 116(H) 65 - 99 mg/dL INTERFACE SYSTEM 07/04/2006 6:53 AM STEAM DRIER OPERATOR us Pepe Claire MD POINT OF CARE TESTING Caio justen Performing Organization Address [facility] de Phone Number INTERFACE SYSTEM Refer to clinic/hospital department * (ABNORMAL) CBC WITH DIFFERENTIAL (07/04/2006 6:00 AM STEAM DRIER OPERATOR) NEUTROPHILS 86(H) 45 - 70 % INTERFAC E SYSTEM LYMPHOCYTES 9(L) 16 - 45 % INTERFAC E SYSTEM MONOCYTES 5 3 - 13 % INTERFACE SYSTEM EOSINOPHILS 0 0 - 7 % INTERFAC E SYSTEM BASOPHILS 0 0 - 2 % INTERFACE SYSTEM NEUTROPHIL ABSOLUTE 17.35(H) 1.90 - 7.00 K/uL INTERFACE SYSTEM LYMPHOCYTE ABSOLUTE 1.82 0.70 - 4.50 K/uL INTERFACE SYSTEM MONOCYTE ABSOLUTE 1.01 0.10 - 1.30 K/uL INTERFACE SYSTEM EOSINOPHIL ABSOLUTE 0.01 0.00 - 0.70 K/uL INTERFACE SYSTEM BASOPHILS ABSOLUTE 0.01 0.00 - 0.20 K/uL INTERFACE SYSTEM 07/04/2006 6:00 AM STEAM DRIER OPERATOR Myrtle Kohli MD HEMATOLOGY ORDERABLES Edite d Performing Organization Address [facility] de Phone Number INTERFACE SYSTEM Refer to clinic/hospital department * (ABNORMAL) CBC WITH DIFFERENTIAL (07/04/2006 6:00 AM STEAM DRIER OPERATOR) WBC 20.2(H) 4.0 - 9.8 K/uL INTERFACE SYSTEM RBC 4.12 3.90 - 4.90 M/uL INTERFACE SYSTEM HEMOGLOBIN 12.5 11.8 - 14.8 g/dL INTERFACE SYSTEM HEMATOCRIT 35.5 35.5 - 44.0 % INTERFACE SYSTEM MCV 86.2 82.0 - 99.0 fL INTERFACE SYSTEM MCH 30.3 27.2 - 32.6 pg INTERFACE SYSTEM MCHC 35.2 31.5 - 35.5 % INTERFACE SYSTEM RDW 13.7 11.5 - 14.5 % INTERFACE SYSTEM RDW-STDEV 42.4 37.1 - 48.7 fL INTERFACE SYSTEM PLATELETS 261 140 - 350 K/uL INTERFACE SYSTEM MPV 10.5 9.3 - 12.4 fL INTERFACE SYSTEM 07/04/2006 6:00 AM STEAM DRIER OPERATOR us Mytrle Kohli MD HEMATOLOGY ORDERABLES Edite d Performing Organization Address [facility] de Phone Number INTERFACE SYSTEM Refer to clinic/hospital department * (ABNORMAL) POC GLUCOSE (07/04/2006 5:54 AM STEAM DRIER OPERATOR) GLUCOSE POC 126(H) 65 - 99 mg/dL INTERFACE SYSTEM 07/04/2006 5:54 AM STEAM DRIER OPERATOR us Pepe Claire MD POINT OF CARE TESTING Caio justen Performing Organization Address [facility] de Phone Number INTERFACE SYSTEM Refer to clinic/hospital department * (ABNORMAL) POC GLUCOSE (07/04/2006 5:25 AM STEAM DRIER OPERATOR) GLUCOSE POC 125(H) 65 - 99 mg/dL INTERFACE SYSTEM 07/04/2006 5:25 AM STEAM DRIER OPERATOR us Pepe Claire MD POINT OF CARE TESTING Caio justen Performing Organization Address [facility] de Phone Number INTERFACE SYSTEM Refer to clinic/hospital department * (ABNORMAL) POC GLUCOSE (07/04/2006 4:14 AM STEAM DRIER OPERATOR) GLUCOSE POC 122(H) 65 - 99 mg/dL INTERFACE SYSTEM 07/04/2006 4:14 AM STEAM DRIER OPERATOR us Pepe Claire MD POINT OF CARE TESTING Caio justen Performing Organization Address [facility] de Phone Number INTERFACE SYSTEM Refer to clinic/hospital department * POC GLUCOSE (07/04/2006 2:47 AM STEAM DRIER OPERATOR) GLUCOSE POC 90 65 - 99 mg/dL INTERFACE SYSTEM 07/04/2006 2:47 AM STEAM DRIER OPERATOR us Pepe Claire MD POINT OF CARE TESTING Caio justen Performing Organization Address [place]/[facility] Co de Phone Number INTERFACE SYSTEM Refer to clinic/hospital department * PHOSPHORUS (07/04/2006 2:45 AM STEAM DRIER OPERATOR) PHOSPHORUS 3.5 2.5 - 4.5 mg/dL INTERFACE SYSTEM 07/04/2006 2:4 5 AM STEAM DRIER OPERATOR [facility] us Myrtle Kohli MD CHEMISTRY ORDERABLES Edited Performing Organization Address [facility] de Phone Number INTERFACE SYSTEM Refer to clinic/hospital department * MAGNESIUM LEVEL (07/04/2006 2:45 AM STEAM DRIER OPERATOR) MAGNESIUM 1.9 1.5 - 2.5 mg/dL INTERFACE SYSTEM 07/04/2006 2:45 AM STEAM DRIER OPERATOR us Myrtle Kohli MD CHEMISTRY ORDERABLES Edited Performing Organization Address [facility] Phone Number INTERFACE SYSTEM Refer to clinic/hospital department * (ABNORMAL) BASIC METABOLIC PANEL (07/04/2006 2:45 AM STEAM DRIER OPERATOR) GLUCOSE 95 65 - 99 mg/dL INTERFACE SYSTEM CREATININE 0.59 0.51 - 0.95 mg/dL INTERFACE SYSTEM CALCIUM 7.0(L) 8.4 - 10.2 mg/dL INTERFACE SYSTEM BUN 16 6 - 20 mg/dL INTERFACE SYSTEM SODIUM 141 135 - 145 mmol/L INTERFACE SYSTEM POTASSIUM 4.5 3.5 - 4.9 mmol/L INTERFACE SYSTEM CHLORIDE 111(H) 96 - 108 mmol/L INTERFACE SYSTEM CO2 21(L) 22 - 30 mmol/L INTERFACE SYSTEM GFR, >60 >=60 mL/min/1. 7 sq meter INTERFACE SYSTEM GFR >60 >=60 mL/min/1. 7 sq meter INTERFACE SYSTEM Comment: Estimated GFR rate interpretative information for both Americans and non- Americans is available on the [facility] Intranet at: [email or web address] Select: Lab Policies and Procedures Select: Reference Ranges - GFR 07/04/2006 2:45 AM STEAM DRIER OPERATOR Result Carlos Kohli MD CHEMISTRY ORDERABLES Edited Performing Organization Address City/[facility]/ZIP Co de Phone Number INTERFACE SYSTEM Refer to clinic/hospital department * POC GLUCOSE (07/04/2006 2:11 AM STEAM DRIER OPERATOR) GLUCOSE POC 89 65 - 99 mg/dL INTERFACE SYSTEM 07/04/2006 2:11 AM STEAM DRIER OPERATOR us Pepe Claire MD POINT OF CARE TESTING Caio justen Performing Organization Address [facility] de Phone Number INTERFACE SYSTEM Refer to clinic/hospital department * POC GLUCOSE (07/04/2006 1:08 AM STEAM DRIER OPERATOR) GLUCOSE POC 85 65 - 99 mg/dL INTERFACE SYSTEM 07/04/2006 1:08 AM STEAM DRIER OPERATOR us Pepe Claire MD POINT OF CARE TESTING Acio justen Performing Organization Address [facility] de Phone Number INTERFACE SYSTEM Refer to clinic/hospital department * POC GLUCOSE (07/04/2006 12:17 AM STEAM DRIER OPERATOR) GLUCOSE POC 88 65 - 99 mg/dL INTERFACE SYSTEM 07/04/2006 12:1 7 AM STEAM DRIER OPERATOR us Pepe Claire MD POINT OF CARE TESTING Caio justen Performing Organization Address [facility] de Phone Number INTERFACE SYSTEM Refer to clinic/hospital department * POC GLUCOSE (07/03/2006 11:28 PM STEAM DRIER OPERATOR) GLUCOSE POC 87 65 - 99 mg/dL INTERFACE SYSTEM 07/03/2006 11:2 8 PM STEAM DRIER OPERATOR us Pepe Claire MD POINT OF CARE TESTING Caio justen Performing Organization Address City/[facility] Co de Phone Number INTERFACE SYSTEM Refer to clinic/hospital department * MAGNESIUM LEVEL (07/03/2006 10:30 PM STEAM DRIER OPERATOR) MAGNESIUM 1.9 1.5 - 2.5 mg/dL INTERFACE SYSTEM 07/03/2006 10:3 0 PM STEAM DRIER OPERATOR Myrtle Kohli MD CHEMISTRY ORDERABLES Edited Performing Organization Address City/[facility] Co de Phone Number INTERFACE SYSTEM Refer to clinic/hospital department * PHOSPHORUS (07/03/2006 10:30 PM STEAM DRIER OPERATOR) PHOSPHORUS 2.9 2.5 - 4.5 mg/dL INTERFACE SYSTEM 07/03/2006 10:3 0 PM STEAM DRIER OPERATOR Myrtle Kohli MD CHEMISTRY ORDERABLES Edited Performing Organization Address [facility] Phone Number INTERFACE SYSTEM Refer to clinic/hospital department * (ABNORMAL) BASIC METABOLIC PANEL (07/03/2006 10:30 PM STEAM DRIER OPERATOR) GLUCOSE 86 65 - 99 mg/dL INTERFACE SYSTEM CREATININE 0.54 0.51 - 0.95 mg/dL INTERFACE SYSTEM CALCIUM 7.0(L) 8.4 - 10.2 mg/dL INTERFACE SYSTEM BUN 16 6 - 20 mg/dL INTERFACE SYSTEM SODIUM 143 135 - 145 mmol/L INTERFACE SYSTEM POTASSIUM 3.1(L) 3.5 - 4.9 mmol/L INTERFACE SYSTEM CHLORIDE 110(H) 96 - 108 mmol/L INTERFACE SYSTEM CO2 22 22 - 30 mmol/L INTERFACE SYSTEM GFR, >60 >=60 mL/min/1. 7 sq meter INTERFACE SYSTEM GFR >60 >=60 mL/min/1. 7 sq meter INTERFACE SYSTEM Comment: Estimated GFR rate interpretative information for both Americans and non- Americans is available on the [facility] Intranet at: [email or web address] Select: Lab Policies and Procedures Select: Reference Ranges - GFR 07/03/2006 10:3 0 PM STEAM DRIER OPERATOR Myrtle Kohli MD CHEMISTRY ORDERABLES Edited Performing Organization Address City/[facility] Co de Phone Number INTERFACE SYSTEM Refer to clinic/hospital department * POC GLUCOSE (07/03/2006 10:20 PM STEAM DRIER OPERATOR) GLUCOSE POC 95 65 - 99 mg/dL INTERFACE SYSTEM 07/03/2006 10:2 0 PM STEAM DRIER OPERATOR Pepe Claire MD POINT OF CARE TESTING Caio justen Performing Organization Address [facility] de Phone Number INTERFACE SYSTEM Refer to clinic/hospital department * POC GLUCOSE (07/03/2006 9:18 PM STEAM DRIER OPERATOR) GLUCOSE POC 89 65 - 99 mg/dL INTERFACE SYSTEM 07/03/2006 9:18 PM STEAM DRIER OPERATOR Pepe Claire MD POINT OF CARE TESTING Caio justen Performing Organization Address [facility] Phone Number INTERFACE SYSTEM Refer to clinic/hospital department * (ABNORMAL) CBC WITH DIFFERENTIAL (07/03/2006 6:48 PM STEAM DRIER OPERATOR) NEUTROPHILS 82(H) 45 - 70 % INTERFAC E SYSTEM LYMPHOCYTES 12(L) 16 - 45 % INTERFAC E SYSTEM MONOCYTES 6 3 - 13 % INTERFACE SYSTEM EOSINOPHILS 0 0 - 7 % INTERFAC E SYSTEM BASOPHILS 0 0 - 2 % INTERFACE SYSTEM NEUTROPHIL ABSOLUTE 19.06(H) 1.90 - 7.00 K/uL INTERFACE SYSTEM LYMPHOCYTE ABSOLUTE 2.80 0.70 - 4.50 K/uL INTERFACE SYSTEM MONOCYTE ABSOLUTE 1.41(H) 0.10 - 1.30 K/uL INTERFACE SYSTEM EOSINOPHIL ABSOLUTE 0.00 0.00 - 0.70 K/uL INTERFACE SYSTEM BASOPHILS ABSOLUTE 0.02 0.00 - 0.20 K/uL INTERFACE SYSTEM 07/03/2006 6:48 PM STEAM DRIER OPERATOR Myrtle Kohli MD HEMATOLOGY ORDERABLES Edite d Performing Organization Address [facility] de Phone Number INTERFACE SYSTEM Refer to clinic/hospital department * (ABNORMAL) CBC WITH DIFFERENTIAL (07/03/2006 6:48 PM STEAM DRIER OPERATOR) WBC 23.3(H) 4.0 - 9.8 K/uL INTERFACE SYSTEM RBC 4.24 3.90 - 4.90 M/uL INTERFACE SYSTEM HEMOGLOBIN 13.1 11.8 - 14.8 g/dL INTERFACE SYSTEM HEMATOCRIT 35.9 35.5 - 44.0 % INTERFACE SYSTEM MCV 84.7 82.0 - 99.0 fL INTERFACE SYSTEM MCH 30.9 27.2 - 32.6 pg INTERFACE SYSTEM MCHC 36.5(H) 31.5 - 35.5 % INTERFACE SYSTEM RDW 13.1 11.5 - 14.5 % INTERFACE SYSTEM RDW-STDEV 40.0 37.1 - 48.7 fL INTERFACE SYSTEM PLATELETS 254 140 - 350 K/uL INTERFACE SYSTEM MPV 9.8 9.3 - 12.4 fL INTERFACE SYSTEM 07/03/2006 6:48 PM STEAM DRIER OPERATOR Myrtle Kohli MD HEMATOLOGY ORDERABLES Edite d Performing Organization Address City/[facility]/ZIP Co de Phone Number INTERFACE SYSTEM Refer to clinic/hospital department * (ABNORMAL) BASIC METABOLIC PANEL (07/03/2006 6:48 PM STEAM DRIER OPERATOR) GLUCOSE 114(H) 65 - 99 mg/dL INTERFACE SYSTEM CREATININE 0.59 0.51 - 0.95 mg/dL INTERFACE SYSTEM CALCIUM 7.3(L) 8.4 - 10.2 mg/dL INTERFACE SYSTEM BUN 17 6 - 20 mg/dL INTERFACE SYSTEM SODIUM 143 135 - 145 mmol/L INTERFACE SYSTEM POTASSIUM 2.9(L) 3.5 - 4.9 mmol/L INTERFACE SYSTEM CHLORIDE 109(H) 96 - 108 mmol/L INTERFACE SYSTEM CO2 21(L) 22 - 30 mmol/L INTERFACE SYSTEM GFR, >60 >=60 mL/min/1. 7 sq meter INTERFACE SYSTEM GFR >60 >=60 mL/min/1. 7 sq meter INTERFACE SYSTEM Comment: Estimated GFR rate interpretative information for both Americans and non- Americans is available on the [facility] Intranet at: [email or web address] Select: Lab Policies and Procedures Select: Reference Ranges - GFR 07/03/2006 6:48 PM STEAM DRIER OPERATOR us Myrtle Kohli MD CHEMISTRY ORDERABLES Edited INTERFACE SYSTEM Refer to clinic/hospital department * MAGNESIUM LEVEL (07/03/2006 6:48 PM STEAM DRIER OPERATOR) MAGNESIUM 2.0 1.5 - 2.5 mg/dL INTERFACE SYSTEM 07/03/2006 6:48 PM STEAM DRIER OPERATOR Myrtle Kohli MD CHEMISTRY ORDERABLES Edited Performing Organization Address City/[facility] Phone Number INTERFACE SYSTEM Refer to clinic/hospital department * PHOSPHORUS (07/03/2006 6:48 PM STEAM DRIER OPERATOR) PHOSPHORUS 2.6 2.5 - 4.5 mg/dL INTERFACE SYSTEM 07/03/2006 6:48 PM STEAM DRIER OPERATOR Myrtle Kohli MD CHEMISTRY ORDERABLES Edited Performing Organization Address [facility] Phone Number INTERFACE SYSTEM Refer to clinic/hospital department * (ABNORMAL) POC GLUCOSE (07/03/2006 6:47 PM STEAM DRIER OPERATOR) GLUCOSE POC 103(H) 65 - 99 mg/dL INTERFACE SYSTEM 07/03/2006 6:47 PM STEAM DRIER OPERATOR Pepe Claire MD POINT OF CARE TESTING Caio justen Performing Organization Address [facility] de Phone Number INTERFACE SYSTEM Refer to clinic/hospital department * (ABNORMAL) POC GLUCOSE (07/03/2006 5:59 PM STEAM DRIER OPERATOR) GLUCOSE POC 112(H) 65 - 99 mg/dL INTERFACE SYSTEM 07/03/2006 5:59 PM STEAM DRIER OPERATOR Pepe Claire MD POINT OF CARE TESTING Caio justen Performing Organization Address City/[facility] de Phone Number INTERFACE SYSTEM Refer to clinic/hospital department * (ABNORMAL) POC GLUCOSE (07/03/2006 5:21 PM STEAM DRIER OPERATOR) GLUCOSE POC 109(H) 65 - 99 mg/dL INTERFACE SYSTEM 07/03/2006 5:21 PM STEAM DRIER OPERATOR Pepe Claire MD POINT OF CARE TESTING Caio justen Performing Organization Address [facility] de Phone Number INTERFACE SYSTEM Refer to clinic/hospital department * (ABNORMAL) POC GLUCOSE (07/03/2006 4:12 PM STEAM DRIER OPERATOR) GLUCOSE POC 138(H) 65 - 99 mg/dL INTERFACE SYSTEM 07/03/2006 4:12 PM STEAM DRIER OPERATOR Pepe Claire MD POINT OF CARE TESTING Caio justen Performing Organization Address [facility] de Phone Number INTERFACE SYSTEM Refer to clinic/hospital department * (ABNORMAL) POC GLUCOSE (07/03/2006 3:15 PM STEAM DRIER OPERATOR) GLUCOSE POC 157(H) 65 - 99 mg/dL INTERFACE SYSTEM 07/03/2006 3:15 PM STEAM DRIER OPERATOR Pepe Claire MD POINT OF CARE TESTING Caio justen Performing Organization Address [facility] de Phone Number INTERFACE SYSTEM Refer to clinic/hospital department * (ABNORMAL) PHOSPHORUS (07/03/2006 3:00 PM STEAM DRIER OPERATOR) PHOSPHORUS 2.0(L) 2.5 - 4.5 mg/dL INTERFACE SYSTEM 07/03/2006 3:00 PM STEAM DRIER OPERATOR Myrtle Kohli MD CHEMISTRY ORDERABLES Edited Performing Organization Address [facility] de Phone Number INTERFACE SYSTEM Refer to clinic/hospital department * MAGNESIUM LEVEL (07/03/2006 3:00 PM STEAM DRIER OPERATOR) MAGNESIUM 2.2 1.5 - 2.5 mg/dL INTERFACE SYSTEM 07/03/2006 3:00 PM STEAM DRIER OPERATOR Myrtle Kohli MD CHEMISTRY ORDERABLES Edited Performing Organization Address [facility] de Phone Number INTERFACE SYSTEM Refer to clinic/hospital department * (ABNORMAL) BASIC METABOLIC PANEL (07/03/2006 3:00 PM STEAM DRIER OPERATOR) GLUCOSE 164(H) 65 - 99 mg/dL INTERFACE SYSTEM CREATININE 0.58 0.51 - 0.95 mg/dL INTERFACE SYSTEM CALCIUM 7.5(L) 8.4 - 10.2 mg/dL INTERFACE SYSTEM BUN 19 6 - 20 mg/dL INTERFACE SYSTEM SODIUM 141 135 - 145 mmol/L INTERFACE SYSTEM POTASSIUM 2.9(L) 3.5 - 4.9 mmol/L INTERFACE SYSTEM Comment: Results called to sly at 07/03/2006 4:33 PM and read back verified. Significant change from prior result, correlate clinically and redraw if necessary. CHLORIDE 109(H) 96 - 108 mmol/L INTERFACE SYSTEM CO2 21(L) 22 - 30 mmol/L INTERFACE SYSTEM GFR, >60 >=60 mL/min/1. 7 sq meter INTERFACE SYSTEM GFR >60 >=60 mL/min/1. 7 sq meter INTERFACE SYSTEM Comment: Estimated GFR rate interpretative information for both Americans and non- Americans is available on the [facility] Intranet at: [email or web address] Select: Lab Policies and Procedures Select: Reference Ranges - GFR 07/03/2006 3:00 PM STEAM DRIER OPERATOR us Myrtle Kohli MD CHEMISTRY ORDERABLES Edited INTERFACE SYSTEM Refer to clinic/hospital department * (ABNORMAL) POC GLUCOSE (07/03/2006 2:12 PM STEAM DRIER OPERATOR) GLUCOSE POC 170(H) 65 - 99 mg/dL INTERFACE SYSTEM 07/03/2006 2:12 PM STEAM DRIER OPERATOR us Pepe Claire MD POINT OF CARE TESTING Caio justen INTERFACE SYSTEM Refer to clinic/hospital department * (ABNORMAL) CBC WITH DIFFERENTIAL (07/03/2006 1:30 PM STEAM DRIER OPERATOR) NEUTROPHILS 86(H) 45 - 70 % INTERFAC E SYSTEM LYMPHOCYTES 12(L) 16 - 45 % INTERFAC E SYSTEM MONOCYTES 2(L) 3 - 13 % INTERFACE SYSTEM EOSINOPHILS 0 0 - 7 % INTERFAC E SYSTEM BASOPHILS 0 0 - 2 % INTERFACE SYSTEM NEUTROPHIL ABSOLUTE 16.20(H) 1.90 - 7.00 K/uL INTERFACE SYSTEM LYMPHOCYTE ABSOLUTE 2.27 0.70 - 4.50 K/uL INTERFACE SYSTEM MONOCYTE ABSOLUTE 0.45 0.10 - 1.30 K/uL INTERFACE SYSTEM EOSINOPHIL ABSOLUTE 0.00 0.00 - 0.70 K/uL INTERFACE SYSTEM BASOPHILS ABSOLUTE 0.02 0.00 - 0.20 K/uL INTERFACE SYSTEM 07/03/2006 1:30 PM STEAM DRIER OPERATOR Pepe Claire MD HEMATOLOGY ORDERABLES Caio justen Performing Organization Address [facility] de Phone Number INTERFACE SYSTEM Refer to clinic/hospital department * (ABNORMAL) CBC WITH DIFFERENTIAL (07/03/2006 1:30 PM STEAM DRIER OPERATOR) Pathologist [facility] WBC 18.9(H) 4.0 - 9.8 K/uL INTERFACE SYSTEM RBC 4.36 3.90 - 4.90 M/uL INTERFACE SYSTEM HEMOGLOBIN 13.6 11.8 - 14.8 g/dL INTERFACE SYSTEM HEMATOCRIT 37.1 35.5 - 44.0 % INTERFACE SYSTEM MCV 85.1 82.0 - 99.0 fL INTERFACE SYSTEM MCH 31.2 27.2 - 32.6 pg INTERFACE SYSTEM MCHC 36.7(H) 31.5 - 35.5 % INTERFACE SYSTEM RDW 13.2 11.5 - 14.5 % INTERFACE SYSTEM RDW-STDEV 40.7 37.1 - 48.7 fL INTERFACE SYSTEM PLATELETS 254 140 - 350 K/uL INTERFACE SYSTEM MPV 10.4 9.3 - 12.4 fL INTERFACE SYSTEM 07/03/2006 1:30 PM STEAM DRIER OPERATOR Pepe Claire MD HEMATOLOGY ORDERABLES Caio justen Performing Organization Address [facility] Phone Number INTERFACE SYSTEM Refer to clinic/hospital department * (ABNORMAL) POC GLUCOSE (07/03/2006 1:05 PM STEAM DRIER OPERATOR) GLUCOSE POC 113(H) 65 - 99 mg/dL INTERFACE SYSTEM 07/03/2006 1:05 PM STEAM DRIER OPERATOR Pepe Claire MD POINT OF CARE TESTING Caio justen Performing Organization Address [facility] Phone Number INTERFACE SYSTEM Refer to clinic/hospital department * (ABNORMAL) POC GLUCOSE (07/03/2006 12:15 PM STEAM DRIER OPERATOR) GLUCOSE POC 196(H) 65 - 99 mg/dL INTERFACE SYSTEM 07/03/2006 12:1 5 PM STEAM DRIER OPERATOR Pepe Claire MD POINT OF CARE TESTING Caio justen Performing Organization Address [facility] Phone Number INTERFACE SYSTEM Refer to clinic/hospital department * (ABNORMAL) POC GLUCOSE (07/03/2006 11:29 AM STEAM DRIER OPERATOR) GLUCOSE POC 167(H) 65 - 99 mg/dL INTERFACE SYSTEM 07/03/2006 11:2 9 AM STEAM DRIER OPERATOR Pepe Claire MD POINT OF CARE TESTING Caio justen Performing Organization Address [facility] Phone Number INTERFACE SYSTEM Refer to clinic/hospital department * (ABNORMAL) PHOSPHORUS (07/03/2006 10:40 AM STEAM DRIER OPERATOR) PHOSPHORUS 2.4(L) 2.5 - 4.5 mg/dL INTERFACE SYSTEM 07/03/2006 10:4 0 AM STEAM DRIER OPERATOR Myrtle Kohli MD CHEMISTRY ORDERABLES Edited Performing Organization Address [facility] Phone Number INTERFACE SYSTEM Refer to clinic/hospital department * MAGNESIUM LEVEL (07/03/2006 10:40 AM STEAM DRIER OPERATOR) MAGNESIUM 2.3 1.5 - 2.5 mg/dL INTERFACE SYSTEM 07/03/2006 10:4 0 AM STEAM DRIER OPERATOR Myrtle Kohli MD CHEMISTRY ORDERABLES Edited Performing Organization Address [facility] Phone Number INTERFACE SYSTEM Refer to clinic/hospital department * (ABNORMAL) BASIC METABOLIC PANEL (07/03/2006 10:40 AM STEAM DRIER OPERATOR) GLUCOSE 184(H) 65 - 99 mg/dL INTERFACE SYSTEM CREATININE 0.57 0.51 - 0.95 mg/dL INTERFACE SYSTEM CALCIUM 7.8(L) 8.4 - 10.2 mg/dL INTERFACE SYSTEM BUN 19 6 - 20 mg/dL INTERFACE SYSTEM SODIUM 139 135 - 145 mmol/L INTERFACE SYSTEM POTASSIUM 4.5 3.5 - 4.9 mmol/L INTERFACE SYSTEM CHLORIDE 107 96 - 108 mmol/L INTERFACE SYSTEM CO2 22 22 - 30 mmol/L INTERFACE SYSTEM GFR, >60 >=60 mL/min/1. 7 sq meter INTERFACE SYSTEM GFR >60 >=60 mL/min/1. 7 sq meter INTERFACE SYSTEM Comment: Estimated GFR rate interpretative information for both Americans and non- Americans is available on the [facility] Intranet at: [email or web address] Select: Lab Policies and Procedures Select: Reference Ranges - GFR 07/03/2006 10:4 0 AM STEAM DRIER OPERATOR Myrtle Kohli MD CHEMISTRY ORDERABLES Edited Performing Organization Address [facility] Phone Number INTERFACE SYSTEM Refer to clinic/hospital department * (ABNORMAL) POC GLUCOSE (07/03/2006 9:55 AM STEAM DRIER OPERATOR) GLUCOSE POC 180(H) 65 - 99 mg/dL INTERFACE SYSTEM 07/03/2006 9:55 AM STEAM DRIER OPERATOR Pepe Claire MD POINT OF CARE TESTING Caio justen Performing Organization Address [facility] de Phone Number INTERFACE SYSTEM Refer to clinic/hospital department * (ABNORMAL) POC GLUCOSE (07/03/2006 7:43 AM STEAM DRIER OPERATOR) GLUCOSE POC 175(H) 65 - 99 mg/dL INTERFACE SYSTEM 07/03/2006 7:43 AM STEAM DRIER OPERATOR Pepe Claire MD POINT OF CARE TESTING Caio justen Performing Organization Address [facility] Phone Number INTERFACE SYSTEM Refer to clinic/hospital department * (ABNORMAL) CK TOTAL, RELATIVE INDEX (07/03/2006 7:00 AM STEAM DRIER OPERATOR) CK 17,030(H) 10 - 145 U/L INTERFACE SYSTEM CARDIAC RELATIVE INDEX 5.9(H) <=4.0 INTERFACE SYSTEM 07/03/2006 7:00 AM STEAM DRIER OPERATOR Pepe Claire MD CHEMISTRY ORDERABLES Edit ed Performing Organization Address [facility] Phone Number INTERFACE SYSTEM Refer to clinic/hospital department * (ABNORMAL) TROPONIN (07/03/2006 7:00 AM STEAM DRIER OPERATOR) TROPONIN T 14.75(AA) <=0.03 ng/mL INTERFACE SYSTEM Comment:Persistent abnormal result TROPONIN T INTERP See Below INTERFACE SYSTEM Comment:Elevated Troponin-T, Consistent with Myocardial Injury 07/03/2006 7:00 AM STEAM DRIER OPERATOR Pepe Claire MD CHEMISTRY ORDERABLES Edit ed Performing Organization Address [facility] Phone Number INTERFACE SYSTEM Refer to clinic/hospital department * (ABNORMAL) CKMB W/REFLEX CK (07/03/2006 7:00 AM STEAM DRIER OPERATOR) CKMB >1,000.0(A A) <=3.8 ng/mL INTERFACE SYSTEM CKMB INTERP See Below INTERFAC E SYSTEM Comment:Elevated CKMB,consis tent with Myocardial Injury. RESULT COMMENT, CHEMISTRY INTERFACE SYSTEM Comment: ckmb Persistent abnormal result 07/03/2006 7:00 AM STEAM DRIER OPERATOR Pepe Claire MD CHEMISTRY ORDERABLES Edit ed Performing Organization Address [facility] Phone Number INTERFACE SYSTEM Refer to clinic/hospital department * (ABNORMAL) POC GLUCOSE (07/03/2006 6:21 AM STEAM DRIER OPERATOR) GLUCOSE POC 182(H) 65 - 99 mg/dL INTERFACE SYSTEM 07/03/2006 6:21 AM STEAM DRIER OPERATOR Pepe Claire MD POINT OF CARE TESTING Caio justen INTERFACE SYSTEM Refer to clinic/hospital department * PHOSPHORUS (07/03/2006 6:15 AM STEAM DRIER OPERATOR) PHOSPHORUS 3.2 2.5 - 4.5 mg/dL INTERFACE SYSTEM 07/03/2006 6:15 AM STEAM DRIER OPERATOR Myrtle Kohli MD CHEMISTRY ORDERABLES Edited Performing Organization Address [facility] de Phone Number INTERFACE SYSTEM Refer to clinic/hospital department * MAGNESIUM LEVEL (07/03/2006 6:15 AM STEAM DRIER OPERATOR) MAGNESIUM 2.4 1.5 - 2.5 mg/dL INTERFACE SYSTEM 07/03/2006 6:15 AM STEAM DRIER OPERATOR Myrtle Kohli MD CHEMISTRY ORDERABLES Edited Performing Organization Address City/[facility] de Phone Number INTERFACE SYSTEM Refer to clinic/hospital department * (ABNORMAL) BASIC METABOLIC PANEL (07/03/2006 6:15 AM STEAM DRIER OPERATOR) GLUCOSE 170(H) 65 - 99 mg/dL INTERFACE SYSTEM CREATININE 0.64 0.51 - 0.95 mg/dL INTERFACE SYSTEM CALCIUM 7.7(L) 8.4 - 10.2 mg/dL INTERFACE SYSTEM BUN 17 6 - 20 mg/dL INTERFACE SYSTEM SODIUM 140 135 - 145 mmol/L INTERFACE SYSTEM POTASSIUM 3.6 3.5 - 4.9 mmol/L INTERFACE SYSTEM CHLORIDE 108 96 - 108 mmol/L INTERFACE SYSTEM CO2 19(L) 22 - 30 mmol/L INTERFACE SYSTEM GFR, >60 >=60 mL/min/1. 7 sq meter INTERFACE SYSTEM GFR >60 >=60 mL/min/1. 7 sq meter INTERFACE SYSTEM Comment: Estimated GFR rate interpretative information for both Americans and non- Americans is available on the [facility] Intranet at: [email or web address] Select: Lab Policies and Procedures Select: Reference Ranges - GFR 07/03/2006 6:15 AM STEAM DRIER OPERATOR Myrtle Kohli MD CHEMISTRY ORDERABLES Edited Performing Organization Address City/[facility] de Phone Number INTERFACE SYSTEM Refer to clinic/hospital department * (ABNORMAL) CBC WITH DIFFERENTIAL (07/03/2006 4:40 AM STEAM DRIER OPERATOR) NEUTROPHILS 84(H) 45 - 70 % INTERFAC E SYSTEM LYMPHOCYTES 10(L) 16 - 45 % INTERFAC E SYSTEM MONOCYTES 7 3 - 13 % INTERFACE SYSTEM EOSINOPHILS 0 0 - 7 % INTERFAC E SYSTEM BASOPHILS 0 0 - 2 % INTERFACE SYSTEM NEUTROPHIL ABSOLUTE 19.72(H) 1.90 - 7.00 K/uL INTERFACE SYSTEM LYMPHOCYTE ABSOLUTE 2.34 0.70 - 4.50 K/uL INTERFACE SYSTEM MONOCYTE ABSOLUTE 1.56(H) 0.10 - 1.30 K/uL INTERFACE SYSTEM EOSINOPHIL ABSOLUTE 0.00 0.00 - 0.70 K/uL INTERFACE SYSTEM BASOPHILS ABSOLUTE 0.01 0.00 - 0.20 K/uL INTERFACE SYSTEM 07/03/2006 4:40 AM STEAM DRIER OPERATOR Hitesh Han MD HEMATOLOGY ORDERABLES Edited Performing Organization Address [facility] de Phone Number INTERFACE SYSTEM Refer to clinic/hospital department * (ABNORMAL) CBC WITH DIFFERENTIAL (07/03/2006 4:40 AM STEAM DRIER OPERATOR) WBC 23.6(H) 4.0 - 9.8 K/uL INTERFACE SYSTEM RBC 4.76 3.90 - 4.90 M/uL INTERFACE SYSTEM HEMOGLOBIN 14.6 11.8 - 14.8 g/dL INTERFACE SYSTEM HEMATOCRIT 41.0 35.5 - 44.0 % INTERFACE SYSTEM MCV 86.1 82.0 - 99.0 fL INTERFACE SYSTEM MCH 30.7 27.2 - 32.6 pg INTERFACE SYSTEM MCHC 35.6(H) 31.5 - 35.5 % INTERFACE SYSTEM RDW 13.1 11.5 - 14.5 % INTERFACE SYSTEM RDW-STDEV 41.5 37.1 - 48.7 fL INTERFACE SYSTEM PLATELETS 299 140 - 350 K/uL INTERFACE SYSTEM MPV 10.3 9.3 - 12.4 fL INTERFACE SYSTEM 07/03/2006 4:40 AM STEAM DRIER OPERATOR Result [facility] Hitesh Han MD HEMATOLOGY ORDERABLES Edited Performing Organization Address [facility] Phone Number INTERFACE SYSTEM Refer to clinic/hospital department * LIPASE (07/03/2006 4:40 AM STEAM DRIER OPERATOR) LIPASE 24 13 - 60 U/L INTERFAC E SYSTEM 07/03/2006 4:40 AM STEAM DRIER OPERATOR Result [facility] Myrtle Kohli MD CHEMISTRY ORDERABLES Edited Performing Organization Address [facility] Phone Number INTERFACE SYSTEM Refer to clinic/hospital department * (ABNORMAL) AMYLASE (07/03/2006 4:40 AM STEAM DRIER OPERATOR) AMYLASE 258(H) 28 - 100 U/L INTERFACE SYSTEM 07/03/2006 4:40 AM STEAM DRIER OPERATOR Result [facility] Myrtle Kohli MD CHEMISTRY ORDERABLES Edited Performing Organization Address [facility] Phone Number INTERFACE SYSTEM Refer to clinic/hospital department * MAGNESIUM LEVEL (07/03/2006 4:40 AM STEAM DRIER OPERATOR) MAGNESIUM 2.4 1.5 - 2.5 mg/dL INTERFACE SYSTEM 07/03/2006 4:40 AM STEAM DRIER OPERATOR Hitesh Han MD CHEMISTRY ORDERABLES Edited Performing Organization Address [facility] Phone Number INTERFACE SYSTEM Refer to clinic/hospital department * (ABNORMAL) BASIC METABOLIC PANEL (07/03/2006 4:40 AM STEAM DRIER OPERATOR) GLUCOSE 212(H) 65 - 99 mg/dL INTERFACE SYSTEM CREATININE 0.67 0.51 - 0.95 mg/dL INTERFACE SYSTEM CALCIUM 8.0(L) 8.4 - 10.2 mg/dL INTERFACE SYSTEM BUN 17 6 - 20 mg/dL INTERFACE SYSTEM SODIUM 141 135 - 145 mmol/L INTERFACE SYSTEM POTASSIUM 3.8 3.5 - 4.9 mmol/L INTERFACE SYSTEM CHLORIDE 106 96 - 108 mmol/L INTERFACE SYSTEM CO2 20(L) 22 - 30 mmol/L INTERFACE SYSTEM GFR, >60 >=60 mL/min/1. 7 sq meter INTERFACE SYSTEM GFR >60 >=60 mL/min/1. 7 sq meter INTERFACE SYSTEM Comment: Estimated GFR rate interpretative information for both Americans and non- Americans is available on the [facility] Intranet at: [email or web address] Select: Lab Policies and Procedures Select: Reference Ranges - GFR 07/03/2006 4:40 AM STEAM DRIER OPERATOR Hitesh Han MD CHEMISTRY ORDERABLES Edited Performing Organization Address City/[facility] Co de Phone Number INTERFACE SYSTEM Refer to clinic/hospital department * (ABNORMAL) BLOOD GAS ARTERIAL (07/03/2006 4:40 AM STEAM DRIER OPERATOR) PH ARTERIAL 7.41 7.35 - 7.45 INTERFACE SYSTEM PCO2 ARTERIAL 28(L) 35 - 48 mm Hg INTERFACE SYSTEM PO2 ARTERIAL 87 83 - 108 mm Hg INTERFACE SYSTEM SO2 ABG 98 95 - 99 % INTERFACE SYSTEM FO2HB ABG 97 94 - 98 % INTERFACE SYSTEM HCO3 ARTERIAL 17(L) 22 - 26 mmol/L INTERFACE SYSTEM BASE EXCESS ABG -5.9(L) -2.0 - 3.0 mmol/L INTERFACE SYSTEM O2 CONC ARTERIAL 100% INTERFACE SYSTEM 07/03/2006 4:40 AM STEAM DRIER OPERATOR Myrtle Kohli MD ABG ORDERABLES Edited Performing Organization Address City/[facility] Co de Phone Number INTERFACE SYSTEM Refer to clinic/hospital department * (ABNORMAL) POC GLUCOSE (07/03/2006 4:09 AM STEAM DRIER OPERATOR) GLUCOSE POC 235(H) 65 - 99 mg/dL INTERFACE SYSTEM 07/03/2006 4:09 AM STEAM DRIER OPERATOR Pepe Claire MD POINT OF CARE TESTING Caio justen Performing Organization Address [facility] de Phone Number INTERFACE SYSTEM Refer to clinic/hospital department * (ABNORMAL) POC GLUCOSE (07/03/2006 2:17 AM STEAM DRIER OPERATOR) GLUCOSE POC 185(H) 65 - 99 mg/dL INTERFACE SYSTEM 07/03/2006 2:17 AM STEAM DRIER OPERATOR Pepe Claire MD POINT OF CARE TESTING Caio justen Performing Organization Address [facility] de Phone Number INTERFACE SYSTEM Refer to clinic/hospital department * (ABNORMAL) POC GLUCOSE (07/03/2006 12:01 AM STEAM DRIER OPERATOR) GLUCOSE POC 250(H) 65 - 99 mg/dL INTERFACE SYSTEM 07/03/2006 12:0 1 AM STEAM DRIER OPERATOR Pepe Claire MD POINT OF CARE TESTING Caio justen Performing Organization Address [facility] de Phone Number INTERFACE SYSTEM Refer to clinic/hospital department * (ABNORMAL) CK TOTAL, RELATIVE INDEX (07/02/2006 10:45 PM STEAM DRIER OPERATOR) CK 17,319(H) 10 - 145 U/L INTERFACE SYSTEM CARDIAC RELATIVE INDEX 5.8(H) <=4.0 INTERFACE SYSTEM 07/02/2006 10:4 5 PM STEAM DRIER OPERATOR Pepe Claire MD CHEMISTRY ORDERABLES Edit ed Performing Organization Address [facility] Co de Phone Number INTERFACE SYSTEM Refer to clinic/hospital department * (ABNORMAL) TROPONIN (07/02/2006 10:45 PM STEAM DRIER OPERATOR) TROPONIN T 14.87(AA) <=0.03 ng/mL INTERFACE SYSTEM Comment:Persistent abnormal result TROPONIN T INTERP See Below INTERFACE SYSTEM Comment:Elevated Troponin-T, Consistent with Myocardial Injury 07/02/2006 10:4 5 PM STEAM DRIER OPERATOR Pepe Claire MD CHEMISTRY ORDERABLES Edit ed Performing Organization Address [facility] Phone Number INTERFACE SYSTEM Refer to clinic/hospital department * (ABNORMAL) CKMB W/REFLEX CK (07/02/2006 10:45 PM STEAM DRIER OPERATOR) CKMB >1,000.0(A A) <=3.8 ng/mL INTERFACE SYSTEM Comment:Persistent abnormal result CKMB INTERP See Below INTERFAC E SYSTEM Comment:Elevated CKMB,consis tent with Myocardial Injury. 07/02/2006 10:4 5 PM STEAM DRIER OPERATOR Pepe Claire MD CHEMISTRY ORDERABLES Edit ed Performing Organization Address [facility] Phone Number INTERFACE SYSTEM Refer to clinic/hospital department * PHOSPHORUS (07/02/2006 10:45 PM STEAM DRIER OPERATOR) PHOSPHORUS 3.2 2.5 - 4.5 mg/dL INTERFACE SYSTEM 07/02/2006 10:4 5 PM STEAM DRIER OPERATOR Result [facility] Myrtle Kohli MD CHEMISTRY ORDERABLES Edited Performing Organization Address [facility] Phone Number INTERFACE SYSTEM Refer to clinic/hospital department * (ABNORMAL) MAGNESIUM LEVEL (07/02/2006 10:45 PM STEAM DRIER OPERATOR) MAGNESIUM 2.7(H) 1.5 - 2.5 mg/dL INTERFACE SYSTEM 07/02/2006 10:4 5 PM STEAM DRIER OPERATOR Myrtle Kohli MD CHEMISTRY ORDERABLES Edited Performing Organization Address [facility] Phone Number INTERFACE SYSTEM Refer to clinic/hospital department * (ABNORMAL) BASIC METABOLIC PANEL (07/02/2006 10:45 PM STEAM DRIER OPERATOR) GLUCOSE 289(H) 65 - 99 mg/dL INTERFACE SYSTEM CREATININE 0.70 0.51 - 0.95 mg/dL INTERFACE SYSTEM CALCIUM 7.7(L) 8.4 - 10.2 mg/dL INTERFACE SYSTEM BUN 15 6 - 20 mg/dL INTERFACE SYSTEM SODIUM 140 135 - 145 mmol/L INTERFACE SYSTEM POTASSIUM 3.1(L) 3.5 - 4.9 mmol/L INTERFACE SYSTEM CHLORIDE 102 96 - 108 mmol/L INTERFACE SYSTEM CO2 18(L) 22 - 30 mmol/L INTERFACE SYSTEM GFR, >60 >=60 mL/min/1. 7 sq meter INTERFACE SYSTEM GFR >60 >=60 mL/min/1. 7 sq meter INTERFACE SYSTEM Comment: Estimated GFR rate interpretative information for both Americans and non- Americans is available on the [facility] Intranet at: [email or web address] Select: Lab Policies and Procedures Select: Reference Ranges - GFR 07/02/2006 10:4 5 PM STEAM DRIER OPERATOR Myrtle Kohli MD CHEMISTRY ORDERABLES Edited Performing Organization Address [facility] Phone Number INTERFACE SYSTEM Refer to clinic/hospital department * (ABNORMAL) POC GLUCOSE (07/02/2006 10:16 PM STEAM DRIER OPERATOR) GLUCOSE POC 206(H) 65 - 99 mg/dL INTERFACE SYSTEM 07/02/2006 10:1 6 PM STEAM DRIER OPERATOR Pepe Claire MD POINT OF CARE TESTING Caio justen Performing Organization Address [facility] Phone Number INTERFACE SYSTEM Refer to clinic/hospital department * (ABNORMAL) POC GLUCOSE (07/02/2006 7:49 PM STEAM DRIER OPERATOR) GLUCOSE POC 198(H) 65 - 99 mg/dL INTERFACE SYSTEM 07/02/2006 7:49 PM STEAM DRIER OPERATOR Pepe Claire MD POINT OF CARE TESTING Caio justen Performing Organization Address [facility] de Phone Number INTERFACE SYSTEM Refer to clinic/hospital department * (ABNORMAL) PHOSPHORUS (07/02/2006 6:40 PM STEAM DRIER OPERATOR) PHOSPHORUS 0.7(AA) 2.5 - 4.5 mg/dL INTERFACE SYSTEM Comment:Results called to Kathya rincon at 07/02/2006 7:44 PM and read back verified. 07/02/2006 6:40 PM STEAM DRIER OPERATOR us Myrtle Kohli MD CHEMISTRY ORDERABLES Edited Performing Organization Address City/[facility] Co de Phone Number INTERFACE SYSTEM Refer to clinic/hospital department * MAGNESIUM LEVEL (07/02/2006 6:40 PM STEAM DRIER OPERATOR) MAGNESIUM 1.9 1.5 - 2.5 mg/dL INTERFACE SYSTEM 07/02/2006 6:40 PM STEAM DRIER OPERATOR us Myrtle Kohli MD CHEMISTRY ORDERABLES Edited Performing Organization Address [facility] de Phone Number INTERFACE SYSTEM Refer to clinic/hospital department * (ABNORMAL) BASIC METABOLIC PANEL (07/02/2006 6:40 PM STEAM DRIER OPERATOR) GLUCOSE 214(H) 65 - 99 mg/dL INTERFACE SYSTEM CREATININE 0.79 0.51 - 0.95 mg/dL INTERFACE SYSTEM CALCIUM 7.7(L) 8.4 - 10.2 mg/dL INTERFACE SYSTEM BUN 14 6 - 20 mg/dL INTERFACE SYSTEM SODIUM 141 135 - 145 mmol/L INTERFACE SYSTEM POTASSIUM 2.9(L) 3.5 - 4.9 mmol/L INTERFACE SYSTEM CHLORIDE 101 96 - 108 mmol/L INTERFACE SYSTEM CO2 20(L) 22 - 30 mmol/L INTERFACE SYSTEM GFR, >60 >=60 mL/min/1. 7 sq meter INTERFACE SYSTEM GFR >60 >=60 mL/min/1. 7 sq meter INTERFACE SYSTEM Comment: Estimated GFR rate interpretative information for both Americans and non- Americans is available on the [facility] Intranet at: [email or web address] Select: Lab Policies and Procedures Select: Reference Ranges - GFR 07/02/2006 6:40 PM STEAM DRIER OPERATOR Result Carlos Kohli MD CHEMISTRY ORDERABLES Edited Performing Organization Address [facility] de Phone Number INTERFACE SYSTEM Refer to clinic/hospital department * LIPASE (07/02/2006 6:40 PM STEAM DRIER OPERATOR) LIPASE 27 13 - 60 U/L INTERFAC E SYSTEM 07/02/2006 6:40 PM STEAM DRIER OPERATOR Myrtle Kohli MD CHEMISTRY ORDERABLES Edited Performing Organization Address [facility] de Phone Number INTERFACE SYSTEM Refer to clinic/hospital department * AMYLASE (07/02/2006 6:40 PM STEAM DRIER OPERATOR) AMYLASE 86 28 - 100 U/L INTERFACE SYSTEM 07/02/2006 6:40 PM STEAM DRIER OPERATOR Myrtle Kohli MD CHEMISTRY ORDERABLES Edited Performing Organization Address [facility] Phone Number INTERFACE SYSTEM Refer to clinic/hospital department * (ABNORMAL) CBC WITH DIFFERENTIAL (07/02/2006 6:40 PM STEAM DRIER OPERATOR) NEUTROPHIL ABSOLUTE 30.28(H) 1.90 - 7.00 K/uL INTERFACE SYSTEM LYMPHOCYTE ABSOLUTE 2.09 0.70 - 4.50 K/uL INTERFACE SYSTEM MONOCYTE ABSOLUTE 2.44(H) 0.10 - 1.30 K/uL INTERFACE SYSTEM EOSINOPHIL ABSOLUTE 0.00 0.00 - 0.70 K/uL INTERFACE SYSTEM BASOPHILS ABSOLUTE 0.00 0.00 - 0.20 K/uL INTERFACE SYSTEM NEUTROPHILS, SEG 86(H) 45 - 70 % INT ERFACE SYSTEM BANDS 1 0 - 5 % INTERFACE SYSTEM LYMPHOCYTES 5(L) 16 - 45 % INTERFAC E SYSTEM MONOCYTES 7 3 - 13 % INTERFACE SYSTEM EOSINOPHILS 0 0 - 7 % INTERFAC E SYSTEM BASOPHILS 0 0 - 2 % INTERFACE SYSTEM ATYPICAL LYMPHOCYTE 1 0 - 5 % INTERFACE SYSTEM PLATELET EST. Consistent w/ count Normal INTERFACE SYSTEM ANISOCYTOSIS Slight INTERFA CE SYSTEM MACROCYTES Slight INTERFACE SYSTEM 07/02/2006 6:40 PM STEAM DRIER OPERATOR Pepe Claire MD HEMATOLOGY ORDERABLES Caio justen Performing Organization Address [facility] Phone Number INTERFACE SYSTEM Refer to clinic/hospital department * (ABNORMAL) CBC WITH DIFFERENTIAL (07/02/2006 6:40 PM STEAM DRIER OPERATOR) WBC 34.8(H) 4.0 - 9.8 K/uL INTERFACE SYSTEM RBC 5.04(H) 3.90 - 4.90 M/uL INTERFACE SYSTEM HEMOGLOBIN 15.7(H) 11.8 - 14.8 g/dL INTERFACE SYSTEM HEMATOCRIT 43.8 35.5 - 44.0 % INTERFACE SYSTEM MCV 86.9 82.0 - 99.0 fL INTERFACE SYSTEM MCH 31.2 27.2 - 32.6 pg INTERFACE SYSTEM MCHC 35.8(H) 31.5 - 35.5 % INTERFACE SYSTEM RDW 13.1 11.5 - 14.5 % INTERFACE SYSTEM RDW-STDEV 41.6 37.1 - 48.7 fL INTERFACE SYSTEM PLATELETS 351(H) 140 - 350 K/uL INTERFACE SYSTEM MPV 10.7 9.3 - 12.4 fL INTERFACE SYSTEM 07/02/2006 6:40 PM STEAM DRIER OPERATOR Pepe Claire MD HEMATOLOGY ORDERABLES Caio campuzano Performing Organization Address [facility] Phone Number INTERFACE SYSTEM Refer to clinic/hospital department * (ABNORMAL) POC GLUCOSE (07/02/2006 6:19 PM STEAM DRIER OPERATOR) GLUCOSE POC 172(H) 65 - 99 mg/dL INTERFACE SYSTEM 07/02/2006 6:19 PM STEAM DRIER OPERATOR Pepe Claire MD POINT OF CARE TESTING Caio justen Performing Organization Address [facility] Phone Number INTERFACE SYSTEM Refer to clinic/hospital department * (ABNORMAL) URINALYSIS (07/02/2006 6:10 PM STEAM DRIER OPERATOR) COLOR UA Yellow INTERFACE SYSTEM CLARITY UA Clear Clear INTERFACE SYSTEM SPECIFIC GRAVITY UA 1.028 1.001 - 1.035 INTERFACE SYSTEM PH UA 5.0 5.0 - 8.0 INTERFACE SYSTEM LEUKOCYTE ESTERASE UA Negative Negative INTERFACE SYSTEM NITRITE UA Negative Negative INTERFACE SYSTEM PROTEIN UA Trace(A) Negative INTERFACE SYSTEM GLUCOSE UA Negative Negative INTERFACE SYSTEM KETONES UA Negative Negative INTERFACE SYSTEM UROBILINOGEN UA <1 <=1 mg/dL INTE RFACE SYSTEM BILIRUBIN UA Negative Negative INTERFA CE SYSTEM BLOOD UA 3+(A) Negative INTERFACE SYSTEM WBC UA <1 0 - 5 /HPF INTERFACE SYSTEM RBC UA 7(H) 0 - 4 /HPF INTERFACE SYSTEM Comment: Microscopic verified by repeat analysis. Suggest red cell hemolysis or interfering substance. BACTERIA UA 1+(A) None Seen /HPF INTERFACE SYSTEM 07/02/2006 6:10 PM STEAM DRIER OPERATOR Myrtle Kohli MD URINE ORDERABLES Edited Performing Organization Address [facility] Phone Number INTERFACE SYSTEM Refer to clinic/hospital department * URINALYSIS WITH REFLEX CULTURE (07/02/2006 6:10 PM STEAM DRIER OPERATOR) Pathologist [facility] URINE CULTURE ORDER Culture ordered INTERFACE SYSTEM Comment: Criteria for a reflex culture include one or more of the following: Abn ormal nitrite, leukocyte esterase, WBCs or RBCs. Lack of qualifying criteria does not exclude the possiblity of a urinary tract infection. Dilute urine, drug interference, etc. may decrease the sensitivity of the criteria analytes. 07/02/2006 6:10 PM STEAM DRIER OPERATOR Myrtle Kohli MD URINE ORDERABLES Edited Performing Organization Address [facility] Phone Number INTERFACE SYSTEM Refer to clinic/hospital department * (ABNORMAL) CK TOTAL, RELATIVE INDEX (07/02/2006 3:00 PM STEAM DRIER OPERATOR) CK 8,413(H) 10 - 145 U/L INTERFACE SYSTEM CARDIAC RELATIVE INDEX 5.2(H) <=4.0 INTERFACE SYSTEM 07/02/2006 3:00 PM STEAM DRIER OPERATOR Pepe Claire MD CHEMISTRY ORDERABLES Edit ed Performing Organization Address [facility] Phone Number INTERFACE SYSTEM Refer to clinic/hospital department * (ABNORMAL) TROPONIN (07/02/2006 3:00 PM STEAM DRIER OPERATOR) TROPONIN T 14.65(AA) <=0.03 ng/mL INTERFACE SYSTEM Comment:Results called to Kelly dixon at 07/02/2006 3:50 PM and read back verified. TROPONIN T INTERP See Below INTERFACE SYSTEM Comment:Elevated Troponin-T, Consistent with Myocardial Injury 07/02/2006 3:00 PM STEAM DRIER OPERATOR Pepe Claire MD CHEMISTRY ORDERABLES Edit ed Performing Organization Address [facility] de Phone Number INTERFACE SYSTEM Refer to clinic/hospital department * (ABNORMAL) CKMB W/REFLEX CK (07/02/2006 3:00 PM STEAM DRIER OPERATOR) Pathologist [facility] CKMB 437.9(AA) <=3.8 ng/mL INTERFACE SYSTEM Comment:Results called to Kelly dixon at 07/02/2006 3:50 PM and read back verified. CKMB INTERP See Below INTERFAC E SYSTEM Comment:Elevated CKMB,consis tent with Myocardial Injury. 07/02/2006 3:00 PM STEAM DRIER OPERATOR Pepe Claire MD CHEMISTRY ORDERABLES Edit ed Performing Organization Address [facility] de Phone Number INTERFACE SYSTEM Refer to clinic/hospital department * (ABNORMAL) CBC WITH DIFFERENTIAL (07/02/2006 3:00 PM STEAM DRIER OPERATOR) NEUTROPHIL ABSOLUTE 31.91(H) 1.90 - 7.00 K/uL INTERFACE SYSTEM LYMPHOCYTE ABSOLUTE 3.71 0.70 - 4.50 K/uL INTERFACE SYSTEM MONOCYTE ABSOLUTE 1.48(H) 0.10 - 1.30 K/uL INTERFACE SYSTEM EOSINOPHIL ABSOLUTE 0.00 0.00 - 0.70 K/uL INTERFACE SYSTEM BASOPHILS ABSOLUTE 0.00 0.00 - 0.20 K/uL INTERFACE SYSTEM NEUTROPHILS, SEG 86(H) 45 - 70 % INT ERFACE SYSTEM LYMPHOCYTES 10(L) 16 - 45 % INTERFAC E SYSTEM MONOCYTES 4 3 - 13 % INTERFACE SYSTEM EOSINOPHILS 0 0 - 7 % INTERFAC E SYSTEM BASOPHILS 0 0 - 2 % INTERFACE SYSTEM PLATELET EST. Consistent w/ count Normal INTERFACE SYSTEM ANISOCYTOSIS Slight INTERFA CE SYSTEM MACROCYTES Slight INTERFACE SYSTEM 07/02/2006 3:00 PM STEAM DRIER OPERATOR Pepe Claire MD HEMATOLOGY ORDERABLES Caio justen Performing Organization Address [facility] Phone Number INTERFACE SYSTEM Refer to clinic/hospital department * (ABNORMAL) CBC WITH DIFFERENTIAL (07/02/2006 3:00 PM STEAM DRIER OPERATOR) WBC 37.1(AA) 4.0 - 9.8 K/uL INTERFACE SYSTEM Comment:Results called to Tyler morfin at 07/02/2006 3:35 PM and read back verified. RBC 5.10(H) 3.90 - 4.90 M/uL INTERFACE SYSTEM HEMOGLOBIN 16.0(H) 11.8 - 14.8 g/dL INTERFACE SYSTEM HEMATOCRIT 45.0(H) 35.5 - 44.0 % INTERFACE SYSTEM MCV 88.2 82.0 - 99.0 fL INTERFACE SYSTEM MCH 31.4 27.2 - 32.6 pg INTERFACE SYSTEM MCHC 35.6(H) 31.5 - 35.5 % INTERFACE SYSTEM RDW 13.1 11.5 - 14.5 % INTERFACE SYSTEM RDW-STDEV 42.3 37.1 - 48.7 fL INTERFACE SYSTEM PLATELETS 371(H) 140 - 350 K/uL INTERFACE SYSTEM MPV 10.8 9.3 - 12.4 fL INTERFACE SYSTEM 07/02/2006 3:00 PM STEAM DRIER OPERATOR Pepe Claire MD HEMATOLOGY ORDERABLES Caio justen Performing Organization Address [facility] Phone Number INTERFACE SYSTEM Refer to clinic/hospital department * (ABNORMAL) PHOSPHORUS (07/02/2006 3:00 PM STEAM DRIER OPERATOR) PHOSPHORUS 1.8(L) 2.5 - 4.5 mg/dL INTERFACE SYSTEM 07/02/2006 3:00 PM STEAM DRIER OPERATOR Pepe Claire MD CHEMISTRY ORDERABLES Edit ed Performing Organization Address [facility] Phone Number INTERFACE SYSTEM Refer to clinic/hospital department * MAGNESIUM LEVEL (07/02/2006 3:00 PM STEAM DRIER OPERATOR) MAGNESIUM 2.0 1.5 - 2.5 mg/dL INTERFACE SYSTEM 07/02/2006 3:00 PM STEAM DRIER OPERATOR Pepe Claire MD CHEMISTRY ORDERABLES Edit ed INTERFACE SYSTEM Refer to clinic/hospital department * (ABNORMAL) COMPREHENSIVE METABOLIC PANEL (07/02/2006 3:00 PM STEAM DRIER OPERATOR) GLUCOSE 327(H) 65 - 99 mg/dL INTERFACE SYSTEM CREATININE 0.90 0.51 - 0.95 mg/dL INTERFACE SYSTEM CALCIUM 7.6(L) 8.4 - 10.2 mg/dL INTERFACE SYSTEM ALKALINE PHOSPHATASE 157(H) 35 - 104 U/L INTERFACE SYSTEM AST 559(H) 12 - 32 U/L INTERFACE SYSTEM ALT 222(H) 0 - 31 U/L INTERFACE SYSTEM TOTAL PROTEIN 7.6 6.3 - 8.6 g/dL INTERFACE SYSTEM ALBUMIN 4.2 3.4 - 4.8 g/dL INTERFACE SYSTEM BILIRUBIN TOTAL 0.5 0.2 - 1.0 mg/dL INTERFACE SYSTEM BUN 11 6 - 20 mg/dL INTERFACE SYSTEM SODIUM 140 135 - 145 mmol/L INTERFACE SYSTEM POTASSIUM 2.8(AA) 3.5 - 4.9 mmol/L INTERFACE SYSTEM Comment: Verified by repeat analysis. Results called to Melody at 07/02/2006 4:27 PM and read back verified. CHLORIDE 101 96 - 108 mmol/L INTERFACE SYSTEM CO2 23 22 - 30 mmol/L INTERFACE SYSTEM GFR, >60 >=60 mL/min/1. 7 sq meter INTERFACE SYSTEM GFR >60 >=60 mL/min/1. 7 sq meter INTERFACE SYSTEM Comment: Estimated GFR rate interpretative information for both Americans and non- Americans is available on the [facility] Intranet at: [email or web address] Select: Lab Policies and Procedures Select: Reference Ranges - GFR 07/02/2006 3:00 PM STEAM DRIER OPERATOR Pepe Claire MD CHEMISTRY ORDERABLES Edit ed INTERFACE SYSTEM Refer to clinic/hospital department * (ABNORMAL) LACTIC ACID (07/02/2006 2:57 PM STEAM DRIER OPERATOR) LACTIC ACID 7.4(AA) 0.5 - 2.2 mmol/L INTERFACE SYSTEM Comment:Results called to tyler morfin at 07/02/2006 3:35 PM and read back verified. LACTIC ACID - SEPSIS INDICATOR Sepsis Potential: Potential candidate for Sepsis Protocol. INTERFACE SYSTEM 07/02/2006 2:57 PM STEAM DRIER OPERATOR Pepe Claire MD CHEMISTRY ORDERABLES Edit ed INTERFACE SYSTEM Refer to clinic/hospital department * (ABNORMAL) BLOOD GAS ARTERIAL (07/02/2006 2:57 PM STEAM DRIER OPERATOR) PH ARTERIAL 7.30(L) 7.35 - 7.45 INTERFACE SYSTEM PCO2 ARTERIAL 46 35 - 48 mm Hg INTERFACE SYSTEM PO2 ARTERIAL 84 83 - 108 mm Hg INTERFACE SYSTEM O2 SAT EST ARTERIAL 95 94 - 98 % INTERFACE SYSTEM HCO3 ARTERIAL 22 22 - 26 mmol/L INTERFACE SYSTEM BASE EXCESS ABG -4.3(L) -2.0 - 3.0 mmol/L INTERFACE SYSTEM Comment:Base Excess Estimate d; Assumes 15.0 g/dl Hemoglobin O2 CONC ARTERIAL 100% INTERFACE SYSTEM 07/02/2006 2:57 PM STEAM DRIER OPERATOR Pepe Claire MD ABG ORDERABLES Edited INTERFACE SYSTEM Refer to clinic/hospital department documented in this encounter Visit Diagnoses Diagnosis Acute myocardial infarction of other anterior wall, initial episode of care (CMS/[facility])- Primary Acute myocardial infarction of other anterior wall, initial episode of care documented in this encounter
--- OUTSIDE RECORDS SUMMARY | 2025-01-10 15:40 | XMS_ITS | Encounter Summary ---
Author Organization [employer] Address [address] [place] [address] Care Team Providers Care Film Processor Name Role Phone Unavailable Primary Care Provider Unavailabl e Encounter Details Date Type Department Care Team (Late st Contact Info) Description 07/05/2006 Outpatient Historical [facility] Support Serv. (Adt Cardiology-[facility]) [address] [place] [address] Damion Calderon MD [address] [place] [address] Social History Tobacco Use Types Packs/Day Years Used Date Smoking Tobacco: Never Assessed Comments Unknown Sex and Gender Information Value Date Recorded Sex Assigned at Not on file Legal Sex Female 2:40 AM TOBACCO CLASSER Gender Identity Not on file Sexual Orientation Not on file documented as of this encounter Plan of Treatment Not on file documented as of this encounter Visit Diagnoses Not on filedocumented in this encounter
--- OUTSIDE RECORDS SUMMARY | 2025-01-10 15:40 | XMS_ITS | Encounter Summary ---
Author Organization [facility] Address 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
--- OUTSIDE RECORDS SUMMARY | 2025-01-10 15:40 | XMS_ITS | Encounter Summary ---
Author Organization [facility] Address 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
[2025-01-10 16:11] LABS: Hematocrit 42.6 % (37.0-47.0); Hemoglobin 13.4 g/dL (12.0-15.0); Immature Granulocyte Percent A 0.4 % (0-0.5); Lymphocytes Absolute Auto 4.41 K/mm3 (0.9-3.2); Mean Corpuscular HGB Conc 31.5 g/dl (32-36); Mean Corpuscular Hemoglobin 30.0 pg (26-34); Mean Corpuscular Volume 95.3 fl (80-100); Nucleated Red Blood Cells Absolute Auto 0.000 K/mm3 (0.0-0.012); Nucleated Red Blood Cells Perc 0.0 % (0.0-0.2); Platelet Count Result 302 k/mm3 (150-375); Red Blood Count 4.47 M/mm3 (4.2-5.4); White Blood Count 15.2 K/mm3 (4.5-10.0)
[2025-01-10 16:24] LABS: INR 1.5; Prothrombin Time 17.8 Seconds (11.1-14.7)
[2025-01-10 16:25] LABS: Alanine Aminotransferase 29 U/L (6-35); Albumin Level 4.1 g/dL (3.5-5.1); Alkaline Phosphatase 113 U/L (38-126); Anion Gap 9 mmol/L (4-12); Aspartate Amino Transferase 70 U/L (14-36); Bilirubin,Total 0.5 mg/dL (0.2-1.3); Blood Urea Nitrogen 26 mg/dL (7-17); Calcium 9.7 mg/dL (8.4-10.2); Carbon Dioxide 28 mmol/L (22-30); Chloride 104 mmol/L (98-107); Creatine Kinase 1294 U/L (30-135); Estimated Glomerular Filt Rate 31; Glucose 125 mg/dL (65-110); Partial Thromboplastin Time 24.8 Seconds (22.3-36.8); Potassium 4.1 mmol/L (3.4-5.0); Sodium 141 mmol/L (137-145); Total Protein 7.9 g/dL (6.3-8.2)
[2025-01-10] MEDS: LACTATED RINGERS 1,000 ML 999 ML IV CONT (16:53)
[2025-01-10 17:57] VITALS: BP 155/68; PULSE 59; RESP 18; O2SAT 98
[2025-01-10] MEDS: HYDROcodone/acetaminophen (*CRX) 5-325 MG TABLET 1 TAB PO ×2 (18:12→23:54)
[2025-01-10 18:39] VITALS: BMI 28.8
--- NOTE | 2025-01-10 18:50 | PM.IMHP ---
H&P: HPI History of Present Illness Date/Time: 01/10/25 18:50 Chief Complaint: Right heel pain. Narrative: Seventy is 74 years old female with history of multiple medical problems admitted with complaint of having right heel pain going on for the last few days. Patient denies any injuries. Patient denies any falls. No shortness of breath or chest pain. No Abdominal pain, no nausea or vomiting. No fever or chills. ER evaluation showed possible rhabdomyolysis, possible cellulitis versus heel infection. Patient was started on medication transferred to floor for further evaluation treatment. Review of Systems Review of Systems: All systems reviewed & are unremarkable except as noted in HPI and below PMFSH Past Medical History Medical History Hyperlipidemia Systolic heart failure Cardiomyopathy Hypothyroidism COPD (chronic obstructive pulmonary disease) Surgical History Surgical History AICD (automatic cardioverter/defibrillator) present Family History Family History Mother Diabetes mellitus Kidney disease, chronic, end stage on dialysis Father Emphysema lung Social History Social History Smoking packs per day: 1.5 Smoking cigarettes per day: 30.0 Years smoked: 45 Smoking pack-years: 67.50 Smoking status: Former smoker Tobacco type: cigarettes Alcohol intake: never Substance use: never Do You Feel Safe in your Home?: Yes Lack of Transportation: No Lack of Food: Never True Current Housing: I Have Housing Concerned About Future Housing: No Difficulty Paying Gas/Electric Bills: No Difficulty Paying for Meds: No Currently Unemployed: No Education: Trade/Vocational Certificate Difficulty w/ Childcare or Family Care: No Spiritual care concerns: No Meds Home Medications and Allergies Home Medications ?Medication ?Instructions ?Recorded ?Confirmed ?Type albuterol sulfate 90 mcg/actuation 90 mcg inhalation DIRECTED 04/18/23 06/01/23 History aerosol inhaler amiodarone 200 mg tablet 200 mg PO BID 04/18/23 06/01/23 History clopidogrel 75 mg tablet 75 mg PO DAILY 04/18/23 06/01/23 History dapagliflozin propanediol 10 mg 5 mg PO DAILY 04/18/23 06/01/23 History tablet (Farxiga) escitalopram oxalate 20 mg tablet 20 mg PO DAILY 04/18/23 06/01/23 History levothyroxine 50 mcg tablet 50 mcg PO DAILY 04/18/23 06/04/23 History losartan 25 mg tablet 25 mg PO DAILY 04/18/23 06/01/23 History metoprolol tartrate 25 mg tablet 25 mg PO DAILY 04/18/23 06/01/23 History pantoprazole 40 mg tablet,delayed 40 mg PO DAILY 04/18/23 06/01/23 History release pravastatin 40 mg tablet 40 mg PO DAILY 04/18/23 06/01/23 History furosemide 20 mg tablet 20 mg PO BID #10 tabs 04/26/23 06/01/23 Rx nystatin 100,000 unit/mL oral 5 ml PO QID #100 mL 04/26/23 06/01/23 Rx suspension spironolactone 25 mg tablet 25 mg PO QAM #30 tabs 04/26/23 06/01/23 Rx doxepin 25 mg capsule 25 mg PO HS #5 caps 04/28/23 06/01/23 Rx melatonin 5 mg tablet 5 mg PO HS #5 tabs 04/28/23 06/01/23 Rx polyethylene glycol 3350 17 gram 17 g PO BID PRN Constipation 7 04/28/23 06/01/23 Rx oral powder packet (Miralax) days #14 ea Allergies Allergy/AdvReac Type Severity Reaction Status Date / Time LUCRETIA Inhibitors Allergy Swelling Verified 01/10/25 15:03 of Lip/Tongue/Throat Quinolones Allergy Swelling Verified 01/10/25 15:03 of Lip/Tongue/Throat latex AdvReac Unknown Unknown Verified 01/10/25 15:03 lisinopril AdvReac Unknown Unknown Verified 01/10/25 15:03 vancomycin AdvReac Unknown Unknown Verified 01/10/25 15:03 levofloxacin (From Levaquin) AdvReac Unknown Verified 01/10/25 15:03 Vital Signs Vital Signs - 24 hr 01/10/25 14:51 01/10/25 17:57 Temperature 36.4 C Pulse Rate 60 59 L Respiratory Rate 16 18 Blood Pressure 164/48 H 155/68 H Pulse Oximetry 98 98 Oxygen Delivery Room Air Exam Narrative: APPEARANCE: Well appearing, no pain, no distress, well-nourished. HEAD: normocephalic, atraumatic. EYES: PERRLA/EOMI, conjunctivae clear. NOSE: Normal no drainage EARS:TMS clear with good light reflex. THROAT: Pharynx clear, no exudate. NECK: Supple. No adenopathy, no masses. RESPIRATORY: Airway patent, respirations nonlabored. Clear to auscultation bilaterally, no rales, rhonchi, wheezing. CARDIOVASCULAR: Regular rate and rhythm without murmurs rubs or gallops. ABDOMINAL: Soft, nontender, nondistended, normal bowel sounds MUSCULOSKELETAL: Right calf for ankle and right foot tenderness to palpation, neurovascularly intact, erythema to bilateral feet NEURO: Alert. Cranial nerves II through XII intact. Grossly intact SKIN: Warm, dry. Normal Color H&P: Results Labs Labs: Short CBC 01/10/25 Range/Units 15:55 WBC 15.2 H (4.5-10.0) K/mm3 Hgb 13.4 (12.0-15.0) g/dL Hct 42.6 (37.0-47.0) % Plt Count 302 (150-375) k/mm3 BMP 01/10/25 15:55 Sodium 141 Potassium 4.1 Chloride 104 Carbon Dioxide 28 BUN 26 H Creatinine 1.60 H Glucose 125 H Calcium 9.7 Cardiac Enzymes 01/10/25 Range/Units 15:55 Total Creatine Kinase 1294 H (30-135) U/L Liver Function 01/10/25 Range/Units 15:55 Total Bilirubin 0.5 (0.2-1.3) mg/dL AST 70 H (14-36) U/L ALT 29 (6-35) U/L Alkaline Phosphatase 113 (38-126) U/L Albumin 4.1 (3.5-5.1) g/dL Assessment and Plan Assessment and plan (1) Systolic heart failure: Code(s): I50.20 - Unspecified systolic (congestive) heart failure Status: Chronic Assessment and Plan: Stable on current medications, will continue current treatment. (2) Hyperlipidemia: Code(s): E78.5 - Hyperlipidemia, unspecified Status: Chronic Assessment and Plan: Stable on current medication, will continue current treatment. (3) Hypothyroidism: Code(s): E03.9 - Hypothyroidism, unspecified Status: Chronic Assessment and Plan: Stable on current medication, will continue current treatment. (4) Rhabdomyolysis: Code(s): M62.82 - Rhabdomyolysis Status: Acute Assessment and Plan: Patient's CPK is high. Will give IV fluids and monitor closely. (5) Acute foot pain: Code(s): M79.673 - Pain in unspecified foot Status: Acute Assessment and Plan: Blood culture, IV antibiotics. Monitor CPK closely. DVT study negative. Plan Patient was admitted to [facility] will follow of as a full admission. Code status is full. DVT prophylaxis Lovenox. Patient care will be taken over by hospitalist service after admission. Quality VTE Prophylaxis VTE prophylaxis: pharmacologic ordered
--- NOTE | 2025-01-10 18:53 | ADMGEN ---
This patient, Bibiana Danielle, was admitted to [facility] Surg Room 323-02. Patient/family oriented to hospital policies and general routines including ID bracelet, bed and alarms, visiting hours, pain management, procedures, bathroom and other care routines, personal items, smoking policy, room service/diet, and visiting hours. Information on how to activate the Rapid Response Team has been discussed. Patient/Family are encouraged to report perceived risks to care and to ask questions if they do not understand what they are told or what they should do.
[2025-01-10] MEDS: cefTRIAXone 1 GM in SODIUM CHLORIDE 0.9% IV 50 ML 100 ML IVPB (20:03)
[2025-01-10] MEDS: LACTATED RINGERS 1,000 ML 125 ML IV CONT (20:04)
[2025-01-10 21:55] VITALS: BP 144/67; PULSE 61; RESP 20; TEMP 36.7; O2SAT 98
[2025-01-10] MEDS: CLINDAMYCIN 600 MG/D5W 50 ML 600 MG/50 ML PIGGYBACK 100 MG IVPB (22:01)
[2025-01-11] VITALS (7 sets, daily range): BP systolic 122–152; BP diastolic 52–72; PULSE 58–74; RESP 16–20; TEMP 36.6–37; O2SAT 91–98
[2025-01-11] MEDS: CLINDAMYCIN 600 MG/D5W 50 ML 600 MG/50 ML PIGGYBACK 100 MG IVPB ×3 (05:07→21:03)
[2025-01-11] MEDS: LEVOTHYROXINE SODIUM 75 MCG TABLET PO (05:16)
[2025-01-11] MEDS: LACTATED RINGERS 1,000 ML 125 ML IV CONT (05:20)
[2025-01-11 05:44] LABS: Hematocrit 40.7 % (37.0-47.0); Hemoglobin 12.4 g/dL (12.0-15.0); Mean Corpuscular HGB Conc 30.5 g/dl (32-36); Mean Corpuscular Hemoglobin 30.7 pg (26-34); Mean Corpuscular Volume 100.7 fl (80-100); Platelet Count Result 260 k/mm3 (150-375); Red Blood Count 4.04 M/mm3 (4.2-5.4); White Blood Count 10.3 K/mm3 (4.5-10.0)
[2025-01-11] MEDS: HYDROcodone/acetaminophen (*CRX) 5-325 MG TABLET 1 TAB PO ×2 (06:01→16:18)
[2025-01-11 06:02] LABS: Alanine Aminotransferase 23 U/L (6-35); Albumin Level 3.6 g/dL (3.5-5.1); Alkaline Phosphatase 103 U/L (38-126); Anion Gap 8 mmol/L (4-12); Aspartate Amino Transferase 54 U/L (14-36); Bilirubin,Total 0.4 mg/dL (0.2-1.3); Blood Urea Nitrogen 22 mg/dL (7-17); Calcium 9.3 mg/dL (8.4-10.2); Carbon Dioxide 24 mmol/L (22-30); Chloride 108 mmol/L (98-107); Creatine Kinase 919 U/L (30-135); Estimated Glomerular Filt Rate 41; Glucose 118 mg/dL (65-110); Potassium 4.0 mmol/L (3.4-5.0); Sodium 140 mmol/L (137-145); Total Protein 6.9 g/dL (6.3-8.2)
--- NOTE | 2025-01-11 07:24 | P.PNIM_ITS ---
Progress Note: A&P Assessment and Plan (1) Systolic heart failure: Code(s): I50.20 - Unspecified systolic (congestive) heart failure Status: Chronic Assessment and Plan: no signs of acute exacerbation monitor fluid status closely continue furosemide, spironolactone, metoprolol and Entresto (2) Hyperlipidemia: Code(s): E78.5 - Hyperlipidemia, unspecified Status: Chronic Assessment and Plan: continue pravastatin (3) Hypothyroidism: Code(s): E03.9 - Hypothyroidism, unspecified Status: Chronic Assessment and Plan: continue levothyroxine (4) Rhabdomyolysis: Code(s): M62.82 - Rhabdomyolysis Status: Acute Assessment and Plan: CK 1294 on admission CK today 919 continue IV fluids repeat CK level in AM (5) Acute foot pain: Code(s): M79.673 - Pain in unspecified foot Status: Acute Assessment and Plan: Imaging negative for fracture possibly due to cellulitis continue IV Rocephin and IV Clinda Orhopedic surgery consulted pain control Subjective Date/time seen: 01/11/25 07:24 Interval history: Patient is a 74 years old female with history PMH of HLD, chronic systolic heart failure, hypothyroidism and COPD. Patient admitted with complaint of having right heel pain going on for the last few days. Patient denies any injuries. Patient denies any falls. No shortness of breath or chest pain. No Abdominal pain, no nausea or vomiting. No fever or chills. ER evaluation showed possible rhabdomyolysis, possible cellulitis versus heel infection. Patient was started on medication transferred to floor for further evaluation treatmen Review of Systems Review of Systems: All systems reviewed & are unremarkable except as noted in HPI and below Exam Narrative: APPEARANCE: Well appearing, no pain, no distress, well-nourished. HEAD: normocephalic, atraumatic. EYES: PERRLA/EOMI, conjunctivae clear. NOSE: Normal no drainage EARS:TMS clear with good light reflex. THROAT: Pharynx clear, no exudate. NECK: Supple. No adenopathy, no masses. RESPIRATORY: Airway patent, respirations nonlabored. Clear to auscultation bilaterally, no rales, rhonchi, wheezing. CARDIOVASCULAR: Regular rate and rhythm without murmurs rubs or gallops. ABDOMINAL: Soft, nontender, nondistended, normal bowel sounds MUSCULOSKELETAL: Right calf for ankle and right foot tenderness to palpation, neurovascularly intact, erythema to bilateral feet NEURO: Alert. Cranial nerves II through XII intact. Grossly intact SKIN: Warm, dry. Normal Color Objective Data Vital Signs Vital Signs: Vital Signs - 24 hr 01/10/25 14:51 01/10/25 17:57 01/10/25 21:55 Temperature 97.6 F 98.0 F Pulse Rate 60 59 L 61 Respiratory Rate 16 18 20 Blood Pressure 164/48 H 155/68 H 144/67 H Pulse Oximetry 98 98 98 Oxygen Delivery Room Air 01/11/25 06:00 Temperature 98.6 F Pulse Rate 58 L Respiratory Rate 18 Blood Pressure 152/72 H Pulse Oximetry 98 Oxygen Delivery Intake/Output Intake/Output: Intake & Output 01/08/25 01/09/25 01/10/25 01/11/25 23:59 23:59 23:59 23:59 Intake Total 1050 1150 Output Total 350 Balance 1050 800 Meds/Results Medications: Active Medications Generic Name Dose Route Start Last Admin Trade Name Freq PRN Reason Stop Dose Admin Acetaminophen 325 mg 01/10/25 19:20 Acetaminophen 325 Mg Tablet PO Q4H PRN fever or pain 1-3 Hydrocodone Bitart/Acetaminophen 1 tab 01/10/25 17:49 01/11/25 06:01 Hydrocodone/Acetaminophen (*Crx) 5-325 Mg Tablet PO 1 tab Q4H PRN Administration Pain Rated 4-6 Amiodarone HCl 200 mg 01/11/25 09:00 Amiodarone Hcl 200 Mg Tablet PO BID [facility] Apixaban 5 mg 01/11/25 09:00 Apixaban 5 Mg Tablet PO BID [facility] Aspirin 81 mg 01/11/25 09:00 Aspirin 81 Mg Enteric Tablet PO DAILY [facility] Benzonatate 100 mg 01/10/25 19:20 Benzonatate 100 Mg Capsule PO DAILY PRN Cough Duloxetine HCl 30 mg 01/11/25 09:00 Duloxetine Hcl 30 Mg Capsule. PO DAILY [facility] Duloxetine HCl 60 mg 01/11/25 09:00 Duloxetine Hcl 60 Mg Capsule. PO DAILY [facility] Ergocalciferol 1,250 mcg 01/11/25 09:00 Ergocalciferol (Vitamin D2) 1,250 Mcg (50,000 Units) Capsule PO WEEKLY MARQUES Lactated Ringer's 1,000 mls @ 125 mls/hr 01/10/25 17:50 01/11/25 05:20 Lr - Lactated Ringers Iv IV CONT 125 mls/hr .Q8H MARQUES Administration Ceftriaxone Sodium 1 gm/ 50 mls @ 100 mls/hr 01/10/25 19:00 01/10/25 20:03 Sodium Chloride IVPB 100 mls/hr Q24H MARQUES Administration Clindamycin Phosphate 600 mg in 50 mls @ 100 mls/hr 01/10/25 20:00 01/11/25 05:07 Clindamycin 600 Mg/D5w 50 Ml IVPB 100 mls/hr Q8HR MARQUES Administration Levothyroxine Sodium 75 mcg 01/11/25 06:30 01/11/25 05:16 Levothyroxine Sodium 75 Mcg Tablet PO 75 mcg DAILY@0630 MARQUES Administration Melatonin 3 mg 01/10/25 19:20 Melatonin 3 Mg Tablet PO HS PRN Sleep Metoprolol Tartrate 25 mg 01/11/25 09:00 Metoprolol Tartrate 25 Mg Tablet PO Q12HR [facility] Miconazole Nitrate 1 applic 01/11/25 09:00 Miconazole Nitrate 2% Cream 30 Gm Tube TOPICAL BID [facility] Mirtazapine 15 mg 01/11/25 09:00 Mirtazapine 15 Mg Tablet PO DAILY [facility] Miscellaneous Information 0 each 01/10/25 00:01 Miconazole (Sub For Clotrimazole) Add Site Of Use XX 02/09/25 00:00 CLARIFY [facility] Ondansetron HCl 4 mg 01/10/25 19:20 Ondansetron Hcl Odt 4 Mg Tablet PO Q6H PRN Nausea And Vomiting Polyethylene Glycol 17 gm 01/10/25 19:20 Polyethylene Glycol 3350 17 Gm Powd.Pack PO DAILY PRN Constipation Pravastatin Sodium 40 mg 01/11/25 09:00 Pravastatin Sodium 20 Mg Tablet PO DAILY [facility] Sacubitril/Valsartan 1 tab 01/11/25 09:00 Sacubitril/Valsartan 24-26 Mg Tablet PO Q12HR [facility] Fluticasone/Salmeterol 2 puff 01/11/25 08:00 Fluticasone/Salmeterol 45-21 Mcg Inhaler 1 Puff INHALATION Q12HRT [facility] Spironolactone 25 mg 01/11/25 09:00 Spironolactone 25 Mg Tablet PO QAM [facility] Umeclidinium [place] 1 puff 01/10/25 08:00 Umeclidinium [place] 62.5 Mcg Ellipta INHALATION DAILYRT [facility] Radiology Results: ITS Impressions Venous Doppler Study 01/10/25 15:43 Impression: Negative for DVT. Ankle X-Ray 01/10/25 17:21 Impression: No acute fracture or malalignment. Tibia/Fibula X-Ray 01/10/25 17:21 Impression: No acute fracture or malalignment. Foot X-Ray 01/10/25 17:22 Impression: Nondisplaced calcaneal fracture. CT recommended Foot CT 01/10/25 18:03 IMPRESSION: No acute fracture Labs Labs: Laboratory Results - last 24 hr 01/10/25 01/11/25 15:55 05:21 WBC 15.2 H 10.3 H RBC 4.47 4.04 L Hgb 13.4 12.4 Hct 42.6 40.7 MCV 95.3 100.7 H D MCH 30.0 30.7 MCHC 31.5 L 30.5 L RDW 14.5 14.6 H Plt Count 302 260 MPV 9.8 9.9 Immature Gran % (Auto) 0.4 Neut % (Auto) 56.1 Lymph % (Auto) 29.1 [place] % (Auto) 10.5 H Eos % (Auto) 3.2 Baso % (Auto) 0.7 Lymph # (Auto) 4.41 H [place] # (Auto) 1.6 H Eos # (Auto) 0.5 H Baso # (Auto) 0.1 Abs Immat Gran (auto) 0.06 H Absolute Neuts (auto) 8.5 H Absolute Nucleated RBC 0.000 Nucleated RBC % 0.0 PT 17.8 H INR 1.5 APTT 24.8 Sodium 141 140 Potassium 4.1 4.0 Chloride 104 108 H Carbon Dioxide 28 24 Anion Gap 9 8 BUN 26 H 22 H Creatinine 1.60 H 1.27 H Estim Creat Clear Calc Not Reportable Not Reportable Estimated GFR 31 L 41 L Glucose 125 H 118 H Calcium 9.7 9.3 Total Bilirubin 0.5 0.4 AST 70 H 54 H ALT 29 23 Alkaline Phosphatase 113 103 Total Creatine Kinase 1294 H 919 H Total Protein 7.9 6.9 Albumin 4.1 3.6 Quality VTE Prophylaxis VTE prophylaxis: pharmacologic ordered
[2025-01-11] MEDS: UMECLIDINIUM BROMIDE 62.5 MCG ELLIPTA 1 PUFF INHALATION (09:01)
[2025-01-11] MEDS: SACUBITRIL/VALSARTAN 24-26 MG TABLET 1 TAB PO ×2 (09:02→21:07)
[2025-01-11] MEDS: PRAVASTATIN SODIUM 20 MG TABLET 40 MG PO (09:02)
[2025-01-11] MEDS: ERGOCALCIFEROL (VITAMIN D2) 1,250 MCG (50,000 UNITS) CAPSULE 1250 MCG PO (09:02)
[2025-01-11] MEDS: SPIRONOLACTONE 25 MG TABLET PO (09:03)
[2025-01-11] MEDS: DULoxetine HCL 60 MG CAPSULE.DR PO (09:03)
[2025-01-11] MEDS: APIXABAN 5 MG TABLET PO ×2 (09:03→16:07)
[2025-01-11] MEDS: METOPROLOL TARTRATE 25 MG TABLET PO ×2 (09:03→21:07)
[2025-01-11] MEDS: MIRTAZAPINE 15 MG TABLET PO (09:03)
[2025-01-11] MEDS: AMIODARONE HCL 200 MG TABLET PO ×2 (09:03→16:07)
[2025-01-11] MEDS: ASPIRIN 81 MG ENTERIC TABLET PO (09:03)
[2025-01-11] MEDS: MICONAZOLE NITRATE 2% CREAM 30 GM TUBE 1 APPLIC TOPICAL ×2 (09:05→16:09)
[2025-01-11] MEDS: LACTATED RINGERS 1,000 ML 100 ML IV CONT (14:56)
[2025-01-11] MEDS: cefTRIAXone 1 GM in SODIUM CHLORIDE 0.9% IV 50 ML 100 ML IVPB (18:21)
[2025-01-11] MEDS: cefTRIAXone 1 GM VIAL (18:38)
[2025-01-11] MEDS: MELATONIN 3 MG TABLET PO (21:08)
[2025-01-12] VITALS (8 sets, daily range): BP systolic 110–140; BP diastolic 60–72; PULSE 58–60; RESP 13–20; TEMP 36.4–36.6; O2SAT 92–95
[2025-01-12] MEDS: HYDROcodone/acetaminophen (*CRX) 5-325 MG TABLET 1 TAB PO ×3 (05:04→20:33)
[2025-01-12] MEDS: LEVOTHYROXINE SODIUM 75 MCG TABLET PO (05:05)
[2025-01-12] MEDS: LACTATED RINGERS 1,000 ML 100 ML IV CONT ×2 (05:05→17:31)
[2025-01-12] MEDS: CLINDAMYCIN 600 MG/D5W 50 ML 600 MG/50 ML PIGGYBACK 100 MG IVPB ×3 (05:06→20:37)
[2025-01-12 05:59] LABS: Hematocrit 36.0 % (37.0-47.0); Hemoglobin 11.2 g/dL (12.0-15.0); Immature Granulocyte Percent A 0.3 % (0-0.5); Lymphocytes Absolute Auto 3.45 K/mm3 (0.9-3.2); Mean Corpuscular HGB Conc 31.1 g/dl (32-36); Mean Corpuscular Hemoglobin 30.2 pg (26-34); Mean Corpuscular Volume 97.0 fl (80-100); Nucleated Red Blood Cells Absolute Auto 0.000 K/mm3 (0.0-0.012); Nucleated Red Blood Cells Perc 0.0 % (0.0-0.2); Platelet Count Result 248 k/mm3 (150-375); Red Blood Count 3.71 M/mm3 (4.2-5.4); White Blood Count 10.9 K/mm3 (4.5-10.0)
[2025-01-12 06:29] LABS: Alanine Aminotransferase 21 U/L (6-35); Albumin Level 3.3 g/dL (3.5-5.1); Alkaline Phosphatase 88 U/L (38-126); Anion Gap 5 mmol/L (4-12); Aspartate Amino Transferase 63 U/L (14-36); Bilirubin,Total 0.3 mg/dL (0.2-1.3); Blood Urea Nitrogen 17 mg/dL (7-17); Calcium 9.2 mg/dL (8.4-10.2); Carbon Dioxide 29 mmol/L (22-30); Chloride 103 mmol/L (98-107); Creatine Kinase 1108 U/L (30-135); Estimated Glomerular Filt Rate 53; Glucose 142 mg/dL (65-110); Potassium 4.1 mmol/L (3.4-5.0); Sodium 137 mmol/L (137-145); Total Protein 6.5 g/dL (6.3-8.2)
--- NOTE | 2025-01-12 07:45 | P.PNIM_ITS ---
Progress Note: A&P Assessment and Plan (1) Systolic heart failure: Code(s): I50.20 - Unspecified systolic (congestive) heart failure Status: Chronic Assessment and Plan: no signs of acute exacerbation monitor fluid status closely continue furosemide, spironolactone, metoprolol and Entresto (2) Hyperlipidemia: Code(s): E78.5 - Hyperlipidemia, unspecified Status: Chronic Assessment and Plan: continue pravastatin (3) Hypothyroidism: Code(s): E03.9 - Hypothyroidism, unspecified Status: Chronic Assessment and Plan: continue levothyroxine (4) Rhabdomyolysis: Code(s): M62.82 - Rhabdomyolysis Status: Acute Assessment and Plan: CK 1294 on admission CK today increased to 1108 continue IV fluids at same rate due to known history of heart failure repeat CK level in AM (5) Acute foot pain: Code(s): M79.673 - Pain in unspecified foot Status: Acute Assessment and Plan: Imaging negative for fracture possibly due to cellulitis continue IV Rocephin and IV Clinda Orthopedic surgery consulted to remove cast to RLE since fracture ruled out pain control (6) Cellulitis: Code(s): L03.90 - Cellulitis, unspecified Status: Acute Assessment and Plan: possible o right foot per ED note unable to assess now that cast is covering RLE ortho consulted to remove cast now that fx has been ruled out continue IV rocephin and IV clinda WBC improving AM labs Subjective Date/time seen: 01/12/25 07:45 Interval history: Patient is a 74 years old female with history PMH of HLD, chronic systolic heart failure, hypothyroidism and COPD. Patient admitted with complaint of having right heel pain going on for the last few days. Patient denies any injuries. Patient denies any falls. No shortness of breath or chest pain. No Abdominal pain, no nausea or vomiting. No fever or chills. ER evaluation showed possible rhabdomyolysis, possible cellulitis versus heel infection. Patient was started on medication transferred to floor for further evaluation treatment Patient seen and examined for follow up. Patient seen in her room, lying in bed, in no acute distress. Patient reports pain in her right foot. Right lower extremity is in a cast currently. Orthopedic surgery will be consulted per ED report. Patient continues on IV fluids and IV antibiotics. Patient's wbc improved but still slightly elevated. Patients CK level increased today. We will continue IV fluids at the same rate due to patient's known history of heart failure. Repeat labs ordered for AM. Review of Systems Review of Systems: All systems reviewed & are unremarkable except as noted in HPI and below Exam Narrative: APPEARANCE: Well appearing, no pain, no distress, well-nourished. HEAD: normocephalic, atraumatic. EYES: PERRLA/EOMI, conjunctivae clear. NOSE: Normal no drainage EARS:TMS clear with good light reflex. THROAT: Pharynx clear, no exudate. NECK: Supple. No adenopathy, no masses. RESPIRATORY: Airway patent, respirations nonlabored. Clear to auscultation bilaterally, no rales, rhonchi, wheezing. CARDIOVASCULAR: Regular rate and rhythm without murmurs rubs or gallops. ABDOMINAL: Soft, nontender, nondistended, normal bowel sounds MUSCULOSKELETAL: Right calf for ankle and right foot tenderness to palpation, neurovascularly intact, erythema to bilateral feet NEURO: Alert. Cranial nerves II through XII intact. Grossly intact SKIN: Warm, dry. Normal Color Objective Data Vital Signs Vital Signs: Vital Signs - 24 hr 01/11/25 09:03 01/11/25 09:03 01/11/25 09:05 Temperature Pulse Rate 60 60 Respiratory Rate 20 Blood Pressure Pulse Oximetry 91 Oxygen Delivery Room Air 01/11/25 09:07 01/11/25 09:07 01/11/25 14:00 Temperature 97.9 F Pulse Rate 74 74 62 Respiratory Rate 20 20 16 Blood Pressure 122/52 L Pulse Oximetry 91 95 Oxygen Delivery Room Air 01/11/25 20:00 01/11/25 21:15 01/12/25 06:00 Temperature 97.9 F 97.6 F Pulse Rate 63 63 59 L Respiratory Rate 16 16 13 Blood Pressure 148/53 H 140/71 Pulse Oximetry 96 96 92 Oxygen Delivery Room Air Intake/Output Intake/Output: Intake & Output 01/09/25 01/10/25 01/11/25 01/12/25 23:59 23:59 23:59 23:59 Intake Total 1100 3650 960 Output Total 1800 1750 Balance 1100 1850 -790 Meds/Results Medications: Active Medications Generic Name Dose Route Start Last Admin Trade Name Freq PRN Reason Stop Dose Admin Acetaminophen 325 mg 01/10/25 19:20 Acetaminophen 325 Mg Tablet PO Q4H PRN fever or pain 1-3 Hydrocodone Bitart/Acetaminophen 1 tab 01/10/25 17:49 01/12/25 05:04 Hydrocodone/Acetaminophen (*Crx) 5-325 Mg Tablet PO 1 tab Q4H PRN Administration Pain Rated 4-6 Amiodarone HCl 200 mg 01/11/25 09:00 01/11/25 16:07 Amiodarone Hcl 200 Mg Tablet PO 200 mg BID MARQUES Administration Apixaban 5 mg 01/11/25 09:00 01/11/25 16:07 Apixaban 5 Mg Tablet PO 5 mg BID MARQUES Administration Aspirin 81 mg 01/11/25 09:00 01/11/25 09:03 Aspirin 81 Mg Enteric Tablet PO 81 mg DAILY MARQUES Administration Benzonatate 100 mg 01/10/25 19:20 Benzonatate 100 Mg Capsule PO DAILY PRN Cough Duloxetine HCl 30 mg 01/11/25 09:00 01/11/25 09:03 Duloxetine Hcl 30 Mg Capsule. PO 30 mg DAILY MARUQES Administration Duloxetine HCl 60 mg 01/11/25 09:00 01/11/25 09:03 Duloxetine Hcl 60 Mg Capsule. PO 60 mg DAILY MARQUES Administration Ergocalciferol 1,250 mcg 01/11/25 09:00 01/11/25 09:02 Ergocalciferol (Vitamin D2) 1,250 Mcg (50,000 Units) Capsule PO 1,250 mcg WEEKLY MARQUES Administration Lactated Ringer's 1,000 mls @ 100 mls/hr 01/10/25 17:50 01/12/25 05:14 Lr - Lactated Ringers Iv IV CONT Not Given .Q10H MARQUES Ceftriaxone Sodium 1 gm/ 50 mls @ 100 mls/hr 01/10/25 19:00 01/11/25 18:51 Sodium Chloride IVPB Infused Q24H MARQUES Infusion Clindamycin Phosphate 600 mg in 50 mls @ 100 mls/hr 01/10/25 20:00 01/12/25 05:06 Clindamycin 600 Mg/D5w 50 Ml IVPB 100 mls/hr Q8HR MARQUES Administration Levothyroxine Sodium 75 mcg 01/11/25 06:30 01/12/25 05:05 Levothyroxine Sodium 75 Mcg Tablet PO 75 mcg DAILY@0630 MARQUES Administration Melatonin 3 mg 01/10/25 19:20 01/11/25 21:08 Melatonin 3 Mg Tablet PO 3 mg HS PRN Administration Sleep Metoprolol Tartrate 25 mg 01/11/25 09:00 01/11/25 21:07 Metoprolol Tartrate 25 Mg Tablet PO 25 mg Q12HR MARQUES Administration Miconazole Nitrate 1 applic 01/11/25 09:00 01/11/25 16:09 Miconazole Nitrate 2% Cream 30 Gm Tube TOPICAL 1 applic BID MARQUES Administration Mirtazapine 15 mg 01/11/25 09:00 01/11/25 09:03 Mirtazapine 15 Mg Tablet PO 15 mg DAILY MARQUES Administration Miscellaneous Information 0 each 01/10/25 00:01 01/11/25 11:11 Miconazole (Sub For Clotrimazole) Add Site Of Use XX 02/09/25 00:00 Not Given CLARIFY MARQUES Ondansetron HCl 4 mg 01/10/25 19:20 Ondansetron Hcl Odt 4 Mg Tablet PO Q6H PRN Nausea And Vomiting Polyethylene Glycol 17 gm 01/10/25 19:20 Polyethylene Glycol 3350 17 Gm Powd.Pack PO DAILY PRN Constipation Pravastatin Sodium 40 mg 01/11/25 09:00 01/11/25 09:02 Pravastatin Sodium 20 Mg Tablet PO 40 mg DAILY [facility] Administration Sacubitril/Valsartan 1 tab 01/11/25 09:00 01/11/25 21:07 Sacubitril/Valsartan 24-26 Mg Tablet PO 1 tab Q12HR [facility] Administration Fluticasone/Salmeterol 2 puff 01/11/25 08:00 01/11/25 21:20 Fluticasone/Salmeterol 45-21 Mcg Inhaler 1 Puff INHALATION Not Given Q12HRT [facility] Spironolactone 25 mg 01/11/25 09:00 01/11/25 09:03 Spironolactone 25 Mg Tablet PO 25 mg QAM [facility] Administration Umeclidinium [place] 1 puff 01/10/25 08:00 01/11/25 11:11 Umeclidinium [place] 62.5 Mcg Ellipta INHALATION Not Given DAILYRT [facility] Radiology Results: ITS Impressions Venous Doppler Study 01/10/25 15:43 Impression: Negative for DVT. Ankle X-Ray 01/10/25 17:21 Impression: No acute fracture or malalignment. Tibia/Fibula X-Ray 01/10/25 17:21 Impression: No acute fracture or malalignment. Foot X-Ray 01/10/25 17:22 Impression: Nondisplaced calcaneal fracture. CT recommended Foot CT 01/10/25 18:03 IMPRESSION: No acute fracture Labs Labs: Laboratory Results - last 24 hr 01/12/25 05:46 WBC 10.9 H RBC 3.71 L Hgb 11.2 L Hct 36.0 L MCV 97.0 MCH 30.2 MCHC 31.1 L RDW 14.5 Plt Count 248 MPV 10.0 Immature Gran % (Auto) 0.3 Neut % (Auto) 52.1 Lymph % (Auto) 31.7 [place] % (Auto) 9.7 H Eos % (Auto) 5.6 H Baso % (Auto) 0.6 Lymph # (Auto) 3.45 H [place] # (Auto) 1.1 H Eos # (Auto) 0.6 H Baso # (Auto) 0.1 Abs Immat Gran (auto) 0.03 Absolute Neuts (auto) 5.7 Absolute Nucleated RBC 0.000 Nucleated RBC % 0.0 Sodium 137 Potassium 4.1 Chloride 103 Carbon Dioxide 29 Anion Gap 5 BUN 17 Creatinine 1.02 H Estim Creat Clear Calc Not Reportable Estimated GFR 53 L Glucose 142 H Calcium 9.2 Total Bilirubin 0.3 AST 63 H ALT 21 Alkaline Phosphatase 88 Total Creatine Kinase 1108 H Total Protein 6.5 Albumin 3.3 L Quality VTE Prophylaxis VTE prophylaxis: pharmacologic ordered
--- NOTE | 2025-01-12 08:31 | P.CDI_ITS ---
CDI Query Clarification Request 1) Please clarify type of rhabdomyolysis if known: ? Traumatic or muscle compression (e.g., crush syndrome or prolonged immobilization) ? Non-traumatic exertional (e.g., marked exertion in untrained individuals, hyperthermia, or metabolic myopathies) ? Non-traumatic no exertional (e.g., drugs or toxins, infections, or electrolyte disorders) 2) Please clarify if cellulitis has been ruled in or ruled out. 74-year-old female presented emergency department for evaluation for right leg pain. Patient reports over last 24 hours she has had worsening right leg pain. MUSCULOSKELETAL: Right calf for ankle and right foot tenderness to palpation, neurovascularly intact, erythema to bilateral feet ER documented: 74-year-old female presents emergency department for evaluation for right foot pain. X-ray does show concern for a calcaneal fracture. CT scan was ordered. Patient also does have a significantly elevated CPK and elevated creatinine. Ultrasound was negative for DVT. Patient will be admitted for IV fluids for rhabdomyolysis, orthopedic was consulted. And patient was admitted to the hospitalist. Assessment and Plan (1) Systolic heart failure: Code(s): I50.20 - Unspecified systolic (congestive) heart failure Status: Chronic Assessment and Plan: no signs of acute exacerbation monitor fluid status closely continue furosemide, spironolactone, metoprolol and Entresto (2) Hyperlipidemia: Code(s): E78.5 - Hyperlipidemia, unspecified Status: Chronic Assessment and Plan: continue pravastatin (3) Hypothyroidism: Code(s): E03.9 - Hypothyroidism, unspecified Status: Chronic Assessment and Plan: continue levothyroxine (4) Rhabdomyolysis: Code(s): M62.82 - Rhabdomyolysis Status: Acute Assessment and Plan: CK 1294 on admission CK today 919 continue IV fluids repeat CK level in AM (5) Acute foot pain: Code(s): M79.673 - Pain in unspecified foot Status: Acute Assessment and Plan: Imaging negative for fracture possibly due to cellulitis continue IV Rocephin and IV Clinda Orhopedic surgery consulted pain control <Rhiannon Dsouza RN - Last Filed: 01/12/25 08:36> Clarified Diagnosis Clarified Diagnosis: Type of rhabdo unknown Cellulitis not ruled out at this time. <Roseanna Espinoza, IT PROJECT MANAGER - Last Filed: 01/12/25 14:32>
[2025-01-12] MEDS: METOPROLOL TARTRATE 25 MG TABLET PO ×2 (09:28→20:36)
[2025-01-12] MEDS: AMIODARONE HCL 200 MG TABLET PO ×2 (09:29→17:28)
[2025-01-12] MEDS: SACUBITRIL/VALSARTAN 24-26 MG TABLET 1 TAB PO ×2 (09:31→20:36)
[2025-01-12] MEDS: APIXABAN 5 MG TABLET PO ×2 (09:31→17:28)
[2025-01-12] MEDS: SPIRONOLACTONE 25 MG TABLET PO (09:32)
[2025-01-12] MEDS: MICONAZOLE NITRATE 2% CREAM 30 GM TUBE 1 APPLIC TOPICAL ×2 (09:33→17:30)
[2025-01-12] MEDS: cefTRIAXone 1 GM in SODIUM CHLORIDE 0.9% IV 50 ML 100 ML IVPB (18:48)
[2025-01-12] MEDS: FLUTICASONE/SALMETEROL 45-21 MCG INHALER 1 PUFF 2 PUFF INHALATION (19:49)
[2025-01-12] MEDS: MELATONIN 3 MG TABLET PO (20:36)
[2025-01-13] VITALS (8 sets, daily range): BP systolic 113–138; BP diastolic 51–55; PULSE 51–64; RESP 14–16; TEMP 36.7–36.9; O2SAT 93–97
[2025-01-13] MEDS: HYDROcodone/acetaminophen (*CRX) 5-325 MG TABLET 1 TAB PO ×3 (04:12→20:16)
[2025-01-13] MEDS: CLINDAMYCIN 600 MG/D5W 50 ML 600 MG/50 ML PIGGYBACK 100 MG IVPB (06:17)
[2025-01-13] MEDS: LACTATED RINGERS 1,000 ML 100 ML IV CONT (06:20)
[2025-01-13] MEDS: LEVOTHYROXINE SODIUM 75 MCG TABLET PO (06:20)
[2025-01-13 06:55] LABS: Hematocrit 35.5 % (37.0-47.0); Hemoglobin 11.3 g/dL (12.0-15.0); Immature Granulocyte Percent A 0.3 % (0-0.5); Lymphocytes Absolute Auto 2.91 K/mm3 (0.9-3.2); Mean Corpuscular HGB Conc 31.8 g/dl (32-36); Mean Corpuscular Hemoglobin 30.6 pg (26-34); Mean Corpuscular Volume 96.2 fl (80-100); Nucleated Red Blood Cells Absolute Auto 0.000 K/mm3 (0.0-0.012); Nucleated Red Blood Cells Perc 0.0 % (0.0-0.2); Platelet Count Result 230 k/mm3 (150-375); Red Blood Count 3.69 M/mm3 (4.2-5.4); White Blood Count 10.8 K/mm3 (4.5-10.0)
[2025-01-13 07:11] LABS: Alanine Aminotransferase 20 U/L (6-35); Albumin Level 3.2 g/dL (3.5-5.1); Alkaline Phosphatase 89 U/L (38-126); Anion Gap 5 mmol/L (4-12); Aspartate Amino Transferase 55 U/L (14-36); Bilirubin,Total 0.3 mg/dL (0.2-1.3); Blood Urea Nitrogen 15 mg/dL (7-17); Calcium 8.8 mg/dL (8.4-10.2); Carbon Dioxide 27 mmol/L (22-30); Chloride 103 mmol/L (98-107); Creatine Kinase 858 U/L (30-135); Estimated Glomerular Filt Rate 55; Glucose 118 mg/dL (65-110); Potassium 4.1 mmol/L (3.4-5.0); Sodium 135 mmol/L (137-145); Total Protein 6.3 g/dL (6.3-8.2)
--- NOTE | 2025-01-13 08:56 | PM.CNOR ---
Assessment and Plan Assessment and plan (1) Cellulitis: Code(s): L03.90 - Cellulitis, unspecified Status: Acute Assessment and Plan: 74 yr old female with Righ Leg and Foot Pain. No Fractures by CT and Xray More than likely cellulitis Continue Ceftriaxone, follow clinically with CBC, ESR and CRP Plan 74 yr old female with Right Leg Pain. No fracture by CT and xray, possible cellulitis. WBC decreasing since admission. ESR 65 and CRP 4.8 today Currently on Ceftriaxone. Recommend following clinically for Cellulitis with daily WBC, CRP and ESR History of Present Illness HPI Consult date: 01/13/25 Chief complaint: Right Foot and Ankle Pain Narrative: 74 yr old female presented to the ED with Right Foot and Leg Pain. No history of trauma. Patient reports that she lives alone at home in [place]. Beyond this information, she is a poor historian and refuses to answer other questions regarding her Right Leg Pain. [facility] Past Medical History Medical History Hyperlipidemia Systolic heart failure Cardiomyopathy Hypothyroidism COPD (chronic obstructive pulmonary disease) Surgical History Surgical History AICD (automatic cardioverter/defibrillator) present Family History Family History Mother Diabetes mellitus Kidney disease, chronic, end stage on dialysis Father Emphysema lung Social History Social History Smoking packs per day: 1.5 Smoking cigarettes per day: 30.0 Years smoked: 45 Smoking pack-years: 67.50 Smoking status: Former smoker Alcohol intake: never Substance use: never Do You Feel Safe in your Home?: Yes Lack of Transportation: No Lack of Food: Never True Current Housing: I Have Housing Concerned About Future Housing: No Difficulty Paying Gas/Electric Bills: No Difficulty Paying for Meds: No Currently Unemployed: No Education: Trade/Vocational Certificate Difficulty w/ Childcare or Family Care: No Spiritual care concerns: No Meds Home Medications and Allergies Home Medications ?Medication ?Instructions ?Recorded ?Confirmed ?Type albuterol sulfate 90 mcg/actuation 90 mcg inhalation DIRECTED 04/18/23 01/10/25 History aerosol inhaler Held on 01/10/25. Instructions: Patient no longer taking amiodarone 200 mg tablet 200 mg PO BID 04/18/23 01/10/25 History clopidogrel 75 mg tablet 75 mg PO DAILY 04/18/23 01/10/25 History Held on 01/10/25. Instructions: Patient no longer taking dapagliflozin propanediol 10 mg 5 mg PO DAILY 04/18/23 01/10/25 History tablet (Farxiga) Held on 01/10/25. Instructions: Patient no longer taking escitalopram oxalate 20 mg tablet 20 mg PO DAILY 04/18/23 01/10/25 History Held on 01/10/25. Instructions: Patient no longer taking levothyroxine 50 mcg tablet 50 mcg PO DAILY 04/18/23 01/10/25 History Held on 01/10/25. Instructions: Patient no longer taking losartan 25 mg tablet 25 mg PO DAILY 04/18/23 01/10/25 History Held on 01/10/25. Instructions: Patient no longer taking metoprolol tartrate 25 mg tablet 25 mg PO BID 04/18/23 01/10/25 History pantoprazole 40 mg tablet,delayed 40 mg PO DAILY 04/18/23 01/10/25 History release Held on 01/10/25. Instructions: Patient no longer taking pravastatin 40 mg tablet 40 mg PO DAILY 04/18/23 01/10/25 History nystatin 100,000 unit/mL oral 5 ml PO QID #100 mL 04/26/23 01/10/25 Rx suspension Held on 01/10/25. Instructions: Patient no longer taking spironolactone 25 mg tablet 25 mg PO QAM #30 tabs 04/26/23 01/10/25 Rx doxepin 25 mg capsule 25 mg PO HS #5 caps 04/28/23 01/10/25 Rx Held on 01/10/25. Instructions: Patient no longer taking acetaminophen 325 mg capsule 325 mg PO Q4H PRN fever or pain 01/10/25 01/10/25 History acetaminophen 325 mg tablet 650 mg PO Q6H PRN pain 01/10/25 01/10/25 History (Tylenol) apixaban 5 mg tablet (Eliquis) 5 mg PO BID 01/10/25 01/10/25 History aspirin 81 mg tablet,delayed 81 mg PO DAILY 01/10/25 01/10/25 History release (Adult Aspirin Regimen) benzonatate 100 mg capsule 100 mg PO DAILY PRN cough 01/10/25 01/10/25 History bisacodyl 10 mg rectal suppository 10 mg RECTAL DAILY PRN constipation 01/10/25 01/10/25 History bisacodyl 5 mg tablet,delayed 5 mg PO DAILY PRN constipation 01/10/25 01/10/25 History release budesonide-formoterol HFA 80 1 puff inhalation BID 01/10/25 01/10/25 History mcg-4.5 mcg/actuation aerosol inhaler clotrimazole 1 % topical ointment 1 applic topical BID 01/10/25 01/10/25 History (Alevazol) duloxetine 30 mg capsule,delayed 30 mg PO DAILY 01/10/25 01/10/25 History release duloxetine 60 mg capsule,delayed 60 mg PO DAILY 01/10/25 01/10/25 History release ergocalciferol (vitamin D2) 1,250 50,000 unit PO WEEKLY 01/10/25 01/10/25 History mcg (50,000 unit) capsule furosemide 20 mg tablet 20 mg PO DAILY 01/10/25 01/10/25 History ibuprofen 200 mg tablet 400 mg PO Q8H PRN fever or pain 01/10/25 01/10/25 History levothyroxine 75 mcg tablet 75 mcg PO DAILY 01/10/25 01/10/25 History (Synthroid) melatonin 5 mg tablet 3 mg PO HS PRN sleep 01/10/25 01/10/25 History mirtazapine 15 mg tablet 15 mg PO DAILY 01/10/25 01/10/25 History naloxone 4 mg/actuation nasal 4 mg intranasal Q2M PRN opioid 01/10/25 01/10/25 History spray (Narcan) overdose ondansetron 4 mg disintegrating 4 mg PO Q6H PRN nausea and vomiting 01/10/25 01/10/25 History tablet polyethylene glycol 3350 17 gram 17 g PO DAILY PRN Constipation 01/10/25 01/10/25 History oral powder packet (Miralax) sacubitril 24 mg-valsartan 26 mg 1 tablet PO BID 01/10/25 01/10/25 History tablet umeclidinium 62.5 mcg/actuation 1 inh inhalation Q24H 01/10/25 01/10/25 History blister powder for inhalation (Incruse Ellipta) Allergies Allergy/AdvReac Type Severity Reaction Status Date / Time LUCRETIA Inhibitors Allergy Swelling Verified 01/10/25 15:03 of Lip/Tongue/Throat Quinolones Allergy Swelling Verified 01/10/25 15:03 of Lip/Tongue/Throat latex AdvReac Unknown Unknown Verified 01/10/25 15:03 lisinopril AdvReac Unknown Unknown Verified 01/10/25 15:03 vancomycin AdvReac Unknown Unknown Verified 01/10/25 15:03 levofloxacin (From Levaquin) AdvReac Unknown Verified 01/10/25 15:03 Vital Signs Vital Signs - 24 hr 01/12/25 09:28 01/12/25 09:29 01/12/25 14:00 Temperature 36.6 C Pulse Rate 60 60 60 Respiratory Rate 18 Blood Pressure 118/72 Pulse Oximetry 93 Oxygen Delivery Fraction of Inspired Oxygen 01/12/25 17:28 01/12/25 19:49 01/12/25 19:52 Temperature Pulse Rate 58 L 58 L 58 L Respiratory Rate 20 20 Blood Pressure Pulse Oximetry 92 Oxygen Delivery Room Air Fraction of Inspired Oxygen 21 01/12/25 19:57 01/12/25 20:00 01/13/25 04:28 Temperature 36.6 C 36.7 C Pulse Rate 60 64 Respiratory Rate 16 16 Blood Pressure 110/60 113/52 L Pulse Oximetry 95 95 Oxygen Delivery Room Air Fraction of Inspired Oxygen Exam Narrative: Right Lower Extremity short leg splint removed. Patient was very apprehensive with any suggestion of touching her Right Foot and Leg. With the help of the nurse, we were able to remove the splint to examine her leg. No open wounds. Physical exam on palpation was very difficult to interpret due to her apprehension. Moderate warmth to the touch of the leg and foot. I was able to doppler DP and PT pulse. Results Labs 01/13/25 06:21 01/13/25 06:21 Labs: Abnormal lab results 01/13/25 Range/Units 06:21 WBC 10.8 H (4.5-10.0) K/mm3 RBC 3.69 L (4.2-5.4) M/mm3 Hgb 11.3 L (12.0-15.0) g/dL Hct 35.5 L (37.0-47.0) % MCHC 31.8 L (32-36) g/dl [place] % (Auto) 11.1 H (2.6-8.5) % Eos % (Auto) 5.4 H (0-4.4) % [place] # (Auto) 1.2 H (0.1-0.6) K/mm3 Eos # (Auto) 0.6 H (0-0.3) K/mm3 Sodium 135 L (137-145) mmol/L Estimated GFR 55 L (59 - ) Glucose 118 H (65-110) mg/dL AST 55 H (14-36) U/L Total Creatine Kinase 858 H (30-135) U/L Albumin 3.2 L (3.5-5.1) g/dL H & H 01/10/25 01/11/25 01/12/25 Range/Units 15:55 05:21 05:46 Hgb 13.4 12.4 11.2 L (12.0-15.0) g/dL Hct 42.6 40.7 36.0 L (37.0-47.0) % 01/13/25 Range/Units 06:21 Hgb 11.3 L (12.0-15.0) g/dL Hct 35.5 L (37.0-47.0) % Coagulation 01/10/25 Range/Units 15:55 INR 1.5 All other labs normal.
[2025-01-13 09:25] LABS: CRP 4.8 mg/dL (<1.0)
[2025-01-13] MEDS: PRAVASTATIN SODIUM 20 MG TABLET 40 MG PO (09:57)
[2025-01-13] MEDS: METOPROLOL TARTRATE 25 MG TABLET PO ×2 (09:57→20:18)
[2025-01-13] MEDS: MIRTAZAPINE 15 MG TABLET PO (09:57)
[2025-01-13] MEDS: ASPIRIN 81 MG ENTERIC TABLET PO (09:57)
[2025-01-13] MEDS: SACUBITRIL/VALSARTAN 24-26 MG TABLET 1 TAB PO ×2 (09:57→20:21)
[2025-01-13] MEDS: APIXABAN 5 MG TABLET PO ×2 (09:59→16:51)
[2025-01-13] MEDS: DULoxetine HCL 60 MG CAPSULE.DR PO (09:59)
[2025-01-13] MEDS: AMIODARONE HCL 200 MG TABLET PO ×2 (09:59→16:49)
[2025-01-13] MEDS: SPIRONOLACTONE 25 MG TABLET PO (09:59)
[2025-01-13] MEDS: MICONAZOLE NITRATE 2% CREAM 30 GM TUBE 1 APPLIC TOPICAL (10:00)
--- NOTE | 2025-01-13 16:03 | P.PNIM_ITS ---
Progress Note: A&P Assessment and Plan (1) Cellulitis: Code(s): L03.90 - Cellulitis, unspecified Status: Acute Assessment and Plan: Patient initially thought to have acute fracture of the right lower ankle fol low-up imaging shows no fracture ortho was consulted for further evaluation removal of cast. Negative for DVT * cast removed * continue IV rocephin/clindamycin discontinued * Pain management * Elevate extremity (2) Systolic heart failure: Code(s): I50.20 - Unspecified systolic (congestive) heart failure Status: Chronic Assessment and Plan: no signs of acute exacerbation * continue furosemide, spironolactone, metoprolol and Entresto (3) Hyperlipidemia: Code(s): E78.5 - Hyperlipidemia, unspecified Status: Chronic Assessment and Plan: * continue pravastatin (4) Hypothyroidism: Code(s): E03.9 - Hypothyroidism, unspecified Status: Chronic Assessment and Plan: * continue levothyroxine (5) Rhabdomyolysis: Code(s): M62.82 - Rhabdomyolysis Status: Acute Assessment and Plan: CK 1294 on admission * CK trending down * Stop IV fluids due to history heart failure with LVEF at 20% * repeat CK level in AM Plan Code status: Full code per patient DVT prophylaxis: Eliquis Stress ulcer prophylaxis: NA PT/OT notes: Patient wish rebound Disposition: Patient continues admission for treatment of cellulitis to right lower extremity continue with IV antibiotic therapy plan [facility] when medically stable. Time Spent With Patient Time with patient: 15 - 25 minutes Subjective Date/time seen: 01/13/25 16:03 Interval history: Patient is a 74 years old female with history PMH of HLD, chronic systolic heart failure, hypothyroidism and COPD. Patient admitted with complaint of having right heel pain going on for the last few days. Patient denies any injuries. Patient denies any falls. No shortness of breath or chest pain. No Abdominal pain, no nausea or vomiting. No fever or chills. ER evaluation showed possible rhabdomyolysis, possible cellulitis versus heel infection. Patient was started on medication transferred to floor for further evaluation treatment 01/13/2025: Assumed Care Patient reporting moderate pain to right lower extremity worse to touch, mild sweating and erythema. Patient denied any other complaints but still having significant amount pain to touch to lower extremity. Patient denied any fevers, chills abdominal pain, nausea vomiting. Ortho did remove cast today there is no acute fracture. Review of Systems Review of Systems: All systems reviewed & are unremarkable except as noted in HPI and below Exam Narrative: APPEARANCE: NAD NECK: Supple. RESPIRATORY: . Clear to auscultation bilaterally CARDIOVASCULAR: RRR ABDOMINAL: Soft, nontender, nondistended, normal bowel sounds MUSCULOSKELETAL: Right calf for ankle and right foot tenderness to palpation, neurovascularly intact, erythema to RLE NEURO: Alert. Cranial nerves II through XII intact. Grossly intact SKIN: Warm, dry. Normal Color Objective Data Vital Signs Vital Signs: Vital Signs - 24 hr 01/12/25 17:28 01/12/25 19:49 01/12/25 19:52 Temperature Pulse Rate 58 L 58 L 58 L Respiratory Rate 20 20 Blood Pressure Pulse Oximetry 92 Oxygen Delivery Room Air Fraction of Inspired Oxygen 21 01/12/25 19:57 01/12/25 20:00 01/13/25 04:28 Temperature 97.8 F 98.1 F Pulse Rate 60 64 Respiratory Rate 16 16 Blood Pressure 110/60 113/52 L Pulse Oximetry 95 95 Oxygen Delivery Room Air Fraction of Inspired Oxygen 01/13/25 08:00 01/13/25 09:57 01/13/25 09:59 Temperature Pulse Rate 57 L 57 L Respiratory Rate Blood Pressure Pulse Oximetry Oxygen Delivery Room Air Fraction of Inspired Oxygen 01/13/25 14:00 Temperature 98.2 F Pulse Rate 51 L Respiratory Rate 16 Blood Pressure 137/55 L Pulse Oximetry 97 Oxygen Delivery Fraction of Inspired Oxygen Intake/Output Intake/Output: Intake & Output 01/10/25 01/11/25 01/12/25 01/13/25 23:59 23:59 23:59 23:59 Intake Total 1100 3650 2790 1490 Output Total 1800 2050 500 Balance 1100 1850 740 990 Meds/Results Medications: Active Medications Generic Name Dose Route Start Last Admin Trade Name Freq PRN Reason Stop Dose Admin Acetaminophen 325 mg 01/10/25 19:20 Acetaminophen 325 Mg Tablet PO Q4H PRN fever or pain 1-3 Hydrocodone Bitart/Acetaminophen 1 tab 01/10/25 17:49 01/13/25 10:03 Hydrocodone/Acetaminophen (*Crx) 5-325 Mg Tablet PO 1 tab Q4H PRN Administration Pain Rated 4-6 Amiodarone HCl 200 mg 01/11/25 09:00 01/13/25 09:59 Amiodarone Hcl 200 Mg Tablet PO 200 mg BID MARQUES Administration Apixaban 5 mg 01/11/25 09:00 01/13/25 09:59 Apixaban 5 Mg Tablet PO 5 mg BID MARQUES Administration Aspirin 81 mg 01/11/25 09:00 01/13/25 09:57 Aspirin 81 Mg Enteric Tablet PO 81 mg DAILY MARQUES Administration Benzonatate 100 mg 01/10/25 19:20 Benzonatate 100 Mg Capsule PO DAILY PRN Cough Duloxetine HCl 30 mg 01/11/25 09:00 01/13/25 09:59 Duloxetine Hcl 30 Mg Capsule. PO 30 mg DAILY MARQUES Administration Duloxetine HCl 60 mg 01/11/25 09:00 01/13/25 09:59 Duloxetine Hcl 60 Mg Capsule. PO 60 mg DAILY MARQUES Administration Ergocalciferol 1,250 mcg 01/11/25 09:00 01/11/25 09:02 Ergocalciferol (Vitamin D2) 1,250 Mcg (50,000 Units) Capsule PO 1,250 mcg WEEKLY MARQUES Administration Lactated Ringer's 1,000 mls @ 100 mls/hr 01/10/25 17:50 01/13/25 06:20 Lr - Lactated Ringers Iv IV CONT 100 mls/hr .Q10H MARQUES Administration Ceftriaxone Sodium 1 gm/ 50 mls @ 100 mls/hr 01/10/25 19:00 01/12/25 18:48 Sodium Chloride IVPB 100 mls/hr Q24H MARQUES Administration Levothyroxine Sodium 75 mcg 01/11/25 06:30 01/13/25 06:20 Levothyroxine Sodium 75 Mcg Tablet PO 75 mcg DAILY@0630 MARQUES Administration Melatonin 3 mg 01/10/25 19:20 01/12/25 20:36 Melatonin 3 Mg Tablet PO 3 mg HS PRN Administration Sleep Metoprolol Tartrate 25 mg 01/11/25 09:00 01/13/25 09:57 Metoprolol Tartrate 25 Mg Tablet PO 25 mg Q12HR MARQUES Administration Miconazole Nitrate 1 applic 01/11/25 09:00 01/13/25 10:00 Miconazole Nitrate 2% Cream 30 Gm Tube TOPICAL 1 applic BID MARQUES Administration Mirtazapine 15 mg 01/11/25 09:00 01/13/25 09:57 Mirtazapine 15 Mg Tablet PO 15 mg DAILY MARQUES Administration Miscellaneous Information 0 each 01/10/25 00:01 01/13/25 00:21 Miconazole (Sub For Clotrimazole) Add Site Of Use XX 02/09/25 00:00 Not Given CLARIFY MARQUES Ondansetron HCl 4 mg 01/10/25 19:20 Ondansetron Hcl Odt 4 Mg Tablet PO Q6H PRN Nausea And Vomiting Polyethylene Glycol 17 gm 01/10/25 19:20 Polyethylene Glycol 3350 17 Gm Powd.Pack PO DAILY PRN Constipation Pravastatin Sodium 40 mg 01/11/25 09:00 01/13/25 09:57 Pravastatin Sodium 20 Mg Tablet PO 40 mg DAILY MARQUES Administration Sacubitril/Valsartan 1 tab 01/11/25 09:00 01/13/25 09:57 Sacubitril/Valsartan 24-26 Mg Tablet PO 1 tab Q12HR MARQUES Administration Fluticasone/Salmeterol 2 puff 01/11/25 08:00 01/13/25 08:22 Fluticasone/Salmeterol 45-21 Mcg Inhaler 1 Puff INHALATION Not Given Q12HRT MARQUES Spironolactone 25 mg 01/11/25 09:00 01/13/25 09:59 Spironolactone 25 Mg Tablet PO 25 mg QAM MARQUES Administration Umeclidinium Webb 1 puff 01/10/25 08:00 01/13/25 08:21 Umeclidinium Webb 62.5 Mcg Ellipta INHALATION Not Given [facility] Radiology Results: ITS Impressions Venous Doppler Study 01/10/25 15:43 Impression: Negative for DVT. Ankle X-Ray 01/10/25 17:21 Impression: No acute fracture or malalignment. Tibia/Fibula X-Ray 01/10/25 17:21 Impression: No acute fracture or malalignment. Foot X-Ray 01/10/25 17:22 Impression: Nondisplaced calcaneal fracture. CT recommended Foot CT 01/10/25 18:03 IMPRESSION: No acute fracture Labs Labs: Laboratory Results - last 24 hr 01/13/25 01/13/25 06:19 06:21 WBC 10.8 H RBC 3.69 L Hgb 11.3 L Hct 35.5 L MCV 96.2 MCH 30.6 MCHC 31.8 L RDW 14.3 Plt Count 230 MPV 10.3 Immature Gran % (Auto) 0.3 Neut % (Auto) 55.9 Lymph % (Auto) 26.8 Sanders % (Auto) 11.1 H Eos % (Auto) 5.4 H Baso % (Auto) 0.5 Lymph # (Auto) 2.91 Sanders # (Auto) 1.2 H Eos # (Auto) 0.6 H Baso # (Auto) 0.1 Abs Immat Gran (auto) 0.03 Absolute Neuts (auto) 6.1 Absolute Nucleated RBC 0.000 Nucleated RBC % 0.0 ESR 65 H Sodium 135 L Potassium 4.1 Chloride 103 Carbon Dioxide 27 Anion Gap 5 BUN 15 Creatinine 0.98 Estim Creat Clear Calc Not Reportable Estimated GFR 55 L Glucose 118 H Calcium 8.8 Total Bilirubin 0.3 AST 55 H ALT 20 Alkaline Phosphatase 89 Total Creatine Kinase 858 H C-Reactive Protein 4.8 H Total Protein 6.3 Albumin 3.2 L Quality VTE Prophylaxis VTE prophylaxis: pharmacologic ordered -Patient's previous records reviewed on admission -ER notes reviewed in detail on admission -discussed all findings and current treatment plan with patient/Family/POA -Consultations reviewed for recommendations -Patient's disposition for safe discharge discussed with major case detective Dictation performed by [employer] direct speech recognition software, therefore exceptional needs teacher variants and typographical errors may occur. Hospitalist MIPS Advance Care Plan I have confirmed that the patient's Advanced Care Plan is present, code status is documented, or surrogate decision maker is listed in patient medical record.: Yes Medication Reconciliation I have utilized all available resources to obtain, update and review the patients current medications (includes all prescriptions, OTC, herbals, cannabis, and nutritional supplements).: Yes The patient is not eligible for med reconciliation; the patient is in a emergent medical situation where delaying treatment would jeopardize the patients health.: No
[2025-01-13] MEDS: cefTRIAXone 1 GM in SODIUM CHLORIDE 0.9% IV 50 ML 100 ML IVPB (18:14)
[2025-01-14] VITALS (7 sets, daily range): BP systolic 107–129; BP diastolic 47–65; PULSE 59–66; RESP 15–20; TEMP 36.7–37.1; O2SAT 93–97
[2025-01-14] MEDS: LEVOTHYROXINE SODIUM 75 MCG TABLET PO (06:45)
[2025-01-14] MEDS: PRAVASTATIN SODIUM 20 MG TABLET 40 MG PO (08:39)
[2025-01-14] MEDS: AMIODARONE HCL 200 MG TABLET PO (08:40)
[2025-01-14] MEDS: METOPROLOL TARTRATE 25 MG TABLET PO ×2 (08:41→20:21)
[2025-01-14] MEDS: FUROSEMIDE 20 MG TABLET PO (08:41)
[2025-01-14] MEDS: APIXABAN 5 MG TABLET PO (08:41)
[2025-01-14] MEDS: SPIRONOLACTONE 25 MG TABLET PO (08:42)
[2025-01-14] MEDS: SACUBITRIL/VALSARTAN 24-26 MG TABLET 1 TAB PO ×2 (08:42→20:21)
--- NOTE | 2025-01-14 09:14 | PM.PNORT ---
Progress Note: A&P Assessment and Plan (1) Cellulitis: Code(s): L03.90 - Cellulitis, unspecified Status: Acute Plan Right Leg Cellulitis. Clinically improving. Subjective Subjective Date/Time Seen: 01/14/25 09:14 Principal diagnosis: Right leg pain Exam Narrative: Less tenderness to Right Leg with decrease erythema Objective Data Vital Signs Vital Signs: Vital Signs - 24 hr 01/13/25 09:57 01/13/25 09:59 01/13/25 14:00 Temperature 36.8 C Pulse Rate 57 L 57 L 51 L Respiratory Rate 16 Blood Pressure 137/55 L Pulse Oximetry 97 Oxygen Delivery Fraction of Inspired Oxygen 01/13/25 16:49 01/13/25 20:03 01/13/25 20:16 Temperature Pulse Rate 58 L Respiratory Rate Blood Pressure Pulse Oximetry 93 Oxygen Delivery Room Air Room Air Fraction of Inspired Oxygen 21 01/13/25 20:18 01/13/25 21:57 01/14/25 05:37 Temperature 36.9 C 36.7 C Pulse Rate 60 61 60 Respiratory Rate 14 15 Blood Pressure 138/51 L 107/47 L Pulse Oximetry 93 93 Oxygen Delivery Fraction of Inspired Oxygen 01/14/25 08:40 01/14/25 08:41 Temperature Pulse Rate 60 60 Respiratory Rate Blood Pressure Pulse Oximetry Oxygen Delivery Fraction of Inspired Oxygen Intake/Output Intake/Output: Intake & Output 01/11/25 01/12/25 01/13/25 01/14/25 23:59 23:59 23:59 23:59 Intake Total 3650 2840 1730 200 Output Total 1800 2050 1100 800 Balance 1850 790 630 -600 Meds/Results Medications: Active Medications Generic Name Dose Route Start Last Admin Trade Name Freq PRN Reason Stop Dose Admin Acetaminophen 325 mg 01/10/25 19:20 Acetaminophen 325 Mg Tablet PO Q4H PRN fever or pain 1-3 Hydrocodone Bitart/Acetaminophen 1 tab 01/10/25 17:49 01/13/25 20:16 Hydrocodone/Acetaminophen (*Crx) 5-325 Mg Tablet PO 1 tab Q4H PRN Administration Pain Rated 4-6 Amiodarone HCl 200 mg 01/11/25 09:00 01/14/25 08:40 Amiodarone Hcl 200 Mg Tablet PO 200 mg BID MARQUES Administration Apixaban 5 mg 01/11/25 09:00 01/14/25 08:41 Apixaban 5 Mg Tablet PO 5 mg BID MARQUES Administration Aspirin 81 mg 01/11/25 09:00 01/14/25 08:42 Aspirin 81 Mg Enteric Tablet PO Not Given DAILY REPLACED BY [facility] Benzonatate 100 mg 01/10/25 19:20 Benzonatate 100 Mg Capsule PO DAILY PRN Cough Duloxetine HCl 30 mg 01/11/25 09:00 01/14/25 08:42 Duloxetine Hcl 30 Mg Capsule. PO Not Given DAILY MARQUES Duloxetine HCl 60 mg 01/11/25 09:00 01/14/25 08:42 Duloxetine Hcl 60 Mg Capsule. PO Not Given DAILY REPLACED BY [facility] Ergocalciferol 1,250 mcg 01/11/25 09:00 01/11/25 09:02 Ergocalciferol (Vitamin D2) 1,250 Mcg (50,000 Units) Capsule PO 1,250 mcg WEEKLY MARQUES Administration Furosemide 20 mg 01/14/25 09:00 01/14/25 08:41 Furosemide 20 Mg Tablet PO 20 mg DAILY MARQUES Administration Ceftriaxone Sodium 1 gm/ 50 mls @ 100 mls/hr 01/10/25 19:00 01/13/25 18:14 Sodium Chloride IVPB 100 mls/hr Q24H MARQUES Administration Levothyroxine Sodium 75 mcg 01/11/25 06:30 01/14/25 06:45 Levothyroxine Sodium 75 Mcg Tablet PO 75 mcg DAILY@0630 REPLACED BY [facility] Administration Melatonin 3 mg 01/10/25 19:20 01/12/25 20:36 Melatonin 3 Mg Tablet PO 3 mg HS PRN Administration Sleep Metoprolol Tartrate 25 mg 01/11/25 09:00 01/14/25 08:41 Metoprolol Tartrate 25 Mg Tablet PO 25 mg Q12HR REPLACED BY [facility] Administration Miconazole Nitrate 1 applic 01/11/25 09:00 01/14/25 08:43 Miconazole Nitrate 2% Cream 30 Gm Tube TOPICAL Not Given BID REPLACED BY [facility] Mirtazapine 15 mg 01/11/25 09:00 01/14/25 08:42 Mirtazapine 15 Mg Tablet PO Not Given DAILY REPLACED BY [facility] Miscellaneous Information 0 each 01/10/25 00:01 01/13/25 00:21 Miconazole (Sub For Clotrimazole) Add Site Of Use XX 02/09/25 00:00 Not Given CLARIFY MARQUES Ondansetron HCl 4 mg 01/10/25 19:20 Ondansetron Hcl Odt 4 Mg Tablet PO Q6H PRN Nausea And Vomiting Polyethylene Glycol 17 gm 01/10/25 19:20 Polyethylene Glycol 3350 17 Gm Powd.Pack PO DAILY PRN Constipation Pravastatin Sodium 40 mg 01/11/25 09:00 01/14/25 08:39 Pravastatin Sodium 20 Mg Tablet PO 40 mg DAILY MARQUES Administration Sacubitril/Valsartan 1 tab 01/11/25 09:00 01/14/25 08:42 Sacubitril/Valsartan 24-26 Mg Tablet PO 1 tab Q12HR MARQUES Administration Fluticasone/Salmeterol 2 puff 01/11/25 08:00 01/14/25 07:54 Fluticasone/Salmeterol 45-21 Mcg Inhaler 1 Puff INHALATION Not Given Q12HRT REPLACED BY [facility] Spironolactone 25 mg 01/11/25 09:00 01/14/25 08:42 Spironolactone 25 Mg Tablet PO 25 mg QAM MARQUES Administration Umeclidinium Wright 1 puff 01/10/25 08:00 01/13/25 08:21 Umeclidinium Wright 62.5 Mcg Ellipta INHALATION Not Given DAILYRT REPLACED BY [facility] Radiology Results: ITS Impressions Venous Doppler Study 01/10/25 15:43 Impression: Negative for DVT. Ankle X-Ray 01/10/25 17:21 Impression: No acute fracture or malalignment. Tibia/Fibula X-Ray 01/10/25 17:21 Impression: No acute fracture or malalignment. Foot X-Ray 01/10/25 17:22 Impression: Nondisplaced calcaneal fracture. CT recommended Foot CT 01/10/25 18:03 IMPRESSION: No acute fracture Labs Labs: Laboratory Results - last 24 hr 01/13/25 01/13/25 06:19 06:21 ESR 65 H C-Reactive Protein 4.8 H
[2025-01-14 09:29] LABS: Hematocrit 38.0 % (37.0-47.0); Hemoglobin 12.0 g/dL (12.0-15.0); Mean Corpuscular HGB Conc 31.6 g/dl (32-36); Mean Corpuscular Hemoglobin 30.5 pg (26-34); Mean Corpuscular Volume 96.4 fl (80-100); Platelet Count Result 269 k/mm3 (150-375); Red Blood Count 3.94 M/mm3 (4.2-5.4); White Blood Count 10.7 K/mm3 (4.5-10.0)
[2025-01-14 10:09] LABS: Alanine Aminotransferase 21 U/L (6-35); Albumin Level 3.6 g/dL (3.5-5.1); Alkaline Phosphatase 88 U/L (38-126); Anion Gap 7 mmol/L (4-12); Aspartate Amino Transferase 56 U/L (14-36); Bilirubin,Total 0.4 mg/dL (0.2-1.3); Blood Urea Nitrogen 14 mg/dL (7-17); CRP 8.4 mg/dL (<1.0); Calcium 9.2 mg/dL (8.4-10.2); Carbon Dioxide 26 mmol/L (22-30); Chloride 102 mmol/L (98-107); Creatine Kinase 906 U/L (30-135); Estimated Glomerular Filt Rate > 60; Glucose 146 mg/dL (65-110); Magnesium 1.9 mg/dL (1.6-2.3); Potassium 4.1 mmol/L (3.4-5.0); Sodium 135 mmol/L (137-145); Total Protein 7.0 g/dL (6.3-8.2)
[2025-01-14] MEDS: LACTATED RINGERS 1,000 ML 50 ML IV CONT (13:01)
--- NOTE | 2025-01-14 15:00 | P.PNIM_ITS ---
Progress Note: A&P Assessment and Plan (1) Cellulitis: Code(s): L03.90 - Cellulitis, unspecified <Ed Galindo, Student - Last Filed: 01/14/25 15:23> Status: Acute <Ed Galindo, - Last Filed: 01/14/25 15:23> Assessment and Plan: Patient initially thought to have acute fracture of the right lower ankle f ollow-up imaging shows no fracture ortho was consulted for further evaluation removal of cast. Negative for DVT * cast removed by ortho * continue IV rocephin/clindamycin discontinued * Pain management with norco * Elevate extremity * Decreased erythema and edema <Ed Galindo, - Last Filed: 01/14/25 15:23> Patient initially thought to have acute fracture of the right lower ankle follow-up imaging shows no fracture ortho was consulted for further evaluation removal of cast. Negative for DVT * cast removed by ortho * continue IV rocephin/clindamycin discontinued * Pain management with Oral norco and IV Dilaudid 0.5 mg for breakthrough pain * Elevate extremity * Decreased erythema and edema <Lyndsey Medina, DITCH REPAIRER - Last Filed: 01/14/25 15:38> (2) Systolic heart failure: Code(s): I50.20 - Unspecified systolic (congestive) heart failure <Ed Galindo, Student - Last Filed: 01/14/25 15:23> Status: Chronic <Ed Galindo, Student - Last Filed: 01/14/25 15:23> Assessment and Plan: no signs of acute exacerbation * continue furosemide, spironolactone, metoprolol and Entresto <Ed Galindo, Student - Last Filed: 01/14/25 15:23> (3) Hyperlipidemia: Code(s): E78.5 - Hyperlipidemia, unspecified <Ed Galindo, Student - Last Filed: 01/14/25 15:23> Status: Chronic <Ed Galindo, Student - Last Filed: 01/14/25 15:23> Assessment and Plan: * continue pravastatin <Ed Galindo, Student - Last Filed: 01/14/25 15:23> (4) Hypothyroidism: Code(s): E03.9 - Hypothyroidism, unspecified <Ed Galindo, Student - Last Filed: 01/14/25 15:23> Status: Chronic <Ed Galindo, Student - Last Filed: 01/14/25 15:23> Assessment and Plan: * continue levothyroxine <Ed Galindo, Student - Last Filed: 01/14/25 15:23> (5) Rhabdomyolysis: Code(s): M62.82 - Rhabdomyolysis <Ed Galindo, Student - Last Filed: 01/14/25 15:23> Status: Acute <Ed Galindo, Student - Last Filed: 01/14/25 15:23> Assessment and Plan: CK 1294 on admission * CK slightly elevated today * Start IV fluids for gentle hydration in the setting of HFrEF * I&O's per unit policy * repeat CK level in AM <Ed Galindo, Student - Last Filed: 01/14/25 15:23> (6) UTI (urinary tract infection): Code(s): N39.0 - Urinary tract infection, site not specified <Ed Galindo, Student - Last Filed: 01/14/25 15:23> Status: Acute <Ed Galindo, Student - Last Filed: 01/14/25 15:23> Assessment and Plan: Patient's final urine culture showing Enterococcus faecalis * Sensitive to Augmentin initiated oral antibiotic coverage will need for 5 days covered with her current IV Rocephin <Lyndsey Medina APRN - Last Filed: 01/14/25 15:38> Assessment and Plan: Code status: Full code per patient DVT prophylaxis: Eliquis Stress ulcer prophylaxis: NA PT/OT notes: Patient wish rebound Disposition: Patient continues admission for treatment of cellulitis to right lower extremity continue with IV antibiotic therapy plan to discharge back to care home facility when medically stable. <Ed Galindo Student - Last Filed: 01/14/25 15:23> Code status: Full code per patient DVT prophylaxis: Eliquis Stress ulcer prophylaxis: NA PT/OT notes: Patient wish rebound Disposition: Patient continues admission for treatment of cellulitis to right lower extremity with moderate to severe pain continue with IV antibiotic therapy plan to discharge back to care home facility when medically stable. <Lyndsey Medina APRN - Last Filed: 01/14/25 15:38> Time Spent With Patient Time with patient: 25 - 35 minutes <Ed Galindo Student - Last Filed: 01/14/25 15:23> Subjective Date/time seen: 01/14/25 15:00 <Ed Galindo Student - Last Filed: 01/14/25 15:23> Interval history: No acute events overnight. Patient evaluated at bedside this morning continues to have pain in the right lower extremity, however, there is a reduction of her erythema and edema. <Ed Galindo Student - Last Filed: 01/14/25 15:23> Review of Systems Review of Systems: All systems reviewed & are unremarkable except as noted in HPI and below <Ed Galindo Student - Last Filed: 01/14/25 15:23> Integumentary/Breasts: Skin/Breast: Reports skin pain (RLE) <Ed Galindo Student - Last Filed: 01/14/25 15:23> Exam Const: General: no acute distress <Ed Galindo Student - Last Filed: 01/14/25 15:23> HENMT: Ears: TM's normal bilaterally <Ed Galindo Student - Last Filed: 01/14/25 15:23> Face/Nose/Sinus: Normal nares present <Ed Galindo Student - Last Filed: 01/14/25 15:23> Mouth: Yes moist mucous membranes <Ed Galindo Student - Last Filed: 01/14/25 15:23> Eyes: General: appearance normal, both eyes and all related structures <Ed Galindo Student - Last Filed: 01/14/25 15:23> Sclera: sclerae normal <Ed Wigginsfrankiecaitlin - Last Filed: 01/14/25 15:23> Pupils: Equal, round and reactive pupils present <Ed Wigginsfrankiecaitlin - Last Filed: 01/14/25 15:23> Neck: Neck: supple and no JVD <Ed Wigginsfrankiecaitlin Last Filed: 01/14/25 15:23> Resp: Effort & Inspection: normal respiratory effort <Ed Wigginsfrankiecaitlin - Last Filed: 01/14/25 15:23> Cardio: Rate: regular rate <Ed Wigginsfrankiecaitlin - Last Filed: 01/14/25 15:23> Rhythm: regular rhythm <Ed Wigginsfrankiecaitlin - Last Filed: 01/14/25 15:23> GI: GI Palp: Yes Soft to palpation <Ed Wigginsfrankiecaitlin Last Filed: 01/14/25 15:23> Auscultation: normal bowel sounds <Ed Wigginsfrankiecaitlin - Last Filed: 01/14/25 15:23> Skin: General skin exam: normal color and erythema (Erythema RLE) <Ed Wigginsfrankiecaitlin - Last Filed: 01/14/25 15:23> Neuro: Speech: normal speech <Ed Wigginsfrankiecaitlin - Last Filed: 01/14/25 15:23> Motor exam (neuro): Abnormal motor strength present (generalized weakness) <Ed NazarioAnna Felicianofrankiecaitlin - Last Filed: 01/14/25 15:23> Sensory Exam: normal sensation <Ed NazarioAnna Felicianofrankiecaitlin - Last Filed: 01/14/25 15:23> Extrem: General: normal exam except as noted <Ed NazarioAnna Felicianonick - Last Filed: 01/14/25 15:23> Psych: Affect: Anxious affect present <Ed AravindAnna Felicianonick Last Filed: 01/14/25 15:23> Objective Data Vital Signs Vital Signs: Vital Signs - 24 hr 01/13/25 16:49 01/13/25 20:03 01/13/25 20:16 Temperature Pulse Rate 58 L Respiratory Rate Blood Pressure Pulse Oximetry 93 Oxygen Delivery Room Air Room Air Fraction of Inspired Oxygen 21 01/13/25 20:18 01/13/25 21:57 01/14/25 05:37 Temperature 98.4 F 98.0 F Pulse Rate 60 61 60 Respiratory Rate 14 15 Blood Pressure 138/51 L 107/47 L Pulse Oximetry 93 93 Oxygen Delivery Fraction of Inspired Oxygen 01/14/25 08:00 01/14/25 08:40 01/14/25 08:41 Temperature Pulse Rate 60 60 Respiratory Rate Blood Pressure Pulse Oximetry Oxygen Delivery Room Air Fraction of Inspired Oxygen 01/14/25 14:00 Temperature 98.4 F Pulse Rate 59 L Respiratory Rate 18 Blood Pressure 129/56 L Pulse Oximetry 97 Oxygen Delivery Fraction of Inspired Oxygen <Ed Galindo, Student - Last Filed: 01/14/25 15:23> Intake/Output Intake/Output: Intake & Output 01/11/25 01/12/25 01/13/25 01/14/25 23:59 23:59 23:59 23:59 Intake Total 3650 2840 1730 920 Output Total 1800 2050 1100 1350 Balance 1850 790 630 -430 <dE Galindo, Student - Last Filed: 01/14/25 15:23> Meds/Results Medications: Active Medications Generic Name Dose Route Start Last Admin Trade Name Freq PRN Reason Stop Dose Admin Acetaminophen 325 mg 01/10/25 19:20 Acetaminophen 325 Mg Tablet PO Q4H PRN fever or pain 1-3 Hydrocodone Bitart/Acetaminophen 1 tab 01/10/25 17:49 01/13/25 20:16 Hydrocodone/Acetaminophen (*Crx) 5-325 Mg Tablet PO 1 tab Q4H PRN Administration Pain Rated 4-6 Amiodarone HCl 200 mg 01/11/25 09:00 01/14/25 08:40 Amiodarone Hcl 200 Mg Tablet PO 200 mg BID MARQUES Administration Amoxicillin/Clavulanate Potassium 1 tablet 01/14/25 12:00 01/14/25 11:49 Amoxicillin/Clavulanate K 875-125 Mg Tab PO 01/18/25 21:01 1 tablet Q12HR MARQUES Administration Apixaban 5 mg 01/11/25 09:00 01/14/25 08:41 Apixaban 5 Mg Tablet PO 5 mg BID MARQUES Administration Aspirin 81 mg 01/11/25 09:00 01/14/25 08:42 Aspirin 81 Mg Enteric Tablet PO Not Given DAILY MARQUES Benzonatate 100 mg 01/10/25 19:20 Benzonatate 100 Mg Capsule PO DAILY PRN Cough Duloxetine HCl 30 mg 01/11/25 09:00 01/14/25 08:42 Duloxetine Hcl 30 Mg Capsule. PO Not Given DAILY MARQUES Duloxetine HCl 60 mg 01/11/25 09:00 01/14/25 08:42 Duloxetine Hcl 60 Mg Capsule. PO Not Given DAILY MARQUES Ergocalciferol 1,250 mcg 01/11/25 09:00 01/11/25 09:02 Ergocalciferol (Vitamin D2) 1,250 Mcg (50,000 Units) Capsule PO 1,250 mcg WEEKLY MARQUES Administration Furosemide 20 mg 01/14/25 09:00 01/14/25 08:41 Furosemide 20 Mg Tablet PO 20 mg On Hold: 01/14/25 12:13 DAILY MARQUES Administration Lactated Ringer's 1,000 mls @ 50 mls/hr 01/14/25 12:20 01/14/25 13:01 Lr - Lactated Ringers Iv IV CONT 50 mls/hr .Q20H MARQUES Administration Levothyroxine Sodium 75 mcg 01/11/25 06:30 01/14/25 06:45 Levothyroxine Sodium 75 Mcg Tablet PO 75 mcg DAILY@0630 MARQUES Administration Melatonin 3 mg 01/10/25 19:20 01/12/25 20:36 Melatonin 3 Mg Tablet PO 3 mg HS PRN Administration Sleep Metoprolol Tartrate 25 mg 01/11/25 09:00 01/14/25 08:41 Metoprolol Tartrate 25 Mg Tablet PO 25 mg Q12HR MARQUES Administration Miconazole Nitrate 1 applic 01/11/25 09:00 01/14/25 08:43 Miconazole Nitrate 2% Cream 30 Gm Tube TOPICAL Not Given BID MARQUES Mirtazapine 15 mg 01/11/25 09:00 01/14/25 08:42 Mirtazapine 15 Mg Tablet PO Not Given DAILY [facility] Miscellaneous Information 0 each 01/10/25 00:01 01/13/25 00:21 Miconazole (Sub For Clotrimazole) Add Site Of Use XX 02/09/25 00:00 Not Given CLARIFY [facility] Ondansetron HCl 4 mg 01/10/25 19:20 Ondansetron Hcl Odt 4 Mg Tablet PO Q6H PRN Nausea And Vomiting Polyethylene Glycol 17 gm 01/10/25 19:20 Polyethylene Glycol 3350 17 Gm Powd.Pack PO DAILY PRN Constipation Pravastatin Sodium 40 mg 01/11/25 09:00 01/14/25 08:39 Pravastatin Sodium 20 Mg Tablet PO 40 mg On Hold: 01/14/25 12:10 DAILY MARQUES Administration Sacubitril/Valsartan 1 tab 01/11/25 09:00 01/14/25 08:42 Sacubitril/Valsartan 24-26 Mg Tablet PO 1 tab Q12HR MARQUES Administration Fluticasone/Salmeterol 2 puff 01/11/25 08:00 01/14/25 07:54 Fluticasone/Salmeterol 45-21 Mcg Inhaler 1 Puff INHALATION Not Given Q12HRT MARQUES Spironolactone 25 mg 01/11/25 09:00 01/14/25 08:42 Spironolactone 25 Mg Tablet PO 25 mg QAM MARQUES Administration Umeclidinium [place] 1 puff 01/10/25 08:00 01/14/25 11:02 Umeclidinium [place] 62.5 Mcg Ellipta INHALATION Not Given DAILYRT MARQUES <Ed Galindo, Student - Last Filed: 01/14/25 15:23> Radiology Results: ITS Impressions Venous Doppler Study 01/10/25 15:43 Impression: Negative for DVT. Ankle X-Ray 01/10/25 17:21 Impression: No acute fracture or malalignment. Tibia/Fibula X-Ray 01/10/25 17:21 Impression: No acute fracture or malalignment. Foot X-Ray 01/10/25 17:22 Impression: Nondisplaced calcaneal fracture. CT recommended Foot CT 01/10/25 18:03 IMPRESSION: No acute fracture <Ed Galindo, Student - Last Filed: 01/14/25 15:23> Labs Labs: Laboratory Results - last 24 hr 01/14/25 01/14/25 09:06 09:16 WBC 10.7 H RBC 3.94 L Hgb 12.0 Hct 38.0 MCV 96.4 MCH 30.5 MCHC 31.6 L RDW 14.3 Plt Count 269 MPV 10.0 ESR 59 H Sodium 135 L Potassium 4.1 Chloride 102 Carbon Dioxide 26 Anion Gap 7 BUN 14 Creatinine 0.88 Estim Creat Clear Calc Not Reportable Estimated GFR > 60 Glucose 146 H Calcium 9.2 Magnesium 1.9 Total Bilirubin 0.4 AST 56 H ALT 21 Alkaline Phosphatase 88 Total Creatine Kinase Cancelled 906 H C-Reactive Protein Cancelled 8.4 H Total Protein 7.0 Albumin 3.6 <Ed Galindo Student - Last Filed: 01/14/25 15:23> Quality VTE Prophylaxis VTE prophylaxis: pharmacologic ordered <Ed Galindo Student - Last Filed: 01/14/25 15:23> -Patient's previous records reviewed on admission -ER notes reviewed in detail on admission -discussed all findings and current treatment plan with patient/Family/POA -Consultations reviewed for recommendations -Patient's disposition for safe discharge discussed with manager case management Dictation performed by [employer] direct speech recognition software, therefore affiliate marketing coordinator variants and typographical errors may occur. <Chacha Perdue - Last Filed: 01/14/25 15:23> Hospitalist [facility] Advance Care Plan I have confirmed that the patient's Advanced Care Plan is present, code status is documented, or surrogate decision maker is listed in patient medical record.: Yes <Chacha Perdue - Last Filed: 01/14/25 15:23> Medication Reconciliation I have utilized all available resources to obtain, update and review the patients current medications (includes all prescriptions, OTC, herbals, cannabis, and nutritional supplements).: Yes <Chacha Perdue - Last Filed: 01/14/25 15:23> The patient is not eligible for med reconciliation; the patient is in a emergent medical situation where delaying treatment would jeopardize the patients health.: No <Chacha Perdue - Last Filed: 01/14/25 15:23> Attestation Supervising Provider Attestation I have personally reviewed and assessed patient agree with the following documentation <Lyndsey Medina APRN - Last Filed: 01/14/25 15:38>
[2025-01-14] MEDS: FLUTICASONE/SALMETEROL 45-21 MCG INHALER 1 PUFF 2 PUFF INHALATION (20:19)
[2025-01-14] MEDS: HYDROcodone/acetaminophen (*CRX) 5-325 MG TABLET 1 TAB PO (20:21)
[2025-01-15] VITALS (7 sets, daily range): BP systolic 115–121; BP diastolic 55–74; PULSE 59–64; RESP 16–20; TEMP 36.2–36.7; O2SAT 91–94
[2025-01-15] MEDS: HYDROcodone/acetaminophen (*CRX) 5-325 MG TABLET 1 TAB PO ×2 (02:10→20:02)
[2025-01-15] MEDS: LEVOTHYROXINE SODIUM 75 MCG TABLET PO (05:46)
[2025-01-15 06:22] LABS: Hematocrit 40.8 % (37.0-47.0); Hemoglobin 13.0 g/dL (12.0-15.0); Mean Corpuscular HGB Conc 31.9 g/dl (32-36); Mean Corpuscular Hemoglobin 30.2 pg (26-34); Mean Corpuscular Volume 94.7 fl (80-100); Platelet Count Result 278 k/mm3 (150-375); Red Blood Count 4.31 M/mm3 (4.2-5.4); White Blood Count 9.5 K/mm3 (4.5-10.0)
[2025-01-15 06:53] LABS: Alanine Aminotransferase 21 U/L (6-35); Albumin Level 3.5 g/dL (3.5-5.1); Alkaline Phosphatase 84 U/L (38-126); Anion Gap 6 mmol/L (4-12); Aspartate Amino Transferase 50 U/L (14-36); Bilirubin,Total 0.4 mg/dL (0.2-1.3); Blood Urea Nitrogen 18 mg/dL (7-17); CRP 7.7 mg/dL (<1.0); Calcium 9.3 mg/dL (8.4-10.2); Carbon Dioxide 28 mmol/L (22-30); Chloride 103 mmol/L (98-107); Creatine Kinase 694 U/L (30-135); Estimated Glomerular Filt Rate 60; Glucose 112 mg/dL (65-110); Magnesium 1.9 mg/dL (1.6-2.3); Potassium 3.8 mmol/L (3.4-5.0); Sodium 137 mmol/L (137-145); Total Protein 7.1 g/dL (6.3-8.2)
[2025-01-15] MEDS: LACTATED RINGERS 1,000 ML 50 ML IV CONT (08:35)
[2025-01-15] MEDS: MIRTAZAPINE 15 MG TABLET PO (08:40)
[2025-01-15] MEDS: SACUBITRIL/VALSARTAN 24-26 MG TABLET 1 TAB PO ×2 (08:41→20:03)
[2025-01-15] MEDS: ASPIRIN 81 MG ENTERIC TABLET PO (08:41)
[2025-01-15] MEDS: SPIRONOLACTONE 25 MG TABLET PO (08:41)
[2025-01-15] MEDS: APIXABAN 5 MG TABLET PO ×2 (08:41→18:26)
[2025-01-15] MEDS: DULoxetine HCL 60 MG CAPSULE.DR PO (08:41)
[2025-01-15] MEDS: AMIODARONE HCL 200 MG TABLET PO ×2 (08:41→18:26)
[2025-01-15] MEDS: METOPROLOL TARTRATE 25 MG TABLET PO ×2 (08:41→20:03)
--- NOTE | 2025-01-15 13:38 | P.PNIM_ITS ---
Progress Note: A&P Assessment and Plan (1) Cellulitis: Code(s): L03.90 - Cellulitis, unspecified <Ed Galindo, Last Filed: 01/15/25 13:50> Status: Acute <Ed AravindAnna Galindo, Last Filed: 01/15/25 13:50> Assessment and Plan: Patient initially thought to have acute fracture of the right lower ankle f ollow-up imaging shows no fracture ortho was consulted for further evaluation removal of cast. Negative for DVT * cast removed by ortho * IV clindamycin discontinued * IV ceftriaxone therapy completed * Transitioned to PO Augmentin * Pain management with norco * Elevate extremity * Decreased erythema and edema * Offloading boots * Pressure reduction bandage for bony prominences <Ed Galindo, Last Filed: 01/15/25 13:50> (2) Systolic heart failure: Code(s): I50.20 - Unspecified systolic (congestive) heart failure <Ed Galindo, Last Filed: 01/15/25 13:50> Status: Chronic <Ed Galindo, - Last Filed: 01/15/25 13:50> Assessment and Plan: no signs of acute exacerbation * continue furosemide, spironolactone, metoprolol and Entresto <Ed Galindo, Last Filed: 01/15/25 13:50> (3) Hyperlipidemia: Code(s): E78.5 - Hyperlipidemia, unspecified <Ed Galindo, Student - Last Filed: 01/15/25 13:50> Status: Chronic <Ed Wigginsnick, Student - Last Filed: 01/15/25 13:50> Assessment and Plan: * continue pravastatin <Ed Galindo, Student - Last Filed: 01/15/25 13:50> (4) Hypothyroidism: Code(s): E03.9 - Hypothyroidism, unspecified <Ed Owens Josie, Student - Last Filed: 01/15/25 13:50> Status: Chronic <Ed Owens Josie, Student - Last Filed: 01/15/25 13:50> Assessment and Plan: * continue levothyroxine <Ed Galindo, Student - Last Filed: 01/15/25 13:50> (5) Rhabdomyolysis: Code(s): M62.82 - Rhabdomyolysis <Ed Owens Josie, Student - Last Filed: 01/15/25 13:50> Status: Acute <Ed Owens Josie, Student - Last Filed: 01/15/25 13:50> Assessment and Plan: CK 1294 on admission * CK trending down, now 694 * Continue IV fluids for gentle hydration in the setting of HFrEF * I&O's per unit policy * repeat CK level in AM <Ed Galindo - Last Filed: 01/15/25 13:50> Assessment and Plan: Code status: Full code per patient DVT prophylaxis: Eliquis Stress ulcer prophylaxis: NA PT/OT notes: Patient wish rebound Disposition: Patient continues admission for treatment of cellulitis to right lower extremity. Completed IV ceftriaxone therapy. Continue gentle hydration for rhabdomyolysis. Plan to discharge back to [facility] facility when medically stable. <Chacha Perdue - Last Filed: 01/15/25 13:50> Subjective Date/time seen: 01/15/25 13:38 <Ed Galindo - Last Filed: 01/15/25 13:50> Interval history: No acute events reported overnight. Patient reports a reduction in the pain in her right lower extremity. Erythema and edema of the right lower extremity improved versus yesterdat. Patient denies chest pain, shortness of breath and abdominal pain. <Ed Galindo - Last Filed: 01/15/25 13:50> Review of Systems Review of Systems: All systems reviewed & are unremarkable except as noted in HPI and below <Ed Galindo - Last Filed: 01/15/25 13:50> Integumentary/Breasts: Skin/Breast: Reports skin pain (RLE) <Ed Galindo Student - Last Filed: 01/15/25 13:50> Exam Const: General: no acute distress <Ed Galindo - Last Filed: 01/15/25 13:50> HENMT: Ears: TM's normal bilaterally <Ed Galindo - Last Filed: 01/15/25 13:50> Face/Nose/Sinus: Normal nares present <Ed Galindo - Last Filed: 01/15/25 13:50> Mouth: Yes moist mucous membranes <Ed Galindo Student - Last Filed: 01/15/25 13:50> Eyes: General: appearance normal, both eyes and all related structures <Chacha Perdue - Last Filed: 01/15/25 13:50> Sclera: sclerae normal <Ed Wigginsnick Student - Last Filed: 01/15/25 13:50> Pupils: Equal, round and reactive pupils present <Ed Wigginsfrankiecaitlin Student - Last Filed: 01/15/25 13:50> Neck: Neck: supple and no JVD <Ed Wigginsnick, - Last Filed: 01/15/25 13:50> Resp: Effort & Inspection: normal respiratory effort <Ed Wigginsfrankiecaitlin Student - Last Filed: 01/15/25 13:50> Cardio: Rate: regular rate <Ed NazarioAnna Felicianonick - Last Filed: 01/15/25 13:50> Rhythm: regular rhythm <Ed Wigginsfrankiecaitlin - Last Filed: 01/15/25 13:50> GI: Auscultation: normal bowel sounds <Ed NazarioAnna Felicianonick - Last Filed: 01/15/25 13:50> Skin: General skin exam: normal color and erythema (Erythema RLE) <Ed Wigginsfrankiecaitlin - Last Filed: 01/15/25 13:50> Neuro: Cranial nerves: Yes Equal, round and reactive pupils present <Ed Wigginsnick - Last Filed: 01/15/25 13:50> Speech: normal speech <Ed Wigginsnick - Last Filed: 01/15/25 13:50> Motor exam (neuro): Abnormal motor strength present (generalized weakness) <Ed NazarioAnna Galindo Student - Last Filed: 01/15/25 13:50> Sensory Exam: normal sensation <Ed NazarioAnna Felicianonick Student - Last Filed: 01/15/25 13:50> Extrem: General: normal exam except as noted <Ed AravindAnna Galindo - Last Filed: 01/15/25 13:50> Psych: Affect: Anxious affect present <Ed AravindAnna Galindo - Last Filed: 01/15/25 13:50> Objective Data Vital Signs Vital Signs: Vital Signs - 24 hr 01/14/25 14:00 01/14/25 20:16 01/14/25 20:21 Temperature 98.4 F 98.8 F Pulse Rate 59 L 66 66 Respiratory Rate 18 Blood Pressure 129/56 L 117/65 Pulse Oximetry 97 Oxygen Delivery 01/14/25 21:09 01/15/25 06:00 01/15/25 07:35 Temperature 98.1 F 97.2 F L Pulse Rate 66 61 Respiratory Rate 20 16 Blood Pressure 117/65 121/55 L Pulse Oximetry 97 91 94 Oxygen Delivery Room Air 01/15/25 08:00 01/15/25 08:41 01/15/25 08:41 Temperature Pulse Rate 61 61 Respiratory Rate Blood Pressure Pulse Oximetry Oxygen Delivery Room Air <Ed Galindo, Student - Last Filed: 01/15/25 13:50> Intake/Output Intake/Output: Intake & Output 01/12/25 01/13/25 01/14/25 01/15/25 23:59 23:59 23:59 23:59 Intake Total 2840 1730 1620 1998.3 Output Total 2050 1100 1850 1450 Balance 790 630 -230 548.3 <Ed Galindo, Student - Last Filed: 01/15/25 13:50> Meds/Results Medications: Active Medications Generic Name Dose Route Start Last Admin Trade Name Freq PRN Reason Stop Dose Admin Acetaminophen 325 mg 01/10/25 19:20 Acetaminophen 325 Mg Tablet PO Q4H PRN fever or pain 1-3 Hydrocodone Bitart/Acetaminophen 1 tab 01/10/25 17:49 01/15/25 02:10 Hydrocodone/Acetaminophen (*Crx) 5-325 Mg Tablet PO 1 tab Q4H PRN Administration Pain Rated 4-6 Amiodarone HCl 200 mg 01/11/25 09:00 01/15/25 08:41 Amiodarone Hcl 200 Mg Tablet PO 200 mg BID MARQUES Administration Amoxicillin/Clavulanate Potassium 1 tablet 01/14/25 12:00 01/15/25 08:41 Amoxicillin/Clavulanate K 875-125 Mg Tab PO 01/18/25 21:01 1 tablet Q12HR MARQUES Administration Apixaban 5 mg 01/11/25 09:00 01/15/25 08:41 Apixaban 5 Mg Tablet PO 5 mg BID MARQUES Administration Aspirin 81 mg 01/11/25 09:00 01/15/25 08:41 Aspirin 81 Mg Enteric Tablet PO 81 mg DAILY MARQUES Administration Benzonatate 100 mg 01/10/25 19:20 Benzonatate 100 Mg Capsule PO DAILY PRN Cough Duloxetine HCl 30 mg 01/11/25 09:00 01/15/25 08:40 Duloxetine Hcl 30 Mg Capsule. PO 30 mg DAILY MARQUES Administration Duloxetine HCl 60 mg 01/11/25 09:00 01/15/25 08:41 Duloxetine Hcl 60 Mg Capsule. PO 60 mg DAILY MARQUES Administration Ergocalciferol 1,250 mcg 01/11/25 09:00 01/11/25 09:02 Ergocalciferol (Vitamin D2) 1,250 Mcg (50,000 Units) Capsule PO 1,250 mcg WEEKLY MARQUES Administration Furosemide 20 mg 01/14/25 09:00 01/14/25 08:41 Furosemide 20 Mg Tablet PO 20 mg On Hold: 01/14/25 12:13 DAILY MARQUES Administration Hydromorphone HCl 0.5 mg 01/14/25 15:32 Hydromorphone Hcl Inj (*Crx) 1 Mg/Ml Syr IV PUSH Q3H PRN Pain Rated 7-10 Lactated Ringer's 1,000 mls @ 50 mls/hr 01/14/25 12:20 01/15/25 08:35 Lr - Lactated Ringers Iv IV CONT 50 mls/hr .Q20H MARQUES Administration Levothyroxine Sodium 75 mcg 01/11/25 06:30 01/15/25 05:46 Levothyroxine Sodium 75 Mcg Tablet PO 75 mcg DAILY@0630 MARQUES Administration Melatonin 3 mg 01/10/25 19:20 01/12/25 20:36 Melatonin 3 Mg Tablet PO 3 mg HS PRN Administration Sleep Metoprolol Tartrate 25 mg 01/11/25 09:00 01/15/25 08:41 Metoprolol Tartrate 25 Mg Tablet PO 25 mg Q12HR MARQUES Administration Miconazole Nitrate 1 applic 01/11/25 09:00 01/14/25 17:30 Miconazole Nitrate 2% Cream 30 Gm Tube TOPICAL Not Given BID MARQUES Mirtazapine 15 mg 01/11/25 09:00 01/15/25 08:40 Mirtazapine 15 Mg Tablet PO 15 mg DAILY MARQUES Administration Ondansetron HCl 4 mg 01/10/25 19:20 Ondansetron Hcl Odt 4 Mg Tablet PO Q6H PRN Nausea And Vomiting Polyethylene Glycol 17 gm 01/10/25 19:20 Polyethylene Glycol 3350 17 Gm Powd.Pack PO DAILY PRN Constipation Pravastatin Sodium 40 mg 01/11/25 09:00 01/14/25 08:39 Pravastatin Sodium 20 Mg Tablet PO 40 mg On Hold: 01/14/25 12:10 DAILY MARQUES Administration Sacubitril/Valsartan 1 tab 01/11/25 09:00 01/15/25 08:41 Sacubitril/Valsartan 24-26 Mg Tablet PO 1 tab Q12HR MARQUES Administration Fluticasone/Salmeterol 2 puff 01/11/25 08:00 01/15/25 07:34 Fluticasone/Salmeterol 45-21 Mcg Inhaler 1 Puff INHALATION Not Given Q12HRT MARQUES Spironolactone 25 mg 01/11/25 09:00 01/15/25 08:41 Spironolactone 25 Mg Tablet PO 25 mg QAM MARQUES Administration Umeclidinium [place] 1 puff 01/10/25 08:00 01/15/25 07:34 Umeclidinium [place] 62.5 Mcg Ellipta INHALATION Not Given DAILYRT MARQUES <Ed Galindo, Student - Last Filed: 01/15/25 13:50> Radiology Results: ITS Impressions Venous Doppler Study 01/10/25 15:43 Impression: Negative for DVT. Ankle X-Ray 01/10/25 17:21 Impression: No acute fracture or malalignment. Tibia/Fibula X-Ray 01/10/25 17:21 Impression: No acute fracture or malalignment. Foot X-Ray 01/10/25 17:22 Impression: Nondisplaced calcaneal fracture. CT recommended Foot CT 01/10/25 18:03 IMPRESSION: No acute fracture <Ed Galindo, Student - Last Filed: 01/15/25 13:50> Labs Labs: Laboratory Results - last 24 hr 01/15/25 06:17 WBC 9.5 RBC 4.31 Hgb 13.0 Hct 40.8 MCV 94.7 MCH 30.2 MCHC 31.9 L RDW 14.3 Plt Count 278 MPV 9.7 ESR 51 H Sodium 137 Potassium 3.8 Chloride 103 Carbon Dioxide 28 Anion Gap 6 BUN 18 H Creatinine 0.92 Estim Creat Clear Calc Not Reportable Estimated GFR 60 Glucose 112 H Calcium 9.3 Magnesium 1.9 Total Bilirubin 0.4 AST 50 H ALT 21 Alkaline Phosphatase 84 Total Creatine Kinase 694 H C-Reactive Protein 7.7 H Total Protein 7.1 Albumin 3.5 <Ed Galindo Student - Last Filed: 01/15/25 13:50> Quality VTE Prophylaxis VTE prophylaxis: pharmacologic ordered <Ed Galindo Student - Last Filed: 01/15/25 13:50> Hospitalist [facility] Advance Care Plan I have confirmed that the patient's Advanced Care Plan is present, code status is documented, or surrogate decision maker is listed in patient medical record.: Yes <Ed Galindo Student - Last Filed: 01/15/25 13:50> Medication Reconciliation I have utilized all available resources to obtain, update and review the patients current medications (includes all prescriptions, OTC, herbals, cannabis, and nutritional supplements).: Yes <Ed Galindo Student - Last Filed: 01/15/25 13:50> The patient is not eligible for med reconciliation; the patient is in a emergent medical situation where delaying treatment would jeopardize the patients health.: No <Chacha Perdue - Last Filed: 01/15/25 13:50> Attestation Supervising Provider Attestation I have personally reviewed and assessed patient agree with the following documentation <Lyndsey Medina APRN - Last Filed: 01/15/25 15:14>
[2025-01-15] MEDS: MELATONIN 3 MG TABLET PO (20:03)
[2025-01-16] VITALS (7 sets, daily range): BP systolic 104–130; BP diastolic 50–57; PULSE 56–72; RESP 14–20; TEMP 36.1–36.7; O2SAT 92–96
[2025-01-16] MEDS: LACTATED RINGERS 1,000 ML 50 ML IV CONT ×2 (03:07→23:11)
[2025-01-16] MEDS: LEVOTHYROXINE SODIUM 75 MCG TABLET PO (05:17)
[2025-01-16] MEDS: HYDROcodone/acetaminophen (*CRX) 5-325 MG TABLET 1 TAB PO (05:56)
[2025-01-16 06:42] LABS: Hematocrit 40.6 % (37.0-47.0); Hemoglobin 12.6 g/dL (12.0-15.0); Mean Corpuscular HGB Conc 31.0 g/dl (32-36); Mean Corpuscular Hemoglobin 30.1 pg (26-34); Mean Corpuscular Volume 96.9 fl (80-100); Platelet Count Result 315 k/mm3 (150-375); Red Blood Count 4.19 M/mm3 (4.2-5.4); White Blood Count 9.1 K/mm3 (4.5-10.0)
[2025-01-16 07:08] LABS: Alanine Aminotransferase 27 U/L (6-35); Albumin Level 3.5 g/dL (3.5-5.1); Alkaline Phosphatase 91 U/L (38-126); Anion Gap 5 mmol/L (4-12); Aspartate Amino Transferase 54 U/L (14-36); Bilirubin,Total 0.5 mg/dL (0.2-1.3); Blood Urea Nitrogen 19 mg/dL (7-17); CRP 4.9 mg/dL (<1.0); Calcium 9.1 mg/dL (8.4-10.2); Carbon Dioxide 29 mmol/L (22-30); Chloride 103 mmol/L (98-107); Creatine Kinase 458 U/L (30-135); Estimated Glomerular Filt Rate 57; Glucose 124 mg/dL (65-110); Magnesium 2.0 mg/dL (1.6-2.3); Potassium 4.3 mmol/L (3.4-5.0); Sodium 137 mmol/L (137-145); Total Protein 7.1 g/dL (6.3-8.2)
[2025-01-16] MEDS: METOPROLOL TARTRATE 25 MG TABLET PO ×2 (09:43→21:47)
[2025-01-16] MEDS: MIRTAZAPINE 15 MG TABLET PO (09:43)
[2025-01-16] MEDS: AMIODARONE HCL 200 MG TABLET PO ×2 (09:44→16:55)
[2025-01-16] MEDS: APIXABAN 5 MG TABLET PO ×2 (09:45→16:55)
[2025-01-16] MEDS: DULoxetine HCL 60 MG CAPSULE.DR PO (09:45)
[2025-01-16] MEDS: ASPIRIN 81 MG ENTERIC TABLET PO (09:45)
--- NOTE | 2025-01-16 13:11 | P.PNIM_ITS ---
Progress Note: A&P Assessment and Plan (1) Cellulitis: Code(s): L03.90 - Cellulitis, unspecified Status: Acute Assessment and Plan: Patient initially thought to have acute fracture of the right lower ankle fol low-up imaging shows no fracture ortho was consulted for further evaluation removal of cast. Negative for DVT * cast removed by ortho * IV clindamycin discontinued * IV ceftriaxone therapy completed * Transitioned to PO Augmentin * Pain management with norco * Elevate extremity * Decreased erythema and edema * Offloading boots * Pressure reduction bandage for bony prominences (2) Systolic heart failure: Code(s): I50.20 - Unspecified systolic (congestive) heart failure Status: Chronic Assessment and Plan: no signs of acute exacerbation * continue furosemide, spironolactone, metoprolol and Entresto (3) Hyperlipidemia: Code(s): E78.5 - Hyperlipidemia, unspecified Status: Chronic Assessment and Plan: * continue pravastatin (4) Hypothyroidism: Code(s): E03.9 - Hypothyroidism, unspecified Status: Chronic Assessment and Plan: * continue levothyroxine (5) Rhabdomyolysis: Code(s): M62.82 - Rhabdomyolysis Status: Acute Assessment and Plan: CK 1294 on admission * CK trending down * Continue IV fluids for gentle hydration in the setting of HFrEF * I&O's per unit policy * repeat CK level in AM Plan Code status: Full code per patient DVT prophylaxis: Eliquis Stress ulcer prophylaxis: NA PT/OT notes: Patient wish rebound Disposition: Patient continues admission for treatment of cellulitis to right lower extremity. Completed IV ceftriaxone therapy. Continue gentle hydration for rhabdomyolysis. Plan to discharge back to intermediate facility when medically stable hopefully tomorrow. Time Spent With Patient Time with patient: 15 - 25 minutes Subjective Date/time seen: 01/16/25 13:11 Interval history: Patient is a 74 years old female with history PMH of HLD, chronic systolic heart failure, hypothyroidism and COPD. Patient admitted with complaint of having right heel pain going on for the last few days. Patient denies any injuries. Patient denies any falls. No shortness of breath or chest pain. No Abdominal pain, no nausea or vomiting. No fever or chills. ER evaluation showed possible rhabdomyolysis, possible cellulitis versus heel infection. Patient was started on medication transferred to floor for further evaluation treatment 01/16/2025 Patient feeling better today and reports improvement to pain to the lower extremity. no other complaints. Review of Systems Review of Systems: All systems reviewed & are unremarkable except as noted in HPI and below Exam Narrative: APPEARANCE: NAD NECK: Supple. RESPIRATORY: . Clear to auscultation bilaterally CARDIOVASCULAR: RRR ABDOMINAL: Soft, nontender, nondistended, normal bowel sounds MUSCULOSKELETAL: Right calf for ankle and right foot tenderness to palpation, neurovascularly intact, erythema to RLE NEURO: Alert. Cranial nerves II through XII intact. Grossly intact SKIN: Warm, dry. Normal Color Objective Data Vital Signs Vital Signs: Vital Signs - 24 hr 01/15/25 14:00 01/15/25 18:26 01/15/25 20:03 Temperature 98.1 F Pulse Rate 59 L 59 L 64 Respiratory Rate 16 Blood Pressure 117/62 Pulse Oximetry 93 01/15/25 21:32 01/16/25 06:00 01/16/25 09:43 Temperature 97.7 F 97.7 F Pulse Rate 64 61 61 Respiratory Rate 20 20 Blood Pressure 115/74 104/50 L Pulse Oximetry 94 94 01/16/25 09:44 Temperature Pulse Rate 61 Respiratory Rate Blood Pressure Pulse Oximetry Intake/Output Intake/Output: Intake & Output 01/13/25 01/14/25 01/15/25 01/16/25 23:59 23:59 23:59 23:59 Intake Total 1730 1620 2238.3 1286.7 Output Total 1100 1850 1900 800 Balance 630 -230 338.3 486.7 Meds/Results Medications: Active Medications Generic Name Dose Route Start Last Admin Trade Name Freq PRN Reason Stop Dose Admin Acetaminophen 325 mg 01/10/25 19:20 Acetaminophen 325 Mg Tablet PO Q4H PRN fever or pain 1-3 Hydrocodone Bitart/Acetaminophen 1 tab 01/10/25 17:49 01/16/25 05:56 Hydrocodone/Acetaminophen (*Crx) 5-325 Mg Tablet PO 1 tab Q4H PRN Administration Pain Rated 4-6 Amiodarone HCl 200 mg 01/11/25 09:00 01/16/25 09:44 Amiodarone Hcl 200 Mg Tablet PO 200 mg BID MARQUES Administration Amoxicillin/Clavulanate Potassium 1 tablet 01/14/25 12:00 01/16/25 09:45 Amoxicillin/Clavulanate K 875-125 Mg Tab PO 01/18/25 21:01 1 tablet Q12HR MARQUES Administration Apixaban 5 mg 01/11/25 09:00 01/16/25 09:45 Apixaban 5 Mg Tablet PO 5 mg BID MARQUES Administration Aspirin 81 mg 01/11/25 09:00 01/16/25 09:45 Aspirin 81 Mg Enteric Tablet PO 81 mg DAILY MARQUES Administration Benzonatate 100 mg 01/10/25 19:20 Benzonatate 100 Mg Capsule PO DAILY PRN Cough Duloxetine HCl 30 mg 01/11/25 09:00 01/16/25 09:45 Duloxetine Hcl 30 Mg Capsule. PO 30 mg DAILY MARQUES Administration Duloxetine HCl 60 mg 01/11/25 09:00 01/16/25 09:45 Duloxetine Hcl 60 Mg Capsule. PO 60 mg DAILY MARQUES Administration Ergocalciferol 1,250 mcg 01/11/25 09:00 01/11/25 09:02 Ergocalciferol (Vitamin D2) 1,250 Mcg (50,000 Units) Capsule PO 1,250 mcg WEEKLY MARQUES Administration Furosemide 20 mg 01/14/25 09:00 01/14/25 08:41 Furosemide 20 Mg Tablet PO 20 mg On Hold: 01/14/25 12:13 DAILY MARQUES Administration Hydromorphone HCl 0.5 mg 01/14/25 15:32 Hydromorphone Hcl Inj (*Crx) 1 Mg/Ml Syr IV PUSH Q3H PRN Pain Rated 7-10 Lactated Ringer's 1,000 mls @ 50 mls/hr 01/14/25 12:20 01/16/25 03:07 Lr - Lactated Ringers Iv IV CONT 50 mls/hr .Q20H MARQUES Administration Levothyroxine Sodium 75 mcg 01/11/25 06:30 01/16/25 05:17 Levothyroxine Sodium 75 Mcg Tablet PO 75 mcg DAILY@0630 MARQUES Administration Melatonin 3 mg 01/10/25 19:20 01/15/25 20:03 Melatonin 3 Mg Tablet PO 3 mg HS PRN Administration Sleep Metoprolol Tartrate 25 mg 01/11/25 09:00 01/16/25 09:43 Metoprolol Tartrate 25 Mg Tablet PO 25 mg Q12HR MARQUES Administration Miconazole Nitrate 1 applic 01/11/25 09:00 01/16/25 09:38 Miconazole Nitrate 2% Cream 30 Gm Tube TOPICAL Not Given BID MARQUES Mirtazapine 15 mg 01/11/25 09:00 01/16/25 09:43 Mirtazapine 15 Mg Tablet PO 15 mg DAILY MARQUES Administration Ondansetron HCl 4 mg 01/10/25 19:20 Ondansetron Hcl Odt 4 Mg Tablet PO Q6H PRN Nausea And Vomiting Polyethylene Glycol 17 gm 01/10/25 19:20 Polyethylene Glycol 3350 17 Gm Powd.Pack PO DAILY PRN Constipation Pravastatin Sodium 40 mg 01/11/25 09:00 01/14/25 08:39 Pravastatin Sodium 20 Mg Tablet PO 40 mg On Hold: 01/14/25 12:10 DAILY MARQUES Administration Sacubitril/Valsartan 1 tab 01/11/25 09:00 01/16/25 09:44 Sacubitril/Valsartan 24-26 Mg Tablet PO Not Given Q12HR MARQUES Fluticasone/Salmeterol 2 puff 01/11/25 08:00 01/16/25 12:06 Fluticasone/Salmeterol 45-21 Mcg Inhaler 1 Puff INHALATION Not Given Q12HRT MARQUES Spironolactone 25 mg 01/11/25 09:00 01/16/25 09:44 Spironolactone 25 Mg Tablet PO Not Given QAM MARQUES Umeclidinium [place] 1 puff 01/10/25 08:00 01/16/25 12:07 Umeclidinium [place] 62.5 Mcg Ellipta INHALATION Not Given DAILYRT [facility] Radiology Results: ITS Impressions Venous Doppler Study 01/10/25 15:43 Impression: Negative for DVT. Ankle X-Ray 01/10/25 17:21 Impression: No acute fracture or malalignment. Tibia/Fibula X-Ray 01/10/25 17:21 Impression: No acute fracture or malalignment. Foot X-Ray 01/10/25 17:22 Impression: Nondisplaced calcaneal fracture. CT recommended Foot CT 01/10/25 18:03 IMPRESSION: No acute fracture Labs Labs: Laboratory Results - last 24 hr 01/16/25 06:05 WBC 9.1 RBC 4.19 L Hgb 12.6 Hct 40.6 MCV 96.9 MCH 30.1 MCHC 31.0 L RDW 14.3 Plt Count 315 MPV 9.9 ESR 23 H Sodium 137 Potassium 4.3 Chloride 103 Carbon Dioxide 29 Anion Gap 5 BUN 19 H Creatinine 0.95 Estim Creat Clear Calc Not Reportable Estimated GFR 57 L Glucose 124 H Calcium 9.1 Magnesium 2.0 Total Bilirubin 0.5 AST 54 H ALT 27 Alkaline Phosphatase 91 Total Creatine Kinase 458 H C-Reactive Protein 4.9 H Total Protein 7.1 Albumin 3.5 Quality VTE Prophylaxis VTE prophylaxis: pharmacologic ordered -Patient's previous records reviewed on admission -ER notes reviewed in detail on admission -discussed all findings and current treatment plan with patient/Family/POA -Consultations reviewed for recommendations -Patient's disposition for safe discharge discussed with case assistant Dictation performed by [employer] direct speech recognition software, therefore 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 Hospitalist [facility] Advance Care Plan I have confirmed that the patient's Advanced Care Plan is present, code status is documented, or surrogate decision maker is listed in patient medical record.: Yes Medication Reconciliation I have utilized all available resources to obtain, update and review the patients current medications (includes all prescriptions, OTC, herbals, cannabis, and nutritional supplements).: Yes The patient is not eligible for med reconciliation; the patient is in a emergent medical situation where delaying treatment would jeopardize the patients health.: No
[2025-01-16] MEDS: FLUTICASONE/SALMETEROL 45-21 MCG INHALER 1 PUFF 2 PUFF INHALATION (21:15)
--- NOTE | 2025-01-16 21:16 | PCRCNOTE ---
Patient states she doess not do that, refused treatment.
[2025-01-16] MEDS: SACUBITRIL/VALSARTAN 24-26 MG TABLET 1 TAB PO (21:46)
[2025-01-17] MEDS: LEVOTHYROXINE SODIUM 75 MCG TABLET PO (05:48)
[2025-01-17 06:06] LABS: Hematocrit 39.4 % (37.0-47.0); Hemoglobin 12.3 g/dL (12.0-15.0); Mean Corpuscular HGB Conc 31.2 g/dl (32-36); Mean Corpuscular Hemoglobin 29.9 pg (26-34); Mean Corpuscular Volume 95.9 fl (80-100); Platelet Count Result 309 k/mm3 (150-375); Red Blood Count 4.11 M/mm3 (4.2-5.4); White Blood Count 10.9 K/mm3 (4.5-10.0)
[2025-01-17 06:20] VITALS: BP 133/62; PULSE 61; RESP 20; TEMP 36.3; O2SAT 96
[2025-01-17 06:26] LABS: Alanine Aminotransferase 33 U/L (6-35); Albumin Level 3.6 g/dL (3.5-5.1); Alkaline Phosphatase 114 U/L (38-126); Anion Gap 5 mmol/L (4-12); Aspartate Amino Transferase 56 U/L (14-36); Bilirubin,Total 0.4 mg/dL (0.2-1.3); Blood Urea Nitrogen 17 mg/dL (7-17); CRP 3.7 mg/dL (<1.0); Calcium 9.3 mg/dL (8.4-10.2); Carbon Dioxide 29 mmol/L (22-30); Chloride 103 mmol/L (98-107); Creatine Kinase 354 U/L (30-135); Estimated Glomerular Filt Rate 55; Glucose 110 mg/dL (65-110); Magnesium 2.0 mg/dL (1.6-2.3); Potassium 4.9 mmol/L (3.4-5.0); Sodium 137 mmol/L (137-145); Total Protein 7.3 g/dL (6.3-8.2)
[2025-01-17] MEDS: UMECLIDINIUM BROMIDE 62.5 MCG ELLIPTA 1 PUFF INHALATION (08:37)
[2025-01-17] MEDS: FLUTICASONE/SALMETEROL 45-21 MCG INHALER 1 PUFF 2 PUFF INHALATION ×2 (08:37→08:38)
[2025-01-17] MEDS: SPIRONOLACTONE 25 MG TABLET PO (08:49)
[2025-01-17] MEDS: APIXABAN 5 MG TABLET PO (08:49)
[2025-01-17] MEDS: SACUBITRIL/VALSARTAN 24-26 MG TABLET 1 TAB PO (08:50)
[2025-01-17] MEDS: DULoxetine HCL 60 MG CAPSULE.DR PO (08:50)
[2025-01-17] MEDS: MIRTAZAPINE 15 MG TABLET PO (08:50)
[2025-01-17] MEDS: ASPIRIN 81 MG ENTERIC TABLET PO (08:50)
[2025-01-17 08:51] VITALS: PULSE 64
[2025-01-17] MEDS: AMIODARONE HCL 200 MG TABLET PO (08:51)
[2025-01-17 08:54] VITALS: PULSE 64
[2025-01-17] MEDS: METOPROLOL TARTRATE 25 MG TABLET PO (08:54)
[2025-01-17 14:00] VITALS: PULSE 64; RESP 14; TEMP 37.1; O2SAT 97
--- NOTE | 2025-01-17 14:21 | P.DS_ITS ---
DS: Admitting Diagnosis Discharge Date 01/17/2025 Admitting Diagnosis Right LLE cellulitis/rhabdomyolysis DS: Discharge Diagnosis Discharge Diagnosis (1) Cellulitis: Code(s): L03.90 - Cellulitis, unspecified Status: Acute (2) Systolic heart failure: Code(s): I50.20 - Unspecified systolic (congestive) heart failure Status: Chronic (3) Hyperlipidemia: Code(s): E78.5 - Hyperlipidemia, unspecified Status: Chronic (4) Hypothyroidism: Code(s): E03.9 - Hypothyroidism, unspecified Status: Chronic (5) Rhabdomyolysis: Code(s): M62.82 - Rhabdomyolysis Status: Acute DS: Summary Hospital Course Reason for hospitalization: Right LLE cellulitis/rhabdomyolysis Hospital Course: Patient was a 74-year-old female who presented to the emergency department with initial complaints of right lower extremity redness with pain. In the emergency department patient denied any trauma denied any falls had no fever chills after further evaluation in the emergency department patient appear to have rhabdomyolysis with an elevated CPK and concern for cellulitis of the right lowe r extremity versus nondisplaced calcaneall fracture per x-ray of foot however follow-up CT did not demonstrate. Patient was started on IV Rocephin and had a cast placed to lower extremity with consult to Orthopedics. After evaluation by Orthopedics in review of imaging patient did not have an acute fracture and cast was removed continue with IV antibiotic therapy for cellulitis of right lower ex tremity patient continued to improve redness and swelling and minimal pain to lower extremity she was then transition to oral Augmentin. Patient was also continued on slow IV hydration for her elevated CPK with overall improvement in numbers continue to trend down at time of discharge patient was tolerating oral intake encouraged oral hydration. Patient was then discharged back to her skilled facility at [facility] [place] Status at Discharge Functional status at discharge: wheelchair bound Overall status at discharge: patient is back to baseline Time Spent with Patient Time attestation: Total time spent providing and/or coordinating discharge services: Time spent: Greater than 30 minutes Exam Narrative: APPEARANCE: NAD NECK: Supple. RESPIRATORY: . Clear to auscultation bilaterally CARDIOVASCULAR: RRR ABDOMINAL: Soft, nontender, nondistended, normal bowel sounds MUSCULOSKELETAL: Right calf for ankle and right foot tenderness to palpation, neurovascularly intact, erythema to RLE NEURO: Alert. Cranial nerves II through XII intact. Grossly intact SKIN: Warm, dry. Normal Color DS: Data Data Completed and Pending Labs on day of discharge: Labs from last 24 hours 01/17/25 05:49 WBC 10.9 H RBC 4.11 L Hgb 12.3 Hct 39.4 MCV 95.9 MCH 29.9 MCHC 31.2 L RDW 14.2 Plt Count 309 MPV 9.8 ESR 70 H Sodium 137 Potassium 4.9 Chloride 103 Carbon Dioxide 29 Anion Gap 5 BUN 17 Creatinine 0.98 Estim Creat Clear Calc Not Reportable Estimated GFR 55 L Glucose 110 Calcium 9.3 Magnesium 2.0 Total Bilirubin 0.4 AST 56 H ALT 33 Alkaline Phosphatase 114 Total Creatine Kinase 354 H C-Reactive Protein 3.7 H Total Protein 7.3 Albumin 3.6 Imaging Radiologist's impression: Radiology Results: ITS Impressions Venous Doppler Study 01/10/25 15:43 Impression: Negative for DVT. Ankle X-Ray 01/10/25 17:21 Impression: No acute fracture or malalignment. Tibia/Fibula X-Ray 01/10/25 17:21 Impression: No acute fracture or malalignment. Foot X-Ray 01/10/25 17:22 Impression: Nondisplaced calcaneal fracture. CT recommended Foot CT 01/10/25 18:03 IMPRESSION: No acute fracture Discharge Plan Discharge Attending physician on discharge: Rene Bar Consulting providers: Jet Segura; Fred Lacey; Lyndsey Medina; Ed Galindo Discharging Clinician: Lyndsey Medina Anticipated Discharge Date/Time: 01/17/25 14:29 Patient Disposition: SNF Activity: as tolerated Diet: regular Discharge Instructions: 1) Cellulitis right lower extremity * I have prescribed oral antibiotic therapy please complete as indicated * Continue with lower extremity aldana boots to relieve pressure points 2). Rhabdomyolysis * Encourage oral hydration How can you care for yourself at home? ? Keep track of any new symptoms or changes in your symptoms. ? Rest until you feel better. ? Be safe with medicines. Take your medicines exactly as prescribed. Call your doctor if you think you are having a problem with your medicine. ? Do not drive after taking a prescription pain medicine. ? Ensure to follow-up with primary care physician as indicated and provide upda justen medication list provided to you at discharge. When should you call for help? Call 911 anytime you think you may need emergency care. For example, call if: ? You passed out (lost consciousness). Call your doctor now or seek immediate medical care if: ? You have new symptoms like fever, difficulty breathing, Chest pain, vomiting, or rash. ? You have new or different pain. ? You are confused and are having trouble thinking clearly. ? Your symptoms are getting worse. Watch closely for changes in your health, and be sure to contact your doctor if: ? You do not get better as expected. Patient Instructions: Cellulitis (GEN), Rhabdomyolysis (DC) Patient Language: Beninese Stand Alone Forms: General Discharge Information Follow-up/Referrals: UNKNOWN,DOCTOR [Primary Care Provider] - 2 Weeks Discharge Medications: New amoxicillin-pot clavulanate 875-125 mg tablet 1 tablet PO Q12H Qty: 3 0RF Continued levothyroxine [Synthroid] 75 mcg tablet 75 mcg PO DAILY Eliquis 5 mg tablet 5 mg PO BID budesonide-formoterol 80-4.5 mcg/actuation HFA aerosol inhaler 1 puff INHALATION BID duloxetine 30 mg capsule,delayed release(DR/EC) 30 mg PO DAILY duloxetine 60 mg capsule,delayed release(DR/EC) 60 mg PO DAILY mirtazapine 15 mg tablet 15 mg PO DAILY sacubitril-valsartan 24-26 mg tablet 1 tablet PO BID Incruse Ellipta 62.5 mcg/actuation blister with device 1 inh INHALATION Q24H aspirin [Adult Aspirin Regimen] 81 mg tablet,delayed release (DR/EC) 81 mg PO DAILY ergocalciferol (vitamin D2) 1,250 mcg (50,000 unit) capsule 50,000 unit PO WEEKLY Patient Comments: every Saturday Alevazol 1 % ointment 1 applic topical BID Rx Instructions: apply to affected areas topically 2 times a day for rash bisacodyl 10 mg suppository 10 mg RECTAL DAILY PRN (Reason: constipation) ondansetron 4 mg tablet,disintegrating 4 mg PO Q6H PRN (Reason: nausea and vomiting) bisacodyl 5 mg tablet,delayed release (DR/EC) 5 mg PO DAILY PRN (Reason: constipation) benzonatate 100 mg capsule 100 mg PO DAILY PRN (Reason: cough) acetaminophen 325 mg capsule 325 mg PO Q4H PRN (Reason: fever or pain) ibuprofen 200 mg tablet 400 mg PO Q8H PRN (Reason: fever or pain) acetaminophen [Tylenol] 325 mg tablet 650 mg PO Q6H PRN (Reason: pain) naloxone [Narcan] 4 mg/actuation spray,non-aerosol 4 mg intranasal Q2M PRN (Reason: opioid overdose) Rx Instructions: spray 1 dose into ONE nostril; alternate nostrils w each dose until help arrives polyethylene glycol 3350 [Miralax] 17 gram Powder In Packet 17 g PO DAILY PRN (Reason: Constipation) furosemide 20 mg Tablet 20 mg PO DAILY melatonin 5 mg Tablet 3 mg PO HS PRN (Reason: sleep) pravastatin 40 mg tablet 40 mg PO DAILY amiodarone 200 mg tablet 200 mg PO BID clopidogrel 75 mg tablet 75 mg PO DAILY levothyroxine 50 mcg tablet 50 mcg PO DAILY pantoprazole 40 mg tablet,delayed release (DR/EC) 40 mg PO DAILY losartan 25 mg tablet 25 mg PO DAILY albuterol sulfate 90 mcg/actuation HFA aerosol inhaler 90 mcg INHALATION DIRECTED escitalopram oxalate 20 mg tablet 20 mg PO DAILY metoprolol tartrate 25 mg tablet 25 mg PO BID dapagliflozin propanediol [Farxiga] 10 mg tablet 5 mg PO DAILY nystatin 100,000 unit/mL Suspension 5 ml PO QID Qty: 100 0RF spironolactone 25 mg Tablet 25 mg PO QAM Qty: 30 0RF doxepin 25 mg Capsule 25 mg PO HS Qty: 5 0RF Date of admission: 01/11/25 10:00 Primary Care Provider: UNKNOWN,DOCTOR Admitting Provider: Jarvis Salvador Attending physician on admission: Jarvis Salvador Condition: Stable Quality VTE Prophylaxis VTE prophylaxis: pharmacologic ordered -Patient's previous records reviewed on admission -ER notes reviewed in detail on admission -discussed all findings and current treatment plan with patient/Family/POA -Consultations reviewed for recommendations -Patient's disposition for safe discharge discussed with case assistant Dictation performed by [employer] direct speech recognition software, therefore mitten sewer variants and typographical errors may occur. Hospitalist MIPS Heart Failure (Exclusion) Patient has history of Heart Transplant or Left Ventricular Assistive Device?: No IF YES, STOP HERE Heart Failure (Qualifier) Patient has current or prior documentation of LVEF less than or equal to 40%, or mod/servere depressed LVSF?: No IF NO, STOP HERE
== END 2025-01-17 18:10 | DRG 603 ==
LOC: ANHED 15:40 → ANH3MEDSUR 18:10
PROVIDERS: Nurse Practitioner Adult Health; Orthopaedic Surgery; Admitting Provider Internal Medicine; Emergency Provider Emergency Medicine; Visit Provider Nurse Practitioner Family
DX: L03.115 Cellulitis of right lower limb (principal); M62.82 Rhabdomyolysis; N39.0 Urinary tract infection, site not specified; I50.22 Chronic systolic (congestive) heart failure; I42.9 Cardiomyopathy, unspecified; N17.9 Acute kidney failure, unspecified; J44.9 Chronic obstructive pulmonary disease, unspecified; E78.5 Hyperlipidemia, unspecified; E03.9 Hypothyroidism, unspecified; Z95.810 Presence of automatic (implantable) cardiac defibrillator; I69.321 Dysphasia following cerebral infarction; Z79.02 Long term (current) use of antithrombotics/antiplatelets; Z87.891 Personal history of nicotine dependence
CPT/HCPCS: 36415; 73590; 73610; 73630; 73700; 80053; 82550; 83735; 85025; 85027; 85610; 85652; 85730; 86140; 87040; 87086; 87186; 93971; 94640; 96361; 99285; A9270; G0378; J0696; J7120